=== PATIENT | female | born 1975 | race African-American/Black ===

== ENCOUNTER 2025-01-10 | Inpatient (IN) | payer OTHER, SELFPAY ==
--- OUTSIDE RECORDS SUMMARY | 2025-01-10 00:06 | XMS_ITS | Clinical Summary ---
Author Organization [facility] Address [address] [place] [address] Care Team Providers Care Assistant Pressman Name Role Phone Moises Ramires APRN Primary Care Provider Allergies No known active allergies Medications Medication Sig Dispensed Refills Start Date End Date Status atorvastatin (LIPITOR) tablet 10 mg Take 1 tablet (10 mg total) by mouth daily. 0 04/11/2022 Active glipiZIDE (GLUCOTROL) tablet 10 mg Take 1 tablet (10 mg total) by mouth. 0 Active Insulin Lispro, 1 Unit Dial, (HumaLOG KWIKPEN) 100 UNIT/ML SOPN Inject under the skin. 0 06/05/2021 Active Insulin Lispro-aabc 100 UNIT/ML SOLN Inject as directed. 0 Active mirtazapine (REMERON) 15 MG tablet Take 1 tablet (15 mg total) by mouth. 0 04/18/2022 Active oxyCODONE-acetaminophe n (PERCOCET) 5-325 MG per tablet Every 6-8 Hours as needed for Severe Pain Scale 7-10 0 08/02/2020 Active sulfamethoxazole-trime thoprim (BACTRIM DS) 800-160 MG per tablet Twice A Day 0 05/07/2020 Ac tive Active Problems No known active problems Social History Tobacco Use Types Packs/Day Years Used Date Smoking Tobacco: Former Cigarettes Smokeless Tobacco: Never Tobacco Cessation:Counseling Given: Not Answered Comments:Quit smoking 22 years ago Alcohol Use Standard Drinks/Week Comments Not Currently 0 (1 standard drink = 0.6 oz pur e alcohol) Sex and Gender Information Value Date Recorded Sex Assigned at Not on file Gender Identity Not on file Sexual Orientation Not on file Job Start Date Occupation Industry Not on file Not on file Not on file Last Filed Vital Signs Vital Sign Reading Time Taken Comments Blood Pressure 105/76 07/23/2022 11:40 AM EST Pulse 119 07/23/2022 11:40 AM EST Temperature 37.2 ??C (99 ??F) 07/23/2022 11: 40 AM EST Respiratory Rate - - Oxygen Saturation 100% 07/23/2022 11: 40 AM EST Inhaled Oxygen Concentration - - Weight 43.6 kg (96 lb 3.2 oz) 07/23/2022 11:40 AM EST Height 157.5 cm (5' 2 ) 07/23/2022 11:4 0 AM EST stated- unable to do weight due to weakness Body Mass Index 17.6 07/23/2022 11:40 AM EST Plan of Treatment Health Maintenance Due Date Last Done Comments Hepatitis B Vaccines (1 of 3 - 3-dose series) 1976 Hepatitis C Screening 1976 Depression Screening 1988 Preventative Health Evaluation 1994 Cervical Cancer Screening (Pap Smear) 1997 Colon Cancer Screening (Colonoscopy) 2021 COVID-19 Vaccine ( season) 2024 04/18/2022, 10/15/2021, 03/20/2021, Additional history exists Influenza Vaccine (Season Ended) 2025 06/22/2022 DTap / Tdap / Td (2 - Td or Tdap) 12/13/2030 12/13/2020 Pneumococcal Vaccine Aged Out No long er eligible based on patient's age to complete this topic RSV Ped < 20 months Aged Out No longe r eligible based on patient's age to complete this topic Care Teams Assistant Pressman Relationship Specialty Start Date End Date Moises Ramires APRN [address] [place] [address] PCP - General Family Medicine 07/23/22
[2025-01-10 00:47] VITALS: BMI 19.3
[2025-01-10 01:42] VITALS: BP 99/61; PULSE 84; RESP 18; TEMP 36.9; O2SAT 99
[2025-01-10] MEDS: methADONE HCl 10 MG TABLET 20 MG PO (02:01)
[2025-01-10 02:12] LABS: Glucose, Whole Blood 599 mg/dL (60-115)
[2025-01-10 03:12] LABS: MANUAL DIFF FLAG NO
[2025-01-10 03:14] LABS: Venous Blood Gas Refer to POC result
[2025-01-10 03:16] LABS: VBG Base Excess -1.5 mmol/L; VBG HCO3 23 mmol/L (22-26); VBG pCO2 37 mmHg; VBG pH 7.39 (7.32-7.43); VBG pO2 81 mmHg
[2025-01-10 03:18] LABS: Basophils Percent Auto 0.3 % (0-2); Eosinophils Absolute Auto 0.1 X10*3/uL (0.0-0.4); Eosinophils Percent Auto 1.6 % (0-4); Hematocrit 25.8 % (37.0-47.0); Hemoglobin 8.7 g/dl (12.0-16.0); Imm Gran Abs Auto 0.01 X10*3/uL (0.00-0.03); Imm Gran Pct Auto 0.3 % (0.0-0.4); Lymphocytes Absolute Auto 0.8 X10*3/uL (1.2-4.9); Lymphocytes Percent Auto 22.5 % (20-40); Mean Corpuscular HGB Conc 33.7 g/dl (31.0-35.0); Mean Corpuscular Hemoglobin 29.2 pg (27.0-33.0); Mean Corpuscular Volume 86.6 fL (80.0-98.0); Mean Platelet Volume 10.1 fL (9.4-12.3); Monocytes Absolute Auto 0.1 X10*3/uL (0.1-1.2); Neutrophils Absolute Auto 2.7 x10*3/uL (2.0-8.3); Neutrophils Percent Auto 72.3 % (45-73); Platelet Count 111 X10*3/uL (160-400); Red Blood Count 2.98 X10*6/uL (4.20-5.50); Red Cell Distribution Width 15.2 % (11.0-16.0); White Blood Count 3.7 X10*3/uL (4.8-10.8)
[2025-01-10] MEDS: Insulin Glargine,Hum.rec.anlog 100 UNIT/ML 10 ML VIAL 10 UNIT SUBCUT (03:22)
[2025-01-10 03:32] LABS: Beta-Hydroxybutyrate 0.34 mmol/L (0.02-0.27)
[2025-01-10 03:40] LABS: Anion Gap 13 (12-20); Blood Urea Nitrogen 15 mg/dL (9-16); Calcium 8.4 mg/dL (8.4-10.2); Carbon Dioxide 21 mmol/L (22-29); Chloride 105 mmol/L (96-108); Creatinine Clr Calc Pharmacy 43.7; Estimated Glomerular Filt Rate 48; Glucose Random 676 mg/dL (60-115); Potassium 3.5 mmol/L (3.3-5.1); Sodium 135 mmol/L (135-145)
[2025-01-10] MEDS: Lactated Ringers 1,000 ML 125 ML IVCONT (04:00)
--- NOTE | 2025-01-10 04:08 | PC.ADMIT ---
Patient was an admission from [facility]. arrived at 0010 via ambulance and had to be placed into bed due to generalized weakness. 12B. on arrival patient reported ''they lied to me at [facility], I thought I was being medically admitted'' soon after arrival patient's called and asking why patient had been placed on a behavioral health unit as he had been informed that she was being medically admitted. patient identified grief as she had just lost her brother but denied SI. Skin assessment reveals extensive and deep decubitus ulcer with HX of chronic osteomyelitis. wound with some drainage, foul smelling and reports of pain 10/10. patient with medical HX of generalized anxiety, systemic lupus erythematosus, type B autoimmune insulin resistance, myelofibrosis with associated pancytopenia, diabetic gastroparesis, multilple recurrent C. difficile infections, cachexia and chronic pain syndrome. since arrival focus has been on patient's medical needs about pain management and glucose control. due to physical status patient will be discharged from behavioral health services and will be admitted medically.
--- NOTE | 2025-01-10 04:34 | PC.NURSE ---
POC 599 at 0207. Hospitalist, Dr. Moy notified. Lispro 15 units x1 ordered, along with lantus 10 units. Labs ordered. Pt refused lispro, stating her blood sugar drops to the 30s when she takes insulin during the night, but she accepted the lantus. POC by lab draw 676 at 0308. Lactated Ringers ordered. RN animal cruelty investigation supervisor contacted and came to unit to start IV; 20 g placed in upper left arm. Pt will be moved to med surg due to hyperglycemia and insulin refusal. Kalpana Talamantes NP notified to put in d/c order.
--- NOTE | 2025-01-10 06:10 | PC.NURSE ---
Voicemail left for pt's , Ernesto, notified of transfer to medical floor, rm [id number], per pt's request.
[2025-01-10 08:57] LABS: Glucose, Whole Blood 549 mg/dL (60-115)
== END 2025-01-10 05:56 | disposition short-term general hospital (02) | DRG 880 ==
PROVIDERS: Student in an Organized Health Care Education/Training Program; Admitting Provider Psychiatry & Neurology Psychiatry; PCP Nurse Practitioner; Visit Provider Psychiatry & Neurology Psychiatry
DX: F41.1 Generalized anxiety disorder (principal); M32.9 Systemic lupus erythematosus, unspecified; E11.9 Type 2 diabetes mellitus without complications; Z79.891 Long term (current) use of opiate analgesic; Z79.4 Long term (current) use of insulin; Z79.899 Other long term (current) drug therapy
CPT/HCPCS: 36415; 80048; 82010; 82803; 82947; 85025; J7120

== ENCOUNTER → 2025-01-10 05:36 | Outpatient (BNV) | payer MEDICARE, SELFPAY | PROVIDERS: Admitting Provider Student in an Organized Health Care Education/Training Program; Visit Provider Nurse Practitioner Family | DX: R73.9 Hyperglycemia, unspecified (principal) | CPT/HCPCS: 99223; 99231; 99232; 99499 ==

== ENCOUNTER 2025-01-10 05:45 | Outpatient (BNV) | payer MEDICARE, SELFPAY | END 2025-01-18 18:31 | PROVIDERS: Admitting Provider Student in an Organized Health Care Education/Training Program; PCP Nurse Practitioner Family; Visit Provider Student in an Organized Health Care Education/Training Program | DX: G93.89 Other specified disorders of brain (principal) | CPT/HCPCS: 70450 ==

== ENCOUNTER 2025-01-10 05:45 | Outpatient (BNV) | payer MEDICARE, SELFPAY | END 2025-01-21 13:45 | PROVIDERS: Admitting Provider Student in an Organized Health Care Education/Training Program; PCP Nurse Practitioner Family; Visit Provider Internal Medicine Cardiovascular Disease | DX: R94.31 Abnormal electrocardiogram [ECG] [EKG] (principal); R40.20 Unspecified coma | CPT/HCPCS: 93010 ==

== ENCOUNTER 2025-01-10 05:45 | Outpatient (BNV) | payer MEDICARE, SELFPAY | END 2025-01-10 08:49 | PROVIDERS: Admitting Provider Student in an Organized Health Care Education/Training Program; Visit Provider Internal Medicine Cardiovascular Disease | DX: R94.31 Abnormal electrocardiogram [ECG] [EKG] (principal); Z13.6 Encounter for screening for cardiovascular disorders | CPT/HCPCS: 93010 ==

== ENCOUNTER 2025-01-10 05:45 | Outpatient (BNV) | payer MEDICARE, SELFPAY | END 2025-01-23 10:40 | PROVIDERS: Admitting Provider Student in an Organized Health Care Education/Training Program; PCP Nurse Practitioner Family; Visit Provider Radiology Diagnostic Radiology | DX: D73.89 Other diseases of spleen (principal) | CPT/HCPCS: 74176 ==

== ENCOUNTER 2025-01-10 05:45 | Inpatient (IN) | payer MEDICARE, SELFPAY ==
--- NOTE | 2025-01-10 | ECG_ITS ---
Test Reason : admission Blood Pressure : */* mmHG Vent. Rate : 83 BPM Atrial Rate : 83 BPM P-R Int : 152 ms QRS Dur : 92 ms QT Int : 418 ms P-R-T Axes : 61 41 62 degrees QTcB Int : 491 ms Normal sinus rhythm Prolonged QT Abnormal ECG No previous ECGs available Referred By: Amelia Parker Electronically Signed By: GAYLE GARCIA MD
--- NOTE | ~2025-01-10 | CT_ITS ---
CLINICAL HISTORY: Acute unresponsive episode --- Additional Notes or Special Instructions: Pt refused until she eats lunch - JMR 12:00; Pt still refusing and wants to try after dinner - JMR 16:25 CT head without contrast Comparison: CT/SR - CT HEAD/BRAIN WO IV CON - 01/15/25 14:49 EDT Findings: Redemonstration of central pontine focus of hyperdensity with interval decrease in density. No surrounding vasogenic edema. Small focus of hyperdensity within the left-sided medulla is unchanged. Mild atrophy-like change or white matter disease. The visualized paranasal sinuses and mastoid air cells are normal. The orbits are within normal limits. There is no acute fracture. IMPRESSION: 1. Redemonstration of central pontine focus of hyperdensity with interval decrease in density. No surrounding vasogenic edema. Small focus of hyperdensity within the left-sided medulla is unchanged. Resolving parenchymal hemorrhage can not be excluded. Correlate with older studies is recommended if available, otherwise MRI brain without contrast can be obtained for further evaluation. This document has been electronically signed by: Kurtis Beltre MD on 01/18/2025 20:24:04
--- NOTE | ~2025-01-10 | XR_ITS ---
CLINICAL HISTORY: fall 5 view, pelvis and bilateral hips Comparison: None Findings: No acute fracture or dislocation. No significant arthritic change. The soft tissues are unremarkable. IMPRESSION: No acute findings. This document has been electronically signed by: Jana Chavez MD on 01/15/2025 15:55:01
--- NOTE | ~2025-01-10 | CT_ITS ---
EXAMINATION: CT ABDOMEN PELVIS WITHOUT IV CONTRAST HISTORY: Abdominal pain, n/v COMPARISON: There are no prior studies available for comparison. TECHNIQUE: CT scan of the abdomen and pelvis was performed without contrast using standard departmental protocol. Coronal and sagittal reformatted images were generated and reviewed. Oral contrast material was not administered at the request of the referring physician. This CT exam was performed with one or more of the following dose reduction techniques: automated exposure control, adjustment of the mA and/or kV according to patient size, use of iterative reconstruction technique. DLP: 319 mGy-cm FINDINGS: The examination is severely limited by a paucity of intra-abdominal fat and lack of intravenous and oral contrast material. LOWER CHEST: The visualized lung bases are clear. There is no pleural effusion. CARDIOVASCULATURE: The heart is normal in size. There is no pericardial effusion. LIVER: The liver is normal in size and contour. The liver has an unremarkable unenhanced appearance. GALLBLADDER / BILE DUCTS: The gallbladder is unremarkable. There is no intra or extrahepatic biliary ductal dilatation. SPLEEN: The spleen is normal in size. There is a 3.0 cm hypodense lesion at the upper pole of the spleen which is poorly evaluated on this unenhanced examination. PANCREAS: Evaluation of the pancreas is limited. ADRENAL GLANDS: The adrenals are not well visualized. KIDNEYS/RETROPERITONEUM: There are numerous tiny bilateral renal calculi measuring up to 2-3 mm in size. There is mild prominence of the right renal collecting system. The ureter cannot be followed due to lack of intra-abdominal fat. LYMPH NODES: Evaluation for lymphadenopathy is limited. VASCULATURE: The abdominal aorta is poorly visualized. MESENTERY/PERITONEUM: There is no free intraperitoneal gas. STOMACH: The stomach is distended with fluid. SMALL BOWEL: The small bowel is poorly evaluated due to lack of intravenous and oral contrast and a paucity of abdominal fat. COLON: The colon is also poorly visualized. APPENDIX: The appendix is not seen, however no inflammatory changes are seen adjacent to the cecum. URINARY BLADDER/PELVIC ORGANS: The urinary bladder is collapsed, limiting evaluation. The uterus is not identified. BONES / SOFT TISSUES: The bones are intact. CT/CT abdomen pelvis wo IV con IMPRESSION: 1. Nondiagnostic examination due to a paucity of intra-abdominal fat and lack of intravenous and oral contrast material. If there is clinical concern for pathology in the abdomen and pelvis, a repeat study with intravenous and oral contrast material could be performed. 2. 3.0 cm hypodense lesion in the spleen. 3. Bilateral nephrolithiasis. Mild prominence of the right renal collecting system. Electronically signed by: Marlon Segura MD 01/23/2025 12:24 PM EDT
--- NOTE | ~2025-01-10 | MR_ITS ---
CLINICAL HISTORY: Dizziness,syncope --- Additional Notes or Special Instructions: requested by Chavez MR Angiography head with and without gadolinium Comparison: None provided Findings Widely patent intracranial internal carotid arteries. Vertebrobasilar system intact. Anterior, middle, and posterior cerebral arteries are normal. Visualized cerebellar arteries are patent. IMPRESSION: Normal MRA brain This document has been electronically signed by: Kraig Galvan MD on 01/20/2025 18:59:52
--- NOTE | ~2025-01-10 | CT_ITS ---
CLINICAL HISTORY: fall CT cervical spine without contrast Comparison: None Findings: Normal vertebral body alignment. There are mild degenerative changes. There is no significant central canal narrowing. No acute fractures or dislocations. No acute findings on limited view of the intracranial contents. No cervical fluid collections or masses. Lung apices are clear. IMPRESSION: No acute cervical spine fracture. This document has been electronically signed by: Jana Chavez MD on 01/15/2025 15:55:24
--- NOTE | ~2025-01-10 | MR_ITS ---
CLINICAL HISTORY: dizziness, rule vertibrobasilar MR Angiography neck with and without gadolinium Comparison: None provided Findings: Visualized aortic arch and great vessel takeoffs are normal. Bilateral subclavian, visualized vertebral, and carotid arteries are patent. The right vertebral artery is difficult to fully evaluate given the extent of venous contamination. The visualized segments appear patent. Unremarkable visualized vertebrobasilar arteries. IMPRESSION: Normal MRA neck This document has been electronically signed by: Kraig Galvan MD on 01/20/2025 19:03:00
--- NOTE | ~2025-01-10 | CT_ITS ---
EXAMINATION: CT ABDOMEN PELVIS WITH IV CONTRAST HISTORY: Abdominal pain, N/V, COMPARISON: Comparison is made with the prior unenhanced examination dated 01/23/2025. TECHNIQUE: CT scan of the abdomen and pelvis was performed following administration of 85 mL Omnipaque 350 using standard departmental protocol. Coronal and sagittal reformatted images were generated and reviewed. Oral contrast material was not administered at the request of the referring physician. This CT exam was performed with one or more of the following dose reduction techniques: automated exposure control, adjustment of the mA and/or kV according to patient size, use of iterative reconstruction technique. DLP: 215 mGy-cm FINDINGS: LOWER CHEST: The visualized lung bases are clear. There is no pleural effusion. CARDIOVASCULATURE: The heart is normal in size. There is no pericardial effusion. LIVER: The liver is normal in size and contour. There is a 10 mm hypodensity at the anterior aspect of the dome of the left lobe which could represent a cyst or hemangioma. The hepatic and portal veins are patent. GALLBLADDER / BILE DUCTS: The gallbladder is unremarkable. There is no intra or extrahepatic biliary ductal dilatation. SPLEEN: The spleen is normal in size. There is a lobulated 3.0 cm hypodensity at the upper pole of the spleen. A smaller similar-appearing lesion is also noted at the upper pole. PANCREAS: The pancreas is unremarkable in appearance. ADRENAL GLANDS: Within normal limits. KIDNEYS/RETROPERITONEUM: There are multiple tiny 2-3 mm nonobstructing bilateral renal calculi. There is no hydronephrosis. Tiny subcentimeter hypodensities in the right kidney may represent cysts but are small to accurately characterize. LYMPH NODES: No abdominal or pelvic lymphadenopathy. VASCULATURE: The abdominal aorta is normal in caliber. MESENTERY/PERITONEUM: No free fluid. No masses. There is no free intraperitoneal gas. STOMACH: The stomach is partially collapsed. SMALL BOWEL: The small bowel is normal in caliber. No evidence of bowel obstruction. COLON: There is a moderate amount of stool throughout the colon. APPENDIX: The appendix is not seen. URINARY BLADDER/PELVIC ORGANS: The urinary bladder is unremarkable. The uterus is unremarkable. BONES / SOFT TISSUES: There is a decubitus ulcer overlying the lower sacrum. CT/CT abdomen pelvis w IV con IMPRESSION: 1. Moderate amount of stool throughout the colon. No evidence of bowel obstruction. 2. Decubitus ulcer overlying the sacrum. 3. Bilateral nephrolithiasis as described. No hydronephrosis. 4. Nonspecific hypodensities in the liver and spleen. Electronically signed by: Marlon Segura MD 01/24/2025 10:35 AM EDT
--- NOTE | ~2025-01-10 | CT_ITS ---
CLINICAL HISTORY: fall CT head without contrast Comparison: None Findings: No intra-axial mass, midline shift, hydrocephalus, or acute hemorrhage. Mild peripheral volume loss. No significant white matter disease. There are foci of intraparenchymal calcification within the mikey and medulla. There is no sinus or mastoid fluid. The orbits are within normal limits. There is no acute fracture. IMPRESSION: 1. No acute intracranial findings. This document has been electronically signed by: Jana Chavez MD on 01/15/2025 15:58:42
--- NOTE | 2025-01-10 05:52 | PM.IMHP ---
History of Present Illness Date of Service: 01/10/25 Attending physician on admission: Sanjiv Moy Chief Complaint: Hyperglycemia Patient is a 49-year-old black female with past medical history insulin-dependent diabetes type 2, major depressive disorder, general anxiety disorder, daily marijuana use, currently on methadone for pain control, a current chronic stage 4 sacral wound with history of osteomyelitis, lupus, myelofibrosis with the associated pancytopenia, diabetic gastroparesis, recurrent C diff infections currently asymptomatic, is being seen by the hospitalist for hyperglycemia while an inpatient on M5 for psychiatric care, without evidence of DKA, more likely HHS. Questioning if hyperglcyemia related to chronic sacral wound. Patient is currently on the psychiatric unit after being at [facility] as patient was found unresponsive at home with concerns for DKA. During patient's stay at [facility], patient had been dealing with the passing of her brother most recently and expressed concerns about being able to care for herself due to her level of grief. Emergency psychiatric services were consulted for further evaluation. In addition patient has been noncompliant with her psychiatric medications in the remote past. Upon discharge from [facility], patient was transferred to [facility] Psychiatric unit on a section 12 b for further evaluation. Patient currently denies any suicidal ideation. Patient currently requesting to leave the hospital as soon as possible as her child is graduating from school and she plans to attend her brother's . Nursing notified this customs entry writer that patient is currently on a section 12 b. Noting that patient is being transferred from psychiatric unit to [facility] surgical floor, psychiatry consult will be requested to continue to monitor and follow patient for her current psychiatric needs. Pt will be on a one to one and understands that she cannot leave [facility]. Initially patient refused lispro insulin noting her blood sugar was over 600. Labs were drawn at 03:00 AM and patient noted to have a leukopenia with a evidence of anemia with an H&H of 8.7 and 25.8. Platelets at 111,000 with no evidence of spontaneous bleeding. BMP notes a sodium of 135, potassium 3.5, chloride 105, CO2 21 with an anion gap of 13. Creatinine 1.19 with a creatinine clearance of 43.7 and a GFR of 48. Highest glucose so far 676 mg/dL. Patient does have a chronic sacral wound with previous osteomyelitis. This may be contributing to patient's hyperglycemia. Patient's beta hydroxybutyrate is 0.34. Pt currently in the process of transferring to Medical Surgical floor and will receive Lantus, Lispro as pt is now agreeable. Pt will continue IVF as ordered. Patient expressed concerns regarding hypoglycemia if she receives too much insulin. Plan is to add regular insulin x1 an hour after the lispro. Blood sugar will be checked 1st and if less than 250, nursing instructed to notify hospitalist for further instructions. [facility] does not carry the Humulin R insulin pt uses at home. Pt is not currently on GLP 1 injections. Wound care consultation also being placed for noted chronic, opened sacral wound. Review of Systems Review of Systems: Patient denies any chest pain, shortness of breath at rest or with exertion. Patient denies any headache or visual changes. Patient denies any frequent urination, thirst and reports appetite is healthy. Patient does experience chronic pain related to her sacral decubitus ulcer. Patient has been taking methadone since arrival to [facility] with moderate effect. Yes all other systems are reviewed and are negative [facility] Medical History (Updated 01/10/25 @ 06:02 by LANETTE Johnson) Generalized anxiety disorder Major depressive disorder Sacral decubitus ulcer, stage IV Chronic pain Lupus (systemic lupus erythematosus) Insulin dependent type 2 diabetes mellitus Functional capacity: independent ambulation Patient : No Pertinent family history: Mother age 48 from complications due to diabetes Social History (Updated 01/10/25 @ 06:13 by LANETTE Johnson) Household Members: Spouse Housing: Apartment Do you presently have visiting nurse or other home services: No Patient Tobacco Use Status: Never used Tobacco e-Cigarette/Vaping Use: Never Used Second Hand Smoke Exposure: No Use of substances other than those prescribed or required for medical reasons: Yes Substance Use Type: Marijuana Advance Directives: No Advance Directives Information Provided: No Advance Directives on File: No Patient : No Ebola Risk: Travel/Contact With Anyone From Affected Area/s: No Has Patient Experienced Ebola Symptoms: No Meds Allergies Allergy/AdvReac Type Severity Reaction Status Date / Time acetaminophen Allergy Swelling Verified 01/10/25 00:40 atorvastatin Allergy Unknown Verified 01/10/25 00:40 duloxetine Allergy Unknown Verified 01/10/25 00:40 fish derived [fish] Allergy Swelling Verified 01/10/25 00:40 Active Medications: Current Medications Albuterol/Ipratropium (Albuterol/Iprat 2.5/0.5mg 3 Ml Ampul.Neb) 3 ml INHALE Q4H PRN PRN Reason: Shortness of Breath/Wheezing Calcium Carbonate (Calcium Carbonate 750 Mg Tab.Chew) 750 mg PO Q4H PRN PRN Reason: Heartburn Dextrose (Dextrose 50 % 25 Gm/50 Ml Syringe) 25 gm IVPUSH Q15M PRN; Protocol PRN Reason: per Hypoglycemia Standing Ord. Enoxaparin Sodium (Enoxaparin Sodium 40 Mg/0.4 Ml Syringe) 40 mg SUBCUT Q24H LIU Glucose (Glucose Gel 15 Gm Gel..Gram.) 15 gm PO Q15M PRN; Protocol PRN Reason: per Hypoglycemia Standing Ord. Lactated Ringer's (Lr) 1,000 mls @ 100 mls/hr IVCONT .Q10H [facility] Insulin Glargine (Insulin Glargine,Hum.Rec.Anlog 100 Unit/Ml 10 Ml Vial) 10 unit SUBCUT BEDTIME LIU Insulin Human Lispro (Insulin Lispro 100 Unit/Ml 3 Ml Vial) 0 unit SUBCUT QIDACHS [facility]; Protocol Insulin Human Lispro (Insulin Lispro 100 Unit/Ml 3 Ml Vial) 12 unit SUBCUT ONCE ONE Stop: 01/10/25 05:51 Magnesium Hydroxide (Milk Of Magnesia 30 Ml Oral.Susp) 30 ml PO DAILY PRN PRN Reason: Constipation Melatonin (Melatonin 3 Mg Tablet) 6 mg PO BEDTIME PRN PRN Reason: Insomnia Ondansetron HCl (Ondansetron Hcl 4 Mg/2 Ml Vial) 4 mg IVPUSH Q8H PRN PRN Reason: Nausea and Vomiting Polyethylene Glycol (Polyethylene Glycol 3350 17 Gm Powd.Pack) 17 gm PO DAILY PRN PRN Reason: Constipation Senna (Sennosides 8.6 Mg Tablet) 17.2 mg PO BEDTIME [facility] Sodium Chloride (0.9 % Sodium Chloride Flush 3 Ml Syringe) 3 ml IVFLUSH QSHIFT [facility] Home Medications ?Medication ?Instructions ?Recorded ?Confirmed ?Last Taken ?Type fludrocortisone 0.1 mg tablet 0.1 mg PO DAILY 01/10/25 01/10/25 01/09/25 12:01 History fluoxetine 20 mg capsule 20 mg PO DAILY 01/10/25 01/10/25 01/09/25 12:01 History hydroxychloroquine 200 mg tablet 200 mg PO QAM 01/10/25 01/10/25 01/09/25 12:13 History hydroxyzine pamoate 25 mg capsule 25 mg PO QID PRN anxiety 01/10/25 01/10/25 Unknown History insulin regular hum U-500 conc 500 700 unit subcut TIDAC 01/10/25 01/10/25 01/09/25 14:32 History unit/mL(3 mL) subcut pen (Humulin R U-500 (Conc) Insulin Kwikpen) methadone 10 mg tablet 20 mg PO TID PRN Pain (Scale Score 01/10/25 01/10/25 Unknown History 7-10) midodrine 10 mg tablet 10 mg PO TID 01/10/25 01/10/25 01/09/25 18:52 History mirtazapine 7.5 mg tablet 22.5 mg PO BEDTIME 01/10/25 01/10/25 Unknown History pioglitazone 45 mg tablet 45 mg PO QAM 01/10/25 01/10/25 01/09/25 12:01 History Physical Exam Vital Signs and Narrative: Vital Signs: Alert and orientated X3, able to give good history. Patient cooperative with care Neuro: CN II-X11 intact, no deficits, visual acuity intact EYES: PERRLA, EOM intact, conjunctiva pink, sclera nonicteric ENT: hearing intact, no issues with swallowing, uvula midline, lips moist, nares patent no epistaxis, patient is edentulous Cardiac: S1 S2 RRR, no murmur, no JVD, no edema in Lower ext Pulmonary: lungs clear to ausculation B Abdominal: BS active in all 4 quadrants, no guarding, tenderness, rebounding MSK: strength 5/5 upper and lower extremities : no CVA tenderness no bladder distension Extremities: no edema in lower extremities, PT and DP pulses palpable +2 Psych: mood mildly anxious, judgement and insight fair Skin: Stage IV opened sacral wound Results ECG Prior ECG tracings: not available for review Assessment and Plan (1) Hyperglycemia: Status: Acute Plan Patient is a 49-year-old black female with past medical history insulin-dependent diabetes type 2, major depressive disorder, general anxiety disorder, daily marijuana use, currently on methadone for pain control, a current unstageable sacral wound with history of osteomyelitis, lupus, myelofibrosis with the associated pancytopenia, diabetic gastroparesis, recurrent C diff infections currently asymptomatic is being transferred from the psychiatric unit and admitted to the medical-surgical floor for noted hyperglycemia without evidence of DKA. Patient initially reluctant to start lispro insulin but after review with patient for admission, patient is now agreeable. Hyperglycemia/ HHS with known insulin-dependent diabetes type 2 -Patient currently tolerating IV fluids, continue at current rate -Long-acting insulin ordered, 10 U based on current wt -Sliding scale insulin/ ACHS BG checks also ordered with 1 time dose of Lispro upon transfer -A1c pending, beta hydroxy butyrate in elevated -UA pending -BMP reassuring as CO2 is 21, anion gap is closed. Renal function stable, Stage IV sacral wound with history of osteomyelitis -Wound care consultation ordered -Turn and reposition every 2 hours when awake -ID consultation ordered -Patient does state she has been following with the [facility] in the outpatient setting. Unable to confirm this. -Optimize nutrition, glucerna shakes ordered, nutritional consult ordered Anemia -HGB up to 8.7, was 8.4 at [facility] -Monitor CBC daily Pancytopenia (chronic) -Leukopenia, Thrombocytopenia, and Anemia noted -Levels stable -Monitor CBC daily Chronic pain -Patient currently on methadone for chronic pain management, no history of substance use disorder -Avoid IV narcotics -Unable to provide Tylenol due to adverse effects including swelling Major depressive disorder with general anxiety disorder -Psychiatry consulted -Patient is on a section 12 be and can not leave AMA -One-to-one ordered for constant observation. Patient currently grieving the loss of her brother. -Patient is not currently suicidal or admitting to suicidal ideations DVT prophylaxis: Lovenox PPI prophylaxis: Omeprazole Med rec pending Full Code status Patient currently on a 12 the is unable to leave the hospital AMA. One-to-one constant observation ordered. Quality Stroke Does the patient have a stroke diagnosis?: No Reason for No Anti-thrombotic by Day Two: N/A - Med Ordered VTE Prior VTE?: No VTE Risk Level:: Medical - moderate - high VTE Device Contraindication: N/A - Device Ordered VTE Drug Contraindication: N/A - Med Ordered
[2025-01-10 06:13] VITALS: BMI 19.4
[2025-01-10] MEDS: methADONE HCl 10 MG TABLET 20 MG PO (06:55)
[2025-01-10] MEDS: Insulin Lispro 100 UNIT/ML 3 ML VIAL 12 UNIT SUBCUT (06:56)
[2025-01-10] MEDS: Insulin Regular, Human 100 UNIT/ML 10 ML VIAL 10 UNIT IVPUSH (06:57)
--- NOTE | 2025-01-10 07:17 | HO.SKINPHOTO ---
Location: sacrum Category: pressure Stage: IV Length: Width: Depth: cm Location: Category: Stage: Length: Width: Depth: cm Location: Category: Stage: Length: Width: Depth: cm Location: Category: Stage: Length: Width: Depth: cm Location: Category: Stage: Length: Width: Depth: cm Location: Category: Stage: Length: Width: Depth: cm
[2025-01-10 07:36] LABS: Glucose, Whole Blood 493 mg/dL (60-115)
[2025-01-10 07:55] VITALS: BP 169/94; PULSE 80; RESP 18; TEMP 36.2; O2SAT 98
[2025-01-10] MEDS: Insulin Lispro 100 UNIT/ML 3 ML VIAL SUBCUT ×5 (08:10→17:17)
[2025-01-10 08:32] LABS: Hemoglobin A1c % > 14.0 % (<6.0)
[2025-01-10 08:41] LABS: Creatinine Clr Calc Pharmacy 48.5; Estimated Glomerular Filt Rate 54; Magnesium 1.5 mg/dL (1.6-2.6)
[2025-01-10 08:57] LABS: Free T4 (Free Thyroxine) 1.03 ng/dL (0.71-1.85); Thyroid Stimulating Hormone 0.92 uIU/mL (0.32-4.0)
[2025-01-10 09:25] LABS: Glucose, Whole Blood 507 mg/dL (60-115)
[2025-01-10] MEDS: Insulin Regular, Human 100 UNIT/ML 10 ML VIAL 15 UNIT IVPUSH ×3 (09:45→17:16)
[2025-01-10] MEDS: Magnesium Sulfate/H2O 2 GM/50 ML PIGGYBACK IV (09:45)
[2025-01-10] MEDS: Enoxaparin Sodium 40 MG/0.4 ML SYRINGE SUBCUT (09:46)
[2025-01-10] MEDS: 0.9 % Sodium Chloride Flush 3 ML SYRINGE IVFLUSH ×2 (09:50→17:25)
[2025-01-10 10:41] LABS: Glucose, Whole Blood 487 mg/dL (60-115)
--- NOTE | 2025-01-10 10:50 | MHC.CM.PN ---
Addendum entered by Gisell Morgan RN 01/10/25 15:06: *Correction - patient is admitted observation. SANDERS was delivered. Original Note: IMM delivered. Patient comes to unit from . Lives in a home w/ and adult son/2 dtrs. Ambulates w/ cane & walker, uses w/c in community. assists w/ ADL's PRN. Chronic sacral wound - reports she manages independently. No wound clinic or VNA, does not assist. On methadone for pain - she believes her metal cans supervisor prescribes this. PCP Moises Ramires, STEV[facility] @ [facility] Reports she has an HCP listing her , Ernesto, as HCA. Copy requested. DP: Goal is home w/ new VNA for wound care/diabetic teaching. No preference to agency. Will need CARE team eval when medically cleared to determine if patient should return to [facility]. Denies SI at this time. Family transport. CM will continue to follow.
[2025-01-10] MEDS: Insulin Glargine,Hum.rec.anlog 100 UNIT/ML 10 ML VIAL 10 UNIT SUBCUT (11:19)
[2025-01-10 11:23] VITALS: BP 111/70; PULSE 92; RESP 18; TEMP 36.5; O2SAT 98
[2025-01-10 12:27] LABS: Glucose, Whole Blood 441 mg/dL (60-115)
[2025-01-10 13:13] LABS: Appearance Urine Clear; Color Urine Yellow; Glucose Urine UA >=1000 mg/dL (Negative); Leukocyte Esterase Urine Small (1+) (Negative); Nitrite Urine Positive (Negative); PH 6.5 (5.0-9.0); UMIC TRIGGER UA YES; Urine Blood Trace (Negative); Urine Ketones Negative (Negative); Urine Protein Trace mg/dL (Neg-Trace)
[2025-01-10 13:15] LABS: Bacteria Urine 4+ (None Seen); Hyaline Casts Urine 0-2 /LPF (0-2); Squamous Epithelial Cell Urine 0-2 /HPF (0-2)
[2025-01-10 13:22] VITALS: BMI 19.4
--- NOTE | 2025-01-10 13:25 | MHC.CLN ---
CONSULT PT WITH INCREASED NUTRITION RISK R/T PRESSURE INJURY DIET RX: 2000DM -RECOMMEND 1800DM DIET R/T 14% A1C LEVEL RECOMMEND ADDING ENSURE MAX BID TO PROMOTE WOUND HEALING SUPP TO PROVIDE 300KCALS, 60G PROTEIN MONITOR PO INTAKE AND ENCOURAGE SUPPLEMENT SEE FULL NUTRITION ASSESSMENT
--- NOTE | 2025-01-10 14:09 | HO.WOUND ---
Addendum entered by Lucy Lauren RN 01/12/25 16:21: Wound Consult: Follow up No new topical recommendations needed at this time. Patient was provided education on how to perform self care incase she was not SNF / Rehab eligable and did not get approved for VNA services. She was not agreeable to having her learn how to perform the dressing and wound packing. She was advised and demonstrated on this insurance writer how to perform the washing and dressing change on her self. She reported understanding. She would benefit from VNA services if discharging to home. Coccyx / Sacrum Etiology: ??Stage 4 Pressure Injury Present on Admission Wound Bed: pink and yellow slough Drainage / Odor: no odor noted at this time Edges: ? Improving macerated and unattached undermining noted from 7-3 o'clock 2.5cm Wilma wound: ? Improving Full thickness tissue loss maceration and firm swelling / induration noted - erythema observed and no fluctuance noted Pain: extreme pain reported Goals of Treatment: ? Durafiber packing Attempted to educate patient on impacts of blood glucose control on wound healing - patient verbally reported understanding but reports the fact that her blood glucose levels are in the 300 compared to 500/600 should be an improvement. We discussed how beneficial that is but that her body continues to need her blood sugar to be with in the normal range. She did not seem to understand. Original Note: Wound Consult: Initial 49yr old?female admitted to [facility] on 01/10/25 - See progress notes and H&P for detailed history.? Wound consult placed for Coccyx / Sacral wound.? Patient agreeable to assessment and photo documentation.? Patient reports she has been caring for it herself at home. She reports she used to have VNA services but per her insurance compamy she has run out of those services. She reports she has been covering it at home with a foam dressing. She denies packing in over one week. She reports bowel incontinence at all times. She wears a brief. Of note the perineal and perianal area is noted for thickened tissue with firm swelling vs induration and significant MASD. The induration could be explained by the chronic MASD but provider will assess. Coccyx / Sacrum Etiology: ??Stage 4 Pressure Injury Present on Admission Measurements: see documentation for measurement details Wound Bed: pink and yellow slough Drainage / Odor: sweet malodor noted moderate to large amount - Note patient has high blood glucose which may explain the odor Edges: ? macerated and unattached undermining noted from 7-3 o'clock 2.5cm Wilma wound: ? Full thickness tissue loss maceration and firm swelling / induration noted - erythema observed and no fluctuance noted Pain: extreme pain reported Goals of Treatment: ? Durafiber packing - Durafiber not available at this time - saline wet gauze packing used and may start durafiber tomorrow. Attempted to educate patient on impacts of blood glucose control on wound healing - patient verbally reported understanding but proceeded to drink a snapple - this was not diet we discussed the sugar content at 48gm for one bottle - she refused to not drink the snapple. She reported she would only have one as there were 3 on her bedside table. She was educated that even one was not a good option for her given her recent blood glucose level - she continued to drink the drink. Direct care nurse present at bedside and participated in attempts to educate pt. Recommendations: 1. Turn and Reposition every 2 hours and as needed for patient comfort.? Use pillows or wedges to support off loading positions. 2. Off Load all bony prominences with use of pillows and heel boots if needed.? Apply Preventative foams where needed. ? 3. Monitor for incontinence and moisture control, use barrier creams when needed for prevention and treatment. 4. Provide adequate and supplemental nutrition.? 5. Order low air loss mattress. 6. Maintain blood glucose levels per Providers order. Coccyx / Sacrum - Off Load Pressure with Q2 hr turns and use of pillows Cleanse and irrigate with NS, Pat dry.? Apply barrier(Triad) to periwound, lightly pack with Durafiber AG, be sure to leave a wick to easy removal.? Fill space with dry gauze, cover with ABD pad.? Change Daily while inpt. May change every other day at time of discharge from inpatient services. Recommend follow up out patient Wound Clinic at [address] [place] [phone] and to call for an appointment at time of discharge. [phone].? Re-consult wound care Nurse for wound deterioration or wound changes.
--- NOTE | 2025-01-10 14:59 | PHA.MEDREC ---
Addendum entered by Edwin Wilkinson cruz 01/10/25 15:03: med rec reviewed Original Note: Pharmacy Consult ? Medication Reconciliation Pharmacy has completed the medication reconciliation. Patient was just transferred from Padlt unit to Floor. Utilized discharge records to confirm med list.
[2025-01-10 16:02] VITALS: BP 97/54; PULSE 98; RESP 12; TEMP 37.3; O2SAT 94
--- NOTE | 2025-01-10 16:36 | PM.EVENT ---
Event Note Date of Service: 01/10/25 Event Note: Uncontrolled diabetes mellitus type 2 Blood sugar remaining elevated, last reading 441, beta hydroxybutyrate this morning 0.34, normal blood gas. Give 15 units regular IV insulin now Restart Actos Check beta hydroxybutyrate, BNP and magnesium now Depending on lab results patient may need to be transferred to ICU for insulin drip UTI Start Rocephin Follow up final cultures Time Spent With Patient Time: Total time managing care of this patient today ____ minutes.
[2025-01-10 16:39] LABS: Glucose, Whole Blood 543 mg/dL (60-115)
[2025-01-10 17:03] VITALS: O2SAT 96
--- OUTSIDE RECORDS SUMMARY | 2025-01-10 17:04 | XMS_ITS | Clinical Summary ---
Author Organization [facility] Address [address] [place] [address] Care Team Providers Care Molder Meat Name Role Phone Moises Ramires APRN Primary [...] age to complete this topic Care Teams Molder Meat Relationship Specialty Start Date End Date Moises Ramires APRN [address] [place] [address] PCP - General Family Medicine 07/23/22
[2025-01-10] MEDS: hydrOXYzine HCL 25 MG TABLET PO (17:16)
[2025-01-10] MEDS: cefTRIAXone sodium 1 GM VIAL IVPUSH (17:16)
[2025-01-10] MEDS: Hydroxychloroquine Sulfate 200 MG TABLET PO (17:16)
[2025-01-10] MEDS: FLUoxetine HCl 20 MG CAPSULE PO (17:16)
[2025-01-10] MEDS: Fludrocortisone Acetate 0.1 MG TABLET PO (17:16)
[2025-01-10] MEDS: Midodrine HCl 10 MG TABLET PO (17:16)
[2025-01-10] MEDS: Pioglitazone HCL 45 MG TABLET PO (17:16)
[2025-01-10 17:44] LABS: Beta-Hydroxybutyrate 0.06 mmol/L (0.02-0.27)
[2025-01-10 17:46] LABS: Anion Gap 9 (12-20); Blood Urea Nitrogen 13 mg/dL (9-16); Calcium 8.5 mg/dL (8.4-10.2); Carbon Dioxide 26 mmol/L (22-29); Chloride 100 mmol/L (96-108); Creatinine Clr Calc Pharmacy 46.7; Estimated Glomerular Filt Rate 52; Glucose Random 611 mg/dL (60-115); Magnesium 2.3 mg/dL (1.6-2.6); Potassium 3.4 mmol/L (3.3-5.1); Sodium 132 mmol/L (135-145)
[2025-01-10 18:05] LABS: Glucose, Whole Blood 489 mg/dL (60-115)
--- NOTE | 2025-01-10 18:27 | PM.EVENT ---
Event Note Date of Service: 01/10/25 Event Note: Patient with a history of uncontrolled diabetes mellitus type 2. The patient reported blood sugars are usually in the 400s, she takes high dose concentrated insulin 700 units in the morning, 600 units at lunch and 300 units in the evening. Unfortunately sliding scale, Lantus is not lowering patient's blood sugars as expected. Discussed in depth with pharmacy staff. Plan will be to increase Lantus to b.i.d. 40, mealtime insulin 15 units as well as high dose sliding scale. According to pharmacy staff we are unable to get the same formulation that patient takes at home therefore we will continue to try to keep patient's blood sugars were she normally is around the 400s at home. Beta hydroxybutyrate is within normal limits, normal potassium, no anion gap, normal bicarb. Discussed case with ICU attending, at this time patient will stay in intermediate care. If it appears that patient is headed towards DKA with abnormal labs, may need higher level of care. Time Spent With Patient Time: Total time managing care of this patient today ____ minutes.
[2025-01-10] MEDS: HYDROmorphone HCl 0.5 MG/0.5 ML SYRINGE IVPUSH ×2 (18:40→22:43)
[2025-01-10] MEDS: 0.9 % Sodium Chloride 1,000 ML 100 ML IVCONT (19:11)
[2025-01-10 19:26] LABS: Glucose, Whole Blood 466 mg/dL (60-115)
[2025-01-10] MEDS: Insulin Glargine,Hum.rec.anlog 100 UNIT/ML 10 ML VIAL 40 UNIT SUBCUT (19:27)
[2025-01-10] MEDS: Lactated Ringers 1,000 ML 100 ML IVCONT (19:54)
[2025-01-10 20:00] VITALS: BP 172/100; PULSE 78; RESP 18; TEMP 37.3; O2SAT 99
[2025-01-10 20:51] LABS: Glucose, Whole Blood 468 mg/dL (60-115)
[2025-01-10] MEDS: Mirtazapine 7.5 MG TABLET 22.5 MG PO (21:04)
[2025-01-10] MEDS: Melatonin 3 MG TABLET 6 MG PO (21:10)
[2025-01-10 21:23] LABS: Osmolality, Serum 294 mosm/kg (281-305)
[2025-01-10 21:35] LABS: Anion Gap 12 (12-20); Blood Urea Nitrogen 11 mg/dL (9-16); Calcium 8.4 mg/dL (8.4-10.2); Carbon Dioxide 22 mmol/L (22-29); Chloride 102 mmol/L (96-108); Creatinine Clr Calc Pharmacy 46.3; Estimated Glomerular Filt Rate 51; Glucose Random 530 mg/dL (60-115); Potassium 3.6 mmol/L (3.3-5.1); Sodium 132 mmol/L (135-145)
[2025-01-10 21:38] LABS: Glucose, Whole Blood 474 mg/dL (60-115)
[2025-01-11] VITALS (8 sets, daily range): BP systolic 114–157; BP diastolic 63–87; PULSE 71–93; RESP 16–19; TEMP 37.1–37.7; O2SAT 96–99
[2025-01-11 00:14] LABS: Glucose, Whole Blood 447 mg/dL (60-115)
[2025-01-11 02:15] LABS: Glucose, Whole Blood 402 mg/dL (60-115)
[2025-01-11] MEDS: HYDROmorphone HCl 0.5 MG/0.5 ML SYRINGE IVPUSH (03:05)
[2025-01-11] MEDS: hydrOXYzine HCL 25 MG TABLET PO ×2 (03:05→21:29)
[2025-01-11 04:30] LABS: Glucose, Whole Blood 390 mg/dL (60-115)
--- NOTE | 2025-01-11 05:32 | PM.EVENT ---
Event Note Date of Service: 01/11/25 Event Note: Patient has been refusing sliding scale insulin overnight and her home insulin as she is worried she will drop too low and become hypoglycemic. Time Spent With Patient Time: Total time managing care of this patient today ____ minutes.
[2025-01-11 06:21] LABS: Glucose, Whole Blood 355 mg/dL (60-115)
--- NOTE | 2025-01-11 06:31 | PC.NURSE ---
Please refer to provider notification and critical results documentation: pt. refusing quality assurance monitor-Dr Moy notified. POC's checked initially q1hr after pt. arrived at 1855 01/10/25. Please see labs. POC's in the 400's. All reported to Dr. Moy. Pt.'s family brought in her own insulin last evening. Ordered by Dr. Moy and medication taken by pharmacy for verification. Med pending . At 2200, pt. refusing to take anymore insulin for the night . Pt. stating repeatedly, I know my own body and if I take insulin tonight I could be [address] morning [address] leth[address]ic Dr[address] Moy notified. Pt. again refused when asked at 0200. As of 629 POC is 355.
[2025-01-11] MEDS: Lactated Ringers 1,000 ML 100 ML IVCONT ×2 (06:38→17:46)
[2025-01-11 07:34] LABS: Glucose, Whole Blood 353 mg/dL (60-115)
[2025-01-11 07:58] LABS: Alanine Aminotransferase < 6 U/L (0-31); Albumin Level 3.1 g/dL (3.5-5.0); Alkaline Phosphatase 83 U/L (39-117); Anion Gap 9 (12-20); Aspartate Amino Transferase 16 U/L (5-31); Bilirubin Total 0.2 mg/dL (0.0-1.0); Blood Urea Nitrogen 11 mg/dL (9-16); Calcium 8.6 mg/dL (8.4-10.2); Carbon Dioxide 26 mmol/L (22-29); Chloride 101 mmol/L (96-108); Creatinine Clr Calc Pharmacy 45.9; Estimated Glomerular Filt Rate 51; Glucose Random 360 mg/dL (60-115); Potassium 3.2 mmol/L (3.3-5.1); Sodium 133 mmol/L (135-145); Total Protein 6.2 g/dL (6.5-8.0)
[2025-01-11] MEDS: Enoxaparin Sodium 40 MG/0.4 ML SYRINGE SUBCUT (08:30)
--- NOTE | 2025-01-11 08:30 | PM.CNGS ---
History of Present Illness Consult details Consult date: 01/11/25 <Deanna Torres PA-C - Last Filed: 01/11/25 08:51> Reason for consult: wound care <LINDA Flores Last Filed: 01/11/25 08:51> Narrative: 49-year-old female with PMH of insulin-dependent diabetes type 2, major depressive disorder, general anxiety disorder, stage 4 sacral wound with history of osteomyelitis, lupus, myelofibrosis, initially admitted to for psychiatric care transferred to the hospitalist service for hyperglycemia. POCs have been ranging from mid 300-400s. She has a known sacral decubitus ulcer. She reports it has been present for over a year and developed it during one of her hospitalizations. She has been caring for it herself when she is home and covers it with a foam dressing. She is not followed by any one for wound care. She reports some yellowish drainage on occasion. She reports the area is mildly painful. She denies fevers, chills. <Deanna Torres PA-C - Last Filed: 01/11/25 08:51> Review of Systems Constitutional: Constitutional: Denies chills and Denies fever(s) <LINDA Flores Last Filed: 01/11/25 08:51> Cardiovascular: Cardiovascular: Denies chest pain and Denies dyspnea <LINDA Flores Last Filed: 01/11/25 08:51> Respiratory: Respiratory: Denies dyspnea <LINDA Flores Last Filed: 01/11/25 08:51> Gastrointestinal: Gastrointestinal: Denies nausea and Denies vomiting <LINDA Flores Last Filed: 01/11/25 08:51> Integumentary/Breasts: Skin/Breast: Reports as per HPI <LINDA Flores Last Filed: 01/11/25 08:51> PMFSH Past Medical History Medical History: Medical History (Updated 01/10/25 @ 06:02 by LANETTE Johnson) Generalized anxiety disorder Major depressive disorder Sacral decubitus ulcer, stage IV Chronic pain Lupus (systemic lupus erythematosus) Insulin dependent type 2 diabetes mellitus <LINDA Flores Last Filed: 01/11/25 08:51> Social History Social History: Social History (Updated 01/10/25 @ 06:13 by LANETTE Johnson) Household Members: Spouse Housing: Apartment Do you presently have visiting nurse or other home services: No Comment: 1:1 sitter Patient Tobacco Use Status: Never used Tobacco e-Cigarette/Vaping Use: Never Used Second Hand Smoke Exposure: No Use of substances other than those prescribed or required for medical reasons: Yes Substance Use Type: Marijuana Currently Displaying Signs/Symptoms of Drug Intoxication Withdrawal: No Advance Directives: No Advance Directives Information Provided: No Advance Directives on File: No Patient : No service: No <LINDA Flores Last Filed: 01/11/25 08:51> Travel History Ebola Risk: Travel/Contact With Anyone From Affected Area/s: No <LINDA Flores Last Filed: 01/11/25 08:51> Has Patient Experienced Ebola Symptoms: No <LINDA Flores Last Filed: 01/11/25 08:51> Meds Allergies/Adverse reactions: Allergies Allergy/AdvReac Type Severity Reaction Status Date / Time acetaminophen Allergy Swelling Verified 01/10/25 00:40 atorvastatin Allergy Unknown Verified 01/10/25 00:40 duloxetine Allergy Unknown Verified 01/10/25 00:40 fish derived [fish] Allergy Swelling Verified 01/10/25 00:40 <LINDA Flores Last Filed: 01/11/25 08:51> Active Medications: Current Medications Albuterol/Ipratropium (Albuterol/Iprat 2.5/0.5mg 3 Ml Ampul.Neb) 3 ml INHALE Q4H PRN PRN Reason: Shortness of Breath/Wheezing Calcium Carbonate (Calcium Carbonate 750 Mg Tab.Chew) 750 mg PO Q4H PRN PRN Reason: Heartburn Ceftriaxone Sodium (Ceftriaxone Sodium 1 Gm Vial) 1 gm IVPUSH Q24H [facility] Last Admin: 01/10/25 17:16 Dose: 1 gm Dextrose (Dextrose 50 % 25 Gm/50 Ml Syringe) 25 gm IVPUSH Q15M PRN; Protocol PRN Reason: per Hypoglycemia Standing Ord. Enoxaparin Sodium (Enoxaparin Sodium 40 Mg/0.4 Ml Syringe) 40 mg SUBCUT Q24H [facility] Last Admin: 01/10/25 09:46 Dose: 40 mg Fludrocortisone Acetate (Fludrocortisone Acetate 0.1 Mg Tablet) 0.1 mg PO DAILY [facility] Last Admin: 01/10/25 17:16 Dose: 0.1 mg Fluoxetine HCl (Fluoxetine Hcl 20 Mg Capsule) 20 mg PO DAILY [facility] Last Admin: 01/10/25 17:16 Dose: 20 mg Glucose (Glucose Gel 15 Gm Gel..Gram.) 15 gm PO Q15M PRN; Protocol PRN Reason: per Hypoglycemia Standing Ord. Hydromorphone HCl (Hydromorphone Hcl 0.5 Mg/0.5 Ml Syringe) 0.5 mg IVPUSH Q4H PRN; Protocol PRN Reason: Pain, Severe (Pain Scale 7-10) Last Admin: 01/11/25 03:05 Dose: 0.5 mg Hydroxychloroquine Sulfate (Hydroxychloroquine Sulfate 200 Mg Tablet) 200 mg PO DAILY [facility] Last Admin: 01/10/25 17:16 Dose: 200 mg Hydroxyzine HCl (Hydroxyzine Hcl 25 Mg Tablet) 25 mg PO QID PRN PRN Reason: anxiety Last Admin: 01/11/25 03:05 Dose: 25 mg Lactated Ringer's (Lr) 1,000 mls @ 100 mls/hr IVCONT .Q10H [facility] Last Admin: 01/11/25 06:38 Dose: 100 mls/hr Insulin Glargine (Insulin Glargine,Hum.Rec.Anlog 100 Unit/Ml 10 Ml Vial) 20 unit SUBCUT BID [facility] Insulin Human Lispro (Insulin Lispro 100 Unit/Ml 3 Ml Vial) 0 unit SUBCUT QIDACHS [facility]; Protocol Last Admin: 01/10/25 22:24 Dose: Not Given Insulin Human Lispro (Insulin Lispro 100 Unit/Ml 3 Ml Vial) 5 unit SUBCUT QIDACHS [facility] Last Admin: 01/10/25 22:21 Dose: Not Given Magnesium Hydroxide (Milk Of Magnesia 30 Ml Oral.Susp) 30 ml PO DAILY PRN PRN Reason: Constipation Melatonin (Melatonin 3 Mg Tablet) 6 mg PO BEDTIME PRN PRN Reason: Insomnia Last Admin: 01/10/25 21:10 Dose: 6 mg Methadone HCl (Methadone Hcl 10 Mg Tablet) 20 mg PO TID PRN PRN Reason: Pain (Scale Score 7-10) Midodrine (Midodrine Hcl 10 Mg Tablet) 10 mg PO TID [facility] Last Admin: 01/10/25 21:18 Dose: Not Given Mirtazapine (Mirtazapine 7.5 Mg Tablet) 22.5 mg PO BEDTIME [facility] Last Admin: 01/10/25 21:04 Dose: 22.5 mg Non-Formulary Medication (Insulin Regular Hum U-500 Conc [Humulin R U-500 (Conc) Kwikpen]) [facility] Ondansetron HCl (Ondansetron Hcl 4 Mg/2 Ml Vial) 4 mg IVPUSH Q8H PRN PRN Reason: Nausea and Vomiting Pioglitazone HCl (Pioglitazone Hcl 45 Mg Tablet) 45 mg PO DAILY [facility] Last Admin: 01/10/25 17:16 Dose: 45 mg Polyethylene Glycol (Polyethylene Glycol 3350 17 Gm Powd.Pack) 17 gm PO DAILY PRN PRN Reason: Constipation Senna (Sennosides 8.6 Mg Tablet) 17.2 mg PO BEDTIME [facility] Last Admin: 01/10/25 21:21 Dose: Not Given Sodium Chloride (0.9 % Sodium Chloride Flush 3 Ml Syringe) 3 ml IVFLUSH [facility] Last Admin: 01/11/25 02:56 Dose: Not Given <Deanna Torres PA-C - Last Filed: 01/11/25 08:51> Home medications: Home Medications ?Medication ?Instructions ?Recorded ?Confirmed ?Last Taken ?Type fludrocortisone 0.1 mg tablet 0.1 mg PO DAILY 01/10/25 01/10/25 01/09/25 12:01 History fluoxetine 20 mg capsule 20 mg PO DAILY 01/10/25 01/10/25 01/09/25 12:01 History hydroxychloroquine 200 mg tablet 200 mg PO QAM 01/10/25 01/10/25 01/09/25 12:13 History hydroxyzine pamoate 25 mg capsule 25 mg PO QID PRN anxiety 01/10/25 01/10/25 Unknown History insulin regular hum U-500 conc 500 700 unit subcut TIDAC 01/10/25 01/10/25 01/09/25 14:32 History unit/mL(3 mL) subcut pen (Humulin R U-500 (Conc) Insulin Kwikpen) methadone 10 mg tablet 20 mg PO TID PRN Pain (Scale Score 01/10/25 01/10/25 Unknown History 7-10) midodrine 10 mg tablet 10 mg PO TID 01/10/25 01/10/25 01/09/25 18:52 History mirtazapine 7.5 mg tablet 22.5 mg PO BEDTIME 01/10/25 01/10/25 Unknown History pioglitazone 45 mg tablet 45 mg PO DAILY 01/10/25 01/10/25 01/09/25 12:01 History <LINDA Flores Last Filed: 01/11/25 08:51> Physical Exam Vital Signs: Vital Signs: Last Vital Signs Temp 98.8 F 01/11/25 07:05 Pulse 83 01/11/25 07:05 Resp 18 01/11/25 07:05 BP 118/70 01/11/25 07:05 Pulse Ox 96 01/11/25 07:05 O2 Del Method Room Air 01/11/25 07:05 BMI result Body Mass Index 19.4 <LINDA Flores Last Filed: 01/11/25 08:51> Const: General: comfortable, no acute distress and alert <LINDA Flores Last Filed: 01/11/25 08:51> Nutritional Appearance: thin <LINDA Flores Last Filed: 01/11/25 08:51> Resp: Effort & Inspection: normal respiratory effort <LINDA Flores Last Filed: 01/11/25 08:51> Skin: Other: sacral decubitus ulcer with palpable bone at base; tunneling of superior and lateral aspect on right measuring 3cm; overall clean appearing with granulation tissue, maceration of surrounding skin with very mild induration of skin on right, no necrosis, no purulent drainage <LINDA Flores Last Filed: 01/11/25 08:51> Results Labs Result diagrams: 01/11/25 06:57 <LINDA Flores Last Filed: 01/11/25 08:51> Labs: Abnormal lab results 01/10/25 01/10/25 01/10/25 Range/Units 07:54 09:21 10:37 Sodium (135-145) mmol/L Potassium (3.3-5.1) mmol/L Anion Gap (12-20) POC Glucose 507 H* 487 H* (60-115) mg/dL Random Glucose (60-115) mg/dL Hemoglobin A1c % > 14.0 H (<6.0) % Magnesium 1.5 L (1.6-2.6) mg/dL Total Protein (6.5-8.0) g/dL Albumin (3.5-5.0) g/dL Urine Glucose (UA) (Negative) mg/dL Urine Blood (Negative) Urine Nitrite (Negative) Ur Leukocyte Esterase (Negative) Urine RBC (0-2) /HPF Urine WBC (0-5) /HPF 01/10/25 01/10/25 01/10/25 Range/Units 12:24 16:30 17:07 Sodium 132 L (135-145) mmol/L Potassium (3.3-5.1) mmol/L Anion Gap 9 L (12-20) POC Glucose 441 H* 543 H* (60-115) mg/dL Random Glucose 611 H* (60-115) mg/dL Hemoglobin A1c % (<6.0) % Magnesium (1.6-2.6) mg/dL Total Protein (6.5-8.0) g/dL Albumin (3.5-5.0) g/dL Urine Glucose (UA) (Negative) mg/dL Urine Blood (Negative) Urine Nitrite (Negative) Ur Leukocyte Esterase (Negative) Urine RBC (0-2) /HPF Urine WBC (0-5) /HPF 01/10/25 01/10/25 01/10/25 Range/Units 18:01 19:17 20:26 Sodium (135-145) mmol/L Potassium (3.3-5.1) mmol/L Anion Gap (12-20) POC Glucose 489 H* 466 H* 468 H* (60-115) mg/dL Random Glucose (60-115) mg/dL Hemoglobin A1c % (<6.0) % Magnesium (1.6-2.6) mg/dL Total Protein (6.5-8.0) g/dL Albumin (3.5-5.0) g/dL Urine Glucose (UA) (Negative) mg/dL Urine Blood (Negative) Urine Nitrite (Negative) Ur Leukocyte Esterase (Negative) Urine RBC (0-2) /HPF Urine WBC (0-5) /HPF 01/10/25 01/10/25 01/10/25 Range/Units 20:43 21:29 Unknown Sodium 132 L (135-145) mmol/L Potassium (3.3-5.1) mmol/L Anion Gap (12-20) POC Glucose 474 H* (60-115) mg/dL Random Glucose 530 H* (60-115) mg/dL Hemoglobin A1c % (<6.0) % Magnesium (1.6-2.6) mg/dL Total Protein (6.5-8.0) g/dL Albumin (3.5-5.0) g/dL Urine Glucose (UA) >=1000 H (Negative) mg/dL Urine Blood Trace H (Negative) Urine Nitrite Positive H (Negative) Ur Leukocyte Esterase Small (1+) H (Negative) Urine RBC 6-10 H (0-2) /HPF Urine WBC 11-20 H (0-5) /HPF 01/11/25 01/11/25 01/11/25 Range/Units 00:07 02:11 04:26 Sodium (135-145) mmol/L Potassium (3.3-5.1) mmol/L Anion Gap (12-20) POC Glucose 447 H* 402 H* 390 H* (60-115) mg/dL Random Glucose (60-115) mg/dL Hemoglobin A1c % (<6.0) % Magnesium (1.6-2.6) mg/dL Total Protein (6.5-8.0) g/dL Albumin (3.5-5.0) g/dL Urine Glucose (UA) (Negative) mg/dL Urine Blood (Negative) Urine Nitrite (Negative) Ur Leukocyte Esterase (Negative) Urine RBC (0-2) /HPF Urine WBC (0-5) /HPF 01/11/25 01/11/25 01/11/25 Range/Units 06:13 06:57 07:10 Sodium 133 L (135-145) mmol/L Potassium 3.2 L (3.3-5.1) mmol/L Anion Gap 9 L (12-20) POC Glucose 355 H* 353 H* (60-115) mg/dL Random Glucose 360 H* (60-115) mg/dL Hemoglobin A1c % (<6.0) % Magnesium (1.6-2.6) mg/dL Total Protein 6.2 L (6.5-8.0) g/dL Albumin 3.1 L (3.5-5.0) g/dL Urine Glucose (UA) (Negative) mg/dL Urine Blood (Negative) Urine Nitrite (Negative) Ur Leukocyte Esterase (Negative) Urine RBC (0-2) /HPF Urine WBC (0-5) /HPF BMP 01/10/25 01/10/25 01/10/25 07:54 17:07 20:43 Sodium 132 L 132 L Potassium 3.4 3.6 Chloride 100 102 Carbon Dioxide 26 22 BUN 13 11 Creatinine 1.08 1.12 1.13 Calcium 8.5 8.4 01/11/25 06:57 Sodium 133 L Potassium 3.2 L Chloride 101 Carbon Dioxide 26 BUN 11 Creatinine 1.14 Calcium 8.6 Liver Function 01/11/25 Range/Units 06:57 Total Bilirubin 0.2 (0.0-1.0) mg/dL AST 16 (5-31) U/L ALT < 6 (0-31) U/L Alkaline Phosphatase 83 (39-117) U/L Albumin 3.1 L (3.5-5.0) g/dL Urine 01/10/25 Range/Units Unknown Urine Color Yellow Urine Appearance Clear Urine pH 6.5 (5.0-9.0) Ur Specific [place] 1.020 (1.005-1.025) Urine Protein Trace (Neg-Trace) mg/dL Urine Glucose (UA) >=1000 H (Negative) mg/dL All other labs normal. <Deanna Torres PA-C - Last Filed: 01/11/25 08:51> Assessment and Plan (1) Sacral decubitus ulcer, stage IV: Status: Acute <Deanna Torres PA-C - Last Filed: 01/11/25 08:51> 49 year old female with multiple medical comorbidities initially admitted to for psychiatric care transferred to the hospitalist service for hyperglycemia. She has a chronic stage 4 sacral decubitus ulcer that is clean appearing. Currently no debridement needed. She was seen by wound care who recommended silver alginate packing to the wound base and I agree with that recommendation. Continue offloading and frequent repositioning, nutritional support, daily wound care. Again it was discussed good POC control for wound healing. <Deanna Torres PA-C - Last Filed: 01/11/25 08:51> Procedures Date of Service Date of Service: 01/11/25 <Deanna Torres PA-C - Last Filed: 01/11/25 08:51> 01/11/25 <Heron Sampson MD - Last Filed: 01/11/25 13:22>
[2025-01-11] MEDS: Fludrocortisone Acetate 0.1 MG TABLET PO (08:31)
[2025-01-11] MEDS: methADONE HCl 10 MG TABLET 20 MG PO ×2 (08:31→21:34)
[2025-01-11] MEDS: Hydroxychloroquine Sulfate 200 MG TABLET PO (08:32)
[2025-01-11] MEDS: Midodrine HCl 10 MG TABLET PO (08:32)
[2025-01-11] MEDS: Pioglitazone HCL 45 MG TABLET PO (08:32)
[2025-01-11] MEDS: FLUoxetine HCl 20 MG CAPSULE PO (08:32)
[2025-01-11 09:29] LABS: Glucose, Whole Blood 317 mg/dL (60-115)
[2025-01-11 11:26] LABS: ABG pCO2 47 mmHg (32-45); ABG pH 7.39 (7.35-7.45)
[2025-01-11 11:43] LABS: Glucose, Whole Blood 291 mg/dL (60-115)
[2025-01-11 11:47] LABS: ABG Base Excess 3.1 mmol/L; ABG HCO3 28 mmol/L (22-26)
[2025-01-11] MEDS: Insulin Lispro 100 UNIT/ML 3 ML VIAL SUBCUT ×2 (12:20→17:44)
--- NOTE | 2025-01-11 12:30 | MHC.CLN ---
F/U PO INTAKE 100% X2 MEALS DIET RX: 1800DM -APPROPRIATE RECEIVING ENSURE MAX BID TO PROMOTE WOUND HEALING SUPP PROVIDES 300KCALS, 60G PROTEIN MONITOR PO INTAKE AND ENCOURAGE SUPPLEMENT
[2025-01-11 14:27] LABS: Glucose, Whole Blood 248 mg/dL (60-115)
--- NOTE | 2025-01-11 14:32 | HE.PHANOTE ---
RE: HOME HUMULIN R U-500 Nurse Candice Mon asked patient about storage of the insulin. Per patient, the insulin (6 boxes) was kept in the fridge at home so expiration date is 02/08/25.
[2025-01-11] MEDS: ondansetron HCL 4 MG/2 ML VIAL IVPUSH (14:40)
--- NOTE | 2025-01-11 14:58 | MHC.CM.PN ---
Patient transferred from for elevated BGL. A wound consult and psych eval have been ordered. Patient has been refusing insulin. DP pending Psych consult staff transport.
--- OUTSIDE RECORDS SUMMARY | 2025-01-11 16:18 | XMS_ITS | Clinical Summary ---
Author Organization [facility] Address [address] [place] [address] Care Team Providers Care Demo Specialist Name Role Phone Moises Ramires APRN Primary [...] age to complete this topic Care Teams Demo Specialist Relationship Specialty Start Date End Date Moises Ramires APRN [address] [place] [id number] PCP - General Family Medicine 07/23/22
[2025-01-11 16:27] LABS: Glucose, Whole Blood 218 mg/dL (60-115)
--- NOTE | 2025-01-11 16:51 | P.CNPS_ITS ---
History of Present Illness Date of Service: 01/11/25 Chief Complaint: Pending Reason for Consult: Major depressive dis/interfering with treatments Requesting physician: Chelsie Fung Discussed with referring provider: Yes Sources of Information: patient interviewed, chart reviewed and crisis/core team assessment reviewed HPI Narrative: Patient is a 49-year-old female with history of insulin-dependent diabetes type 2, major depressive disorder, general anxiety disorder, daily marijuana use, currently on methadone for pain control, a current chronic stage 4 sacral wound with history of osteomyelitis, lupus, myelofibrosis with the associated pancytopenia, diabetic gastroparesis, recurrent C diff infections, who was seen by the hospitalist for hyperglycemia while an inpatient on M3 for psychiatric care and transferred to medicine. Psychiatric consult placed for: Major depressive dis/interfering with treatments. During assessment, pt presents alert and oriented x3. calm and cooperative. Patient was able to explain her medical problems and understand proposed treatment. Patient stated, I know that if I refuse treatment for my diabetes or my wound that I could and I don't want to . Patient was able to understand consequences of accepting or refusing proposed treatment options. Patient reports she has been refusing insulin at times due to concerns her blood sugar would decreased significantly. Patient stated, my sugars tend to go super low so at a certain time I refused the insulin. I don't want anything to happen to me. My health comes first . Impression pt has capacity for medical decision making. Patient denies suicidal ideation at this time; patient stated, I told them my brother but, I never said I couldn't take care of myself. I take care of myself to the best of my ability. My family also helps take care me. I never told them anything about being suicidal. I would never leave my kids . Patient denies history of SA/SIB. denies history of inpatient psychiatric hospitalizations and outpatient psychiatric providers. She reports she was started on Fluoxetine from her PCP 2 years ago when she found out about her medical issues . pt stated, the fluoxetine helps me with my mood . Patient reports she would be open to talking to a therapist. denies SI/HI/VH/AH. Patient reports she would like to talk to case management about obtaining a VNA and possibly going to short-term rehab; Dr. Fung notified. Past Psychiatric History: denies hx of psychiatric hospitalizations denies hx of SA/SIB. denies hx of psychiatric providers. Medical Evaluation Reviewed: Yes [facility] Medical History Generalized anxiety disorder Major depressive disorder Sacral decubitus ulcer, stage IV Chronic pain Lupus (systemic lupus erythematosus) Insulin dependent type 2 diabetes mellitus Family History: denies Social History: Lives with and 3 kids (25, 17, 12 y/o). Disability. Highest level of education: high school diploma. Substance History: pt reports smokes marijuana daily. Trauma History: denies Diagnostics Vital Signs (24Hr): Vital Signs - 24 hr 01/10/25 20:00 01/11/25 00:00 01/11/25 04:00 Temperature 99.2 F 99.7 F 98.9 F Pulse Rate 78 79 82 Respiratory Rate 18 18 18 Blood Pressure 172/100 H 151/85 H 131/71 Pulse Oximetry 99 98 97 Oxygen Delivery Method Room Air Room Air Room Air 01/11/25 07:05 01/11/25 12:00 01/11/25 16:00 Temperature 98.8 F 98.9 F 99.2 F Pulse Rate 83 71 93 Respiratory Rate 18 19 19 Blood Pressure 118/70 157/87 H 114/63 Pulse Oximetry 96 98 99 Oxygen Delivery Method Room Air Room Air Room Air BMI result Body Mass Index 19.4 Labs 01/11/25 06:57 Labs: Laboratory Results - last 48 hr 01/10/25 01/10/25 01/10/25 07:32 07:54 09:21 Hold Purple Top O2 Saturation ABG pH at Pt Temp ABG pCO2 at Pt Temp ABG pO2 at Pt Temp ABG HCO3 ABG Base Excess (Actual) Sodium Potassium Chloride Carbon Dioxide Anion Gap BUN Creatinine 1.08 Estim Creat Clear Calc 48.5 Estimated GFR 54 POC Glucose 493 H* 507 H* Random Glucose Estimat Average Glucose TNP Hemoglobin A1c % > 14.0 H Osmolality Calcium Magnesium 1.5 L Total Bilirubin AST ALT Alkaline Phosphatase Total Protein Albumin Beta-Hydroxybutyrate TSH 0.92 Free T4 1.03 Urine Color Urine Appearance Urine pH Ur Specific [place] Urine Protein Urine Glucose (UA) Urine Ketones Urine Blood Urine Nitrite Ur Leukocyte Esterase Urine RBC Urine WBC Ur Squamous Epith Cells Urine Bacteria Hyaline Casts 01/10/25 01/10/25 01/10/25 10:37 12:24 16:30 Hold Purple Top O2 Saturation ABG pH at Pt Temp ABG pCO2 at Pt Temp ABG pO2 at Pt Temp ABG HCO3 ABG Base Excess (Actual) Sodium Potassium Chloride Carbon Dioxide Anion Gap BUN Creatinine Estim Creat Clear Calc Estimated GFR POC Glucose 487 H* 441 H* 543 H* Random Glucose Estimat Average Glucose Hemoglobin A1c % Osmolality Calcium Magnesium Total Bilirubin AST ALT Alkaline Phosphatase Total Protein Albumin Beta-Hydroxybutyrate TSH Free T4 Urine Color Urine Appearance Urine pH Ur Specific [place] Urine Protein Urine Glucose (UA) Urine Ketones Urine Blood Urine Nitrite Ur Leukocyte Esterase Urine RBC Urine WBC Ur Squamous Epith Cells Urine Bacteria Hyaline Casts 01/10/25 01/10/25 01/10/25 17:01 17:07 18:01 Hold Purple Top O2 Saturation TNP ABG pH at Pt Temp 7.39 ABG pCO2 at Pt Temp 47 H ABG pO2 at Pt Temp TNP ABG HCO3 28 H ABG Base Excess (Actual) 3.1 Sodium 132 L Potassium 3.4 Chloride 100 Carbon Dioxide 26 Anion Gap 9 L BUN 13 Creatinine 1.12 Estim Creat Clear Calc 46.7 Estimated GFR 52 POC Glucose 489 H* Random Glucose 611 H* Estimat Average Glucose Hemoglobin A1c % Osmolality Calcium 8.5 Magnesium 2.3 Total Bilirubin AST ALT Alkaline Phosphatase Total Protein Albumin Beta-Hydroxybutyrate 0.06 TSH Free T4 Urine Color Urine Appearance Urine pH Ur Specific [place] Urine Protein Urine Glucose (UA) Urine Ketones Urine Blood Urine Nitrite Ur Leukocyte Esterase Urine RBC Urine WBC Ur Squamous Epith Cells Urine Bacteria Hyaline Casts 01/10/25 01/10/25 01/10/25 19:17 20:26 20:43 Hold Purple Top O2 Saturation ABG pH at Pt Temp ABG pCO2 at Pt Temp ABG pO2 at Pt Temp ABG HCO3 ABG Base Excess (Actual) Sodium 132 L Potassium 3.6 Chloride 102 Carbon Dioxide 22 Anion Gap 12 BUN 11 Creatinine 1.13 Estim Creat Clear Calc 46.3 Estimated GFR 51 POC Glucose 466 H* 468 H* Random Glucose 530 H* Estimat Average Glucose Hemoglobin A1c % Osmolality 294 Calcium 8.4 Magnesium Total Bilirubin AST ALT Alkaline Phosphatase Total Protein Albumin Beta-Hydroxybutyrate TSH Free T4 Urine Color Urine Appearance Urine pH Ur Specific [place] Urine Protein Urine Glucose (UA) Urine Ketones Urine Blood Urine Nitrite Ur Leukocyte Esterase Urine RBC Urine WBC Ur Squamous Epith Cells Urine Bacteria Hyaline Casts 01/10/25 01/10/25 01/11/25 21:29 Unknown 00:07 Hold Purple Top O2 Saturation ABG pH at Pt Temp ABG pCO2 at Pt Temp ABG pO2 at Pt Temp ABG HCO3 ABG Base Excess (Actual) Sodium Potassium Chloride Carbon Dioxide Anion Gap BUN Creatinine Estim Creat Clear Calc Estimated GFR POC Glucose 474 H* 447 H* Random Glucose Estimat Average Glucose Hemoglobin A1c % Osmolality Calcium Magnesium Total Bilirubin AST ALT Alkaline Phosphatase Total Protein Albumin Beta-Hydroxybutyrate TSH Free T4 Urine Color Yellow Urine Appearance Clear Urine pH 6.5 Ur Specific [place] 1.020 Urine Protein Trace Urine Glucose (UA) >=1000 H Urine Ketones Negative Urine Blood Trace H Urine Nitrite Positive H Ur Leukocyte Esterase Small (1+) H Urine RBC 6-10 H Urine WBC 11-20 H Ur Squamous Epith Cells 0-2 Urine Bacteria 4+ Hyaline Casts 0-2 01/11/25 01/11/25 01/11/25 02:11 04:26 06:13 Hold Purple Top O2 Saturation ABG pH at Pt Temp ABG pCO2 at Pt Temp ABG pO2 at Pt Temp ABG HCO3 ABG Base Excess (Actual) Sodium Potassium Chloride Carbon Dioxide Anion Gap BUN Creatinine Estim Creat Clear Calc Estimated GFR POC Glucose 402 H* 390 H* 355 H* Random Glucose Estimat Average Glucose Hemoglobin A1c % Osmolality Calcium Magnesium Total Bilirubin AST ALT Alkaline Phosphatase Total Protein Albumin Beta-Hydroxybutyrate TSH Free T4 Urine Color Urine Appearance Urine pH Ur Specific [place] Urine Protein Urine Glucose (UA) Urine Ketones Urine Blood Urine Nitrite Ur Leukocyte Esterase Urine RBC Urine WBC Ur Squamous Epith Cells Urine Bacteria Hyaline Casts 01/11/25 01/11/25 01/11/25 06:57 07:10 09:25 Hold Purple Top SEE NOTE O2 Saturation ABG pH at Pt Temp ABG pCO2 at Pt Temp ABG pO2 at Pt Temp ABG HCO3 ABG Base Excess (Actual) Sodium 133 L Potassium 3.2 L Chloride 101 Carbon Dioxide 26 Anion Gap 9 L BUN 11 Creatinine 1.14 Estim Creat Clear Calc 45.9 Estimated GFR 51 POC Glucose 353 H* 317 H Random Glucose 360 H* Estimat Average Glucose Hemoglobin A1c % Osmolality Calcium 8.6 Magnesium Total Bilirubin 0.2 AST 16 ALT < 6 Alkaline Phosphatase 83 Total Protein 6.2 L Albumin 3.1 L Beta-Hydroxybutyrate TSH Free T4 Urine Color Urine Appearance Urine pH Ur Specific [place] Urine Protein Urine Glucose (UA) Urine Ketones Urine Blood Urine Nitrite Ur Leukocyte Esterase Urine RBC Urine WBC Ur Squamous Epith Cells Urine Bacteria Hyaline Casts 01/11/25 01/11/25 01/11/25 11:40 14:23 16:23 Hold Purple Top O2 Saturation ABG pH at Pt Temp ABG pCO2 at Pt Temp ABG pO2 at Pt Temp ABG HCO3 ABG Base Excess (Actual) Sodium Potassium Chloride Carbon Dioxide Anion Gap BUN Creatinine Estim Creat Clear Calc Estimated GFR POC Glucose 291 H 248 H 218 H Random Glucose Estimat Average Glucose Hemoglobin A1c % Osmolality Calcium Magnesium Total Bilirubin AST ALT Alkaline Phosphatase Total Protein Albumin Beta-Hydroxybutyrate TSH Free T4 Urine Color Urine Appearance Urine pH Ur Specific [place] Urine Protein Urine Glucose (UA) Urine Ketones Urine Blood Urine Nitrite Ur Leukocyte Esterase Urine RBC Urine WBC Ur Squamous Epith Cells Urine Bacteria Hyaline Casts Mental Status Exam Mental Status Exam Patient Appearance: Appropriate Patient Orientation: Person, Place, Time and Situation Level of Consciousness: Awake and Alert Patient Behavior: Appropriate, Cooperative and Good Eye Contact Mood Description: Calm Affect Description: Calm Ability to Follow Directions: Good Speech Pattern: Clear Memory Description: Intact Hallucinations: None Delusions: Not Present Thought Process: Intact Thought Content: positive for Intact Medications Medications Current Medications Albuterol/Ipratropium (Albuterol/Iprat 2.5/0.5mg 3 Ml Ampul.Neb) 3 ml INHALE Q4H PRN PRN Reason: Shortness of Breath/Wheezing Calcium Carbonate (Calcium Carbonate 750 Mg Tab.Chew) 750 mg PO Q4H PRN PRN Reason: Heartburn Ceftriaxone Sodium (Ceftriaxone Sodium 1 Gm Vial) 1 gm IVPUSH Q24H [facility] Last Admin: 01/10/25 17:16 Dose: 1 gm Dextrose (Dextrose 50 % 25 Gm/50 Ml Syringe) 25 gm IVPUSH Q15M PRN; Protocol PRN Reason: per Hypoglycemia Standing Ord. Enoxaparin Sodium (Enoxaparin Sodium 40 Mg/0.4 Ml Syringe) 40 mg SUBCUT Q24H [facility] Last Admin: 01/11/25 08:30 Dose: 40 mg Fludrocortisone Acetate (Fludrocortisone Acetate 0.1 Mg Tablet) 0.1 mg PO DAILY [facility] Last Admin: 01/11/25 08:31 Dose: 0.1 mg Fluoxetine HCl (Fluoxetine Hcl 20 Mg Capsule) 20 mg PO DAILY [facility] Last Admin: 01/11/25 08:32 Dose: 20 mg Glucose (Glucose Gel 15 Gm Gel..Gram.) 15 gm PO Q15M PRN; Protocol PRN Reason: per Hypoglycemia Standing Ord. Hydromorphone HCl (Hydromorphone Hcl 0.5 Mg/0.5 Ml Syringe) 0.5 mg IVPUSH Q4H PRN; Protocol PRN Reason: Pain, Severe (Pain Scale 7-10) Last Admin: 01/11/25 03:05 Dose: 0.5 mg Hydroxychloroquine Sulfate (Hydroxychloroquine Sulfate 200 Mg Tablet) 200 mg PO DAILY [facility] Last Admin: 01/11/25 08:32 Dose: 200 mg Hydroxyzine HCl (Hydroxyzine Hcl 25 Mg Tablet) 25 mg PO QID PRN PRN Reason: anxiety Last Admin: 01/11/25 03:05 Dose: 25 mg Lactated Ringer's (Lr) 1,000 mls @ 100 mls/hr IVCONT .Q10H [facility] Last Admin: 01/11/25 06:38 Dose: 100 mls/hr Insulin Human Lispro (Insulin Lispro 100 Unit/Ml 3 Ml Vial) 0 unit SUBCUT QIDACHS [facility]; Protocol Last Admin: 01/11/25 12:20 Dose: 10 unit Insulin Human Lispro (Insulin Lispro 100 Unit/Ml 3 Ml Vial) 5 unit SUBCUT QIDACHS [facility] Last Admin: 01/11/25 11:57 Dose: Not Given Magnesium Hydroxide (Milk Of Magnesia 30 Ml Oral.Susp) 30 ml PO DAILY PRN PRN Reason: Constipation Melatonin (Melatonin 3 Mg Tablet) 6 mg PO BEDTIME PRN PRN Reason: Insomnia Last Admin: 01/10/25 21:10 Dose: 6 mg Methadone HCl (Methadone Hcl 10 Mg Tablet) 20 mg PO TID PRN PRN Reason: Pain (Scale Score 7-10) Last Admin: 01/11/25 08:31 Dose: 20 mg Midodrine (Midodrine Hcl 10 Mg Tablet) 10 mg PO TID [facility] Last Admin: 01/11/25 15:13 Dose: Not Given Mirtazapine (Mirtazapine 7.5 Mg Tablet) 22.5 mg PO BEDTIME [facility] Last Admin: 01/10/25 21:04 Dose: 22.5 mg Non-Formulary Medication (Insulin Regular Hum U-500 Conc [Humulin R U-500 (Conc) Kwikpen]) 700 unit SUBCUT TIDAC [facility] Ondansetron HCl (Ondansetron Hcl 4 Mg/2 Ml Vial) 4 mg IVPUSH Q8H PRN PRN Reason: Nausea and Vomiting Last Admin: 01/11/25 14:40 Dose: 4 mg Pioglitazone HCl (Pioglitazone Hcl 45 Mg Tablet) 45 mg PO DAILY [facility] Last Admin: 01/11/25 08:32 Dose: 45 mg Polyethylene Glycol (Polyethylene Glycol 3350 17 Gm Powd.Pack) 17 gm PO DAILY PRN PRN Reason: Constipation Senna (Sennosides 8.6 Mg Tablet) 17.2 mg PO BEDTIME [facility] Last Admin: 01/10/25 21:21 Dose: Not Given Sodium Chloride (0.9 % Sodium Chloride Flush 3 Ml Syringe) 3 ml IVFLUSH QSHIFT [facility] Last Admin: 01/11/25 14:41 Dose: Not Given Allergies Allergies Allergy/AdvReac Type Severity Reaction Status Date / Time acetaminophen Allergy Swelling Verified 01/10/25 00:40 atorvastatin Allergy Unknown Verified 01/10/25 00:40 duloxetine Allergy Unknown Verified 01/10/25 00:40 fish derived [fish] Allergy Swelling Verified 01/10/25 00:40 Assessment & Plan Assessment & Plan (1) Major depressive disorder: Status: Acute Code(s): F32.9 - Major depressive disorder, single episode, unspecified Plan Recommendation: -Pt interested in referral to outpatient therapy. -Continue home psychiatric medications. Pt reports current dosages are beneficial for her mood. -Consult Care team for crisis assessment prior to discharge if concerns regarding safety arise. Total time managing care of this patient today _30___ minutes. Patient educated on: diagnosis and medication risk/benefits
--- NOTE | 2025-01-11 17:16 | HO.PM.IMPN ---
Subjective Subjective Date of Service: 01/12/25 Interval History: dm with hyperglycemia Review of Systems denies new c/o Review of Systems: Yes all other systems are reviewed and are negative Physical Exam Vital Signs: Vital Signs: Last Vital Signs Temp 99.2 F 01/11/25 16:00 Pulse 93 01/11/25 16:00 Resp 19 01/11/25 16:00 BP 114/63 01/11/25 16:00 Pulse Ox 99 01/11/25 16:00 O2 Del Method Room Air 01/11/25 16:00 BMI result Body Mass Index 19.4 Appearance: Alert.? Oriented X3.? cvs: rrr, [id number]. res: clear to auscultation ,no rhonchii or wheezing abd: no rebound or guarding ,nt, bs present. ext pulses present , no cyanosis . neuro:nonfocal. Objective Data Active Medications Albuterol/Ipratropium (Albuterol/Iprat 2.5/0.5mg 3 Ml Ampul.Neb) 3 ml INHALE Q4H PRN PRN Reason: Shortness of Breath/Wheezing Calcium Carbonate (Calcium Carbonate 750 Mg Tab.Chew) 750 mg PO Q4H PRN PRN Reason: Heartburn Ceftriaxone Sodium (Ceftriaxone Sodium 1 Gm Vial) 1 gm IVPUSH Q24H [facility] Last Admin: 01/10/25 17:16 Dose: 1 gm Documented By: JOY Dextrose (Dextrose 50 % 25 Gm/50 Ml Syringe) 25 gm IVPUSH Q15M PRN; Protocol PRN Reason: per Hypoglycemia Standing Ord. Enoxaparin Sodium (Enoxaparin Sodium 40 Mg/0.4 Ml Syringe) 40 mg SUBCUT Q24H [facility] Last Admin: 01/11/25 08:30 Dose: 40 mg Documented By: ADRIÁN Fludrocortisone Acetate (Fludrocortisone Acetate 0.1 Mg Tablet) 0.1 mg PO DAILY [facility] Last Admin: 01/11/25 08:31 Dose: 0.1 mg Documented By: ADRIÁN Fluoxetine HCl (Fluoxetine Hcl 20 Mg Capsule) 20 mg PO DAILY [facility] Last Admin: 01/11/25 08:32 Dose: 20 mg Documented By: ADRIÁN Glucose (Glucose Gel 15 Gm Gel..Gram.) 15 gm PO Q15M PRN; Protocol PRN Reason: per Hypoglycemia Standing Ord. Hydromorphone HCl (Hydromorphone Hcl 0.5 Mg/0.5 Ml Syringe) 0.5 mg IVPUSH Q4H PRN; Protocol PRN Reason: Pain, Severe (Pain Scale 7-10) Last Admin: 01/11/25 03:05 Dose: 0.5 mg Documented By: DALLIN Hydroxychloroquine Sulfate (Hydroxychloroquine Sulfate 200 Mg Tablet) 200 mg PO DAILY [facility] Last Admin: 01/11/25 08:32 Dose: 200 mg Documented By: ADRIÁN Hydroxyzine HCl (Hydroxyzine Hcl 25 Mg Tablet) 25 mg PO QID PRN PRN Reason: anxiety Last Admin: 01/11/25 03:05 Dose: 25 mg Documented By: DALLIN Lactated Ringer's (Lr) 1,000 mls @ 100 mls/hr IVCONT .Q10H [facility] Last Admin: 01/11/25 06:38 Dose: 100 mls/hr Documented By: DALLIN Insulin Human Lispro (Insulin Lispro 100 Unit/Ml 3 Ml Vial) 0 unit SUBCUT QIDAS [facility]; Protocol Last Admin: 01/11/25 12:20 Dose: 10 unit Documented By: ADRIÁN Insulin Human Lispro (Insulin Lispro 100 Unit/Ml 3 Ml Vial) [facility] Last Admin: 01/11/25 11:57 Dose: Not Given Documented By: ADRIÁN Non-Admin Reason: No Insulin Coverage Magnesium Hydroxide (Milk Of Magnesia 30 Ml Oral.Susp) 30 ml PO DAILY PRN PRN Reason: Constipation Melatonin (Melatonin 3 Mg Tablet) 6 mg PO BEDTIME PRN PRN Reason: Insomnia Last Admin: 01/10/25 21:10 Dose: 6 mg Documented By: DALLIN Methadone HCl (Methadone Hcl 10 Mg Tablet) 20 mg PO TID PRN PRN Reason: Pain (Scale Score 7-10) Last Admin: 01/11/25 08:31 Dose: 20 mg Documented By: ADRIÁN Midodrine (Midodrine Hcl 10 Mg Tablet) 10 mg PO TID [facility] Last Admin: 01/11/25 15:13 Dose: Not Given Documented By: ADRIÁN Non-Admin Reason: BP high Mirtazapine (Mirtazapine 7.5 Mg Tablet) 22.5 mg PO BEDTIME [facility] Last Admin: 01/10/25 21:04 Dose: 22.5 mg Documented By: DALLIN Non-Formulary Medication (Insulin Regular Hum U-500 Conc [Humulin R U-500 (Conc) Kwikpen]) 700 unit SUBCUT TIDAC [facility] Ondansetron HCl (Ondansetron Hcl 4 Mg/2 Ml Vial) 4 mg IVPUSH Q8H PRN PRN Reason: Nausea and Vomiting Last Admin: 01/11/25 14:40 Dose: 4 mg Documented By: ADRIÁN Pioglitazone HCl (Pioglitazone Hcl 45 Mg Tablet) 45 mg PO DAILY [facility] Last Admin: 01/11/25 08:32 Dose: 45 mg Documented By: ADRIÁN Polyethylene Glycol (Polyethylene Glycol 3350 17 Gm Powd.Pack) 17 gm PO DAILY PRN PRN Reason: Constipation Senna (Sennosides 8.6 Mg Tablet) 17.2 mg PO BEDTIME [facility] Last Admin: 01/10/25 21:21 Dose: Not Given Documented By: DALLIN Non-Admin Reason: Patient Refused Sodium Chloride (0.9 % Sodium Chloride Flush 3 Ml Syringe) 3 ml IVFLUSH QSHIFT [facility] Last Admin: 01/11/25 14:41 Dose: Not Given Documented By: ADRIÁN Non-Admin Reason: IV Running Labs 01/11/25 06:57 Labs: Laboratory Results - last 24 hr 01/10/25 01/10/25 01/10/25 17:01 17:07 18:01 Hold Purple Top O2 Saturation TNP ABG pH at Pt Temp 7.39 ABG pCO2 at Pt Temp 47 H ABG pO2 at Pt Temp TNP ABG HCO3 28 H ABG Base Excess (Actual) 3.1 Anion Gap 9 L Estim Creat Clear Calc 46.7 Estimated GFR 52 POC Glucose 489 H* Random Glucose 611 H* Osmolality Calcium 8.5 Magnesium 2.3 Total Bilirubin AST ALT Alkaline Phosphatase Total Protein Albumin Beta-Hydroxybutyrate 0.06 01/10/25 01/10/25 01/10/25 19:17 20:26 20:43 Hold Purple Top O2 Saturation ABG pH at Pt Temp ABG pCO2 at Pt Temp ABG pO2 at Pt Temp ABG HCO3 ABG Base Excess (Actual) Anion Gap 12 Estim Creat Clear Calc 46.3 Estimated GFR 51 POC Glucose 466 H* 468 H* Random Glucose 530 H* Osmolality 294 Calcium 8.4 Magnesium Total Bilirubin AST ALT Alkaline Phosphatase Total Protein Albumin Beta-Hydroxybutyrate 01/10/25 01/11/25 01/11/25 21:29 00:07 02:11 Hold Purple Top O2 Saturation ABG pH at Pt Temp ABG pCO2 at Pt Temp ABG pO2 at Pt Temp ABG HCO3 ABG Base Excess (Actual) Anion Gap Estim Creat Clear Calc Estimated GFR POC Glucose 474 H* 447 H* 402 H* Random Glucose Osmolality Calcium Magnesium Total Bilirubin AST ALT Alkaline Phosphatase Total Protein Albumin Beta-Hydroxybutyrate 01/11/25 01/11/25 01/11/25 04:26 06:13 06:57 Hold Purple Top SEE NOTE O2 Saturation ABG pH at Pt Temp ABG pCO2 at Pt Temp ABG pO2 at Pt Temp ABG HCO3 ABG Base Excess (Actual) Anion Gap 9 L Estim Creat Clear Calc 45.9 Estimated GFR 51 POC Glucose 390 H* 355 H* Random Glucose 360 H* Osmolality Calcium 8.6 Magnesium Total Bilirubin 0.2 AST 16 ALT < 6 Alkaline Phosphatase 83 Total Protein 6.2 L Albumin 3.1 L Beta-Hydroxybutyrate 01/11/25 01/11/25 01/11/25 07:10 09:25 11:40 Hold Purple Top O2 Saturation ABG pH at Pt Temp ABG pCO2 at Pt Temp ABG pO2 at Pt Temp ABG HCO3 ABG Base Excess (Actual) Anion Gap Estim Creat Clear Calc Estimated GFR POC Glucose 353 H* 317 H 291 H Random Glucose Osmolality Calcium Magnesium Total Bilirubin AST ALT Alkaline Phosphatase Total Protein Albumin Beta-Hydroxybutyrate 01/11/25 01/11/25 14:23 16:23 Hold Purple Top O2 Saturation ABG pH at Pt Temp ABG pCO2 at Pt Temp ABG pO2 at Pt Temp ABG HCO3 ABG Base Excess (Actual) Anion Gap Estim Creat Clear Calc Estimated GFR POC Glucose 248 H 218 H Random Glucose Osmolality Calcium Magnesium Total Bilirubin AST ALT Alkaline Phosphatase Total Protein Albumin Beta-Hydroxybutyrate Assessment and Plan (1) Hyperglycemia: Status: Acute Assessment and Plan: 49-year-old black female with past medical history insulin-dependent diabetes type 2, major depressive disorder, general anxiety disorder, daily marijuana use, currently on methadone for pain control, a current unstageable sacral wound with history of osteomyelitis, lupus, myelofibrosis with the associated pancytopenia, diabetic gastroparesis, recurrent C diff infections currently asymptomatic is being transferred from the psychiatric unit and admitted to the medical-surgical floor for noted hyperglycemia without evidence of DKA. Patient initially reluctant to start lispro insulin but after review with patient for admission, patient is now agreeable. insulin-dependent diabetes type 2 with hyperglycemia(spoke to patient's endocrinology staff in [facility] : Patient has diabetes b with insulin resistance-on IVIG) Hemoglobin A1c > 14 Patient received Lantus 40 units last night Fingersticks are slowly trending to 200 range now waiting for [facility] endocrinology call back for further management. Currently we will keep patient on Lantus until further plan. Patient is on very high doses of Humulin insulin? Unclear if patient needs to be continued onit/will clarify with patient endocrinology. Stage IV sacral wound with history of osteomyelitis -Wound care consultation ordered -Turn and reposition every 2 hours when awake -ID consultation ordered -Patient does state she has been [facility] setting. Unable to confirm this. -Optimize nutrition, glucerna shakes ordered, nutritional consult ordered Anemia -HGB up to 8.7, was 8.4 at [facility] -Monitor CBC daily Pancytopenia (chronic) -Leukopenia, Thrombocytopenia, and Anemia noted -Levels stable -Monitor CBC daily Chronic pain -Patient currently on methadone for chronic pain management, no history of substance use disorder -Avoid IV narcotics -Unable to provide Tylenol due to adverse effects including swelling Major depressive disorder with general anxiety disorder One-to-one ordered for constant observation. Patient currently grieving the loss of her brother. Patient is not currently suicidal or admitting to suicidal ideations Psych eval added -will need crisis eval before discharge DVT prophylaxis: Lovenox PPI prophylaxis: Omeprazole Full Code status d/w in detail with patient 's ornamental plaster sticker moralez -plan is continue home regimen -start with home humulin dosing 500 units TIDAC,also detailed instruction paper given to staff. Quality Stroke Does the patient have a stroke diagnosis?: No Reason for No Anti-thrombotic by Day Two: N/A - Med Ordered VTE Prior VTE?: No VTE Risk Level:: Medical - moderate - high VTE Device Contraindication: N/A - Device Ordered VTE Drug Contraindication: N/A - Med Ordered
[2025-01-11] MEDS: cefTRIAXone sodium 1 GM VIAL IVPUSH (17:44)
[2025-01-11 17:51] LABS: Glucose, Whole Blood 274 mg/dL (60-115)
[2025-01-11 20:30] LABS: Glucose, Whole Blood 307 mg/dL (60-115)
[2025-01-11] MEDS: Melatonin 3 MG TABLET 6 MG PO (21:28)
[2025-01-11] MEDS: Mirtazapine 7.5 MG TABLET 22.5 MG PO (21:29)
[2025-01-11 21:46] LABS: Glucose, Whole Blood 359 mg/dL (60-115)
[2025-01-12] VITALS (7 sets, daily range): BP systolic 87–142; BP diastolic 56–88; PULSE 76–94; RESP 16–18; TEMP 36.3–37.2; O2SAT 96–99
[2025-01-12 00:20] LABS: Glucose, Whole Blood 353 mg/dL (60-115)
[2025-01-12 02:25] LABS: Glucose, Whole Blood 340 mg/dL (60-115)
[2025-01-12 06:29] LABS: Glucose, Whole Blood 298 mg/dL (60-115)
[2025-01-12 06:29] LABS: Glucose, Whole Blood 297 mg/dL (60-115)
[2025-01-12 08:01] LABS: Glucose, Whole Blood 310 mg/dL (60-115)
[2025-01-12] MEDS: methADONE HCl 10 MG TABLET 20 MG PO ×2 (09:27→21:36)
[2025-01-12] MEDS: Enoxaparin Sodium 40 MG/0.4 ML SYRINGE SUBCUT (09:28)
[2025-01-12] MEDS: Hydroxychloroquine Sulfate 200 MG TABLET PO (09:28)
[2025-01-12] MEDS: FLUoxetine HCl 20 MG CAPSULE PO (09:28)
[2025-01-12] MEDS: Pioglitazone HCL 45 MG TABLET PO (09:28)
[2025-01-12] MEDS: Midodrine HCl 10 MG TABLET PO ×2 (09:28→21:40)
[2025-01-12] MEDS: 0.9 % Sodium Chloride Flush 3 ML SYRINGE IVFLUSH ×3 (09:33→21:40)
[2025-01-12] MEDS: Fludrocortisone Acetate 0.1 MG TABLET PO (09:34)
[2025-01-12 10:03] LABS: Glucose, Whole Blood 342 mg/dL (60-115)
[2025-01-12] MEDS: ondansetron HCL 4 MG/2 ML VIAL IVPUSH ×2 (12:08→21:36)
[2025-01-12 12:19] LABS: Glucose, Whole Blood 343 mg/dL (60-115)
[2025-01-12 15:00] LABS: Glucose, Whole Blood 231 mg/dL (60-115)
[2025-01-12 15:33] LABS: Glucose, Whole Blood 200 mg/dL (60-115)
--- NOTE | 2025-01-12 15:36 | MHC.CARE ---
Patient evaluated by the CARE Team, she does not require an inpatient psychiatric admission at this time, will be referred for outpatient therapy. Provider, Dr. Fung updated.
--- NOTE | 2025-01-12 16:27 | MHC.CM.PN ---
Pt will DC to home with [facility]. They do not have availability to see patient until Thursday. Patient receives Methadone. She states from [facility]. DP home with [facility]. A family member will provide transport at discharge.
[2025-01-12] MEDS: hydrOXYzine HCL 25 MG TABLET PO (17:17)
[2025-01-12] MEDS: Promethazine HCL 25 MG TABLET PO (17:17)
[2025-01-12] MEDS: cefTRIAXone sodium 1 GM VIAL IVPUSH (17:17)
--- NOTE | 2025-01-12 17:19 | HO.PM.IMPN ---
Subjective Subjective Date of Service: 01/12/25 Interval History: dm,uti Review of Systems as above Review of Systems: Yes all other systems are reviewed and are negative Physical Exam Vital Signs: Vital Signs: Last Vital Signs Temp 97.3 F 01/12/25 15:54 Pulse 86 01/12/25 15:54 Resp 18 01/12/25 15:54 BP 142/88 H 01/12/25 15:54 Pulse Ox 99 01/12/25 15:54 O2 Del Method Room Air 01/12/25 15:54 BMI result Body Mass Index 19.4 Appearance: Alert.? Oriented X3.? cvs: [id number], [id number]. res: clear to auscultation ,no rhonchii or wheezing abd: no rebound or guarding ,nt, bs present. ext pulses present , no cyanosis . neuro:nonfocal. Objective Data Active Medications Albuterol/Ipratropium (Albuterol/Iprat 2.5/0.5mg 3 Ml Ampul.Neb) 3 ml INHALE Q4H PRN PRN Reason: Shortness of Breath/Wheezing Calcium Carbonate (Calcium Carbonate 750 Mg Tab.Chew) 750 mg PO Q4H PRN PRN Reason: Heartburn Ceftriaxone Sodium (Ceftriaxone Sodium 1 Gm Vial) 1 gm IVPUSH Q24H [facility] Last Admin: 01/12/25 17:17 Dose: 1 gm Documented By: GARRETT Dextrose (Dextrose 50 % 25 Gm/50 Ml Syringe) 25 gm IVPUSH Q15M PRN; Protocol PRN Reason: per Hypoglycemia Standing Ord. Enoxaparin Sodium (Enoxaparin Sodium 40 Mg/0.4 Ml Syringe) 40 mg SUBCUT Q24H [facility] Last Admin: 01/12/25 09:28 Dose: 40 mg Documented By: ADRIÁN Fludrocortisone Acetate (Fludrocortisone Acetate 0.1 Mg Tablet) 0.1 mg PO DAILY [facility] Last Admin: 01/12/25 09:34 Dose: 0.1 mg Documented By: ADRIÁN Fluoxetine HCl (Fluoxetine Hcl 20 Mg Capsule) 20 mg PO DAILY [facility] Last Admin: 01/12/25 09:28 Dose: 20 mg Documented By: ADRIÁN Glucose (Glucose Gel 15 Gm Gel..Gram.) 15 gm PO Q15M PRN; Protocol PRN Reason: per Hypoglycemia Standing Ord. Hydromorphone HCl (Hydromorphone Hcl 0.5 Mg/0.5 Ml Syringe) 0.5 mg IVPUSH Q4H PRN; Protocol PRN Reason: Pain, Severe (Pain Scale 7-10) Last Admin: 01/11/25 03:05 Dose: 0.5 mg Documented By: DALLIN Hydroxychloroquine Sulfate (Hydroxychloroquine Sulfate 200 Mg Tablet) 200 mg PO DAILY [facility] Last Admin: 01/12/25 09:28 Dose: 200 mg Documented By: ADRIÁN Hydroxyzine HCl (Hydroxyzine Hcl 25 Mg Tablet) 25 mg PO QID PRN PRN Reason: anxiety Last Admin: 01/12/25 17:17 Dose: 25 mg Documented By: GARRETT Lactated Ringer's (Lr) 1,000 mls @ 100 mls/hr IVCONT .Q10H [facility] Last Admin: 01/12/25 13:19 Dose: Not Given Documented By: ADRIÁN Non-Admin Reason: Patient Refused Magnesium Hydroxide (Milk Of Magnesia 30 Ml Oral.Susp) 30 ml PO DAILY PRN PRN Reason: Constipation Melatonin (Melatonin 3 Mg Tablet) 6 mg PO BEDTIME PRN PRN Reason: Insomnia Last Admin: 01/11/25 21:28 Dose: 6 mg Documented By: ADELINA Methadone HCl (Methadone Hcl 10 Mg Tablet) 20 mg PO TID PRN PRN Reason: Pain (Scale Score 7-10) Last Admin: 01/12/25 09:27 Dose: 20 mg Documented By: ADRIÁN Midodrine (Midodrine Hcl 10 Mg Tablet) 10 mg PO TID [facility] Last Admin: 01/12/25 16:06 Dose: Not Given Documented By: GARRETT Non-Admin Reason: Elevated Blood Pressure Mirtazapine (Mirtazapine 7.5 Mg Tablet) 22.5 mg PO BEDTIME [facility] Last Admin: 01/11/25 21:29 Dose: 22.5 mg Documented By: ADELINA Pt Own (Insulin Regular Hum U-500 Conc [Humulin R U- 500 (Conc) Kwikpen] 500 unit SUBCUT TIDAC [facility] Last Admin: 01/12/25 16:20 Dose: Not Given Documented By: GARRETT Non-Admin Reason: Physician Held Med Ondansetron HCl (Ondansetron Hcl 4 Mg/2 Ml Vial) 4 mg IVPUSH Q8H PRN PRN Reason: Nausea and Vomiting Last Admin: 01/12/25 12:08 Dose: 4 mg Documented By: ADRIÁN Pioglitazone HCl (Pioglitazone Hcl 45 Mg Tablet) 45 mg PO DAILY [facility] Last Admin: 01/12/25 09:28 Dose: 45 mg Documented By: ADRIÁN Polyethylene Glycol (Polyethylene Glycol 3350 17 Gm Powd.Pack) 17 gm PO DAILY PRN PRN Reason: Constipation Senna (Sennosides 8.6 Mg Tablet) 17.2 mg PO BEDTIME [facility] Last Admin: 01/11/25 22:42 Dose: Not Given Documented By: ADELINA Non-Admin Reason: Patient Refused Sodium Chloride (0.9 % Sodium Chloride Flush 3 Ml Syringe) 3 ml IVFLUSH QSHIFT [facility] Last Admin: 01/12/25 17:17 Dose: 3 ml Documented By: GARRETT Labs 01/11/25 06:57 Labs: Laboratory Results - last 24 hr 01/11/25 01/11/25 01/11/25 17:47 20:26 21:42 POC Glucose 274 H 307 H 359 H* 01/12/25 01/12/25 01/12/25 00:17 02:21 04:09 POC Glucose 353 H* 340 H 297 H 01/12/25 01/12/25 01/12/25 06:26 07:57 09:59 POC Glucose 298 H 310 H 342 H 01/12/25 01/12/25 01/12/25 12:07 14:55 15:28 POC Glucose 343 H 231 H 200 H Assessment and Plan (1) Hyperglycemia: Status: Acute Assessment and Plan: 49-year-old black female with past medical history insulin-dependent diabetes type 2, major depressive disorder, general anxiety disorder, daily marijuana use, currently on methadone for pain control, a current unstageable sacral wound with history of osteomyelitis, lupus, myelofibrosis with the associated pancytopenia, diabetic gastroparesis, recurrent C diff infections currently asymptomatic is being transferred from the psychiatric unit and admitted to the medical-surgical floor for noted hyperglycemia without evidence of DKA. Patient initially reluctant to start lispro insulin but after review with patient for admission, patient is now agreeable. insulin-dependent diabetes type 2 with hyperglycemia(spoke to patient's endocrinology staff in [facility] : Patient has diabetes b with insulin resistance-on IVIG) Hemoglobin A1c > 14 Patient received Lantus 40 units last night Fingersticks are slowly trending to 200 range now waiting for [facility] endocrinology call back for further management. Currently we will keep patient on Lantus until further plan. d/w patient endocrinology: continue her regimen 500 units tiaac,staff is aware for adjustments Stage IV sacral wound with history of osteomyelitis -Wound care consultation ordered -Turn and reposition every 2 hours when awake -ID consultation ordered -Patient does state she has been following with [facility] in [facility] outpatient setting. Unable to confirm this. -Optimize nutrition, glucerna shakes ordered, nutritional consult ordered uti: as per [facility] records senstive to cefepime Anemia -HGB up to 8.7, was 8.4 at [facility] -Monitor CBC daily Pancytopenia (chronic) -Leukopenia, Thrombocytopenia, and Anemia noted -Levels stable -Monitor CBC daily Chronic pain -Patient currently on methadone for chronic pain management, no history of substance use disorder -Avoid IV narcotics -Unable to provide Tylenol due to adverse effects including swelling Major depressive disorder with general anxiety disorder One-to-one ordered for constant observation. Patient currently grieving the loss of her brother. 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 Quality Stroke Does the patient have a stroke diagnosis?: No Reason for No Anti-thrombotic by Day Two: N/A - Med Ordered VTE Prior VTE?: No VTE Risk Level:: Medical - moderate - high VTE Device Contraindication: N/A - Device Ordered VTE Drug Contraindication: N/A - Med Ordered
[2025-01-12 17:54] LABS: Glucose, Whole Blood 81 mg/dL (60-115)
[2025-01-12] MEDS: cefEPime HCl 1 GM in 0.9 % Sodium Chloride 50 ML IV (18:33)
[2025-01-12 20:37] LABS: Glucose, Whole Blood 132 mg/dL (60-115)
[2025-01-12] MEDS: Melatonin 3 MG TABLET 6 MG PO (21:37)
[2025-01-12] MEDS: Mirtazapine 7.5 MG TABLET 22.5 MG PO (21:39)
[2025-01-12 21:54] LABS: Glucose, Whole Blood 197 mg/dL (60-115)
[2025-01-13] VITALS (8 sets, daily range): BP systolic 101–165; BP diastolic 68–88; PULSE 74–86; RESP 16–20; TEMP 36.6–37.1; O2SAT 95–99
[2025-01-13 00:25] LABS: Glucose, Whole Blood 125 mg/dL (60-115)
[2025-01-13 02:05] LABS: Glucose, Whole Blood 63 mg/dL (60-115)
[2025-01-13] MEDS: Dextrose 50 % 25 GM/50 ML SYRINGE IVPUSH ×3 (02:18→04:24)
[2025-01-13 02:43] LABS: Glucose, Whole Blood 137 mg/dL (60-115)
[2025-01-13 04:22] LABS: Glucose, Whole Blood 46 mg/dL (60-115)
[2025-01-13 04:49] LABS: Glucose, Whole Blood 280 mg/dL (60-115)
[2025-01-13] MEDS: cefEPime HCl 1 GM in 0.9 % Sodium Chloride 50 ML IV ×2 (05:52→18:19)
[2025-01-13 05:59] LABS: Glucose, Whole Blood 176 mg/dL (60-115)
[2025-01-13 07:57] LABS: Glucose, Whole Blood 107 mg/dL (60-115)
[2025-01-13 09:51] LABS: Glucose, Whole Blood 86 mg/dL (60-115)
[2025-01-13] MEDS: 0.9 % Sodium Chloride Flush 3 ML SYRINGE IVFLUSH ×2 (10:20→18:20)
[2025-01-13] MEDS: Enoxaparin Sodium 40 MG/0.4 ML SYRINGE SUBCUT (10:20)
[2025-01-13] MEDS: FLUoxetine HCl 20 MG CAPSULE PO (10:21)
[2025-01-13] MEDS: Hydroxychloroquine Sulfate 200 MG TABLET PO (10:22)
[2025-01-13] MEDS: Midodrine HCl 10 MG TABLET PO ×2 (10:22→14:40)
[2025-01-13] MEDS: Pioglitazone HCL 45 MG TABLET PO (10:22)
[2025-01-13] MEDS: Fludrocortisone Acetate 0.1 MG TABLET PO (10:22)
[2025-01-13 12:03] LABS: Glucose, Whole Blood 166 mg/dL (60-115)
--- NOTE | 2025-01-13 13:32 | P.CNGI_ITS ---
History of Present Illness Data of Consult Service Date: 01/13/25 Requesting physician: Chelsie Fung Primary Care Provider: Moises Ramires NP HPI Reason for consult: Gastroparesis 49 year old AA female with IDDM type 2, major depressive disorder, general anxiety disorder, daily marijuana use, currently on methadone for pain control, a current chronic stage 4 sacral wound with history of osteomyelitis, lupus, myelofibrosis with the associated pancytopenia, diabetic gastroparesis, recurrent C diff infections currently asymptomatic admitted to the Psyche unit for Major depressive disorder with general anxiety disorder and transferred to medicine on 01/10/25 for hyperglycemia without evidence of DKA, more likely HHS. Patient currently grieving the loss of her brother. GI consulted for evaluation for gastroparesis. [facility] Past Medical History Medical History Generalized anxiety disorder Major depressive disorder Sacral decubitus ulcer, stage IV Chronic pain Lupus (systemic lupus erythematosus) Insulin dependent type 2 diabetes mellitus Social History Social History (Updated 01/10/25 @ 06:13 by Amelia Parker [facility]) Household Members: Spouse Housing: Apartment Do you presently have visiting nurse or other home services: No Comment: 1:1 sitter Patient Tobacco Use Status: Never used Tobacco e-Cigarette/Vaping Use: Never Used Second Hand Smoke Exposure: No Use of substances other than those prescribed or required for medical reasons: Yes Substance Use Type: Marijuana Currently Displaying Signs/Symptoms of Drug Intoxication Withdrawal: No Advance Directives: No Advance Directives Information Provided: No Advance Directives on File: No Patient : No service: No Travel History Ebola Risk: Travel/Contact With Anyone From Affected Area/s: No Has Patient Experienced Ebola Symptoms: No Meds Allergies Allergy/AdvReac Type Severity Reaction Status Date / Time acetaminophen Allergy Swelling Verified 01/10/25 00:40 atorvastatin Allergy Unknown Verified 01/10/25 00:40 duloxetine Allergy Unknown Verified 01/10/25 00:40 fish derived [fish] Allergy Swelling Verified 01/10/25 00:40 Active Medications: Current Medications Albuterol/Ipratropium (Albuterol/Iprat 2.5/0.5mg 3 Ml Ampul.Neb) 3 ml INHALE Q4H PRN PRN Reason: Shortness of Breath/Wheezing Calcium Carbonate (Calcium Carbonate 750 Mg Tab.Chew) 750 mg PO Q4H PRN PRN Reason: Heartburn Dextrose (Dextrose 50 % 25 Gm/50 Ml Syringe) 25 gm IVPUSH Q15M PRN; Protocol PRN Reason: per Hypoglycemia Standing Ord. Last Admin: 01/13/25 04:24 Dose: 25 gm Enoxaparin Sodium (Enoxaparin Sodium 40 Mg/0.4 Ml Syringe) 40 mg SUBCUT Q24H [facility] Last Admin: 01/13/25 10:20 Dose: 40 mg Fludrocortisone Acetate (Fludrocortisone Acetate 0.1 Mg Tablet) 0.1 mg PO DAILY [facility] Last Admin: 01/13/25 10:22 Dose: 0.1 mg Fluoxetine HCl (Fluoxetine Hcl 20 Mg Capsule) 20 mg PO DAILY [facility] Last Admin: 01/13/25 10:21 Dose: 20 mg Glucose (Glucose Gel 15 Gm Gel..Gram.) 15 gm PO Q15M PRN; Protocol PRN Reason: per Hypoglycemia Standing Ord. Hydroxychloroquine Sulfate (Hydroxychloroquine Sulfate 200 Mg Tablet) 200 mg PO DAILY [facility] Last Admin: 01/13/25 10:22 Dose: 200 mg Hydroxyzine HCl (Hydroxyzine Hcl 25 Mg Tablet) 25 mg PO QID PRN PRN Reason: anxiety Last Admin: 01/12/25 17:17 Dose: 25 mg Cefepime HCl 1 gm/ Sodium (Chloride) 50 mls @ 100 mls/hr IV Q12H [facility] Last Infusion: 01/13/25 06:33 Dose: Infused Magnesium Hydroxide (Milk Of Magnesia 30 Ml Oral.Susp) 30 ml PO DAILY PRN PRN Reason: Constipation Melatonin (Melatonin 3 Mg Tablet) 6 mg PO BEDTIME PRN PRN Reason: Insomnia Last Admin: 01/12/25 21:37 Dose: 6 mg Methadone HCl (Methadone Hcl 10 Mg Tablet) 20 mg PO TID PRN PRN Reason: Pain (Scale Score 7-10) Last Admin: 01/12/25 21:36 Dose: 20 mg Midodrine (Midodrine Hcl 10 Mg Tablet) 10 mg PO TID [facility] Last Admin: 01/13/25 10:22 Dose: 10 mg Mirtazapine (Mirtazapine 7.5 Mg Tablet) 22.5 mg PO BEDTIME [facility] Last Admin: 01/12/25 21:39 Dose: 22.5 mg Pt Own (Insulin Regular Hum U-500 Conc [Humulin R U- 500 (Conc) Kwikpen] 500 unit SUBCUT TIDAC [facility] Last Admin: 01/13/25 13:14 Dose: Not Given Ondansetron HCl (Ondansetron Hcl 4 Mg/2 Ml Vial) 4 mg IVPUSH Q8H PRN PRN Reason: Nausea and Vomiting Last Admin: 01/12/25 21:36 Dose: 4 mg Pioglitazone HCl (Pioglitazone Hcl 45 Mg Tablet) 45 mg PO DAILY [facility] Last Admin: 01/13/25 10:22 Dose: 45 mg Polyethylene Glycol (Polyethylene Glycol 3350 17 Gm Powd.Pack) 17 gm PO DAILY PRN PRN Reason: Constipation Senna (Sennosides 8.6 Mg Tablet) 17.2 mg PO BEDTIME [facility] Last Admin: 01/12/25 21:40 Dose: Not Given Sodium Chloride (0.9 % Sodium Chloride Flush 3 Ml Syringe) 3 ml IVFLUSH QSHIFT [facility] Last Admin: 01/13/25 10:20 Dose: 3 ml Home Medications ?Medication ?Instructions ?Recorded ?Confirmed ?Last Taken ?Type fludrocortisone 0.1 mg tablet 0.1 mg PO DAILY 01/10/25 01/10/25 01/09/25 12:01 History fluoxetine 20 mg capsule 20 mg PO DAILY 01/10/25 01/10/25 01/09/25 12:01 History hydroxychloroquine 200 mg tablet 200 mg PO QAM 01/10/25 01/10/25 01/09/25 12:13 History hydroxyzine pamoate 25 mg capsule 25 mg PO QID PRN anxiety 01/10/25 01/10/25 Unknown History insulin regular hum U-500 conc 500 700 unit subcut TIDAC 01/10/25 01/10/25 01/09/25 14:32 History unit/mL(3 mL) subcut pen (Humulin R U-500 (Conc) Insulin Kwikpen) methadone 10 mg tablet 20 mg PO TID PRN Pain (Scale Score 01/10/25 01/10/25 Unknown History 7-10) midodrine 10 mg tablet 10 mg PO TID 01/10/25 01/10/25 01/09/25 18:52 History mirtazapine 7.5 mg tablet 22.5 mg PO BEDTIME 01/10/25 01/10/25 Unknown History pioglitazone 45 mg tablet 45 mg PO DAILY 01/10/25 01/10/25 01/09/25 12:01 History Physical Exam 2 Vital Signs: Vital Signs: Last Vital Signs Temp 98.3 F 01/13/25 11:14 Pulse 85 01/13/25 11:14 Resp 20 01/13/25 11:14 BP 133/80 01/13/25 11:14 Pulse Ox 99 01/13/25 11:14 O2 Del Method Room Air 01/13/25 11:14 BMI result Body Mass Index 19.4 Results Labs 01/11/25 06:57 Procedures Date of Service Date of Service: 01/13/25
[2025-01-13 14:09] LABS: Glucose, Whole Blood 388 mg/dL (60-115)
--- NOTE | 2025-01-13 14:19 | MHC.CM.PN ---
EMR reviewed and per MD rounds, pt is not medically cleared for discharge at this time, anticipating pt will be ready for discharge tomorrow 01/14, home with [facility] services.
[2025-01-13] MEDS: hydrOXYzine HCL 25 MG TABLET PO ×2 (14:31→20:39)
[2025-01-13] MEDS: methADONE HCl 10 MG TABLET 20 MG PO ×2 (14:31→21:42)
--- NOTE | 2025-01-13 15:34 | MHC.CLN ---
F/U DIET RX: 1800DM -APPROPRIATE RECEIVING ENSURE MAX BID TO PROMOTE WOUND HEALING SUPP PROVIDES 300KCALS, 60G PROTEIN SKIN WITH STAGE IV PRESSURE INJURY TO SACRUM RECORDED PO DOC SHOWS 100% MONITOR PO INTAKE AND ENCOURAGE SUPPLEMENT
[2025-01-13 15:46] LABS: Glucose, Whole Blood 319 mg/dL (60-115)
--- NOTE | 2025-01-13 15:49 | P.PNIM_ITS ---
Subjective Subjective Date of Service: 01/13/25 Interval History: dm with flactuating fs Review of Systems She complained of some nausea this morning but then it the whole meal. We have talked to her multiple time-did not vomit, no other symptoms. Has chronic back pain-on methadone on and off. Review of Systems: Yes all other systems are reviewed and are negative Physical Exam 2 Vital Signs: Vital Signs: Last Vital Signs Temp 98.3 F 01/13/25 15:48 Pulse 75 01/13/25 15:48 Resp 19 01/13/25 15:48 BP 165/88 H 01/13/25 15:48 Pulse Ox 99 01/13/25 15:48 O2 Del Method Room Air 01/13/25 15:48 BMI result Body Mass Index 19.4 Appearance: Alert.? Oriented X3.? cvs: rrr, [id number]. res: clear to auscultation ,no rhonchii or wheezing abd: no rebound or guarding ,nt, bs present. ext pulses present , no cyanosis . neuro:nonfocal. Objective Data Active Medications Albuterol/Ipratropium (Albuterol/Iprat 2.5/0.5mg 3 Ml Ampul.Neb) 3 ml INHALE Q4H PRN PRN Reason: Shortness of Breath/Wheezing Calcium Carbonate (Calcium Carbonate 750 Mg Tab.Chew) 750 mg PO Q4H PRN PRN Reason: Heartburn Dextrose (Dextrose 50 % 25 Gm/50 Ml Syringe) 25 gm IVPUSH Q15M PRN; Protocol PRN Reason: per Hypoglycemia Standing Ord. Last Admin: 01/13/25 04:24 Dose: 25 gm Documented By: ADELINA Enoxaparin Sodium (Enoxaparin Sodium 40 Mg/0.4 Ml Syringe) 40 mg SUBCUT Q24H [facility] Last Admin: 01/13/25 10:20 Dose: 40 mg Documented By: BRUNA Fludrocortisone Acetate (Fludrocortisone Acetate 0.1 Mg Tablet) 0.1 mg PO DAILY [facility] Last Admin: 01/13/25 10:22 Dose: 0.1 mg Documented By: BRUNA Fluoxetine HCl (Fluoxetine Hcl 20 Mg Capsule) 20 mg PO DAILY [facility] Last Admin: 01/13/25 10:21 Dose: 20 mg Documented By: BRUNA Glucose (Glucose Gel 15 Gm Gel..Gram.) 15 gm PO Q15M PRN; Protocol PRN Reason: per Hypoglycemia Standing Ord. Hydroxychloroquine Sulfate (Hydroxychloroquine Sulfate 200 Mg Tablet) 200 mg PO DAILY [facility] Last Admin: 01/13/25 10:22 Dose: 200 mg Documented By: BRUNA Hydroxyzine HCl (Hydroxyzine Hcl 25 Mg Tablet) 25 mg PO QID PRN PRN Reason: anxiety Last Admin: 01/13/25 14:31 Dose: 25 mg Documented By: BRUNA Cefepime HCl 1 gm/ Sodium (Chloride) 50 mls @ 100 mls/hr IV Q12H [facility] Last Infusion: 01/13/25 06:33 Dose: Infused Documented By: BRUNA Magnesium Hydroxide (Milk Of Magnesia 30 Ml Oral.Susp) 30 ml PO DAILY PRN PRN Reason: Constipation Melatonin (Melatonin 3 Mg Tablet) 6 mg PO BEDTIME PRN PRN Reason: Insomnia Last Admin: 01/12/25 21:37 Dose: 6 mg Documented By: ADELINA Methadone HCl (Methadone Hcl 10 Mg Tablet) 20 mg PO TID PRN PRN Reason: Pain (Scale Score 7-10) Last Admin: 01/13/25 14:31 Dose: 20 mg Documented By: BRUNA Midodrine (Midodrine Hcl 10 Mg Tablet) 10 mg PO TID [facility] Last Admin: 01/13/25 14:40 Dose: 10 mg Documented By: BRUNA Mirtazapine (Mirtazapine 7.5 Mg Tablet) 22.5 mg PO BEDTIME [facility] Last Admin: 01/12/25 21:39 Dose: 22.5 mg Documented By: ADELINA Ondansetron HCl (Ondansetron Hcl 4 Mg/2 Ml Vial) 4 mg IVPUSH Q8H PRN PRN Reason: Nausea and Vomiting Last Admin: 01/12/25 21:36 Dose: 4 mg Documented By: ADELINA Pioglitazone HCl (Pioglitazone Hcl 45 Mg Tablet) 45 mg PO DAILY [facility] Last Admin: 01/13/25 10:22 Dose: 45 mg Documented By: BRUNA Polyethylene Glycol (Polyethylene Glycol 3350 17 Gm Powd.Pack) 17 gm PO DAILY PRN PRN Reason: Constipation Senna (Sennosides 8.6 Mg Tablet) 17.2 mg PO BEDTIME [facility] Last Admin: 01/12/25 21:40 Dose: Not Given Documented By: ADELINA Non-Admin Reason: Patient Refused Sodium Chloride (0.9 % Sodium Chloride Flush 3 Ml Syringe) 3 ml IVFLUSH QSHIFT [facility] Last Admin: 01/13/25 10:20 Dose: 3 ml Documented By: BRUNA Labs 01/11/25 06:57 Labs: Laboratory Results - last 24 hr 01/12/25 01/12/25 01/12/25 17:50 20:34 21:49 POC Glucose 81 132 H 197 H 01/13/25 01/13/25 01/13/25 00:21 02:01 02:39 POC Glucose 125 H 63 137 H 01/13/25 01/13/25 01/13/25 04:13 04:45 05:56 POC Glucose 46 L* 280 H 176 H 01/13/25 01/13/25 01/13/25 07:51 09:46 12:00 POC Glucose 107 86 166 H 01/13/25 01/13/25 14:05 15:39 POC Glucose 388 H* 319 H Assessment and Plan (1) Sacral decubitus ulcer, stage IV: Status: Acute (2) Hyperglycemia: Status: Acute Assessment and Plan: 49-year-old black female with past medical history insulin-dependent diabetes type 2, major depressive disorder, general anxiety disorder, daily marijuana use, currently on methadone for pain control, a current unstageable sacral wound with history of osteomyelitis, lupus, myelofibrosis with the associated pancytopenia, diabetic gastroparesis, recurrent C diff infections currently asymptomatic is being transferred from the psychiatric unit and admitted to the medical-surgical floor for noted hyperglycemia without evidence of DKA. Patient initially reluctant to start lispro insulin but after review with patient for admission, patient is now agreeable. insulin-dependent diabetes type 2 with hyperglycemia(spoke to patient's endocrinology staff in [facility] : Patient has diabetes b with insulin resistance-on IVIG) Hemoglobin A1c > 14 Patient received Lantus 40 units last night Fingersticks fluctuating d/w patient endocrinology: continue her regimen 500 units tiaac,staff is aware for adjustments. Stage IV sacral wound with history of osteomyelitis -Wound care consultation ordered -Turn and reposition every 2 hours when awake -ID consultation ordered -Patient does state she has been [facility] setting. Unable to confirm this. -Optimize nutrition, glucerna shakes ordered, nutritional consult ordered uti: as per [facility] records senstive to cefepime ID evaluation Anemia -HGB up to 8.7, was 8.4 at [facility] -Monitor CBC daily Pancytopenia (chronic) -Leukopenia, Thrombocytopenia, and Anemia noted -Levels stable -Monitor CBC daily Chronic pain -Patient currently on methadone for chronic pain management, no history of substance use disorder -Avoid IV narcotics -Unable to provide Tylenol due to adverse effects including swelling Major depressive disorder with general anxiety disorder One-to-one ordered for constant observation. Patient currently grieving the loss of her brother. Patient is not currently suicidal or admitting to suicidal ideations Psych eval added -will need crisis eval before discharge DVT prophylaxis: Lovenox PPI prophylaxis: Omeprazole Full Code status Ongoing need: Question of UTI, diabetes with fluctuating fingersticks on high doses of insulin, also need ID evaluation as well as family wants VNA in effect. Quality Stroke Does the patient have a stroke diagnosis?: No Reason for No Anti-thrombotic by Day Two: N/A - Med Ordered VTE Prior VTE?: No VTE Risk Level:: Medical - moderate - high VTE Device Contraindication: N/A - Device Ordered VTE Drug Contraindication: N/A - Med Ordered
--- NOTE | 2025-01-13 16:47 | W.PM.IDCN ---
History of Present Illness Data of Consult Service Date: 01/13/25 Requesting physician: Chelsie Fung Primary Care Provider: Moises Ramires NP HPI Reason for consult: OM sacrum chronic,UTI She presents with depression and then was transferred to the medical floor with apparent fatigue and has had urine 6/9 Klebsiella oxytoca. She has chronic stage 4 OM Review of Systems Review of Systems: Yes all other systems are reviewed and are negative PMFSH Past Medical History Medical History Generalized anxiety disorder Major depressive disorder Sacral decubitus ulcer, stage IV Chronic pain Lupus (systemic lupus erythematosus) Insulin dependent type 2 diabetes mellitus Family History Family history: reviewed and not pertinent Social History Social History Household Members: Spouse Housing: Apartment Do you presently have visiting nurse or other home services: No Comment: 1:1 sitter Patient Tobacco Use Status: Never used Tobacco e-Cigarette/Vaping Use: Never Used Second Hand Smoke Exposure: No Use of substances other than those prescribed or required for medical reasons: Yes Substance Use Type: Marijuana Currently Displaying Signs/Symptoms of Drug Intoxication Withdrawal: No Advance Directives: No Advance Directives Information Provided: No Advance Directives on File: No Patient : No service: No Travel History Ebola Risk: Travel/Contact With Anyone From Affected Area/s: No Has Patient Experienced Ebola Symptoms: No Meds Allergies Allergy/AdvReac Type Severity Reaction Status Date / Time acetaminophen Allergy Swelling Verified 01/10/25 00:40 atorvastatin Allergy Unknown Verified 01/10/25 00:40 duloxetine Allergy Unknown Verified 01/10/25 00:40 fish derived [fish] Allergy Swelling Verified 01/10/25 00:40 Active Medications: Current Medications Albuterol/Ipratropium (Albuterol/Iprat 2.5/0.5mg 3 Ml Ampul.Neb) 3 ml INHALE Q4H PRN PRN Reason: Shortness of Breath/Wheezing Calcium Carbonate (Calcium Carbonate 750 Mg Tab.Chew) 750 mg PO Q4H PRN PRN Reason: Heartburn Dextrose (Dextrose 50 % 25 Gm/50 Ml Syringe) 25 gm IVPUSH Q15M PRN; Protocol PRN Reason: per Hypoglycemia Standing Ord. Last Admin: 01/13/25 04:24 Dose: 25 gm Enoxaparin Sodium (Enoxaparin Sodium 40 Mg/0.4 Ml Syringe) 40 mg SUBCUT Q24H [facility] Last Admin: 01/13/25 10:20 Dose: 40 mg Fludrocortisone Acetate (Fludrocortisone Acetate 0.1 Mg Tablet) 0.1 mg PO DAILY [facility] Last Admin: 01/13/25 10:22 Dose: 0.1 mg Fluoxetine HCl (Fluoxetine Hcl 20 Mg Capsule) 20 mg PO DAILY [facility] Last Admin: 01/13/25 10:21 Dose: 20 mg Glucose (Glucose Gel 15 Gm Gel..Gram.) 15 gm PO Q15M PRN; Protocol PRN Reason: per Hypoglycemia Standing Ord. Hydroxychloroquine Sulfate (Hydroxychloroquine Sulfate 200 Mg Tablet) 200 mg PO DAILY [facility] Last Admin: 01/13/25 10:22 Dose: 200 mg Hydroxyzine HCl (Hydroxyzine Hcl 25 Mg Tablet) 25 mg PO QID PRN PRN Reason: anxiety Last Admin: 01/13/25 14:31 Dose: 25 mg Cefepime HCl 1 gm/ Sodium (Chloride) 50 mls @ 100 mls/hr IV Q12H [facility] Last Infusion: 01/13/25 06:33 Dose: Infused Magnesium Hydroxide (Milk Of Magnesia 30 Ml Oral.Susp) 30 ml PO DAILY PRN PRN Reason: Constipation Melatonin (Melatonin 3 Mg Tablet) 6 mg PO BEDTIME PRN PRN Reason: Insomnia Last Admin: 01/12/25 21:37 Dose: 6 mg Methadone HCl (Methadone Hcl 10 Mg Tablet) 20 mg PO TID PRN PRN Reason: Pain (Scale Score 7-10) Last Admin: 01/13/25 14:31 Dose: 20 mg Midodrine (Midodrine Hcl 10 Mg Tablet) 10 mg PO TID [facility] Last Admin: 01/13/25 14:40 Dose: 10 mg Mirtazapine (Mirtazapine 7.5 Mg Tablet) 22.5 mg PO BEDTIME [facility] Last Admin: 01/12/25 21:39 Dose: 22.5 mg Ondansetron HCl (Ondansetron Hcl 4 Mg/2 Ml Vial) 4 mg IVPUSH Q8H PRN PRN Reason: Nausea and Vomiting Last Admin: 01/12/25 21:36 Dose: 4 mg Pioglitazone HCl (Pioglitazone Hcl 45 Mg Tablet) 45 mg PO DAILY [facility] Last Admin: 01/13/25 10:22 Dose: 45 mg Polyethylene Glycol (Polyethylene Glycol 3350 17 Gm Powd.Pack) 17 gm PO DAILY PRN PRN Reason: Constipation Senna (Sennosides 8.6 Mg Tablet) 17.2 mg PO BEDTIME [facility] Last Admin: 01/12/25 21:40 Dose: Not Given Sodium Chloride (0.9 % Sodium Chloride Flush 3 Ml Syringe) 3 ml IVFLUSH QSHIFT [facility] Last Admin: 01/13/25 10:20 Dose: 3 ml Home Medications ?Medication ?Instructions ?Recorded ?Confirmed ?Last Taken ?Type fludrocortisone 0.1 mg tablet 0.1 mg PO DAILY 01/10/25 01/10/25 01/09/25 12:01 History fluoxetine 20 mg capsule 20 mg PO DAILY 01/10/25 01/10/25 01/09/25 12:01 History hydroxychloroquine 200 mg tablet 200 mg PO QAM 01/10/25 01/10/25 01/09/25 12:13 History hydroxyzine pamoate 25 mg capsule 25 mg PO QID PRN anxiety 01/10/25 01/10/25 Unknown History insulin regular hum U-500 conc 500 700 unit subcut TIDAC 01/10/25 01/10/25 01/09/25 14:32 History unit/mL(3 mL) subcut pen (Humulin R U-500 (Conc) Insulin Kwikpen) methadone 10 mg tablet 20 mg PO TID PRN Pain (Scale Score 01/10/25 01/10/25 Unknown History 7-10) midodrine 10 mg tablet 10 mg PO TID 01/10/25 01/10/25 01/09/25 18:52 History mirtazapine 7.5 mg tablet 22.5 mg PO BEDTIME 01/10/25 01/10/25 Unknown History pioglitazone 45 mg tablet 45 mg PO DAILY 01/10/25 01/10/25 01/09/25 12:01 History Physical Exam Vital Signs: Vital Signs: Last Vital Signs Temp 98.3 F 01/13/25 15:48 Pulse 75 01/13/25 15:48 Resp 19 01/13/25 15:48 BP 165/88 H 01/13/25 15:48 Pulse Ox 99 01/13/25 15:48 O2 Del Method Room Air 01/13/25 15:48 BMI result Body Mass Index 19.4 Const: General: cooperative HEENT: Head: Yes normal to inspection Face and sinus: Yes normal facial exam Mouth: Normal oral and palatal mucosa present Teeth and gingiva: dentition normal Eyes: General: appearance normal, both eyes and all related structures Pupils: Equal, round and reactive pupils present Resp: Effort & Inspection: normal respiratory effort Cardio: Rate: regular rate Rhythm: regular rhythm GI: Palpation (GI): Soft to palpation and nontender : General: Yes no CVA tenderness Back/Spine/Pelvis: Back: no CVA tenderness Skin: General skin exam: no rashes or lesions noted Neuro: General: moves all extremities Cranial nerves: Yes Equal, round and reactive pupils present Extrem: General: Yes normal to inspection Psych: Appearance: grossly normal Results Labs 01/11/25 06:57 Assessment and Plan (1) Major depressive disorder: Status: Acute (2) Sacral decubitus ulcer, stage IV: Status: Acute (3) Lupus (systemic lupus erythematosus): Status: Acute Plan Change to Ceftriaxone Can switch to po Ceftin 14 d total. Decubiti chronic,no treatment.
[2025-01-13 17:47] LABS: Glucose, Whole Blood 238 mg/dL (60-115)
--- NOTE | 2025-01-13 17:48 | PC.NURSE ---
POC now is 238 and no insulin is to be given at this time per attending
[2025-01-13 20:22] LABS: Glucose, Whole Blood 271 mg/dL (60-115)
[2025-01-13] MEDS: Mirtazapine 7.5 MG TABLET 22.5 MG PO (20:39)
[2025-01-13] MEDS: Melatonin 3 MG TABLET 6 MG PO (20:39)
[2025-01-13 22:09] LABS: Glucose, Whole Blood 275 mg/dL (60-115)
[2025-01-14] VITALS (8 sets, daily range): BP systolic 96–159; BP diastolic 55–92; PULSE 73–94; RESP 16–18; TEMP 36.2–37.3; O2SAT 95–99
[2025-01-14] MEDS: 0.9 % Sodium Chloride Flush 3 ML SYRINGE IVFLUSH ×4 (00:30→20:08)
[2025-01-14 02:25] LABS: Glucose, Whole Blood 242 mg/dL (60-115)
[2025-01-14] MEDS: cefEPime HCl 1 GM in 0.9 % Sodium Chloride 50 ML IV (06:14)
[2025-01-14 06:54] LABS: Glucose, Whole Blood 124 mg/dL (60-115)
--- NOTE | 2025-01-14 07:00 | PC.NURSE ---
refuses bed alarm
[2025-01-14] MEDS: cefTRIAXone sodium 1 GM VIAL IVPUSH (09:02)
[2025-01-14] MEDS: Fludrocortisone Acetate 0.1 MG TABLET PO (09:03)
[2025-01-14] MEDS: FLUoxetine HCl 20 MG CAPSULE PO (09:03)
[2025-01-14] MEDS: Enoxaparin Sodium 40 MG/0.4 ML SYRINGE SUBCUT (09:03)
[2025-01-14] MEDS: Hydroxychloroquine Sulfate 200 MG TABLET PO (09:03)
[2025-01-14] MEDS: Midodrine HCl 10 MG TABLET PO ×2 (09:04→20:08)
[2025-01-14 10:18] LABS: Anion Gap 11 (12-20); Blood Urea Nitrogen 12 mg/dL (9-16); Calcium 8.5 mg/dL (8.4-10.2); Carbon Dioxide 25 mmol/L (22-29); Chloride 109 mmol/L (96-108); Creatinine Clr Calc Pharmacy 45.9; Estimated Glomerular Filt Rate 51; Glucose Random 94 mg/dL (60-115); Potassium 2.9 mmol/L (3.3-5.1); Sodium 142 mmol/L (135-145)
[2025-01-14 10:51] LABS: Glucose, Whole Blood 159 mg/dL (60-115)
[2025-01-14 10:57] LABS: Magnesium 1.5 mg/dL (1.6-2.6)
[2025-01-14] MEDS: Potassium Chloride ER 20 MEQ TAB.ER.PRT 40 MEQ PO (11:04)
[2025-01-14] MEDS: Magnesium Sulfate/H2O 2 GM/50 ML PIGGYBACK IV (12:50)
[2025-01-14] MEDS: methADONE HCl 10 MG TABLET 20 MG PO (15:19)
[2025-01-14 15:42] LABS: Glucose, Whole Blood 413 mg/dL (60-115)
--- NOTE | 2025-01-14 16:48 | HO.PM.IMPN ---
Subjective Subjective Date of Service: 01/14/25 Interval History: dm with hyperglycemia ? empty bottle of methadone found in bed(says old , was empty)-currently asymptomatic Review of Systems Patient seems alert oriented Does not endorse any symptoms Review of Systems: Yes all other systems are reviewed and are negative Physical Exam Vital Signs: Vital Signs: Last Vital Signs Temp 99.1 F 01/14/25 15:17 Pulse 82 01/14/25 15:17 Resp 18 01/14/25 15:17 BP 134/72 01/14/25 15:17 Pulse Ox 98 01/14/25 15:17 O2 Del Method Room Air 01/14/25 15:17 BMI result Body Mass Index 19.4 Appearance: Alert.? Oriented X3.? eye: pupil equal and reactive. cvs: [id number], [id number]. res: clear to auscultation ,no rhonchii or wheezing abd: no rebound or guarding ,nt, bs present. ext pulses present , no cyanosis . neuro:nonfocal. Objective Data Active Medications Albuterol/Ipratropium (Albuterol/Iprat 2.5/0.5mg 3 Ml Ampul.Neb) 3 ml INHALE Q4H PRN PRN Reason: Shortness of Breath/Wheezing Calcium Carbonate (Calcium Carbonate 750 Mg Tab.Chew) 750 mg PO Q4H PRN PRN Reason: Heartburn Ceftriaxone Sodium (Ceftriaxone Sodium 1 Gm Vial) 1 gm IVPUSH Q24H [facility] Last Admin: 01/14/25 09:02 Dose: 1 gm Documented By: CHELE Dextrose (Dextrose 50 % 25 Gm/50 Ml Syringe) 25 gm IVPUSH Q15M PRN; Protocol PRN Reason: per Hypoglycemia Standing Ord. Last Admin: 01/13/25 04:24 Dose: 25 gm Documented By: ADELINA Enoxaparin Sodium (Enoxaparin Sodium 40 Mg/0.4 Ml Syringe) 40 mg SUBCUT Q24H [facility] Last Admin: 01/14/25 09:03 Dose: 40 mg Documented By: CHELE Fludrocortisone Acetate (Fludrocortisone Acetate 0.1 Mg Tablet) 0.1 mg PO DAILY [facility] Last Admin: 01/14/25 09:03 Dose: 0.1 mg Documented By: CHELE Fluoxetine HCl (Fluoxetine Hcl 20 Mg Capsule) 20 mg PO DAILY [facility] Last Admin: 01/14/25 09:03 Dose: 20 mg Documented By: CHELE Glucose (Glucose Gel 15 Gm Gel..Gram.) 15 gm PO Q15M PRN; Protocol PRN Reason: per Hypoglycemia Standing Ord. Hydroxychloroquine Sulfate (Hydroxychloroquine Sulfate 200 Mg Tablet) 200 mg PO DAILY [facility] Last Admin: 01/14/25 09:03 Dose: 200 mg Documented By: CHELE Hydroxyzine HCl (Hydroxyzine Hcl 25 Mg Tablet) 25 mg PO QID PRN PRN Reason: anxiety Last Admin: 01/13/25 20:39 Dose: 25 mg Documented By: HENOK Magnesium Hydroxide (Milk Of Magnesia 30 Ml Oral.Susp) 30 ml PO DAILY PRN PRN Reason: Constipation Melatonin (Melatonin 3 Mg Tablet) 6 mg PO BEDTIME PRN PRN Reason: Insomnia Last Admin: 01/13/25 20:39 Dose: 6 mg Documented By: HENOK Methadone HCl (Methadone Hcl 10 Mg Tablet) 20 mg PO TID PRN PRN Reason: Pain (Scale Score 7-10) Last Admin: 01/14/25 15:19 Dose: 20 mg Documented By: CHELE Midodrine (Midodrine Hcl 10 Mg Tablet) 10 mg PO TID [facility] Last Admin: 01/14/25 15:18 Dose: Not Given Documented By: CHELE Non-Admin Reason: Physician Held Med Mirtazapine (Mirtazapine 7.5 Mg Tablet) 22.5 mg PO BEDTIME [facility] Last Admin: 01/13/25 20:39 Dose: 22.5 mg Documented By: HENOK Pt Own (Insulin Regular Hum U-500 Conc [Humulin R U- 500 (Conc) Kwikpen] 250 unit SUBCUT TIDAC [facility] Ondansetron HCl (Ondansetron Hcl 4 Mg/2 Ml Vial) 4 mg IVPUSH Q8H PRN PRN Reason: Nausea and Vomiting Last Admin: 01/12/25 21:36 Dose: 4 mg Documented By: ADELINA Pioglitazone HCl (Pioglitazone Hcl 45 Mg Tablet) 45 mg PO DAILY [facility] Last Admin: 01/13/25 10:22 Dose: 45 mg Documented By: BRUNA Polyethylene Glycol (Polyethylene Glycol 3350 17 Gm Powd.Pack) 17 gm PO DAILY PRN PRN Reason: Constipation Senna (Sennosides 8.6 Mg Tablet) 17.2 mg PO BEDTIME [facility] Last Admin: 01/13/25 20:46 Dose: Not Given Documented By: HENOK Non-Admin Reason: pt refuse Sodium Chloride (0.9 % Sodium Chloride Flush 3 Ml Syringe) 3 ml IVFLUSH QSHIFT [facility] Last Admin: 01/14/25 09:02 Dose: 3 ml Documented By: CHELE Labs 01/14/25 09:19 Labs: Laboratory Results - last 24 hr 01/13/25 01/13/25 01/13/25 17:44 20:17 22:04 Anion Gap Estim Creat Clear Calc Estimated GFR POC Glucose 238 H 271 H 275 H Random Glucose Calcium Magnesium 01/14/25 01/14/25 01/14/25 02:19 06:51 09:19 Anion Gap 11 L Estim Creat Clear Calc 45.9 Estimated GFR 51 POC Glucose 242 H 124 H Random Glucose 94 Calcium 8.5 Magnesium 1.5 L 01/14/25 01/14/25 10:44 15:15 Anion Gap Estim Creat Clear Calc Estimated GFR POC Glucose 159 H 413 H* Random Glucose Calcium Magnesium Assessment and Plan (1) Sacral decubitus ulcer, stage IV: Status: Acute (2) Hyperglycemia: Status: Acute Assessment and Plan: 49-year-old black female with past medical history insulin-dependent diabetes type 2, major depressive disorder, general anxiety disorder, daily marijuana use, currently on methadone for pain control, a current unstageable sacral wound with history of osteomyelitis, lupus, myelofibrosis with the associated pancytopenia, diabetic gastroparesis, recurrent C diff infections currently asymptomatic is being transferred from the psychiatric unit and admitted to the medical-surgical floor for noted hyperglycemia without evidence of DKA. Patient initially reluctant to start lispro insulin but after review with patient for admission, patient is now agreeable. insulin-dependent diabetes type 2 with hyperglycemia(spoke to patient's endocrinology staff in [facility] : Patient has diabetes b with insulin resistance-on IVIG) Hemoglobin A1c > 14 Patient received Lantus 40 units last night Fingersticks fluctuating d/w patient endocrinology: continue her regimen 250 units tiaac,staff is aware for adjustments. Refuses insulin intermittently also. Spoke to her chef concierge-currently recommended to adjust insulin as above. Stage IV sacral wound with history of osteomyelitis -Wound care consultation ordered -Turn and reposition every 2 hours when awake -ID consultation ordered -Patient does state she has been following with the [facility] in the outpatient setting. Unable to confirm this. -Optimize nutrition, glucerna shakes ordered, nutritional consult ordered uti: as [facility] senstive to cefepime ID evaluation Anemia -HGB up to 8.7, was 8.4 at [facility] -Monitor CBC daily Pancytopenia (chronic) -Leukopenia, Thrombocytopenia, and Anemia noted -Levels stable -Monitor CBC daily Chronic pain-Patient currently on methadone for chronic pain management, no history of substance use disorder As per the staff empty methadone bottle found bed area says (it was empty before and was old bottle which was filled earlier): Currently patient is alert oriented, non symptomatic, we will place bedside Narcan. Will monitor at least few hours before deciding starting methadone, patient is also refused tele pack. Major depressive disorder with general anxiety disorder One-to-one ordered for constant observation. Patient currently grieving the loss of her brother. Patient is not currently suicidal or admitting to suicidal ideations Psych eval added -will need crisis eval before discharge DVT prophylaxis: Lovenox PPI prophylaxis: Omeprazole Full Code status Ongoing need: Question of UTI, diabetes with fluctuating fingersticks on high doses of insulin, also need ID evaluation as well as family wants VNA in effect. Above was discussed with the patient and her family member in detail at the bedside, staff was present at bedside. Quality Stroke Does the patient have a stroke diagnosis?: No Reason for No Anti-thrombotic by Day Two: N/A - Med Ordered VTE Prior VTE?: No VTE Risk Level:: Medical - moderate - high VTE Device Contraindication: N/A - Device Ordered VTE Drug Contraindication: N/A - Med Ordered
[2025-01-14 18:07] LABS: Glucose, Whole Blood 464 mg/dL (60-115)
[2025-01-14] MEDS: hydrOXYzine HCL 25 MG TABLET PO (20:08)
[2025-01-14] MEDS: Mirtazapine 7.5 MG TABLET 22.5 MG PO (20:08)
[2025-01-14] MEDS: Melatonin 3 MG TABLET 6 MG PO (20:08)
[2025-01-14 23:15] LABS: Glucose, Whole Blood 403 mg/dL (60-115)
[2025-01-15 03:10] VITALS: BP 146/89; PULSE 87; RESP 18; TEMP 37; O2SAT 99
[2025-01-15 03:12] LABS: Glucose, Whole Blood 299 mg/dL (60-115)
[2025-01-15 06:49] LABS: Glucose, Whole Blood 268 mg/dL (60-115)
[2025-01-15 08:00] VITALS: BP 123/79; PULSE 86; RESP 16; TEMP 37.1; O2SAT 98
[2025-01-15 08:22] LABS: Glucose, Whole Blood 233 mg/dL (60-115)
[2025-01-15] MEDS: cefTRIAXone sodium 1 GM VIAL IVPUSH (08:54)
[2025-01-15] MEDS: Hydroxychloroquine Sulfate 200 MG TABLET PO (08:54)
[2025-01-15] MEDS: Fludrocortisone Acetate 0.1 MG TABLET PO (08:54)
[2025-01-15] MEDS: Enoxaparin Sodium 40 MG/0.4 ML SYRINGE SUBCUT (08:54)
[2025-01-15] MEDS: FLUoxetine HCl 20 MG CAPSULE PO (08:54)
[2025-01-15] MEDS: 0.9 % Sodium Chloride Flush 3 ML SYRINGE IVFLUSH (08:55)
[2025-01-15] MEDS: methADONE HCl 10 MG TABLET 20 MG PO ×2 (09:35→21:27)
[2025-01-15 10:52] LABS: Glucose, Whole Blood 372 mg/dL (60-115)
[2025-01-15] MEDS: Potassium Chloride ER 20 MEQ TAB.ER.PRT 40 MEQ PO (10:55)
[2025-01-15 10:57] LABS: Anion Gap 12 (12-20); Blood Urea Nitrogen 16 mg/dL (9-16); Calcium 8.4 mg/dL (8.4-10.2); Carbon Dioxide 26 mmol/L (22-29); Chloride 104 mmol/L (96-108); Creatinine Clr Calc Pharmacy 50.7; Estimated Glomerular Filt Rate 57; Glucose Random 306 mg/dL (60-115); Potassium 3.4 mmol/L (3.3-5.1); Sodium 139 mmol/L (135-145)
[2025-01-15 12:00] VITALS: BP 118/71; PULSE 99; RESP 18; TEMP 36.8; O2SAT 99
--- NOTE | 2025-01-15 13:49 | MHC.CM.PN ---
Addendum entered by Shae Valdivia RN 01/15/25 14:39: DC CANCELLED Original Note: IMM 01/15/25, PT MEDICALLY CLEARED FOR DC HOME W/[facility] FOR SN AND FAMILY SUPPORT, PT'S FOR TRANSPORT
[2025-01-15 14:13] LABS: Glucose, Whole Blood 370 mg/dL (60-115)
--- NOTE | 2025-01-15 14:15 | PM.DS ---
DS: Providers Provider Date of Service: 01/15/25 Date of admission: 01/10/25 05:45 Date of discharge: 01/15/25 Primary care physician: Moises Ramires NP Consults: 01/10/25 05:42 Consult to Wound Care Routine Reason for consultation: sacral decubitus wound stage 4 hx of OM 01/10/25 19:42 Consult to General Surgery Routine Consulting Provider: [facility] Reason for consultation: ?sacral wound debridement 01/11/25 08:55 Consult to Psychiatry Routine Consulting Provider: [facility] Psych Covering Reason for consultation: major depressive dis /interfering with treatments Has provider been notified: No 01/12/25 10:37 Inpt CARE Team Crisis Consult Stat Comment: Reason for consultation: Medically clear 01/12/25 17:25 Consult to Infectious Diseases Routine Consulting Provider: [facility] Reason for consultation: uti Has provider been notified: No Attending physician on discharge: Chelsie Fung Discharging clinician: Chelsie Fung DS: Diagnosis Discharge Diagnosis (1) Sacral decubitus ulcer, stage IV: Status: Acute (2) Hyperglycemia: Status: Acute DS: Summary Time Attestation Total time managing care of this patient today: 40 mintues. Discharge Coordination Time (in mins): 40 min Quality: Safe Use of Opioids Does Pt have an Active Cancer Diagnosis on the Problem List?: No Physical Exam Vital Signs: Vital Signs: Last Vital Signs Temp 98.2 F 01/15/25 12:00 Pulse 99 01/15/25 12:00 Resp 18 01/15/25 12:00 BP 118/71 01/15/25 12:00 Pulse Ox 99 01/15/25 12:00 O2 Del Method Room Air 01/15/25 12:00 BMI result Body Mass Index 19.4 Appearance: Alert.? Oriented X3.? cvs: rrr, [id number]. res: clear to auscultation ,no rhonchii or wheezing abd: no rebound or guarding ,nt, bs present. ext pulses present , no cyanosis . neuro:nonfocal. DS: Data Data Completed and Pending Labs on day of discharge: Laboratory Results - last 24 hr 01/14/25 01/14/25 01/14/25 15:15 18:02 23:11 Hold Purple Top Sodium Potassium Chloride Carbon Dioxide Anion Gap BUN Creatinine Estim Creat Clear Calc Estimated GFR POC Glucose 413 H* 464 H* 403 H* Random Glucose Calcium 01/15/25 01/15/25 01/15/25 03:07 06:44 08:15 Hold Purple Top Sodium Potassium Chloride Carbon Dioxide Anion Gap BUN Creatinine Estim Creat Clear Calc Estimated GFR POC Glucose 299 H 268 H 233 H Random Glucose Calcium 01/15/25 01/15/25 01/15/25 10:11 10:45 14:08 Hold Purple Top SEE NOTE Sodium 139 Potassium 3.4 Chloride 104 Carbon Dioxide 26 Anion Gap 12 BUN 16 Creatinine 1.03 Estim Creat Clear Calc 50.7 Estimated GFR 57 POC Glucose 372 H* 370 H* Random Glucose 306 H Calcium 8.4 Discharge Plan Discharge Anticipated Discharge Date/Time: 01/15/25 13:55 Patient Disposition: Home Health Service Discharge Diagnosis: dm , sacral ulcer ,uti Referrals: [facility] [Outside] - 1 Day (A nurse will see you Tuesday 01/16.) Physician,Unknown J [Physician] - 1 Week Discharge Medications: Continued mirtazapine 7.5 mg tablet 22.5 mg PO BEDTIME pioglitazone 45 mg tablet 45 mg PO DAILY hydroxychloroquine 200 mg tablet 200 mg PO QAM fluoxetine 20 mg capsule 20 mg PO DAILY fludrocortisone 0.1 mg tablet 0.1 mg PO DAILY hydroxyzine pamoate 25 mg capsule 25 mg PO QID PRN (Reason: anxiety) midodrine 10 mg tablet 10 mg PO TID Changed Humulin R U-500 (Conc) Kwikpen 500 unit/mL (3 mL) insulin pen 250 unit SUBCUT TIDAC Qty: 1 0RF methadone 10 mg tablet 20 mg PO BID PRN (Reason: Pain (Scale Score 7-10)) Qty: 6 0RF Diet: Advance to usual diet Activity on Discharge: As tolerated Stand Alone Forms: Patient Portal Discharge page Print Language: Samoan Activity Restrictions/Additional Instructions: Topical Wound Care Recommendations: Coccyx / Sacrum - Off Load Pressure with Q2 hr turns and use of pillows Cleanse and irrigate with NS, Pat dry.? Apply barrier(Triad) to periwound, lightly pack with Durafiber AG, be sure to leave a wick to easy removal.? Fill space with dry gauze, cover with ABD pad.? Change every other day at time of discharge from inpatient services. Recommend follow up out patient Wound Clinic at [address] [place] [id number] and to call for an appointment at time of discharge. [phone].? Care Plan Goals: as below. Health Concerns: ceftin 250 mg po bid x10 more days. methadone 20 mg po bid prn. home insulin regimen adjusted 250 unit tid. Plan of Treatment: as above. Assessment: as above.
--- NOTE | 2025-01-15 14:23 | ECG_ITS ---
Test Reason : CP Blood Pressure : */* mmHG Vent. Rate : 90 BPM Atrial Rate : 90 BPM P-R Int : 140 ms QRS Dur : 76 ms QT Int : 418 ms P-R-T Axes : 70 46 55 degrees QTcB Int : 511 ms Normal sinus rhythm Possible Left atrial enlargement Prolonged QT Abnormal ECG When compared with ECG of 10-Jan-2025 08:49, No significant change was found Referred By: Chelsie Fung Electronically Signed By: Larry Gama
[2025-01-15 14:25] LABS: Glucose, Whole Blood 384 mg/dL (60-115)
[2025-01-15 15:09] VITALS: BP 152/74; PULSE 97; RESP 18; TEMP 36.2; O2SAT 98
--- NOTE | 2025-01-15 15:38 | PC.NURSE ---
Patient was pending discharge and informed it would be today by Dr Fung with Shae Valdivia present along with me. Patient voiced she thought she was leaving tomorrow and did not want to discharge today, concerned about VNA services and her not being available to pick her up until after 7PM. Shae confirmed VNA services would start tomorrow and she could arrange transportation to help get Shu home. She stated she does not have a neri and refused arranged transportation. It was agreed she would discharge after 7 when her could come in. She later told me she had called the VNA service and they were not coming until Thursday and was not comfortable discharging today. Shae returned to tell her she had confirmed services were starting on Thursday. While she has been under my care and deemed a high fall risk, she has been continually refusing the bed alarm, chair alarm, call aguilar protocol and telemetry despite education regarding safety protocols and the potential for dysrhythmias due to medications she is prescribed. At 1415, patient was noted to be on the floor by her room doorway. BIOINFORMATICS ANALYST was called. Vitals were 147/90m HR 80s, Sats 97. Neuros intact. Hunter Starr and Damaris were in attendence. Nurse oil well services field supervisor Lauren also present. She was placed on a flat board and transferred to [facility]. CT head and neck ordered. She refused stating she did not hit my head . She eventually agreed to the imaging. Also imaging of her pelvis ordered. After her fall, when I went to alarm the bed, she told me not do it and she knows her rights . Dr. Fung and RN oil well services field supervisor, Lauren notified. Currently with a 1:1 sitter.
[2025-01-15 15:44] LABS: Hematocrit 23.1 % (37.0-47.0); Hemoglobin 7.8 g/dl (12.0-16.0)
[2025-01-15 15:49] LABS: Glucose, Whole Blood 393 mg/dL (60-115)
[2025-01-15 16:02] LABS: Anion Gap 13 (12-20); Blood Urea Nitrogen 14 mg/dL (9-16); Calcium 8.4 mg/dL (8.4-10.2); Carbon Dioxide 25 mmol/L (22-29); Chloride 103 mmol/L (96-108); Creatinine Clr Calc Pharmacy 44.3; Estimated Glomerular Filt Rate 49; Glucose Random 405 mg/dL (60-115); Potassium 4.1 mmol/L (3.3-5.1); Sodium 137 mmol/L (135-145)
[2025-01-15] MEDS: Lactated Ringers 1,000 ML 100 ML IVCONT (16:07)
--- NOTE | 2025-01-15 17:25 | P.PNIM_ITS ---
Subjective Subjective Date of Service: 01/15/25 Interval History: fall dm /hyperglycemia Review of Systems rapid response called due to fall patient seems respond quickly-she felt liheadness and brief syncope episode minutes or so and responded -she has had she has autonomic dysfunction/orthostasis on midodrine and that is why she invariably feels somewhat lightheaded and had episode like this in past too. no bruises ,said she did not hit her head ,fall unwitnessed. Review of Systems: Yes all other systems are reviewed and are negative Physical Exam 2 Vital Signs: Vital Signs: Last Vital Signs Temp 97.2 F 01/15/25 15:09 Pulse 97 01/15/25 15:09 Resp 18 01/15/25 15:09 BP 152/74 H 01/15/25 15:09 Pulse Ox 98 01/15/25 15:09 O2 Del Method Room Air 01/15/25 15:09 BMI result Body Mass Index 19.4 Appearance: Alert.? Oriented X3.? eye: pupil equal and reactive. cvs: rrr, [id number]. res: clear to auscultation ,no rhonchii or wheezing abd: no rebound or guarding ,nt, bs present. ext pulses present , no cyanosis . neuro:nonfocal. Objective Data Active Medications Albuterol/Ipratropium (Albuterol/Iprat 2.5/0.5mg 3 Ml Ampul.Neb) 3 ml INHALE Q4H PRN PRN Reason: Shortness of Breath/Wheezing Calcium Carbonate (Calcium Carbonate 750 Mg Tab.Chew) 750 mg PO Q4H PRN PRN Reason: Heartburn Ceftriaxone Sodium (Ceftriaxone Sodium 1 Gm Vial) 1 gm IVPUSH Q24H [facility] Last Admin: 01/15/25 08:54 Dose: 1 gm Documented By: CHELE Dextrose (Dextrose 50 % 25 Gm/50 Ml Syringe) 25 gm IVPUSH Q15M PRN; Protocol PRN Reason: per Hypoglycemia Standing Ord. Last Admin: 01/13/25 04:24 Dose: 25 gm Documented By: ADELINA Enoxaparin Sodium (Enoxaparin Sodium 40 Mg/0.4 Ml Syringe) 40 mg SUBCUT Q24H [facility] Last Admin: 01/15/25 08:54 Dose: 40 mg Documented By: CHELE Fludrocortisone Acetate (Fludrocortisone Acetate 0.1 Mg Tablet) 0.1 mg PO DAILY [facility] Last Admin: 01/15/25 08:54 Dose: 0.1 mg Documented By: CHELE Fluoxetine HCl (Fluoxetine Hcl 20 Mg Capsule) 20 mg PO DAILY [facility] Last Admin: 01/15/25 08:54 Dose: 20 mg Documented By: CHELE Glucose (Glucose Gel 15 Gm Gel..Gram.) 15 gm PO Q15M PRN; Protocol PRN Reason: per Hypoglycemia Standing Ord. Hydroxychloroquine Sulfate (Hydroxychloroquine Sulfate 200 Mg Tablet) 200 mg PO DAILY [facility] Last Admin: 01/15/25 08:54 Dose: 200 mg Documented By: CHELE Hydroxyzine HCl (Hydroxyzine Hcl 25 Mg Tablet) 25 mg PO QID PRN PRN Reason: anxiety Last Admin: 01/14/25 20:08 Dose: 25 mg Documented By: KARL Lactated Ringer's (Lr) 1,000 mls @ 100 mls/hr IVCONT .Q10H [facility] Last Admin: 01/15/25 16:07 Dose: 100 mls/hr Documented By: CHELE Magnesium Hydroxide (Milk Of Magnesia 30 Ml Oral.Susp) 30 ml PO DAILY PRN PRN Reason: Constipation Magnesium Oxide (Magnesium Oxide 400 Mg Tablet) 400 mg PO BIDPC [facility] Melatonin (Melatonin 3 Mg Tablet) 6 mg PO BEDTIME PRN PRN Reason: Insomnia Last Admin: 01/14/25 20:08 Dose: 6 mg Documented By: KARL Methadone HCl (Methadone Hcl 10 Mg Tablet) 20 mg PO TID PRN PRN Reason: Pain (Scale Score 7-10) Last Admin: 01/15/25 09:35 Dose: 20 mg Documented By: CHELE Midodrine (Midodrine Hcl 10 Mg Tablet) 10 mg PO TID [facility] Last Admin: 01/15/25 16:17 Dose: Not Given Documented By: CHELE Non-Admin Reason: Physician Held Med Mirtazapine (Mirtazapine 7.5 Mg Tablet) 22.5 mg PO BEDTIME [facility] Last Admin: 01/14/25 20:08 Dose: 22.5 mg Documented By: KARL Naloxone HCl (Naloxone Hcl 0.4 Mg/Ml Vial) 0.4 mg IVPUSH Q5M PRN PRN Reason: Opiate Reversal Pt Own (Insulin Regular Hum U-500 Conc [Humulin R U- 500 (Conc) Kwikpen] 250 unit SUBCUT TIDAC [facility] Last Admin: 01/15/25 16:14 Dose: 250 unit Documented By: CHELE Ondansetron HCl (Ondansetron Hcl 4 Mg/2 Ml Vial) 4 mg IVPUSH Q8H PRN PRN Reason: Nausea and Vomiting Last Admin: 01/12/25 21:36 Dose: 4 mg Documented By: ADELINA Pioglitazone HCl (Pioglitazone Hcl 45 Mg Tablet) 45 mg PO DAILY [facility] Last Admin: 01/13/25 10:22 Dose: 45 mg Documented By: BRUNA Polyethylene Glycol (Polyethylene Glycol 3350 17 Gm Powd.Pack) 17 gm PO DAILY PRN PRN Reason: Constipation Senna (Sennosides 8.6 Mg Tablet) 17.2 mg PO BEDTIME [facility] Last Admin: 01/14/25 20:09 Dose: Not Given Documented By: KARL Non-Admin Reason: Patient Refused Sodium Chloride (0.9 % Sodium Chloride Flush 3 Ml Syringe) 3 ml IVFLUSH QSHIFT [facility] Last Admin: 01/15/25 16:18 Dose: Not Given Documented By: CHELE Non-Admin Reason: IV Running Labs 01/15/25 15:37 01/15/25 15:37 Labs: Laboratory Results - last 24 hr 01/14/25 01/14/25 01/15/25 18:02 23:11 03:07 Hold Purple Top Anion Gap Estim Creat Clear Calc Estimated GFR POC Glucose 464 H* 403 H* 299 H Random Glucose Calcium 01/15/25 01/15/25 01/15/25 06:44 08:15 10:11 Hold Purple Top SEE NOTE Anion Gap 12 Estim Creat Clear Calc 50.7 Estimated GFR 57 POC Glucose 268 H 233 H Random Glucose 306 H Calcium 8.4 01/15/25 01/15/25 01/15/25 10:45 14:08 14:21 Hold Purple Top Anion Gap Estim Creat Clear Calc Estimated GFR POC Glucose 372 H* 370 H* 384 H* Random Glucose Calcium 01/15/25 01/15/25 15:11 15:37 Hold Purple Top Anion Gap 13 Estim Creat Clear Calc 44.3 Estimated GFR 49 POC Glucose 393 H* Random Glucose 405 H* Calcium 8.4 Assessment and Plan (1) Sacral decubitus ulcer, stage IV: Status: Acute (2) Fall: Status: Acute (3) Hyperglycemia: Status: Acute Assessment and Plan: 49-year-old black female with past medical history insulin-dependent diabetes type 2, major depressive disorder, general anxiety disorder, daily marijuana use, currently on methadone for pain control, a current unstageable sacral wound with history of osteomyelitis, lupus, myelofibrosis with the associated pancytopenia, diabetic gastroparesis, recurrent C diff infections currently asymptomatic is being transferred from the psychiatric unit and admitted to the medical-surgical floor for noted hyperglycemia without evidence of DKA. Patient initially reluctant to start lispro insulin but after review with patient for admission, patient is now agreeable. orthostasis/hx of autonomic dysfunction: Added IV fluid, midodrine insulin-dependent diabetes type 2 with hyperglycemia(spoke to patient's endocrinology staff in [facility] : Patient has diabetes b with insulin resistance-on IVIG) Hemoglobin A1c > 14 Patient received Lantus 40 units last night Fingersticks fluctuating d/w patient endocrinology: continue her regimen 250 units tiaac,staff is aware for adjustments. Refuses insulin intermittently also. Spoke to her clinical support tech-currently recommended to adjust insulin as above. Stage IV sacral wound with history of osteomyelitis -Wound care consultation ordered -Turn and reposition every 2 hours when awake -ID consultation ordered -Patient does state she has been following with the [facility] in the outpatient setting. Unable to confirm this. -Optimize nutrition, glucerna shakes ordered, nutritional consult ordered uti: as per [facility] records senstive to cefepime ID evaluation Anemia -HGB up to 7.8 ( [facility] h/h flactuate from 7.7 to 9) -Monitor CBC daily Pancytopenia (chronic) -Leukopenia, Thrombocytopenia, and Anemia noted -Levels stable Chronic pain-Patient currently on methadone for chronic pain management, no history of substance use disorder As per the staff empty methadone bottle found bed area says (it was empty before and was old bottle which was filled earlier): Currently patient is alert oriented, non symptomatic, we will place bedside Narcan. Will monitor at least few hours before deciding starting methadone, patient is also refused tele pack. Major depressive disorder with general anxiety disorder One-to-one ordered for constant observation. Patient currently grieving the loss of her brother. Patient is not currently suicidal or admitting to suicidal ideations Psych eval added -will need crisis eval before discharge DVT prophylaxis: Lovenox PPI prophylaxis: Omeprazole Full Code status Ongoing need: orthostasis : ivf and moniter tele and orthosatsis. Quality Stroke Does the patient have a stroke diagnosis?: No Reason for No Anti-thrombotic by Day Two: N/A - Med Ordered VTE Prior VTE?: No VTE Risk Level:: Medical - moderate - high VTE Device Contraindication: N/A - Device Ordered VTE Drug Contraindication: N/A - Med Ordered
[2025-01-15] MEDS: Magnesium Oxide 400 MG TABLET PO (17:48)
[2025-01-15 17:53] LABS: Magnesium 1.7 mg/dL (1.6-2.6)
[2025-01-15 19:32] LABS: Glucose, Whole Blood 441 mg/dL (60-115)
[2025-01-15 20:00] VITALS: BP 141/78; BP 152/87; BP 172/92; PULSE 85; PULSE 94; RESP 18; TEMP 36.4; O2SAT 98
[2025-01-15] MEDS: hydrOXYzine HCL 25 MG TABLET PO (21:28)
[2025-01-15] MEDS: Mirtazapine 7.5 MG TABLET 22.5 MG PO (21:28)
[2025-01-15] MEDS: Melatonin 3 MG TABLET 6 MG PO (21:28)
[2025-01-15 21:52] LABS: Glucose, Whole Blood 420 mg/dL (60-115)
[2025-01-16] VITALS (9 sets, daily range): BP systolic 107–168; BP diastolic 66–95; PULSE 65–96; RESP 16–18; TEMP 36.4–36.8; O2SAT 96–100
[2025-01-16 02:14] LABS: Glucose, Whole Blood 312 mg/dL (60-115)
[2025-01-16 06:09] LABS: Glucose, Whole Blood 181 mg/dL (60-115)
[2025-01-16 07:12] LABS: Glucose, Whole Blood 153 mg/dL (60-115)
[2025-01-16] MEDS: ondansetron HCL 4 MG/2 ML VIAL IVPUSH ×2 (08:04→13:26)
[2025-01-16] MEDS: Magnesium Oxide 400 MG TABLET 800 MG PO ×2 (08:50→18:17)
[2025-01-16] MEDS: cefTRIAXone sodium 1 GM VIAL IVPUSH (08:50)
[2025-01-16] MEDS: Hydroxychloroquine Sulfate 200 MG TABLET PO (08:50)
[2025-01-16] MEDS: Midodrine HCl 10 MG TABLET PO ×2 (08:50→15:45)
[2025-01-16] MEDS: FLUoxetine HCl 20 MG CAPSULE PO (08:50)
[2025-01-16] MEDS: Fludrocortisone Acetate 0.1 MG TABLET PO (08:50)
[2025-01-16] MEDS: Enoxaparin Sodium 40 MG/0.4 ML SYRINGE SUBCUT (08:50)
[2025-01-16] MEDS: methADONE HCl 10 MG TABLET 20 MG PO ×2 (08:54→20:01)
[2025-01-16 10:14] LABS: Glucose, Whole Blood 333 mg/dL (60-115)
--- NOTE | 2025-01-16 13:44 | MHC.CLN ---
F/U PO INTAKE 100% X3 MEALS DIET RX: 1800DM -APPROPRIATE RECEIVING ENSURE MAX BID TO PROMOTE WOUND HEALING SUPP PROVIDES 300KCALS, 60G PROTEIN MONITOR PO INTAKE AND ENCOURAGE SUPPLEMENT
--- NOTE | 2025-01-16 13:49 | MHC.CM.PN ---
Second IMM delivered today in anticipation of pt. DC tomorrow. DCP is home with VNA from [facility]. CM to follow for DC needs.
[2025-01-16 14:09] LABS: Glucose, Whole Blood 464 mg/dL (60-115)
--- NOTE | 2025-01-16 14:46 | P.CONCA_ITS ---
History of Present Illness History of Present Illness Date of Service: 01/16/25 Requesting physician: Chelsie Fung Chief complaint: Orthostasis Narrative: [age] year female with SLE, insulin-dependent diabetes, sacral decubitus ulcer, major depression, generalized anxiety disorder and background of dizziness/orthostasis for which she has been on combination of midodrine and fludrocortisone. She said she was walking yesterday when she turned and became dizzy and then passed out for approximately 1 minute. This has happened to her before where she feels dizzy/lightheaded when she is walking. She is also complaining of vertigo like feeling while laying in bed currently. She is saying this feeling is different than what she felt yesterday. She had orthostatics checked which were abnormal. She is on midodrine 10 mg 3 times a day and fludrocortisone. She has chronic anemia. She also has significantly uncontrolled diabetes and her hemoglobin A1c is more than 14. PMF Past Medical History Medical History Generalized anxiety disorder Major depressive disorder Sacral decubitus ulcer, stage IV Chronic pain Lupus (systemic lupus erythematosus) Insulin dependent type 2 diabetes mellitus Family History Family history: reviewed and not pertinent Social History Social History Household Members: Spouse Housing: Apartment Do you presently have visiting nurse or other home services: No Comment: 1:1 sitter Patient Tobacco Use Status: Never used Tobacco e-Cigarette/Vaping Use: Never Used Second Hand Smoke Exposure: No Use of substances other than those prescribed or required for medical reasons: Yes Substance Use Type: Marijuana Currently Displaying Signs/Symptoms of Drug Intoxication Withdrawal: No Advance Directives: No Advance Directives Information Provided: No Advance Directives on File: No Patient : No service: No Travel History Ebola Risk: Travel/Contact With Anyone From Affected Area/s: No Has Patient Experienced Ebola Symptoms: No Meds Allergies Allergy/AdvReac Type Severity Reaction Status Date / Time acetaminophen Allergy Swelling Verified 01/10/25 00:40 atorvastatin Allergy Unknown Verified 01/10/25 00:40 duloxetine Allergy Unknown Verified 01/10/25 00:40 fish derived [fish] Allergy Swelling Verified 01/10/25 00:40 Active Medications: Current Medications Albuterol/Ipratropium (Albuterol/Iprat 2.5/0.5mg 3 Ml Ampul.Neb) 3 ml INHALE Q4H PRN PRN Reason: Shortness of Breath/Wheezing Calcium Carbonate (Calcium Carbonate 750 Mg Tab.Chew) 750 mg PO Q4H PRN PRN Reason: Heartburn Ceftriaxone Sodium (Ceftriaxone Sodium 1 Gm Vial) 1 gm IVPUSH Q24H [facility] Last Admin: 01/16/25 08:50 Dose: 1 gm Dextrose (Dextrose 50 % 25 Gm/50 Ml Syringe) 25 gm IVPUSH Q15M PRN; Protocol PRN Reason: per Hypoglycemia Standing Ord. Last Admin: 01/13/25 04:24 Dose: 25 gm Enoxaparin Sodium (Enoxaparin Sodium 40 Mg/0.4 Ml Syringe) 40 mg SUBCUT Q24H [facility] Last Admin: 01/16/25 08:50 Dose: 40 mg Fludrocortisone Acetate (Fludrocortisone Acetate 0.1 Mg Tablet) 0.1 mg PO DAILY [facility] Last Admin: 01/16/25 08:50 Dose: 0.1 mg Fluoxetine HCl (Fluoxetine Hcl 20 Mg Capsule) 20 mg PO DAILY [facility] Last Admin: 01/16/25 08:50 Dose: 20 mg Glucose (Glucose Gel 15 Gm Gel..Gram.) 15 gm PO Q15M PRN; Protocol PRN Reason: per Hypoglycemia Standing Ord. Hydroxychloroquine Sulfate (Hydroxychloroquine Sulfate 200 Mg Tablet) 200 mg PO DAILY [facility] Last Admin: 01/16/25 08:50 Dose: 200 mg Hydroxyzine HCl (Hydroxyzine Hcl 25 Mg Tablet) 25 mg PO QID PRN PRN Reason: anxiety Last Admin: 01/15/25 21:28 Dose: 25 mg Magnesium Hydroxide (Milk Of Magnesia 30 Ml Oral.Susp) 30 ml PO DAILY PRN PRN Reason: Constipation Magnesium Oxide (Magnesium Oxide 400 Mg Tablet) 800 mg PO BIDPC [facility] Last Admin: 01/16/25 08:50 Dose: 800 mg Melatonin (Melatonin 3 Mg Tablet) 6 mg PO BEDTIME PRN PRN Reason: Insomnia Last Admin: 01/15/25 21:28 Dose: 6 mg Methadone HCl (Methadone Hcl 10 Mg Tablet) 20 mg PO BID PRN PRN Reason: Pain (Scale Score 7-10) Last Admin: 01/16/25 08:54 Dose: 20 mg Midodrine (Midodrine Hcl 10 Mg Tablet) 10 mg PO TID [facility] Last Admin: 01/16/25 08:50 Dose: 10 mg Mirtazapine (Mirtazapine 7.5 Mg Tablet) 22.5 mg PO BEDTIME [facility] Last Admin: 01/15/25 21:28 Dose: 22.5 mg Naloxone HCl (Naloxone Hcl 0.4 Mg/Ml Vial) 0.4 mg IVPUSH Q5M PRN PRN Reason: Opiate Reversal Pt Own (Insulin Regular Hum U-500 Conc [Humulin R U- 500 (Conc) Kwikpen] 250 unit SUBCUT TIDAC [facility] Last Admin: 01/16/25 12:37 Dose: Not Given Ondansetron HCl (Ondansetron Hcl 4 Mg/2 Ml Vial) 4 mg IVPUSH Q8H PRN PRN Reason: Nausea and Vomiting Last Admin: 01/16/25 08:04 Dose: 4 mg Pioglitazone HCl (Pioglitazone Hcl 45 Mg Tablet) 45 mg PO DAILY [facility] Last Admin: 01/13/25 10:22 Dose: 45 mg Polyethylene Glycol (Polyethylene Glycol 3350 17 Gm Powd.Pack) 17 gm PO DAILY PRN PRN Reason: Constipation Senna (Sennosides 8.6 Mg Tablet) 17.2 mg PO BEDTIME [facility] Last Admin: 01/15/25 22:27 Dose: Not Given Sodium Chloride (0.9 % Sodium Chloride Flush 3 Ml Syringe) 3 ml IVFLUSH QSHIFT [facility] Last Admin: 01/16/25 08:17 Dose: Not Given Home Medications ?Medication ?Instructions ?Recorded ?Confirmed ?Last Taken ?Type fludrocortisone 0.1 mg tablet 0.1 mg PO DAILY 01/10/25 01/10/25 01/09/25 12:01 History fluoxetine 20 mg capsule 20 mg PO DAILY 01/10/25 01/10/25 01/09/25 12:01 History hydroxychloroquine 200 mg tablet 200 mg PO QAM 01/10/25 01/10/25 01/09/25 12:13 History hydroxyzine pamoate 25 mg capsule 25 mg PO QID PRN anxiety 01/10/25 01/10/25 Unknown History insulin regular hum U-500 conc 500 700 unit subcut TIDAC 01/10/25 01/10/25 01/09/25 14:32 History unit/mL(3 mL) subcut pen (Humulin R U-500 (Conc) Insulin Kwikpen) methadone 10 mg tablet 20 mg PO TID PRN Pain (Scale Score 01/10/25 01/10/25 Unknown History 7-10) midodrine 10 mg tablet 10 mg PO TID 01/10/25 01/10/25 01/09/25 18:52 History mirtazapine 7.5 mg tablet 22.5 mg PO BEDTIME 01/10/25 01/10/25 Unknown History pioglitazone 45 mg tablet 45 mg PO DAILY 01/10/25 01/10/25 01/09/25 12:01 History Physical Exam 2 Vital Signs: Vital Signs: Last Vital Signs Temp 98.3 F 01/16/25 11:22 Pulse 81 01/16/25 11:22 Resp 18 01/16/25 11:22 BP 165/77 H 01/16/25 11:22 Pulse Ox 98 01/16/25 11:22 O2 Del Method Room Air 01/16/25 11:22 BMI result Body Mass Index 19.4 GENERAL APPEARANCE: in no acute distress. NECK: Mild JVD. SKIN: no suspicious lesions, warm and dry. HEART: no murmurs, regular rate and rhythm. LUNGS: clear to auscultation bilaterally. ABDOMEN: soft, nontender. EXTREMITIES: no edema. PERIPHERAL PULSES: equal. NEUROLOGIC: No gross deficits, AAO X 3 Objective Labs and Meds 01/15/25 15:37 01/15/25 15:37 Lab results: Laboratory Results - last 24 hr 01/15/25 01/15/25 01/15/25 15:11 15:37 19:22 Hgb 7.8 L Hct 23.1 L Sodium 137 Potassium 4.1 D Chloride 103 Carbon Dioxide 25 Anion Gap 13 BUN 14 Creatinine 1.18 Estim Creat Clear Calc 44.3 Estimated GFR 49 POC Glucose 393 H* 441 H* Random Glucose 405 H* Calcium 8.4 Magnesium 1.7 01/15/25 01/16/25 01/16/25 21:46 02:07 06:05 Hgb Hct Sodium Potassium Chloride Carbon Dioxide Anion Gap BUN Creatinine Estim Creat Clear Calc Estimated GFR POC Glucose 420 H* 312 H 181 H Random Glucose Calcium Magnesium 01/16/25 01/16/25 01/16/25 07:07 10:09 13:59 Hgb Hct Sodium Potassium Chloride Carbon Dioxide Anion Gap BUN Creatinine Estim Creat Clear Calc Estimated GFR POC Glucose 153 H 333 H 464 H* Random Glucose Calcium Magnesium Assessment and Plan (1) Fall: Status: Acute (2) Orthostasis: Status: Acute Plan [age] year female with multiple medical issues including uncontrolled diabetes with hemoglobin A1c more than 14, systemic lupus erythematosus, sacral decubitus ulcer, generalize anxiety disorder and major depressive disorder. We have been asked to see her for episode of fall yesterday. This happened while she was walking and turned and then fell she is on a blackout and then fell to the ground. She has had similar issues before. She also has vertigo like feeling while laying in bed. She is already on midodrine 10 mg 3 times a day and fludrocortisone. Symptoms can be related to autonomic dysfunction given uncontrolled diabetes with hemoglobin A1c more than 14. She is already on midodrine and fludrocortisone. Compression stockings can be tried. Encouraged her to take oral fluids. Examining her she has mild JVD and and I do not recommend giving her any intravenous fluids. Care we will be supportive. I have discussed this with the patient. Thank you for allowing me to participate in the care of your patient. Please feel free to contact me if you have any questions. Procedures Date of Service Date of Service: 01/16/25
[2025-01-16] MEDS: 0.9 % Sodium Chloride Flush 3 ML SYRINGE IVFLUSH ×2 (15:46→20:04)
--- NOTE | 2025-01-16 15:50 | PC.NURSE ---
An insulin pen (Humulin U 500) was discard per pt request as it only has 30 units left in the pen and pt does not want to receive her insulin dose in 2 shots. 2nd RN was at bedside with sitter.
--- NOTE | 2025-01-16 17:37 | HO.PM.IMPN ---
Subjective Subjective Date of Service: 01/16/25 Interval History: dizziness ,? orthostasis Review of Systems Patient is still feels dizzy with ambulation Denies any chest pain or shortness of breath or palpitations Review of Systems: Yes all other systems are reviewed and are negative Physical Exam Vital Signs: Vital Signs: Last Vital Signs Temp 98.3 F 01/16/25 16:00 Pulse 78 01/16/25 16:00 Resp 16 01/16/25 16:00 BP 168/95 H 01/16/25 16:00 Pulse Ox 99 01/16/25 16:00 O2 Del Method Room Air 01/16/25 16:00 BMI result Body Mass Index 19.4 Appearance: Alert.? Oriented X3.? eye: pupil equal and reactive. cvs: rrr, [id number]. res: clear to auscultation ,no rhonchii or wheezing abd: no rebound or guarding ,nt, bs present. ext pulses present , no cyanosis . neuro:nonfocal. Objective Data Active Medications Albuterol/Ipratropium (Albuterol/Iprat 2.5/0.5mg 3 Ml Ampul.Neb) 3 ml INHALE Q4H PRN PRN Reason: Shortness of Breath/Wheezing Calcium Carbonate (Calcium Carbonate 750 Mg Tab.Chew) 750 mg PO Q4H PRN PRN Reason: Heartburn Ceftriaxone Sodium (Ceftriaxone Sodium 1 Gm Vial) 1 gm IVPUSH Q24H [facility] Last Admin: 01/16/25 08:50 Dose: 1 gm Documented By: TORIBIO Dextrose (Dextrose 50 % 25 Gm/50 Ml Syringe) 25 gm IVPUSH Q15M PRN; Protocol PRN Reason: per Hypoglycemia Standing Ord. Last Admin: 01/13/25 04:24 Dose: 25 gm Documented By: ADELINA Enoxaparin Sodium (Enoxaparin Sodium 40 Mg/0.4 Ml Syringe) 40 mg SUBCUT Q24H [facility] Last Admin: 01/16/25 08:50 Dose: 40 mg Documented By: TORIBIO Fludrocortisone Acetate (Fludrocortisone Acetate 0.1 Mg Tablet) 0.1 mg PO DAILY [facility] Last Admin: 01/16/25 08:50 Dose: 0.1 mg Documented By: TORIBIO Fluoxetine HCl (Fluoxetine Hcl 20 Mg Capsule) 20 mg PO DAILY [facility] Last Admin: 01/16/25 08:50 Dose: 20 mg Documented By: TORIBIO Glucose (Glucose Gel 15 Gm Gel..Gram.) 15 gm PO Q15M PRN; Protocol PRN Reason: per Hypoglycemia Standing Ord. Hydroxychloroquine Sulfate (Hydroxychloroquine Sulfate 200 Mg Tablet) 200 mg PO DAILY [facility] Last Admin: 01/16/25 08:50 Dose: 200 mg Documented By: TORIBIO Hydroxyzine HCl (Hydroxyzine Hcl 25 Mg Tablet) 25 mg PO QID PRN PRN Reason: anxiety Last Admin: 01/15/25 21:28 Dose: 25 mg Documented By: MINNA Magnesium Hydroxide (Milk Of Magnesia 30 Ml Oral.Susp) 30 ml PO DAILY PRN PRN Reason: Constipation Magnesium Oxide (Magnesium Oxide 400 Mg Tablet) 800 mg PO BIDPC [facility] Last Admin: 01/16/25 08:50 Dose: 800 mg Documented By: TORIBIO Melatonin (Melatonin 3 Mg Tablet) 6 mg PO BEDTIME PRN PRN Reason: Insomnia Last Admin: 01/15/25 21:28 Dose: 6 mg Documented By: MINNA Methadone HCl (Methadone Hcl 10 Mg Tablet) 20 mg PO BID PRN PRN Reason: Pain (Scale Score 7-10) Last Admin: 01/16/25 08:54 Dose: 20 mg Documented By: TORIBIO Midodrine (Midodrine Hcl 10 Mg Tablet) 10 mg PO TID [facility] Last Admin: 01/16/25 15:45 Dose: 10 mg Documented By: TORIBIO Mirtazapine (Mirtazapine 7.5 Mg Tablet) 22.5 mg PO BEDTIME [facility] Last Admin: 01/15/25 21:28 Dose: 22.5 mg Documented By: MINNA Naloxone HCl (Naloxone Hcl 0.4 Mg/Ml Vial) 0.4 mg IVPUSH Q5M PRN PRN Reason: Opiate Reversal Pt Own (Insulin Regular Hum U-500 Conc [Humulin R U- 500 (Conc) Kwikpen] 250 unit SUBCUT TIDAC [facility] Last Admin: 01/16/25 15:43 Dose: 250 unit Documented By: TORIBIO Ondansetron HCl (Ondansetron Hcl 4 Mg/2 Ml Vial) 4 mg IVPUSH Q8H PRN PRN Reason: Nausea and Vomiting Last Admin: 01/16/25 08:04 Dose: 4 mg Documented By: TORIBIO Pioglitazone HCl (Pioglitazone Hcl 45 Mg Tablet) 45 mg PO DAILY [facility] Last Admin: 01/13/25 10:22 Dose: 45 mg Documented By: BRUNA Polyethylene Glycol (Polyethylene Glycol 3350 17 Gm Powd.Pack) 17 gm PO DAILY PRN PRN Reason: Constipation Senna (Sennosides 8.6 Mg Tablet) 17.2 mg PO BEDTIME [facility] Last Admin: 01/15/25 22:27 Dose: Not Given Documented By: MINNA Non-Admin Reason: Patient Refused Sodium Chloride (0.9 % Sodium Chloride Flush 3 Ml Syringe) 3 ml IVFLUSH QSHIFT [facility] Last Admin: 01/16/25 15:46 Dose: 3 ml Documented By: TORIBIO Labs 01/15/25 15:37 01/15/25 15:37 Labs: Laboratory Results - last 24 hr 01/15/25 01/15/25 01/15/25 15:37 19:22 21:46 POC Glucose 441 H* 420 H* Magnesium 1.7 01/16/25 01/16/25 01/16/25 02:07 06:05 07:07 POC Glucose 312 H 181 H 153 H Magnesium 01/16/25 01/16/25 10:09 13:59 POC Glucose 333 H 464 H* Magnesium Assessment and Plan (1) Sacral decubitus ulcer, stage IV: Status: Acute (2) Fall: Status: Acute (3) Hyperglycemia: Status: Acute Assessment and Plan: 49-year-old black female with past medical history insulin-dependent diabetes type 2, major depressive disorder, general anxiety disorder, daily marijuana use, currently on methadone for pain control, a current unstageable sacral wound with history of osteomyelitis, lupus, myelofibrosis with the associated pancytopenia, diabetic gastroparesis, recurrent C diff infections currently asymptomatic is being transferred from the psychiatric unit and admitted to the medical-surgical floor for noted hyperglycemia without evidence of DKA. Patient initially reluctant to start lispro insulin but after review with patient for admission, patient is now agreeable. syncope episode yesterday:?orthostasis/hx of autonomic dysfunction: Added IV fluid, midodrine,karla stocking ,florinef tele minitering-so far fine cardiology eval. mild qtc prolonged : electrolytes seems fine telemetry fine cardiology eval pending insulin-dependent diabetes type 2 with hyperglycemia(spoke to patient's endocrinology staff in [facility] : Patient has diabetes b with insulin resistance-on IVIG) Hemoglobin A1c > 14 Patient received Lantus 40 units last night Fingersticks fluctuating d/w patient endocrinology: continue her regimen 250 units tiaac,staff is aware for adjustments. Refuses insulin intermittently also. Spoke to her signal repairer-currently recommended to adjust insulin as above. Stage IV sacral wound with history of osteomyelitis -Wound care consultation ordered -Turn and reposition every 2 hours when awake -ID consultation ordered -Patient does state she has been [facility] setting. Unable to confirm this. -Optimize nutrition, glucerna shakes ordered, nutritional consult ordered uti: as per [facility] records senstive to cefepime ID evaluation Anemia -HGB up to 7.8 ( [facility] h/h flactuate from 7.7 to 9) -Monitor CBC daily Pancytopenia (chronic) -Leukopenia, Thrombocytopenia, and Anemia noted -Levels stable Chronic pain-Patient currently on methadone for chronic pain management, no history of substance use disorder on methadone. Major depressive disorder with general anxiety disorder One-to-one ordered for constant observation. Patient currently grieving the loss of her brother. Patient is not currently suicidal or admitting to suicidal ideations Psych eval added -will need crisis eval before discharge DVT prophylaxis: Lovenox PPI prophylaxis: Omeprazole Full Code status Ongoing need: orthostasis : ivf and moniter tele and orthosatsis,syncope Quality Stroke Does the patient have a stroke diagnosis?: No Reason for No Anti-thrombotic by Day Two: N/A - Med Ordered VTE Prior VTE?: No VTE Risk Level:: Medical - moderate - high VTE Device Contraindication: N/A - Device Ordered VTE Drug Contraindication: N/A - Med Ordered
[2025-01-16 18:05] LABS: Glucose, Whole Blood 392 mg/dL (60-115)
[2025-01-16] MEDS: Lactated Ringers 1,000 ML 100 ML IVCONT (18:47)
[2025-01-16 19:55] LABS: Glucose, Whole Blood 427 mg/dL (60-115)
[2025-01-16] MEDS: Mirtazapine 7.5 MG TABLET 22.5 MG PO (20:00)
[2025-01-16] MEDS: hydrOXYzine HCL 25 MG TABLET PO (20:01)
[2025-01-16] MEDS: Melatonin 3 MG TABLET 6 MG PO (20:01)
[2025-01-16 23:41] LABS: Glucose, Whole Blood 365 mg/dL (60-115)
[2025-01-17] VITALS (13 sets, daily range): BP systolic 80–180; BP diastolic 52–103; PULSE 79–107; RESP 16–18; TEMP 36.6–37.7; O2SAT 96–100
[2025-01-17 03:22] LABS: Glucose, Whole Blood 259 mg/dL (60-115)
[2025-01-17 05:48] LABS: Glucose, Whole Blood 210 mg/dL (60-115)
[2025-01-17 07:27] LABS: Glucose, Whole Blood 201 mg/dL (60-115)
[2025-01-17 07:35] LABS: Hematocrit 22.6 % (37.0-47.0); Hemoglobin 7.5 g/dl (12.0-16.0); Mean Corpuscular HGB Conc 33.2 g/dl (31.0-35.0); Mean Corpuscular Hemoglobin 29.3 pg (27.0-33.0); Mean Corpuscular Volume 88.3 fL (80.0-98.0); Mean Platelet Volume 9.1 fL (9.4-12.3); Platelet Count 153 X10*3/uL (160-400); Red Blood Count 2.56 X10*6/uL (4.20-5.50); White Blood Count 2.3 X10*3/uL (4.8-10.8)
[2025-01-17 07:47] LABS: Anion Gap 9 (12-20); Blood Urea Nitrogen 14 mg/dL (9-16); Calcium 8.5 mg/dL (8.4-10.2); Carbon Dioxide 28 mmol/L (22-29); Chloride 108 mmol/L (96-108); Creatinine Clr Calc Pharmacy 60.9; Estimated Glomerular Filt Rate > 60; Glucose Random 203 mg/dL (60-115); Sodium 141 mmol/L (135-145)
[2025-01-17] MEDS: Fludrocortisone Acetate 0.1 MG TABLET PO (08:16)
[2025-01-17] MEDS: methADONE HCl 10 MG TABLET 20 MG PO (08:16)
[2025-01-17] MEDS: 0.9 % Sodium Chloride Flush 3 ML SYRINGE IVFLUSH ×3 (08:17→21:03)
[2025-01-17] MEDS: Enoxaparin Sodium 40 MG/0.4 ML SYRINGE SUBCUT (08:17)
[2025-01-17] MEDS: Hydroxychloroquine Sulfate 200 MG TABLET PO (08:17)
[2025-01-17] MEDS: FLUoxetine HCl 20 MG CAPSULE PO (08:17)
[2025-01-17] MEDS: Midodrine HCl 10 MG TABLET PO (08:17)
[2025-01-17] MEDS: Magnesium Oxide 400 MG TABLET 800 MG PO ×2 (08:17→17:17)
[2025-01-17] MEDS: cefTRIAXone sodium 1 GM VIAL IVPUSH (08:17)
[2025-01-17] MEDS: Lactated Ringers 1,000 ML 100 ML IVCONT ×2 (10:01→15:02)
[2025-01-17 10:04] LABS: Glucose, Whole Blood 254 mg/dL (60-115)
--- NOTE | 2025-01-17 13:25 | HO.PM.IMPN ---
Subjective Subjective Date of Service: 01/18/25 Interval History: Still c/o dizziness, and positive orthostatic Review of Systems Patient is still feels dizzy with ambulation Denies any chest pain or shortness of breath or palpitations Physical Exam Vital Signs: Vital Signs: Last Vital Signs Temp 99.4 F 01/17/25 11:11 Pulse 80 01/17/25 11:11 Resp 18 01/17/25 11:11 BP 180/98 H 01/17/25 11:11 Pulse Ox 97 01/17/25 11:11 O2 Del Method Room Air 01/17/25 11:11 BMI result Body Mass Index 19.4 Objective Data Active Medications Calcium Carbonate (Calcium Carbonate 750 Mg Tab.Chew) 750 mg PO Q4H PRN PRN Reason: Heartburn Ceftriaxone Sodium (Ceftriaxone Sodium 1 Gm Vial) 1 gm IVPUSH Q24H [facility] Last Admin: 01/17/25 08:17 Dose: 1 gm Documented By: JULIANNA Dextrose (Dextrose 50 % 25 Gm/50 Ml Syringe) 25 gm IVPUSH Q15M PRN; Protocol PRN Reason: per Hypoglycemia Standing Ord. Last Admin: 01/13/25 04:24 Dose: 25 gm Documented By: ADELINA Enoxaparin Sodium (Enoxaparin Sodium 40 Mg/0.4 Ml Syringe) 40 mg SUBCUT Q24H [facility] Last Admin: 01/17/25 08:17 Dose: 40 mg Documented By: JULIANNA Fludrocortisone Acetate (Fludrocortisone Acetate 0.1 Mg Tablet) 0.1 mg PO DAILY [facility] Last Admin: 01/17/25 08:16 Dose: 0.1 mg Documented By: JULIANNA Fluoxetine HCl (Fluoxetine Hcl 20 Mg Capsule) 20 mg PO DAILY [facility] Last Admin: 01/17/25 08:17 Dose: 20 mg Documented By: JULIANNA Glucose (Glucose Gel 15 Gm Gel..Gram.) 15 gm PO Q15M PRN; Protocol PRN Reason: per Hypoglycemia Standing Ord. Hydroxychloroquine Sulfate (Hydroxychloroquine Sulfate 200 Mg Tablet) 200 mg PO DAILY [facility] Last Admin: 01/17/25 08:17 Dose: 200 mg Documented By: JULIANNA Hydroxyzine HCl (Hydroxyzine Hcl 25 Mg Tablet) 25 mg PO QID PRN PRN Reason: anxiety Last Admin: 01/16/25 20:01 Dose: 25 mg Documented By: HENOK Lactated Ringer's (Lr) 1,000 mls @ 100 mls/hr IVCONT .Q10H [facility] Last Admin: 01/17/25 10:01 Dose: 100 mls/hr Documented By: JULIANNA Magnesium Hydroxide (Milk Of Magnesia 30 Ml Oral.Susp) 30 ml PO DAILY PRN PRN Reason: Constipation Magnesium Oxide (Magnesium Oxide 400 Mg Tablet) 800 mg PO BIDPC [facility] Last Admin: 01/17/25 08:17 Dose: 800 mg Documented By: JULIANNA Melatonin (Melatonin 3 Mg Tablet) 6 mg PO BEDTIME PRN PRN Reason: Insomnia Last Admin: 01/16/25 20:01 Dose: 6 mg Documented By: HENOK Methadone HCl (Methadone Hcl 10 Mg Tablet) 20 mg PO BID PRN PRN Reason: Pain (Scale Score 7-10) Last Admin: 01/17/25 08:16 Dose: 20 mg Documented By: JULIANNA Midodrine (Midodrine Hcl 10 Mg Tablet) 10 mg PO TID [facility] Last Admin: 01/17/25 08:17 Dose: 10 mg Documented By: JULIANNA Mirtazapine (Mirtazapine 7.5 Mg Tablet) 22.5 mg PO BEDTIME [facility] Last Admin: 01/16/25 20:00 Dose: 22.5 mg Documented By: HENOK Naloxone HCl (Naloxone Hcl 0.4 Mg/Ml Vial) 0.4 mg IVPUSH Q5M PRN PRN Reason: Opiate Reversal Pt Own (Insulin Regular Hum U-500 Conc [Humulin R U- 500 (Conc) Kwikpen] 250 unit SUBCUT TIDAC [facility] Last Admin: 01/17/25 07:30 Dose: Not Given Documented By: JULIANNA Non-Admin Reason: No Insulin Coverage Ondansetron HCl (Ondansetron Hcl 4 Mg/2 Ml Vial) 4 mg IVPUSH Q8H PRN PRN Reason: Nausea and Vomiting Last Admin: 01/16/25 08:04 Dose: 4 mg Documented By: TORIBIO Pioglitazone HCl (Pioglitazone Hcl 45 Mg Tablet) 45 mg PO DAILY [facility] Last Admin: 01/13/25 10:22 Dose: 45 mg Documented By: BRUNA Polyethylene Glycol (Polyethylene Glycol 3350 17 Gm Powd.Pack) 17 gm PO DAILY PRN PRN Reason: Constipation Senna (Sennosides 8.6 Mg Tablet) 17.2 mg PO BEDTIME [facility] Last Admin: 01/16/25 20:04 Dose: Not Given Documented By: HENOK Non-Admin Reason: Patient Refused Sodium Chloride (0.9 % Sodium Chloride Flush 3 Ml Syringe) 3 ml IVFLUSH QSHIFT [facility] Last Admin: 01/17/25 08:17 Dose: 3 ml Documented By: JULIANNA Labs 01/17/25 07:07 01/18/25 06:39 Labs: Laboratory Results - last 24 hr 01/16/25 01/16/25 01/16/25 13:59 18:01 19:51 MCV MCH MCHC RDW Plt Count MPV Absolute Nucleated RBC Nucleated RBC % (auto) Smear Path Review Anion Gap Estim Creat Clear Calc Estimated GFR POC Glucose 464 H* 392 H* 427 H* Random Glucose Calcium 01/16/25 01/17/25 01/17/25 23:35 03:15 05:45 MCV MCH MCHC RDW Plt Count MPV Absolute Nucleated RBC Nucleated RBC % (auto) Smear Path Review Anion Gap Estim Creat Clear Calc Estimated GFR POC Glucose 365 H* 259 H 210 H Random Glucose Calcium 01/17/25 01/17/25 01/17/25 07:07 07:20 09:58 MCV 88.3 MCH 29.3 MCHC 33.2 RDW 15.0 Plt Count 153 L D MPV 9.1 L Absolute Nucleated RBC 0.000 Nucleated RBC % (auto) 0.0 Smear Path Review SEE NOTE Anion Gap 9 L Estim Creat Clear Calc 60.9 Estimated GFR > 60 POC Glucose 201 H 254 H Random Glucose 203 H Calcium 8.5 Assessment and Plan (1) Sacral decubitus ulcer, stage IV: Status: Acute (2) Fall: Status: Acute (3) Hyperglycemia: Status: Acute Assessment and Plan: 49-year-old black female with past medical history insulin-dependent diabetes type 2, major depressive disorder, general anxiety disorder, daily marijuana use, currently on methadone for pain control, a current unstageable sacral wound with history of osteomyelitis, lupus, myelofibrosis with the associated pancytopenia, diabetic gastroparesis, recurrent C diff infections currently asymptomatic is being transferred from the psychiatric unit and admitted to the medical-surgical floor for noted hyperglycemia without evidence of DKA. Patient initially reluctant to start lispro insulin but after review with patient for admission, patient is now agreeable. Syncope d/t orthostatic hypotension, likely from autonomic insuficiency, still positive. continue IVF continue midodrine and florinef seen cardiology no other recommendation at this time insulin-dependent diabetes type 2 with hyperglycemia(spoke to patient's endocrinology staff in [facility] : Patient has diabetes b with insulin resistance-on IVIG) Hemoglobin A1c > 14 continue current insulin regimen and adjust as needed, she has been acquiring outside food including sugarly drinks (Tanya) from [employer] she's non-compliant with insulin and refusing at times Stage IV sacral wound with history of osteomyelitis -Wound care consultation ordered -Turn and reposition every 2 hours when awake -ID consultation ordered -Patient does state she has been [facility] setting. Unable to confirm this. -Optimize nutrition, glucerna shakes ordered, nutritional consult ordered uti: as per [facility] records senstive to cefepime ID evaluation Anemia -HGB up to 7.8 ( [facility] h/h flactuate from 7.7 to 9) -Monitor CBC daily Pancytopenia (chronic) -Leukopenia, Thrombocytopenia, and Anemia noted -Levels stable Chronic pain-Patient currently on methadone for chronic pain management, no history of substance use disorder on methadone. Major depressive disorder with general anxiety disorder One-to-one ordered for constant observation. Patient currently grieving the loss of her brother. Patient is not currently suicidal or admitting to suicidal ideations Psych eval added -will need crisis eval before discharge DVT prophylaxis: Lovenox PPI prophylaxis: Omeprazole Full Code status Ongoing need: orthostasis : ivf and moniter tele and orthosatsis,syncope Quality Stroke Does the patient have a stroke diagnosis?: No Reason for No Anti-thrombotic by Day Two: N/A - Med Ordered VTE Prior VTE?: No VTE Risk Level:: Medical - moderate - high VTE Device Contraindication: N/A - Device Ordered VTE Drug Contraindication: N/A - Med Ordered
[2025-01-17 14:30] LABS: Glucose, Whole Blood 429 mg/dL (60-115)
[2025-01-17 18:06] LABS: Glucose, Whole Blood 476 mg/dL (60-115)
[2025-01-17 20:02] LABS: Glucose, Whole Blood 483 mg/dL (60-115)
[2025-01-17] MEDS: hydrOXYzine HCL 25 MG TABLET PO (20:53)
[2025-01-17] MEDS: Melatonin 3 MG TABLET 6 MG PO (20:53)
[2025-01-17] MEDS: Mirtazapine 7.5 MG TABLET 22.5 MG PO (20:53)
[2025-01-17] MEDS: HYDROmorphone HCl 0.5 MG/0.5 ML SYRINGE IVPUSH (21:02)
[2025-01-17 22:08] LABS: Glucose, Whole Blood 477 mg/dL (60-115)
[2025-01-18] VITALS (9 sets, daily range): BP systolic 107–197; BP diastolic 66–107; PULSE 78–102; RESP 16–20; TEMP 36.6–37.2; O2SAT 97–99
--- NOTE | 2025-01-18 | EEG_ITS ---
FINDINGS: The waking background activity consists of a well-defined, low-voltage 9 Hz posterior alpha frequency intermixed with low voltage, fast frequencies anteriorly. Drowsiness is characterized by diffuse theta slowing. Photic stimulation is without activation. Hyperventilation was omitted. No focal, lateralizing, or paroxysmal discharges are seen. IMPRESSION: This awake and briefly drowsy EEG is within normal limits. MD JOEY Varela/PRESLEY / [id number]
[2025-01-18 02:01] LABS: Glucose, Whole Blood 343 mg/dL (60-115)
[2025-01-18 06:06] LABS: Glucose, Whole Blood 217 mg/dL (60-115)
[2025-01-18 07:00] LABS: Anion Gap 5 (12-20); Blood Urea Nitrogen 14 mg/dL (9-16); Calcium 8.5 mg/dL (8.4-10.2); Carbon Dioxide 29 mmol/L (22-29); Chloride 95 mmol/L (96-108); Creatinine Clr Calc Pharmacy 67.9; Estimated Glomerular Filt Rate > 60; Glucose Random 235 mg/dL (60-115); Potassium 3.3 mmol/L (3.3-5.1); Sodium 126 mmol/L (135-145)
--- NOTE | 2025-01-18 07:32 | PC.NURSE ---
Please refer to provider notification for details of overnight events. Pt. POC critical >400,, and pt. refusing any insulin overnight, Dr. Whaley notified. Pt. refusing LR IVF all shift. Pt. educated. This AM pt. c/o dizziness when she awakened. Pt. agreeable to IVF restarted at 0710. Oncoming RN notified.
[2025-01-18] MEDS: Magnesium Oxide 400 MG TABLET 800 MG PO ×2 (08:48→18:01)
[2025-01-18] MEDS: Fludrocortisone Acetate 0.1 MG TABLET PO (08:48)
[2025-01-18] MEDS: Midodrine HCl 10 MG TABLET PO (08:48)
[2025-01-18] MEDS: FLUoxetine HCl 20 MG CAPSULE PO (08:48)
[2025-01-18] MEDS: Hydroxychloroquine Sulfate 200 MG TABLET PO (08:48)
[2025-01-18] MEDS: 0.9 % Sodium Chloride Flush 3 ML SYRINGE IVFLUSH ×2 (08:50→23:06)
[2025-01-18] MEDS: cefTRIAXone sodium 1 GM VIAL IVPUSH (08:51)
[2025-01-18] MEDS: Enoxaparin Sodium 40 MG/0.4 ML SYRINGE SUBCUT (08:51)
[2025-01-18 09:41] LABS: Glucose, Whole Blood 277 mg/dL (60-115)
[2025-01-18] MEDS: methADONE HCl 10 MG TABLET 20 MG PO (10:22)
[2025-01-18 11:02] LABS: Glucose, Whole Blood 336 mg/dL (60-115)
--- NOTE | 2025-01-18 11:54 | P.PNIM_ITS ---
Subjective Subjective Date of Service: 01/18/25 Interval History: Intermittently still c/o dizziness. MEDICAL RESEARCH ASSISTANT called for an episode unresponsivness, sitter states that she was the phone the suddenly dropped the phone and felt into bed, was unresponsive with normal respiration, good O2 sat, no repsonse to sternal rub and gradually woke but seemsed confused, there was no urinary or stool incontinence Physical Exam 2 Vital Signs: Vital Signs: Last Vital Signs Temp 97.9 F 01/18/25 11:09 Pulse 83 01/18/25 11:09 Resp 18 01/18/25 11:09 BP 195/105 H 01/18/25 11:16 Pulse Ox 99 01/18/25 07:01 O2 Del Method Room Air 01/18/25 07:01 BMI result Body Mass Index 19.4 Objective Data Active Medications Calcium Carbonate (Calcium Carbonate 750 Mg Tab.Chew) 750 mg PO Q4H PRN PRN Reason: Heartburn Ceftriaxone Sodium (Ceftriaxone Sodium 1 Gm Vial) 1 gm IVPUSH Q24H [facility] Last Admin: 01/18/25 08:51 Dose: 1 gm Documented By: DAI Dextrose (Dextrose 50 % 25 Gm/50 Ml Syringe) 25 gm IVPUSH Q15M PRN; Protocol PRN Reason: per Hypoglycemia Standing Ord. Last Admin: 01/13/25 04:24 Dose: 25 gm Documented By: ADELINA Enoxaparin Sodium (Enoxaparin Sodium 40 Mg/0.4 Ml Syringe) 40 mg SUBCUT Q24H [facility] Last Admin: 01/18/25 08:51 Dose: 40 mg Documented By: DAI Fludrocortisone Acetate (Fludrocortisone Acetate 0.1 Mg Tablet) 0.1 mg PO DAILY [facility] Last Admin: 01/18/25 08:48 Dose: 0.1 mg Documented By: DAI Fluoxetine HCl (Fluoxetine Hcl 20 Mg Capsule) 20 mg PO DAILY [facility] Last Admin: 01/18/25 08:48 Dose: 20 mg Documented By: DAI Glucose (Glucose Gel 15 Gm Gel..Gram.) 15 gm PO Q15M PRN; Protocol PRN Reason: per Hypoglycemia Standing Ord. Hydroxychloroquine Sulfate (Hydroxychloroquine Sulfate 200 Mg Tablet) 200 mg PO DAILY [facility] Last Admin: 01/18/25 08:48 Dose: 200 mg Documented By: DAI Hydroxyzine HCl (Hydroxyzine Hcl 25 Mg Tablet) 25 mg PO QID PRN PRN Reason: anxiety Last Admin: 01/17/25 20:53 Dose: 25 mg Documented By: DALLIN Lactated Ringer's (Lr) 1,000 mls @ 100 mls/hr IVCONT .Q10H [facility] Last Infusion: 01/18/25 07:10 Dose: 100 mls/hr Documented By: DALLIN Magnesium Hydroxide (Milk Of Magnesia 30 Ml Oral.Susp) 30 ml PO DAILY PRN PRN Reason: Constipation Magnesium Oxide (Magnesium Oxide 400 Mg Tablet) 800 mg PO BIDPC [facility] Last Admin: 01/18/25 08:48 Dose: 800 mg Documented By: DAI Melatonin (Melatonin 3 Mg Tablet) 6 mg PO BEDTIME PRN PRN Reason: Insomnia Last Admin: 01/17/25 20:53 Dose: 6 mg Documented By: DALLIN Methadone HCl (Methadone Hcl 10 Mg Tablet) 20 mg PO BID PRN PRN Reason: Pain (Scale Score 7-10) Last Admin: 01/18/25 10:22 Dose: 20 mg Documented By: DAI Midodrine (Midodrine Hcl 10 Mg Tablet) 10 mg PO TID [facility] Last Admin: 01/18/25 08:48 Dose: 10 mg Documented By: DAI Mirtazapine (Mirtazapine 7.5 Mg Tablet) 22.5 mg PO BEDTIME [facility] Last Admin: 01/17/25 20:53 Dose: 22.5 mg Documented By: DALLIN Naloxone HCl (Naloxone Hcl 0.4 Mg/Ml Vial) 0.4 mg IVPUSH Q5M PRN PRN Reason: Opiate Reversal Pt Own (Insulin Regular Hum U-500 Conc [Humulin R U- 500 (Conc) Kwikpen] 250 unit SUBCUT TIDAC [facility] Last Admin: 01/18/25 08:51 Dose: Not Given Documented By: DAI Non-Admin Reason: Patient Refused Ondansetron HCl (Ondansetron Hcl 4 Mg/2 Ml Vial) 4 mg IVPUSH Q8H PRN PRN Reason: Nausea and Vomiting Last Admin: 01/16/25 08:04 Dose: 4 mg Documented By: TORIBIO Pioglitazone HCl (Pioglitazone Hcl 45 Mg Tablet) 45 mg PO DAILY [facility] On Hold: 01/13/25 14:24 Last Admin: 01/13/25 10:22 Dose: 45 mg Documented By: BRUNA Polyethylene Glycol (Polyethylene Glycol 3350 17 Gm Powd.Pack) 17 gm PO DAILY PRN PRN Reason: Constipation Senna (Sennosides 8.6 Mg Tablet) 17.2 mg PO BEDTIME [facility] Last Admin: 01/17/25 21:05 Dose: Not Given Documented By: DALLIN Non-Admin Reason: Patient Refused Sodium Chloride (0.9 % Sodium Chloride Flush 3 Ml Syringe) 3 ml IVFLUSH QSHIFT [facility] Last Admin: 01/18/25 08:50 Dose: 3 ml Documented By: DAI Labs 01/17/25 07:07 01/18/25 06:39 Labs: Laboratory Results - last 24 hr 01/17/25 01/17/25 01/17/25 14:21 18:01 19:58 Hold Purple Top Anion Gap Estim Creat Clear Calc Estimated GFR POC Glucose 429 H* 476 H* 483 H* Random Glucose Calcium 01/17/25 01/18/25 01/18/25 22:03 01:58 06:02 Hold Purple Top Anion Gap Estim Creat Clear Calc Estimated GFR POC Glucose 477 H* 343 H 217 H Random Glucose Calcium 01/18/25 01/18/25 01/18/25 06:39 09:37 10:58 Hold Purple Top SEE NOTE Anion Gap 5 L Estim Creat Clear Calc 67.9 Estimated GFR > 60 POC Glucose 277 H 336 H Random Glucose 235 H Calcium 8.5 Assessment and Plan (1) Sacral decubitus ulcer, stage IV: Status: Acute (2) Fall: Status: Acute (3) Hyperglycemia: Status: Acute Assessment and Plan: 49-year-old black female with past medical history insulin-dependent diabetes type 2, major depressive disorder, general anxiety disorder, daily marijuana use, currently on methadone for pain control, a current unstageable sacral wound with history of osteomyelitis, lupus, myelofibrosis with the associated pancytopenia, diabetic gastroparesis, recurrent C diff infections currently asymptomatic is being transferred from the psychiatric unit and admitted to the medical-surgical floor for noted hyperglycemia without evidence of DKA. Patient initially reluctant to start lispro insulin but after review with patient for admission, patient is now agreeable. Syncope d/t orthostatic hypotension, likely from autonomic insuficiency, still positive. continue IVF continue midodrine and florinef seen cardiology no other recommendation at this time Episode of unresponsivness, description sounds like seizure CT head, EEG, load with cande, neuro consult insulin-dependent diabetes type 2 with hyperglycemia(spoke to patient's endocrinology staff in [facility] : Patient has diabetes b with insulin resistance-on IVIG) Hemoglobin A1c > 14 continue current insulin regimen and adjust as needed, she has been acquiring outside food including sugarly drinks (Tanya) from [employer] she's non-compliant with insulin and refusing at times Stage IV sacral wound with history of osteomyelitis -Wound care consultation ordered -Turn and reposition every 2 hours when awake -ID consultation ordered -Patient does state she has been following with [facility] in the outpatient setting. Unable to confirm this. -Optimize nutrition, glucerna shakes ordered, nutritional consult ordered uti: as per [facility] records senstive to cefepime ID evaluation Anemia -HGB up to 7.8 ( [facility] h/h flactuate from 7.7 to 9) -Monitor CBC daily Pancytopenia (chronic) -Leukopenia, Thrombocytopenia, and Anemia noted -Levels stable Chronic pain-Patient currently on methadone for chronic pain management, no history of substance use disorder on methadone. Major depressive disorder with general anxiety disorder One-to-one ordered for constant observation. Patient currently grieving the loss of her brother. Patient is not currently suicidal or admitting to suicidal ideations Psych eval added -will need crisis eval before discharge DVT prophylaxis: Lovenox PPI prophylaxis: Omeprazole Full Code status Ongoing need: orthostasis : ivf and moniter tele and orthosatsis,syncope Quality Stroke Does the patient have a stroke diagnosis?: No Reason for No Anti-thrombotic by Day Two: N/A - Med Ordered VTE Prior VTE?: No VTE Risk Level:: Medical - moderate - high VTE Device Contraindication: N/A - Device Ordered VTE Drug Contraindication: N/A - Med Ordered
[2025-01-18 12:02] LABS: Lactic Acid 0.8 mmol/L (0.5-2.0)
[2025-01-18 12:04] LABS: Blood Urea Nitrogen 14 mg/dL (9-16); Creatinine Clr Calc Pharmacy 67.9; Estimated Glomerular Filt Rate > 60
[2025-01-18 12:12] LABS: Troponin-I High Sensitivity < 2.7 ng/L (<3.5-17.0)
[2025-01-18 12:17] LABS: Anion Gap 11 (12-20); Calcium 8.8 mg/dL (8.4-10.2); Carbon Dioxide 28 mmol/L (22-29); Chloride 101 mmol/L (96-108); Glucose Random 376 mg/dL (60-115); Potassium 4.1 mmol/L (3.3-5.1); Sodium 136 mmol/L (135-145)
--- NOTE | 2025-01-18 12:31 | MHC.CLN ---
F/U PO INTAKE 75-100% DIET RX: 1800DM -APPROPRIATE RECEIVING ENSURE MAX BID TO PROMOTE WOUND HEALING SUPP PROVIDES 300KCALS, 60G PROTEIN MONITOR PO INTAKE AND ENCOURAGE SUPPLEMENT
--- NOTE | 2025-01-18 12:38 | P.CNNE_ITS ---
History of Present Illness Data of Consult Service Date: 01/18/25 Primary Care Provider: Moises Ramires NP HPI Reason for consult: Period of unresponsiveness This is a 49-year-old black female with h/o insulin-dependent diabetes type 2, major depressive disorder, general anxiety disorder, daily marijuana use, currently on methadone for pain control, a chronic stage 4 sacral wound with history of osteomyelitis, lupus, myelofibrosis with the associated pancytopenia, diabetic gastroparesis, recurrent C diff infections currently asymptomatic, is being seen by the hospitalist for hyperglycemia while an inpatient on M5 for psychiatric care, without evidence of DKA, more likely HHS. Patient was found unresponsive at home with concerns for DKA. During patient's stay at [facility], patient had been dealing with the passing of her brother most recently and expressed concerns about being able to care for herself due to her level of grief. Emergency psychiatric services were consulted for further evaluation. In addition patient has been noncompliant with her psychiatric medications in the remote past. Upon discharge from [facility], patient was transferred to [facility] Psychiatric unit on a section 12 b for further evaluation. Currently denies any suicidal ideation. Patient currently requesting to leave the hospital as soon as possible as her child is graduating from school and she plans to attend her brother's . She was transferred to medical floor . This morning she had an episode unresponsivness. Her sitter states that she was the phone in bed on her side, then suddenly dropped the phone and fell into the bed, was unresponsive with normal respiration, good O2 sat, no response to sternal rub and gradually woke but seemed confused. Her eyes were down and to one side. BP was 200 systolic and HR 84.There was no urinary or stool incontinence or tongue bite. No tonic / clonic activity or color change . She tells me that she passes out 3-4x / month for the last 2 years. She also has orthostatic hypotension, but sh ewasin bed already when this happened. She says she is very dizzy most days. [facility] Past Medical History Medical History Generalized anxiety disorder Major depressive disorder Sacral decubitus ulcer, stage IV Chronic pain Lupus (systemic lupus erythematosus) Insulin dependent type 2 diabetes mellitus Family History Family history: reviewed and not pertinent Social History Social History Household Members: Spouse Housing: Apartment Do you presently have visiting nurse or other home services: No Comment: pt refusing alarms Patient Tobacco Use Status: Never used Tobacco e-Cigarette/Vaping Use: Never Used Second Hand Smoke Exposure: No Use of substances other than those prescribed or required for medical reasons: Yes Substance Use Type: Marijuana Currently Displaying Signs/Symptoms of Drug Intoxication Withdrawal: No Advance Directives: No Advance Directives Information Provided: No Advance Directives on File: No Patient : No service: No Travel History Ebola Risk: Travel/Contact With Anyone From Affected Area/s: No Has Patient Experienced Ebola Symptoms: No Meds Allergies Allergy/AdvReac Type Severity Reaction Status Date / Time acetaminophen Allergy Swelling Verified 01/10/25 00:40 atorvastatin Allergy Unknown Verified 01/10/25 00:40 duloxetine Allergy Unknown Verified 01/10/25 00:40 fish derived (fish) Allergy Swelling Verified 01/10/25 00:40 Active Medications: Current Medications Calcium Carbonate (Calcium Carbonate 750 Mg Tab.Chew) 750 mg PO Q4H PRN PRN Reason: Heartburn Ceftriaxone Sodium (Ceftriaxone Sodium 1 Gm Vial) 1 gm IVPUSH Q24H [facility] Last Admin: 01/18/25 08:51 Dose: 1 gm Dextrose (Dextrose 50 % 25 Gm/50 Ml Syringe) 25 gm IVPUSH Q15M PRN; Protocol PRN Reason: per Hypoglycemia Standing Ord. Last Admin: 01/13/25 04:24 Dose: 25 gm Enoxaparin Sodium (Enoxaparin Sodium 40 Mg/0.4 Ml Syringe) 40 mg SUBCUT Q24H [facility] Last Admin: 01/18/25 08:51 Dose: 40 mg Fludrocortisone Acetate (Fludrocortisone Acetate 0.1 Mg Tablet) 0.1 mg PO DAILY [facility] Last Admin: 01/18/25 08:48 Dose: 0.1 mg Fluoxetine HCl (Fluoxetine Hcl 20 Mg Capsule) 20 mg PO DAILY [facility] Last Admin: 01/18/25 08:48 Dose: 20 mg Glucose (Glucose Gel 15 Gm Gel..Gram.) 15 gm PO Q15M PRN; Protocol PRN Reason: per Hypoglycemia Standing Ord. Hydroxychloroquine Sulfate (Hydroxychloroquine Sulfate 200 Mg Tablet) 200 mg PO DAILY [facility] Last Admin: 01/18/25 08:48 Dose: 200 mg Hydroxyzine HCl (Hydroxyzine Hcl 25 Mg Tablet) 25 mg PO QID PRN PRN Reason: anxiety Last Admin: 01/17/25 20:53 Dose: 25 mg Lactated Ringer's (Lr) 1,000 mls @ 100 mls/hr IVCONT .Q10H [facility] Last Infusion: 01/18/25 07:10 Dose: 100 mls/hr Magnesium Hydroxide (Milk Of Magnesia 30 Ml Oral.Susp) 30 ml PO DAILY PRN PRN Reason: Constipation Magnesium Oxide (Magnesium Oxide 400 Mg Tablet) 800 mg PO BIDPC [facility] Last Admin: 01/18/25 08:48 Dose: 800 mg Melatonin (Melatonin 3 Mg Tablet) 6 mg PO BEDTIME PRN PRN Reason: Insomnia Last Admin: 01/17/25 20:53 Dose: 6 mg Methadone HCl (Methadone Hcl 10 Mg Tablet) 20 mg PO BID PRN PRN Reason: Pain (Scale Score 7-10) Last Admin: 01/18/25 10:22 Dose: 20 mg Midodrine (Midodrine Hcl 10 Mg Tablet) 10 mg PO TID [facility] Last Admin: 01/18/25 08:48 Dose: 10 mg Mirtazapine (Mirtazapine 7.5 Mg Tablet) 22.5 mg PO BEDTIME [facility] Last Admin: 01/17/25 20:53 Dose: 22.5 mg Naloxone HCl (Naloxone Hcl 0.4 Mg/Ml Vial) 0.4 mg IVPUSH Q5M PRN PRN Reason: Opiate Reversal Pt Own (Insulin Regular Hum U-500 Conc [Humulin R U- 500 (Conc) Kwikpen] 250 unit SUBCUT TIDAC [facility] Last Admin: 01/18/25 11:58 Dose: Not Given Ondansetron HCl (Ondansetron Hcl 4 Mg/2 Ml Vial) 4 mg IVPUSH Q8H PRN PRN Reason: Nausea and Vomiting Last Admin: 01/16/25 08:04 Dose: 4 mg Pioglitazone HCl (Pioglitazone Hcl 45 Mg Tablet) 45 mg PO DAILY [facility] On Hold: 01/13/25 14:24 Last Admin: 01/13/25 10:22 Dose: 45 mg Polyethylene Glycol (Polyethylene Glycol 3350 17 Gm Powd.Pack) 17 gm PO DAILY PRN PRN Reason: Constipation Senna (Sennosides 8.6 Mg Tablet) 17.2 mg PO BEDTIME [facility] Last Admin: 01/17/25 21:05 Dose: Not Given Sodium Chloride (0.9 % Sodium Chloride Flush 3 Ml Syringe) 3 ml IVFLUSH QSHIFT [facility] Last Admin: 01/18/25 08:50 Dose: 3 ml Home Medications ?Medication ?Instructions ?Recorded ?Confirmed ?Last Taken ?Type fludrocortisone 0.1 mg tablet 0.1 mg PO DAILY 01/10/25 01/10/25 01/09/25 12:01 History fluoxetine 20 mg capsule 20 mg PO DAILY 01/10/2501/0101/09/25 12:01 History hydroxychloroquine 200 mg tablet 200 mg PO QAM 5 01/10/25 01/09/25 12:13 History hydroxyzine pamoate 25 mg capsule 25 mg PO QID PRN anx iety 01/10/25 01/10/25 Unknown History insulin regular hum U-500 conc 500 700 unit subcut TID AC 01/10/25 01/10/25 01/09/25 14:32 History unit/mL(3 mL) subcut pen (Humulin R U-500 (Conc) Insulin Kwikpen) methadone 10 mg tablet 20 mg PO TID PRN Pain (Scale Score 01/10/25 01/10/25 Unknown History 7-10) midodrine 10 mg tablet 10 mg PO TID 01/10/2501/09/25 18:52 History mirtazapine 7.5 mg tablet 22.5 mg PO BEDTIME 01/10/25 01/10/25 Unknown History pioglitazone 45 mg tablet 45 mg PO DAILY 01/10/2501/0101/09/25 12:01 History Physical Exam 2 Vital Signs: Vital Signs: Last Vital Signs Temp 97.9 F 01/18/25 11:09 Pulse 83 01/18/25 11:09 Resp 18 01/18/25 11:09 BP 195/105 H 01/18/25 11:16 Pulse Ox 97 01/18/25 10:45 O2 Del Method Room Air 01/18/25 10:45 BMI result Body Mass Index 19.4 Neuro: Other: Alert oriented x3 . Non focal exam Results Labs 01/17/25 07:07 01/18/25 11:36 Labs: BMP 01/18/25 01/18/25 06:39 11:36 Sodium 126 L 136 Potassium 3.3 4.1 D Chloride 95 L 101 Carbon Dioxide 29 28 BUN 14 14 Creatinine 0.77 0.77 Calcium 8.5 8.8 Assessment and Plan (1) Recurrent syncope: Status: Acute Recom. Cardiac event monitor for 30 days. Echocardiogram. EEG. If normal then out patient 48 hr ambulatory EEG. [place] orthostatics twice a day. MRA of head and neck for vertebrobasilar disease. Would hold off Keppra for now (2) Orthostasis: Status: Acute Procedures Date of Service Date of Service: 01/18/25
[2025-01-18 13:40] LABS: Glucose, Whole Blood 440 mg/dL (60-115)
--- NOTE | 2025-01-18 14:05 | MHC.CM.PN ---
Per EMR review, pt. is not ready to DC, she requires monitoring for orhostatis and syncope. CM to follow for DC needs.
[2025-01-18 17:59] LABS: Glucose, Whole Blood 447 mg/dL (60-115)
--- NOTE | 2025-01-18 18:35 | PC.NURSE ---
1045 pt became unresponsive after talking on phone slumped over in bed per 1:1 sitter, no response to sternal rub. At time not on tele sats on room air 98%, BP eleveated into 200's systolic placed on tele NSR 80-90's. Unable to assess pupils eyes fixed with downward gaze slightly to right no blink to threat. GRAVEL HAULER called. Pt slow to return to responsiveness although 5 minutes after start of GRAVEL HAULER attempting to open eyes and blink to threat at this time responsive. BP slowly improved. Neuro consult placed per MD no need for kekarl. EEG completed this afternoon. CT head pending patient refused early in shift and after EEG Dr Cancino aware. Will reattempt later in shift.
[2025-01-18] MEDS: Melatonin 3 MG TABLET 6 MG PO (20:03)
[2025-01-18] MEDS: hydrOXYzine HCL 25 MG TABLET PO (20:03)
[2025-01-18] MEDS: Mirtazapine 7.5 MG TABLET 22.5 MG PO (20:03)
--- NOTE | 2025-01-18 21:24 | PC.NURSE ---
Radiology notified this RN of findings of head CT. Dr. Sterling updated of these findings.
[2025-01-18 22:19] LABS: Glucose, Whole Blood 425 mg/dL (60-115)
--- NOTE | 2025-01-18 22:42 | PC.NURSE ---
Addendum entered by Silvia Todd RN 01/18/25 23:40: POC 425, patient on q4h poc checks, patient on own insulin three times a day (kwikpen) Dr. Sterling notified of elevated poc. Order for IV fluids, patient refused persistently, Dr. Sterling made aware. Patient also refused to changed dressing to coccyx/sacrum Original Note: 1999 vitals; bp elevated 182/90, hr 89. Dr. Sterling notified, no new orders at this time.
[2025-01-19] VITALS (9 sets, daily range): BP systolic 96–151; BP diastolic 60–73; PULSE 84–107; RESP 18; TEMP 36.4–37.2; O2SAT 97–99
[2025-01-19 02:10] LABS: Glucose, Whole Blood 336 mg/dL (60-115)
[2025-01-19 07:50] LABS: Glucose, Whole Blood 253 mg/dL (60-115)
[2025-01-19 07:54] LABS: Anion Gap 8 (12-20); Blood Urea Nitrogen 18 mg/dL (9-16); Calcium 8.4 mg/dL (8.4-10.2); Carbon Dioxide 30 mmol/L (22-29); Chloride 105 mmol/L (96-108); Creatinine Clr Calc Pharmacy 56.9; Estimated Glomerular Filt Rate > 60; Glucose Random 310 mg/dL (60-115); Sodium 139 mmol/L (135-145)
[2025-01-19] MEDS: cefTRIAXone sodium 1 GM VIAL IVPUSH (08:21)
[2025-01-19] MEDS: Magnesium Oxide 400 MG TABLET 800 MG PO ×2 (08:22→16:40)
[2025-01-19] MEDS: Midodrine HCl 10 MG TABLET PO ×3 (08:22→20:12)
[2025-01-19] MEDS: Fludrocortisone Acetate 0.1 MG TABLET PO (08:22)
[2025-01-19] MEDS: Hydroxychloroquine Sulfate 200 MG TABLET PO (08:22)
[2025-01-19] MEDS: 0.9 % Sodium Chloride Flush 3 ML SYRINGE IVFLUSH ×2 (08:22→16:41)
[2025-01-19] MEDS: FLUoxetine HCl 20 MG CAPSULE PO (08:22)
[2025-01-19] MEDS: Enoxaparin Sodium 40 MG/0.4 ML SYRINGE SUBCUT (08:22)
--- NOTE | 2025-01-19 09:32 | P.PNIM_ITS ---
Subjective Subjective Date of Service: 01/19/25 Interval History: Patient had another episode of unresponsiveness early this morning, no arrythmia noted on monitor and there was no hypoglycemia, this morning, complaining of dizziness/nausea while lying in bed, she tells me that she had these episodes frequently at home. She's also been having diarrhea this morning Physical Exam 2 Vital Signs: Vital Signs: Last Vital Signs Temp 98.1 F 01/19/25 07:12 Pulse 84 01/19/25 07:12 Resp 18 01/19/25 07:12 BP 151/73 H 01/19/25 08:22 Pulse Ox 99 01/19/25 07:12 O2 Del Method Room Air 01/19/25 07:12 BMI result Body Mass Index 19.4 Const: Other: General: AO X 3, no acute distress Resp: CTA bilateral CVS: S1,S2,RRR GI: +BS, NT, no distention Skin: decub ulcers, see pic from wound care notes Neuro: motor grossly intact Psych: appropriate affect Objective Data Active Medications Calcium Carbonate (Calcium Carbonate 750 Mg Tab.Chew) 750 mg PO Q4H PRN PRN Reason: Heartburn Ceftriaxone Sodium (Ceftriaxone Sodium 1 Gm Vial) 1 gm IVPUSH Q24H [facility] Last Admin: 01/19/25 08:21 Dose: 1 gm Documented By: OSCAR Dextrose (Dextrose 50 % 25 Gm/50 Ml Syringe) 25 gm IVPUSH Q15M PRN; Protocol PRN Reason: per Hypoglycemia Standing Ord. Last Admin: 01/13/25 04:24 Dose: 25 gm Documented By: ADELINA Enoxaparin Sodium (Enoxaparin Sodium 40 Mg/0.4 Ml Syringe) 40 mg SUBCUT Q24H [facility] Last Admin: 01/19/25 08:22 Dose: 40 mg Documented By: OSCAR Fludrocortisone Acetate (Fludrocortisone Acetate 0.1 Mg Tablet) 0.1 mg PO DAILY [facility] Last Admin: 01/19/25 08:22 Dose: 0.1 mg Documented By: OSCAR Fluoxetine HCl (Fluoxetine Hcl 20 Mg Capsule) 20 mg PO DAILY [facility] Last Admin: 01/19/25 08:22 Dose: 20 mg Documented By: OSCAR Glucose (Glucose Gel 15 Gm Gel..Gram.) 15 gm PO Q15M PRN; Protocol PRN Reason: per Hypoglycemia Standing Ord. Hydroxychloroquine Sulfate (Hydroxychloroquine Sulfate 200 Mg Tablet) 200 mg PO DAILY [facility] Last Admin: 01/19/25 08:22 Dose: 200 mg Documented By: OSCAR Hydroxyzine HCl (Hydroxyzine Hcl 25 Mg Tablet) 25 mg PO QID PRN PRN Reason: anxiety Last Admin: 01/18/25 20:03 Dose: 25 mg Documented By: GUY Magnesium Hydroxide (Milk Of Magnesia 30 Ml Oral.Susp) 30 ml PO DAILY PRN PRN Reason: Constipation Magnesium Oxide (Magnesium Oxide 400 Mg Tablet) 800 mg PO BIDPC [facility] Last Admin: 01/19/25 08:22 Dose: 800 mg Documented By: OSCAR Melatonin (Melatonin 3 Mg Tablet) 6 mg PO BEDTIME PRN PRN Reason: Insomnia Last Admin: 01/18/25 20:03 Dose: 6 mg Documented By: GUY Methadone HCl (Methadone Hcl 10 Mg Tablet) 20 mg PO BID PRN PRN Reason: Pain (Scale Score 7-10) Last Admin: 01/18/25 10:22 Dose: 20 mg Documented By: DAI Midodrine (Midodrine Hcl 10 Mg Tablet) 10 mg PO TID [facility] Last Admin: 01/19/25 08:22 Dose: 10 mg Documented By: OSCAR Mirtazapine (Mirtazapine 7.5 Mg Tablet) 22.5 mg PO BEDTIME [facility] Last Admin: 01/18/25 20:03 Dose: 22.5 mg Documented By: GUY Naloxone HCl (Naloxone Hcl 0.4 Mg/Ml Vial) 0.4 mg IVPUSH Q5M PRN PRN Reason: Opiate Reversal Pt Own (Insulin Regular Hum U-500 Conc [Humulin R U- 500 (Conc) Kwikpen] 250 unit SUBCUT TIDAC [facility] Last Admin: 01/19/25 08:26 Dose: 250 unit Documented By: OSCAR Ondansetron HCl (Ondansetron Hcl 4 Mg/2 Ml Vial) 4 mg IVPUSH Q8H PRN PRN Reason: Nausea and Vomiting Last Admin: 01/16/25 08:04 Dose: 4 mg Documented By: TORIBIO Pioglitazone HCl (Pioglitazone Hcl 45 Mg Tablet) 45 mg PO DAILY [facility] On Hold: 01/13/25 14:24 Last Admin: 01/13/25 10:22 Dose: 45 mg Documented By: BRUNA Polyethylene Glycol (Polyethylene Glycol 3350 17 Gm Powd.Pack) 17 gm PO DAILY PRN PRN Reason: Constipation Senna (Sennosides 8.6 Mg Tablet) 17.2 mg PO BEDTIME [facility] Last Admin: 01/18/25 20:06 Dose: Not Given Documented By: GUY Non-Admin Reason: pt refused; reports 2 bms today Sodium Chloride (0.9 % Sodium Chloride Flush 3 Ml Syringe) 3 ml IVFLUSH QSHIFT [facility] Last Admin: 01/19/25 08:22 Dose: 3 ml Documented By: OSCAR Labs 01/17/25 07:07 01/19/25 06:44 Labs: Laboratory Results - last 24 hr 01/18/25 01/18/25 01/18/25 09:37 10:58 11:36 Hold Purple Top Anion Gap 11 L Estim Creat Clear Calc 67.9 Estimated GFR > 60 POC Glucose 277 H 336 H Random Glucose 376 H* Lactic Acid 0.8 Calcium 8.8 Troponin I High Sens < 2.7 01/18/25 01/18/25 01/18/25 13:36 17:55 22:15 Hold Purple Top Anion Gap Estim Creat Clear Calc Estimated GFR POC Glucose 440 H* 447 H* 425 H* Random Glucose Lactic Acid Calcium Troponin I High Sens 01/19/25 01/19/25 01/19/25 02:03 06:44 07:47 Hold Purple Top SEE NOTE Anion Gap 8 L Estim Creat Clear Calc 56.9 Estimated GFR > 60 POC Glucose 336 H 253 H Random Glucose 310 H Lactic Acid Calcium 8.4 Troponin I High Sens Assessment and Plan (1) Sacral decubitus ulcer, stage IV: Status: Acute (2) Fall: Status: Acute (3) Hyperglycemia: Status: Acute Assessment and Plan: 49-year-old black female with past medical history insulin-dependent diabetes type 2 with high insulin resistant, major depressive disorder, general anxiety disorder, daily marijuana use, currently on methadone for pain control, a current unstageable sacral wound with history of osteomyelitis, lupus, myelofibrosis with the associated pancytopenia, diabetic gastroparesis, recurrent C diff infections currently asymptomatic admitted from [facility] shortly after admission to the unit, she was having hyperglycemia Unrepsive Syncope episodes, likely d/t component of orthostatic hypotension, autonomic dysfunction, flucturating glucose, and concern for seizure continue IVF continue midodrine and florinef seen cardiology no other recommendation at this time Seen by Neuro 01/18:Recom: Cardiac event monitor for 30 days. Echocardiogram. EEG. If normal then out patient 48 hr ambulatory EEG. [place] orthostatics twice a day. MRA of head and neck for vertebrobasilar disease. Would hold off Keppra for now insulin-dependent diabetes type 2 with hyperglycemia and insulin resistance (Per endocrinology staff at [facility] : Patient has diabetes with insulin resistance-on IVIG) Hemoglobin A1c > 14, normally on insulin up to 750 unit tid Presently on 250 tid, sugar 250 to 300, incrase insulin to 300 tid and continue to closely monitor She is a mamagement challenge d/t tendency to refuse care/insulin and cquiring sugarly products from outside the hospital Stage IV sacral wound with history of osteomyelitis--seen by wound care. See picture and asssement in wound care note recommendation: Recommendations: 1. Turn and Reposition every 2 hours and as needed for patient comfort.? Use pillows or wedges to support off loading positions. 2. Off Load all bony prominences with use of pillows and heel boots if needed.? Apply Preventative foams where needed. ? 3. Monitor for incontinence and moisture control, use barrier creams when needed for prevention and treatment. 4. Provide adequate and supplemental nutrition.? 5. Order low air loss mattress. 6. Maintain blood glucose levels per Providers order. Coccyx / Sacrum - Off Load Pressure with Q2 hr turns and use of pillows Cleanse and irrigate with NS, Pat dry.? Apply barrier(Triad) to periwound, lightly pack with Durafiber AG, be sure to leave a wick to easy removal.? Fill space with dry gauze, cover with ABD pad.? Change Daily while inpt. May change every other day at time of discharge from inpatient services. Recommend follow up out patient Wound Clinic at [address] [place] [id number] and to call for an appointment at time of discharge. [phone].? UTI--treated with Ceftriaxone Diarrhea--check cdif and gi panel, has history of recurrent UTIs Anemia of chronic disease, H/H on low side but stable. Monitor Pancytopenia (chronic) -Leukopenia, Thrombocytopenia, and Anemia noted -Levels stable Chronic pain-Patient currently on methadone for chronic pain management, no history of substance use disorder on methadone. Major depressive disorder with general anxiety disorder One-to-one ordered for constant observation. Patient currently grieving the loss of her brother. Patient is not currently suicidal or admitting to suicidal ideations Psych eval added -will need crisis eval before discharge DVT prophylaxis: Lovenox PPI prophylaxis: Omeprazole Full Code status Ongoing need: orthostasis : ivf and moniter tele and orthosatsis,syncope Quality Stroke Does the patient have a stroke diagnosis?: No Reason for No Anti-thrombotic by Day Two: N/A - Med Ordered VTE Prior VTE?: No VTE Risk Level:: Medical - moderate - high VTE Device Contraindication: N/A - Device Ordered VTE Drug Contraindication: N/A - Med Ordered
[2025-01-19 09:59] LABS: C Reactive Protein 0.73 mg/dL (< or = 0.50); MANUAL DIFF FLAG NO
[2025-01-19 10:03] LABS: Basophils Percent Auto 0.3 % (0-2); Eosinophils Absolute Auto 0.1 X10*3/uL (0.0-0.4); Eosinophils Percent Auto 2.8 % (0-4); Hematocrit 23.2 % (37.0-47.0); Hemoglobin 7.4 g/dl (12.0-16.0); Imm Gran Abs Auto 0.01 X10*3/uL (0.00-0.03); Imm Gran Pct Auto 0.3 % (0.0-0.4); Lymphocytes Absolute Auto 0.9 X10*3/uL (1.2-4.9); Lymphocytes Percent Auto 31.6 % (20-40); Mean Corpuscular HGB Conc 31.9 g/dl (31.0-35.0); Mean Corpuscular Hemoglobin 28.9 pg (27.0-33.0); Mean Corpuscular Volume 90.6 fL (80.0-98.0); Mean Platelet Volume 9.6 fL (9.4-12.3); Monocytes Absolute Auto 0.2 X10*3/uL (0.1-1.2); Monocytes Percent Auto 6.3 % (2-11); Neutrophils Absolute Auto 1.7 x10*3/uL (2.0-8.3); Neutrophils Percent Auto 58.7 % (45-73); Platelet Count 178 X10*3/uL (160-400); Red Blood Count 2.56 X10*6/uL (4.20-5.50); Red Cell Distribution Width 14.9 % (11.0-16.0); White Blood Count 2.9 X10*3/uL (4.8-10.8)
[2025-01-19 10:20] LABS: Hematocrit 23.2 % (37.0-47.0); Hemoglobin 7.6 g/dl (12.0-16.0); Mean Corpuscular HGB Conc 32.8 g/dl (31.0-35.0); Mean Corpuscular Volume 88.5 fL (80.0-98.0); Mean Platelet Volume 8.7 fL (9.4-12.3); Platelet Count 161 X10*3/uL (160-400); Red Blood Count 2.62 X10*6/uL (4.20-5.50); Red Cell Distribution Width 14.9 % (11.0-16.0); White Blood Count 3.9 X10*3/uL (4.8-10.8)
[2025-01-19 10:47] LABS: Erythrocyte Sedimentation Rate 69 MM/HR (0-20)
[2025-01-19 11:21] LABS: Glucose, Whole Blood 437 mg/dL (60-115)
[2025-01-19] MEDS: methADONE HCl 10 MG TABLET 20 MG PO (11:44)
[2025-01-19] MEDS: hydrOXYzine HCL 25 MG TABLET PO ×2 (11:45→20:13)
[2025-01-19 13:15] LABS: CDiff Gene PCR NEGATIVE (Negative)
[2025-01-19 14:27] LABS: Adenovirus F 40/41 Not Detected (Not Detect.); Astrovirus Not Detected (Not Detect.); Campylobacter Not Detected (Not Detect.); Cryptosporidium Not Detected (Not Detect.); Cyclospora cayetanensis Not Detected (Not Detect.); E. coli EAEC Not Detected (Not Detect.); E. coli EPEC Not Detected (Not Detect.); E. coli ETEC Not Detected (Not Detect.); E. coli STEC Not Detected (Not Detect.); Entamoeba histolytica Not Detected (Not Detect.); Giardia lamblia Not Detected (Not Detect.); Norovirus GI/GII Not Detected (Not Detect.); Plesiomonas shigelloides Not Detected (Not Detect.); Rotavirus A Not Detected (Not Detect.); Salmonella Not Detected (Not Detect.); Sapovirus Not Detected (Not Detect.); Shigella sp./EIEC Not Detected (Not Detect.); Vibrio Not Detected (Not Detect.); Vibrio Cholerae Not Detected (Not Detect.); Yersinia enterocolitica Not Detected (Not Detect.)
[2025-01-19 16:10] LABS: Glucose, Whole Blood 345 mg/dL (60-115)
[2025-01-19 17:59] LABS: Glucose, Whole Blood 378 mg/dL (60-115)
[2025-01-19] MEDS: Mirtazapine 7.5 MG TABLET 22.5 MG PO (20:13)
[2025-01-19] MEDS: Melatonin 3 MG TABLET 6 MG PO (20:13)
[2025-01-19] MEDS: HYDROmorphone HCl 0.5 MG/0.5 ML SYRINGE IVPUSH (20:25)
[2025-01-19 21:41] LABS: Glucose, Whole Blood 377 mg/dL (60-115)
[2025-01-20] VITALS (12 sets, daily range): BP systolic 92–210; BP diastolic 54–110; PULSE 79–119; RESP 14–18; TEMP 36.3–36.9; O2SAT 97–100
--- NOTE | 2025-01-20 | ECG_ITS ---
Test Reason : tachycardia Blood Pressure : */* mmHG Vent. Rate : 101 BPM Atrial Rate : 101 BPM P-R Int : 132 ms QRS Dur : 72 ms QT Int : 406 ms P-R-T Axes : 49 48 55 degrees QTcB Int : 526 ms Sinus tachycardia Minimal voltage criteria for LVH, may be normal variant ( Sokolow-Villasenor ) Prolonged QT Abnormal ECG When compared with ECG of 15-Jan-2025 14:23, No significant change was found Referred By: Jones Cancino Electronically Signed By: Larry Gama
[2025-01-20 01:29] LABS: Glucose, Whole Blood 309 mg/dL (60-115)
--- NOTE | 2025-01-20 02:07 | PC.NURSE ---
Pts POC 377. MD notified. PAtient refusing any interventions for POC. Patient q4hr POC.
[2025-01-20 05:48] LABS: Glucose, Whole Blood 288 mg/dL (60-115)
[2025-01-20 07:29] LABS: Anion Gap 10 (12-20); Blood Urea Nitrogen 22 mg/dL (9-16); Calcium 8.5 mg/dL (8.4-10.2); Carbon Dioxide 30 mmol/L (22-29); Chloride 101 mmol/L (96-108); Creatinine Clr Calc Pharmacy 54.5; Estimated Glomerular Filt Rate > 60; Glucose Random 293 mg/dL (60-115); Potassium 4.2 mmol/L (3.3-5.1); Sodium 137 mmol/L (135-145)
[2025-01-20] MEDS: FLUoxetine HCl 20 MG CAPSULE PO (08:35)
[2025-01-20] MEDS: 0.9 % Sodium Chloride Flush 3 ML SYRINGE IVFLUSH ×3 (08:35→19:59)
[2025-01-20] MEDS: Fludrocortisone Acetate 0.1 MG TABLET PO (08:35)
[2025-01-20] MEDS: Magnesium Oxide 400 MG TABLET 800 MG PO ×2 (08:35→16:42)
[2025-01-20] MEDS: Hydroxychloroquine Sulfate 200 MG TABLET PO (08:35)
[2025-01-20] MEDS: cefTRIAXone sodium 1 GM VIAL IVPUSH (08:35)
[2025-01-20] MEDS: hydrOXYzine HCL 25 MG TABLET PO ×2 (08:35→16:42)
[2025-01-20] MEDS: Enoxaparin Sodium 40 MG/0.4 ML SYRINGE SUBCUT (08:36)
[2025-01-20] MEDS: methADONE HCl 10 MG TABLET 20 MG PO ×2 (08:37→19:49)
[2025-01-20] MEDS: Midodrine HCl 10 MG TABLET PO ×2 (08:48→19:48)
[2025-01-20] MEDS: Meclizine HCl 12.5 MG TABLET PO (09:28)
[2025-01-20 09:38] LABS: Glucose, Whole Blood 377 mg/dL (60-115)
--- NOTE | 2025-01-20 10:45 | HO.PM.IMPN ---
Subjective Subjective Date of Service: 01/20/25 Interval History: This morning reporting a constellation of problem: dizzy, pain behind eyes, double vision and flucturating BPs, Blood sugars remain high, insulin increased yesterday, she continues to order food from outside Physical Exam Vital Signs: Vital Signs: Last Vital Signs Temp 97.8 F 01/20/25 07:06 Pulse 89 01/20/25 07:06 Resp 14 01/20/25 07:06 BP 210/110 H 01/20/25 09:34 Pulse Ox 97 01/20/25 07:06 O2 Del Method Room Air 01/20/25 07:06 BMI result Body Mass Index 19.4 Const: Other: General: AO X 3, no acute distress Resp: CTA bilateral CVS: S1,S2,RRR GI: +BS, NT, no distention Skin: decub ulcers, see pic from wound care notes Neuro: motor grossly intact Psych: appropriate affect Objective Data Active Medications Calcium Carbonate (Calcium Carbonate 750 Mg Tab.Chew) 750 mg PO Q4H PRN PRN Reason: Heartburn Ceftriaxone Sodium (Ceftriaxone Sodium 1 Gm Vial) 1 gm IVPUSH Q24H [facility] Last Admin: 01/20/25 08:35 Dose: 1 gm Documented By: KARMEN Dextrose (Dextrose 50 % 25 Gm/50 Ml Syringe) 25 gm IVPUSH Q15M PRN; Protocol PRN Reason: per Hypoglycemia Standing Ord. Last Admin: 01/13/25 04:24 Dose: 25 gm Documented By: ADELINA Enoxaparin Sodium (Enoxaparin Sodium 40 Mg/0.4 Ml Syringe) 40 mg SUBCUT Q24H [facility] Last Admin: 01/20/25 08:36 Dose: 40 mg Documented By: KARMEN Fludrocortisone Acetate (Fludrocortisone Acetate 0.1 Mg Tablet) 0.1 mg PO DAILY [facility] Last Admin: 01/20/25 08:35 Dose: 0.1 mg Documented By: KARMEN Fluoxetine HCl (Fluoxetine Hcl 20 Mg Capsule) 20 mg PO DAILY [facility] Last Admin: 01/20/25 08:35 Dose: 20 mg Documented By: KARMEN Glucose (Glucose Gel 15 Gm Gel..Gram.) 15 gm PO Q15M PRN; Protocol PRN Reason: per Hypoglycemia Standing Ord. Hydroxychloroquine Sulfate (Hydroxychloroquine Sulfate 200 Mg Tablet) 200 mg PO DAILY [facility] Last Admin: 01/20/25 08:35 Dose: 200 mg Documented By: KARMEN Hydroxyzine HCl (Hydroxyzine Hcl 25 Mg Tablet) 25 mg PO QID PRN PRN Reason: anxiety Last Admin: 01/20/25 08:35 Dose: 25 mg Documented By: KARMEN Magnesium Hydroxide (Milk Of Magnesia 30 Ml Oral.Susp) 30 ml PO DAILY PRN PRN Reason: Constipation Magnesium Oxide (Magnesium Oxide 400 Mg Tablet) 800 mg PO BIDPC [facility] Last Admin: 01/20/25 08:35 Dose: 800 mg Documented By: KARMEN Meclizine HCl (Meclizine Hcl 12.5 Mg Tablet) 12.5 mg PO Q6H PRN PRN Reason: dizziness Last Admin: 01/20/25 09:28 Dose: 12.5 mg Documented By: KARMEN Melatonin (Melatonin 3 Mg Tablet) 6 mg PO BEDTIME PRN PRN Reason: Insomnia Last Admin: 01/19/25 20:13 Dose: 6 mg Documented By: DOLORES Methadone HCl (Methadone Hcl 10 Mg Tablet) 20 mg PO BID PRN PRN Reason: Pain (Scale Score 7-10) Last Admin: 01/20/25 08:37 Dose: 20 mg Documented By: KARMEN Midodrine (Midodrine Hcl 10 Mg Tablet) 10 mg PO TID [facility]; Protocol Last Admin: 01/20/25 08:48 Dose: 10 mg Documented By: KARMEN Mirtazapine (Mirtazapine 7.5 Mg Tablet) 22.5 mg PO BEDTIME [facility] Last Admin: 01/19/25 20:13 Dose: 22.5 mg Documented By: DOLORES Naloxone HCl (Naloxone Hcl 0.4 Mg/Ml Vial) 0.4 mg IVPUSH Q5M PRN PRN Reason: Opiate Reversal Non-Formulary Medication (Insulin Regular Hum U-500 Conc [Humulin R U-500 (Conc) Kwikpen]) 300 unit SUBCUT TIDAC [facility] Last Admin: 01/20/25 09:27 Dose: 300 unit Documented By: KARMEN Ondansetron HCl (Ondansetron Hcl 4 Mg/2 Ml Vial) 4 mg IVPUSH Q8H PRN PRN Reason: Nausea and Vomiting Last Admin: 01/16/25 08:04 Dose: 4 mg Documented By: TORIBIO Pioglitazone HCl (Pioglitazone Hcl 45 Mg Tablet) 45 mg PO DAILY [facility] On Hold: 01/13/25 14:24 Last Admin: 01/13/25 10:22 Dose: 45 mg Documented By: BRUNA Polyethylene Glycol (Polyethylene Glycol 3350 17 Gm Powd.Pack) 17 gm PO DAILY PRN PRN Reason: Constipation Senna (Sennosides 8.6 Mg Tablet) 17.2 mg PO BEDTIME [facility] Last Admin: 01/19/25 20:24 Dose: Not Given Documented By: DOLORES Non-Admin Reason: Patient Refused Sodium Chloride (0.9 % Sodium Chloride Flush 3 Ml Syringe) 3 ml IVFLUSH QSHIFT [facility] Last Admin: 01/20/25 08:35 Dose: 3 ml Documented By: RICCIAV Labs 01/19/25 10:10 01/20/25 06:39 Labs: Laboratory Results - last 24 hr 01/19/25 01/19/25 01/19/25 06:44 11:17 11:54 ESR 69 H Anion Gap Estim Creat Clear Calc Estimated GFR POC Glucose 437 H* Random Glucose Calcium Stl C. cayetanensis PCR Not Detected Stool Rotavirus A PCR Not Detected Stl Adenov F 40/41 PCR Not Detected Stool Astrovirus (PCR) Not Detected Stool Campylobacter PCR Not Detected Stool Cryptosporidium PCR Not Detected Stl Sh Tox Pr E STEC PCR Not Detected Stool E coli O157 PCR Not applicable Stl Enterotoxigenic E PCR Not Detected Stool EPEC (PCR) Not Detected Stool EAEC (PCR) Not Detected Stl E. histolytica PCR Not Detected Stool Giardia Lamblia PCR Not Detected Stl P. shigelloides PCR Not Detected Stool Salmonella PCR Not Detected Stool Sapovirus (PCR) Not Detected Stl Shigella/EIEC PCR Not Detected St Y.enterocolitica PCR Not Detected Stool Vibrio (PCR) Not Detected Stl Vibrio cholerae PCR Not Detected Stl Norovirus GI/GII PCR Not Detected C. difficile Tox B Gene NEGATIVE 01/19/25 01/19/25 01/19/25 16:07 17:56 21:37 ESR Anion Gap Estim Creat Clear Calc Estimated GFR POC Glucose 345 H 378 H* 377 H* Random Glucose Calcium Stl C. cayetanensis PCR Stool Rotavirus A PCR Stl Adenov F PCR Stool Astrovirus (PCR) Stool Campylobacter PCR Stool Cryptosporidium PCR Stl Sh Tox Pr E STEC PCR Stool E coli O157 PCR Stl Enterotoxigenic E PCR Stool EPEC (PCR) Stool EAEC (PCR) Stl E. histolytica PCR Stool Giardia Lamblia PCR Stl P. shigelloides PCR Stool Salmonella PCR Stool Sapovirus (PCR) Stl Shigella/EIEC PCR St Y.enterocolitica PCR Stool Vibrio (PCR) Stl Vibrio cholerae PCR Stl Norovirus GI/GII PCR C. difficile Tox B Gene 01/20/25 01/20/25 01/20/25 01:23 05:43 06:39 ESR Anion Gap 10 L Estim Creat Clear Calc 54.5 Estimated GFR > 60 POC Glucose 309 H 288 H Random Glucose 293 H Calcium 8.5 Stl C. cayetanensis PCR Stool Rotavirus A PCR Stl Adenov F PCR Stool Astrovirus (PCR) Stool Campylobacter PCR Stool Cryptosporidium PCR Stl Sh Tox Pr E STEC PCR Stool E coli O157 PCR Stl Enterotoxigenic E PCR Stool EPEC (PCR) Stool EAEC (PCR) Stl E. histolytica PCR Stool Giardia Lamblia PCR Stl P. shigelloides PCR Stool Salmonella PCR Stool Sapovirus (PCR) Stl Shigella/EIEC PCR St Y.enterocolitica PCR Stool Vibrio (PCR) Stl Vibrio cholerae PCR Stl Norovirus GI/GII PCR C. difficile Tox B Gene 01/20/25 09:34 ESR Anion Gap Estim Creat Clear Calc Estimated GFR POC Glucose 377 H* Random Glucose Calcium Stl C. cayetanensis PCR Stool Rotavirus A PCR Stl Adenov F PCR Stool Astrovirus (PCR) Stool Campylobacter PCR Stool Cryptosporidium PCR Stl Sh Tox Pr E STEC PCR Stool E coli O157 PCR Stl Enterotoxigenic E PCR Stool EPEC (PCR) Stool EAEC (PCR) Stl E. histolytica PCR Stool Giardia Lamblia PCR Stl P. shigelloides PCR Stool Salmonella PCR Stool Sapovirus (PCR) Stl Shigella/EIEC PCR St Y.enterocolitica PCR Stool Vibrio (PCR) Stl Vibrio cholerae PCR Stl Norovirus GI/GII PCR C. difficile Tox B Gene Assessment and Plan (1) Sacral decubitus ulcer, stage IV: Status: Acute (2) Fall: Status: Acute (3) Hyperglycemia: Status: Acute Assessment and Plan: 49-year-old black female with past medical history insulin-dependent diabetes type 2 with high insulin resistant, major depressive disorder, general anxiety disorder, daily marijuana use, currently on methadone for pain control, a current unstageable sacral wound with history of osteomyelitis, lupus, myelofibrosis with the associated pancytopenia, diabetic gastroparesis, recurrent C diff infections currently asymptomatic admitted from [facility] shortly after admission to the unit, she was having hyperglycemia Unrepsive Syncope episodes, likely d/t component of orthostatic hypotension, autonomic dysfunction, flucturating glucose, and concern for seizure continue IVF continue midodrine and florinef seen cardiology no other recommendation at this time Seen by Neuro 01/18:Recom: Cardiac event monitor for 30 days. Echocardiogram. EEG. If normal then out patient 48 hr ambulatory EEG. [place] orthostatics twice a day. MRA of head and neck for vertebrobasilar disease. Would hold off Keppra for now.. She could not tolerate MRI, will get another CT of head insulin-dependent diabetes type 2 with hyperglycemia and insulin resistance (Per endocrinology staff at [facility] : Patient has diabetes with insulin resistance-on IVIG) Hemoglobin A1c > 14, normally on insulin up to 750 unit tid Presently on 250 tid, sugars 250 to 300, incrased insulin to 300 tid and continue to closely monitor She is a mamagement challenge d/t tendency to refuse care/insulin and cquiring sugarly products from outside the hospital Stage IV sacral wound with history of osteomyelitis--seen by wound care. See picture and asssement in wound care note recommendation: Recommendations: 1. Turn and Reposition every 2 hours and as needed for patient comfort.? Use pillows or wedges to support off loading positions. 2. Off Load all bony prominences with use of pillows and heel boots if needed.? Apply Preventative foams where needed. ? 3. Monitor for incontinence and moisture control, use barrier creams when needed for prevention and treatment. 4. Provide adequate and supplemental nutrition.? 5. Order low air loss mattress. 6. Maintain blood glucose levels per Providers order. Coccyx / Sacrum - Off Load Pressure with Q2 hr turns and use of pillows Cleanse and irrigate with NS, Pat dry.? Apply barrier(Triad) to periwound, lightly pack with Durafiber AG, be sure to leave a wick to easy removal.? Fill space with dry gauze, cover with ABD pad.? Change Daily while inpt. May change every other day at time of discharge from inpatient services. Recommend follow up out patient Wound Clinic at [address] [place] [id number] and to call for an appointment at time of discharge. [phone].? UTI--treated with Ceftriaxone Diarrhea--negative cdif and gi panel Anemia of chronic disease, H/H on low side but stable. Monitor Pancytopenia (chronic) -Leukopenia, Thrombocytopenia, and Anemia noted -Levels stable Chronic pain-Patient currently on methadone for chronic pain management, no history of substance use disorder on methadone. Major depressive disorder with general anxiety disorder One-to-one ordered for constant observation. Patient currently grieving the loss of her brother. Patient is not currently suicidal or admitting to suicidal ideations Psych eval added -will need crisis eval before discharge DVT prophylaxis: Lovenox PPI prophylaxis: Omeprazole Full Code status Ongoing need: orthostasis : ivf and moniter tele and orthosatsis,syncope Quality Stroke Does the patient have a stroke diagnosis?: No Reason for No Anti-thrombotic by Day Two: N/A - Med Ordered VTE Prior VTE?: No VTE Risk Level:: Medical - moderate - high VTE Device Contraindication: N/A - Device Ordered VTE Drug Contraindication: N/A - Med Ordered
--- NOTE | 2025-01-20 10:52 | MHC.CM.PN ---
EMR REVIEWED, PT INITIALLY W/HYPERGLYCEMIA, PT HAD BEEN REFUSING DC, PT NOW NOT MEDICALLY CLEARED D/T LABILE BP, ?MRI TO BE REORDERED. OF NOTE PT HAS BEEN ORDERING TAKEOUT/DOORDASH AND NOT COMPLIANT W/DIABETIC DIET, ANTIC PT APPEAL DC ONCE MEDICALLY CLEARED. CM WILL CONT TO FOLLOW DC NEEDS. OVERLOOK VNA FOLLOWING
--- NOTE | 2025-01-20 13:19 | MHC.CLN ---
F/U PO INTAKE 75-100% IN ADDITION, PT ORDERS FOOD FROM OUTSIDE FACILITY PT NOT INTERESTED IN DIET EDUCATION NONCOMPLIANT WITH DM DIET DIET RX: 1800DM -APPROPRIATE RECEIVING ENSURE MAX BID TO PROMOTE WOUND HEALING SUPP PROVIDES 300KCALS, 60G PROTEIN MONITOR PO INTAKE AND ENCOURAGE SUPPLEMENT
--- NOTE | 2025-01-20 13:26 | HO.WOUND ---
Wound Consult: Follow up No new topical recommendations needed at this time. Patient was provided education on how to perform self care incase she was not SNF / Rehab eligible and did not get approved for VNA services. She was advised and demonstrated on this advertising copy writer how to perform the washing and dressing change on her self. She reported understanding. She would benefit from VNA services if discharging to home. Of note the patient foam dressing was removed and there was no packing observed. She reported sometime it falls out when she uses the bathroom. She was educated on the importance of packing to allow for wound healing. Chart review reveals there are times patient has refused topical care. Over all the wound bed appears smaller however the periwound continues with significant maceration worsened since last assessment. This is likely due to no packing in place and dressing trapping moisture against skin. 01/20/25 01/12/25 Coccyx / Sacrum Etiology: ??Stage 4 Pressure Injury Present on Admission Measurements: 4cm x 2cm x 2cm Wound Bed: pink and yellow slough Drainage / Odor: odor noted at this time Edges: ?macerated and unattached undermining noted from 7-12 o'clock 2cm Wilma wound: ?maceration and skin irregularities in texture noted - erythema observed and no fluctuance noted Pain: pain reported Goals of Treatment: ? Durafiber packing Details from prior assessment: Attempted to educate patient on impacts of blood glucose control on wound healing - patient verbally reported understanding but reports the fact that her blood glucose levels are in the 300 compared to 500/600 should be an improvement. We discussed how beneficial that is but that her body continues to need her blood sugar to be with in the normal range. She did not seem to understand. Original Note: Wound Consult: Initial 49yr old?female admitted to [facility] on 01/10/25 - See progress notes and H&P for detailed history.? Wound consult placed for Coccyx / Sacral wound.? Patient agreeable to assessment and photo documentation.? Patient reports she has been caring for it herself at home. She reports she used to have VNA services but per her insurance compamy she has run out of those services. She reports she has been covering it at home with a foam dressing. She denies packing in over one week. She reports bowel incontinence at all times. She wears a brief. Of note the perineal and perianal area is noted for thickened tissue with firm swelling vs induration and significant MASD. The induration could be explained by the chronic MASD but provider will assess. Coccyx / Sacrum Etiology: ??Stage 4 Pressure Injury Present on Admission Measurements: see documentation for measurement details Wound Bed: pink and yellow slough Drainage / Odor: sweet malodor noted moderate to large amount - Note patient has high blood glucose which may explain the odor Edges: ? macerated and unattached undermining noted from 7-3 o'clock 2.5cm Wilma wound: ? Full thickness tissue loss maceration and firm swelling / induration noted - erythema observed and no fluctuance noted Pain: extreme pain reported Goals of Treatment: ? Durafiber packing - Durafiber not available at this time - saline wet gauze packing used and may start durafiber tomorrow. Attempted to educate patient on impacts of blood glucose control on wound healing - patient verbally reported understanding but proceeded to drink a snapple - this was not diet we discussed the sugar content at 48gm for one bottle - she refused to not drink the snapple. She reported she would only have one as there were 3 on her bedside table. She was educated that even one was not a good option for her given her recent blood glucose level - she continued to drink the drink. Direct care nurse present at bedside and participated in attempts to educate pt. Recommendations: 1. Turn and Reposition every 2 hours and as needed for patient comfort.? Use pillows or wedges to support off loading positions. 2. Off Load all bony prominences with use of pillows and heel boots if needed.? Apply Preventative foams where needed. ? 3. Monitor for incontinence and moisture control, use barrier creams when needed for prevention and treatment. 4. Provide adequate and supplemental nutrition.? 5. Order low air loss mattress. 6. Maintain blood glucose levels per Providers order. Coccyx / Sacrum - Off Load Pressure with Q2 hr turns and use of pillows Cleanse and irrigate with NS, Pat dry.? Apply barrier(Triad) to periwound, lightly pack with Durafiber AG, be sure to leave a wick to easy removal.? Fill space with dry gauze, cover with ABD pad.? Change Daily while inpt. May change every other day at time of discharge from inpatient services. Recommend follow up out patient Wound Clinic at [address] [place] [id number] and to call for an appointment at time of discharge. [phone].? Re-consult wound care Nurse for wound deterioration or wound changes.
[2025-01-20 14:21] LABS: Glucose, Whole Blood 475 mg/dL (60-115)
[2025-01-20] MEDS: gadobutroL 10 ML VIAL IVPUSH (18:02)
[2025-01-20 18:41] LABS: Glucose, Whole Blood 266 mg/dL (60-115)
--- NOTE | 2025-01-20 19:36 | PC.NURSE ---
Addendum entered by Meron Buitrago RN 01/20/25 19:39: per dr oliver hold midodine for today Original Note: 0930 pt reporting double vision, pain behind eyes. BP laying 210/110 manual. less than 30 min prior BP 108/79 and midodrine was given per OCT. Dr oliver notified and came to bedside. manual BP while sitting 138/96. see new orders. 1700 pt taken to MRI, medicated for anxiety per OCT. tolerated procedure well 1830 pts HR sustaining 120s-130s. pt reporting increased anxiety and palpations. Dr. oliver notified and at bedside. EKG and VS obtained, POC 266. currently HR 90s- low 100s. report given to oncoming RN.
[2025-01-20] MEDS: Melatonin 3 MG TABLET 6 MG PO (19:48)
[2025-01-20] MEDS: Mirtazapine 7.5 MG TABLET 22.5 MG PO (19:48)
[2025-01-20 22:04] LABS: Glucose, Whole Blood 375 mg/dL (60-115)
[2025-01-21] VITALS (8 sets, daily range): BP systolic 98–190; BP diastolic 55–101; PULSE 86–109; RESP 16–18; TEMP 36.2–37.7; O2SAT 92–99
--- NOTE | 2025-01-21 | ECG_ITS ---
Test Reason : unresponsive Blood Pressure : */* mmHG Vent. Rate : 91 BPM Atrial Rate : 91 BPM P-R Int : 142 ms QRS Dur : 76 ms QT Int : 394 ms P-R-T Axes : 64 45 60 degrees QTcB Int : 484 ms Normal sinus rhythm Prolonged QT Abnormal ECG When compared with ECG of 20-Jan-2025 18:34, No significant change was found Referred By: Rainer Sterling Electronically Signed By: Larry Gama
[2025-01-21] MEDS: HYDROmorphone HCl 1 MG/ML SYRINGE 0.6 MG IVPUSH (01:41)
[2025-01-21 03:07] LABS: Glucose, Whole Blood 307 mg/dL (60-115)
[2025-01-21] MEDS: 0.9 % Sodium Chloride Flush 3 ML SYRINGE IVFLUSH ×3 (08:48→19:45)
[2025-01-21] MEDS: cefTRIAXone sodium 1 GM VIAL IVPUSH (08:49)
[2025-01-21] MEDS: Hydroxychloroquine Sulfate 200 MG TABLET PO (08:49)
[2025-01-21] MEDS: Magnesium Oxide 400 MG TABLET 800 MG PO ×2 (08:49→16:40)
[2025-01-21] MEDS: Meclizine HCl 12.5 MG TABLET PO (08:49)
[2025-01-21] MEDS: hydrOXYzine HCL 25 MG TABLET PO ×3 (08:49→19:44)
[2025-01-21] MEDS: Fludrocortisone Acetate 0.1 MG TABLET PO (08:50)
[2025-01-21] MEDS: Enoxaparin Sodium 40 MG/0.4 ML SYRINGE SUBCUT (08:50)
[2025-01-21] MEDS: FLUoxetine HCl 20 MG CAPSULE PO (08:50)
[2025-01-21 10:19] LABS: Glucose, Whole Blood 328 mg/dL (60-115)
--- NOTE | 2025-01-21 12:07 | HO.PM.IMPN ---
Subjective Subjective Date of Service: 01/21/25 Interval History: No new event overnight, MRA of neck and brain normal Blood sugars remain fairly high and I am adjusting insulin No more report of dizziness Physical Exam Vital Signs: Vital Signs: Last Vital Signs Temp 98.9 F 01/21/25 10:58 Pulse 92 01/21/25 10:58 Resp 17 01/21/25 10:58 BP 113/71 01/21/25 10:58 Pulse Ox 98 01/21/25 10:58 O2 Del Method Room Air 01/21/25 10:58 BMI result Body Mass Index 19.4 Const: Other: General: AO X 3, no acute distress Resp: CTA bilateral CVS: S1,S2,RRR GI: +BS, NT, no distention Skin: decub ulcers, see pic from wound care notes Neuro: motor grossly intact Psych: appropriate affect Objective Data Active Medications Calcium Carbonate (Calcium Carbonate 750 Mg Tab.Chew) 750 mg PO Q4H PRN PRN Reason: Heartburn Ceftriaxone Sodium (Ceftriaxone Sodium 1 Gm Vial) 1 gm IVPUSH Q24H [facility] Last Admin: 01/21/25 08:49 Dose: 1 gm Documented By: KARMEN Dextrose (Dextrose 50 % 25 Gm/50 Ml Syringe) 25 gm IVPUSH Q15M PRN; Protocol PRN Reason: per Hypoglycemia Standing Ord. Last Admin: 01/13/25 04:24 Dose: 25 gm Documented By: ADELINA Enoxaparin Sodium (Enoxaparin Sodium 40 Mg/0.4 Ml Syringe) 40 mg SUBCUT Q24H [facility] Last Admin: 01/21/25 08:50 Dose: 40 mg Documented By: KARMEN Fludrocortisone Acetate (Fludrocortisone Acetate 0.1 Mg Tablet) 0.1 mg PO DAILY [facility] Last Admin: 01/21/25 08:50 Dose: 0.1 mg Documented By: KARMEN Fluoxetine HCl (Fluoxetine Hcl 20 Mg Capsule) 20 mg PO DAILY [facility] Last Admin: 01/21/25 08:50 Dose: 20 mg Documented By: KARMEN Glucose (Glucose Gel 15 Gm Gel..Gram.) 15 gm PO Q15M PRN; Protocol PRN Reason: per Hypoglycemia Standing Ord. Hydroxychloroquine Sulfate (Hydroxychloroquine Sulfate 200 Mg Tablet) 200 mg PO DAILY [facility] Last Admin: 01/21/25 08:49 Dose: 200 mg Documented By: KARMEN Hydroxyzine HCl (Hydroxyzine Hcl 25 Mg Tablet) 25 mg PO QID PRN PRN Reason: anxiety Last Admin: 01/21/25 08:49 Dose: 25 mg Documented By: KARMEN Magnesium Hydroxide (Milk Of Magnesia 30 Ml Oral.Susp) 30 ml PO DAILY PRN PRN Reason: Constipation Magnesium Oxide (Magnesium Oxide 400 Mg Tablet) 800 mg PO BIDPC [facility] Last Admin: 01/21/25 08:49 Dose: 800 mg Documented By: KARMEN Meclizine HCl (Meclizine Hcl 12.5 Mg Tablet) 12.5 mg PO Q6H PRN PRN Reason: dizziness Last Admin: 01/21/25 08:49 Dose: 12.5 mg Documented By: KARMEN Melatonin (Melatonin 3 Mg Tablet) 6 mg PO BEDTIME PRN PRN Reason: Insomnia Last Admin: 01/20/25 19:48 Dose: 6 mg Documented By: ADELINA Midodrine (Midodrine Hcl 10 Mg Tablet) 10 mg PO TID [facility]; Protocol Last Admin: 01/21/25 08:41 Dose: Not Given Documented By: KARMEN Non-Admin Reason: hold per Dr oliver Mirtazapine (Mirtazapine 7.5 Mg Tablet) 22.5 mg PO BEDTIME [facility] Last Admin: 01/20/25 19:48 Dose: 22.5 mg Documented By: AEDLINA Naloxone HCl (Naloxone Hcl 0.4 Mg/Ml Vial) 0.4 mg IVPUSH Q5M PRN PRN Reason: Opiate Reversal Non-Formulary Medication (Insulin Regular Hum U-500 Conc [Humulin R U-500 (Conc) Kwikpen]) 350 unit SUBCUT TIDAC [facility] Last Admin: 01/21/25 08:48 Dose: 350 unit Documented By: KARMEN Ondansetron HCl (Ondansetron Hcl 4 Mg/2 Ml Vial) 4 mg IVPUSH Q8H PRN PRN Reason: Nausea and Vomiting Last Admin: 01/16/25 08:04 Dose: 4 mg Documented By: TORIBIO Pioglitazone HCl (Pioglitazone Hcl 45 Mg Tablet) 45 mg PO DAILY [facility] On Hold: 01/13/25 14:24 Last Admin: 01/13/25 10:22 Dose: 45 mg Documented By: BRUNA Polyethylene Glycol (Polyethylene Glycol 3350 17 Gm Powd.Pack) 17 gm PO DAILY PRN PRN Reason: Constipation Senna (Sennosides 8.6 Mg Tablet) 17.2 mg PO BEDTIME [facility] Last Admin: 01/21/25 00:52 Dose: Not Given Documented By: ADELINA Non-Admin Reason: Patient Refused Sodium Chloride (0.9 % Sodium Chloride Flush 3 Ml Syringe) 3 ml IVFLUSH QSHIFT [facility] Last Admin: 01/21/25 08:48 Dose: 3 ml Documented By: TANYACIAV Labs 01/19/25 10:10 01/20/25 06:39 Labs: Laboratory Results - last 24 hr 01/20/25 01/20/25 01/20/25 14:16 18:37 21:57 POC Glucose 475 H* 266 H 375 H* 01/21/25 01/21/25 03:01 10:16 POC Glucose 307 H 328 H Assessment and Plan (1) Sacral decubitus ulcer, stage IV: Status: Acute (2) Fall: Status: Acute (3) Hyperglycemia: Status: Acute Plan 49-year-old black female with past medical history insulin-dependent diabetes type 2 with high insulin resistant, major depressive disorder, general anxiety disorder, daily marijuana use, currently on methadone for pain control, a current unstageable sacral wound with history of osteomyelitis, lupus, myelofibrosis with the associated pancytopenia, diabetic gastroparesis, recurrent C diff infections currently asymptomatic admitted from [facility] shortly after admission to the unit, she was having hyperglycemia Unrepsive Syncope episodes, likely d/t component of orthostatic hypotension, autonomic dysfunction, flucturating glucose, and concern for seizure continue IVF continue midodrine and florinef but hold if BP too high seen cardiology no other recommendation at this time Seen by Neuro 01/18:Recom: Cardiac event monitor for 30 days. Echocardiogram. EEG. If normal then out patient 48 hr ambulatory EEG. [place] orthostatics twice a day. MRA of head and neck for vertebrobasilar disease. Would hold off Keppra for now.. MRA of head and neck normal insulin-dependent diabetes type 2 with hyperglycemia and insulin resistance (Per endocrinology staff at [facility] : Patient has diabetes with insulin resistance-on IVIG) Hemoglobin A1c > 14, normally on insulin up to 750 unit tid Presently on 250 tid, sugars 250 to 350, incrased insulin to 300 tid and continue to closely monitor She is a management challenge d/t tendency to refuse care/insulin and ordering non diabetic food and drink from outside the hospital Stage IV sacral wound with history of osteomyelitis--seen by wound care. See picture and asssement in wound care note recommendation: Recommendations: see picture in wound care 1. Turn and Reposition every 2 hours and as needed for patient comfort.? Use pillows or wedges to support off loading positions. 2. Off Load all bony prominences with use of pillows and heel boots if needed.? Apply Preventative foams where needed. ? 3. Monitor for incontinence and moisture control, use barrier creams when needed for prevention and treatment. 4. Provide adequate and supplemental nutrition.? 5. Order low air loss mattress. 6. Maintain blood glucose levels per Providers order. Coccyx / Sacrum - Off Load Pressure with Q2 hr turns and use of pillows Cleanse and irrigate with NS, Pat dry.? Apply barrier(Triad) to periwound, lightly pack with Durafiber AG, be sure to leave a wick to easy removal.? Fill space with dry gauze, cover with ABD pad.? Change Daily while inpt. May change every other day at time of discharge from inpatient services. Recommend follow up out patient Wound Clinic at [address] [place] [id number] and to call for an appointment at time of discharge. [phone].? UTI--treated with Ceftriaxone Diarrhea--negative cdif and gi panel Anemia of chronic disease, H/H on low side but stable. Monitor Pancytopenia (chronic) -Leukopenia, Thrombocytopenia, and Anemia noted -Levels stable Chronic pain-Patient currently on methadone for chronic pain management, no history of substance use disorder on methadone. Major depressive disorder with general anxiety disorder One-to-one ordered for constant observation. Patient currently grieving the loss of her brother. Patient is not currently suicidal or admitting to suicidal ideations Psych eval added -will need crisis eval before discharge DVT prophylaxis: Lovenox PPI prophylaxis: Omeprazole Full Code status Ongoing need: orthostasis : ivf and moniter tele and orthosatsis,syncope Dispo: Likely STR Quality Stroke Does the patient have a stroke diagnosis?: No Reason for No Anti-thrombotic by Day Two: N/A - Med Ordered VTE Prior VTE?: No VTE Risk Level:: Medical - moderate - high VTE Device Contraindication: N/A - Device Ordered VTE Drug Contraindication: N/A - Med Ordered
[2025-01-21] MEDS: Lactated Ringers 500 ML 250 ML IV (13:23)
[2025-01-21 13:30] LABS: Glucose, Whole Blood 288 mg/dL (60-115)
--- NOTE | 2025-01-21 13:38 | PM.EVENT ---
Event Note Date of Service: 01/21/25 Event Note: Rapid response was activated as the pt was found unresponsive again. VS are stable. Glucose stat is 288. Patient has had an extensive neurological workup including head CT scans x2 head and neck MRI; and EEG that have been unremarkable except for redemonstration of central pontine focus of hyperdensity with interval decrease in density without surrounding vasogenic edema, small focus of hyperdensity within the left side and medullary, unchanged and resolving parenchymal hemorrhage can not be excluded. Will obtain CBC, CMP and ECG stat. Time Spent With Patient Time: Total time managing care of this patient today ____ minutes.
[2025-01-21 13:47] LABS: MANUAL DIFF FLAG NO
[2025-01-21 13:48] LABS: Basophils Percent Auto 0.3 % (0-2); Eosinophils Absolute Auto 0.1 X10*3/uL (0.0-0.4); Eosinophils Percent Auto 2.1 % (0-4); Hemoglobin 7.8 g/dl (12.0-16.0); Imm Gran Abs Auto 0.01 X10*3/uL (0.00-0.03); Imm Gran Pct Auto 0.3 % (0.0-0.4); Lymphocytes Absolute Auto 1.3 X10*3/uL (1.2-4.9); Lymphocytes Percent Auto 44.7 % (20-40); Mean Corpuscular HGB Conc 32.5 g/dl (31.0-35.0); Mean Corpuscular Hemoglobin 29.1 pg (27.0-33.0); Mean Corpuscular Volume 89.6 fL (80.0-98.0); Mean Platelet Volume 9.4 fL (9.4-12.3); Monocytes Absolute Auto 0.2 X10*3/uL (0.1-1.2); Monocytes Percent Auto 5.5 % (2-11); Neutrophils Absolute Auto 1.4 x10*3/uL (2.0-8.3); Neutrophils Percent Auto 47.1 % (45-73); Platelet Count 199 X10*3/uL (160-400); Red Blood Count 2.68 X10*6/uL (4.20-5.50); Red Cell Distribution Width 15.4 % (11.0-16.0); White Blood Count 2.9 X10*3/uL (4.8-10.8)
[2025-01-21 13:50] LABS: Venous Blood Gas Refer to POC result
[2025-01-21 13:51] LABS: VBG Base Excess 9.9 mmol/L; VBG HCO3 34 mmol/L (22-26); VBG pCO2 45 mmHg; VBG pH 7.48 (7.32-7.43); VBG pO2 53 mmHg
[2025-01-21 14:04] LABS: Alanine Aminotransferase 35 U/L (0-31); Albumin Level 3.2 g/dL (3.5-5.0); Alkaline Phosphatase 73 U/L (39-117); Aspartate Amino Transferase 57 U/L (5-31); Bilirubin Total 0.2 mg/dL (0.0-1.0); Blood Urea Nitrogen 22 mg/dL (9-16); Calcium 8.7 mg/dL (8.4-10.2); Creatinine Clr Calc Pharmacy 56.3; Estimated Glomerular Filt Rate > 60; Glucose Random 307 mg/dL (60-115); Total Protein 6.8 g/dL (6.5-8.0)
[2025-01-21 14:14] LABS: Anion Gap 12 (12-20); Carbon Dioxide 27 mmol/L (22-29); Chloride 101 mmol/L (96-108); Potassium 5.1 mmol/L (3.3-5.1); Sodium 135 mmol/L (135-145)
[2025-01-21 14:23] LABS: Glucose, Whole Blood 300 mg/dL (60-115)
[2025-01-21] MEDS: Midodrine HCl 10 MG TABLET PO (14:23)
--- NOTE | 2025-01-21 15:36 | PC.NURSE ---
1:1 sitter calling out into to hallway stating pt is unresponsive. This RN at bedside, pt unresponsive to sternal rub and deep pain. pupils non reactive. INSTRUMENT MAN called at 1323. see new orders. pt began to wake around 1335. stating she wanted to ho home and see her brother. 1430 pt stating she is starving and would like another lunch. per kitchen staff pt only allowed a chicken salad sandwich d/t diet restrictions. pt became agitated and stating she was ordering door dash because the food tastes disgusting . Dr. Cancino notified, stated to contact nursing ranch hand supervisor to inform pt she is not allowed to have outpatient food d/t interfering with care. 1500 set up and charger, nursing ranch hand supervisor, and this RN at bedside attempted to educate pt on diet and MD orders. pt stating i am hungry dont you understand? at [facility] they gave me double portions and snacks then cover me with more insulin. im used to my sugars being high i feel fine. I asked for another pork chop and 2 pieces of bread and i would be fine and wouldnt have to order out. Diabetics are hungry dont you understand . [employer]atore [employer] employee came to the unit with pts food. This RN attempting to take food from [facility], salvatore rubi would not give RN food without confirmation code. pt saw interaction in the door way and stated i know you arent intervening with my food. i payed $22 for that food. you better give me my money if you take my food. . at this time pt got up from bed and walked to doorway with unsteady gait demanding we hand her her food. attempted to redirect pt back to bed with no success. pt grabbed food from set up and charger hand and walked back to room and began eating food. Dr. Cancino came to bedside and spoke with pt. stated that ordering outside meals is against medical advice and interfering with care. pt stated the same as above.
[2025-01-21 18:13] LABS: Glucose, Whole Blood 439 mg/dL (60-115)
[2025-01-21] MEDS: Melatonin 3 MG TABLET 6 MG PO (19:44)
[2025-01-21] MEDS: Mirtazapine 7.5 MG TABLET 22.5 MG PO (19:44)
[2025-01-21 22:36] LABS: Glucose, Whole Blood 275 mg/dL (60-115)
[2025-01-21] MEDS: HYDROmorphone HCl 0.5 MG/0.5 ML SYRINGE IVPUSH (23:35)
[2025-01-22] VITALS (8 sets, daily range): BP systolic 94–185; BP diastolic 54–100; PULSE 85–100; RESP 16–18; TEMP 36.4–37.5; O2SAT 96–99
[2025-01-22 02:04] LABS: Glucose, Whole Blood 139 mg/dL (60-115)
[2025-01-22 06:03] LABS: Glucose, Whole Blood 110 mg/dL (60-115)
[2025-01-22] MEDS: Midodrine HCl 10 MG TABLET PO ×2 (09:23→15:29)
[2025-01-22] MEDS: hydrOXYzine HCL 25 MG TABLET PO ×2 (09:23→19:38)
[2025-01-22] MEDS: Hydroxychloroquine Sulfate 200 MG TABLET PO (09:23)
[2025-01-22] MEDS: FLUoxetine HCl 20 MG CAPSULE PO (09:23)
[2025-01-22] MEDS: Magnesium Oxide 400 MG TABLET 800 MG PO ×2 (09:23→17:36)
[2025-01-22] MEDS: Fludrocortisone Acetate 0.1 MG TABLET PO (09:23)
[2025-01-22] MEDS: oxyCODONE HCl Immed Release 5 MG TABLET PO (09:23)
[2025-01-22] MEDS: Enoxaparin Sodium 40 MG/0.4 ML SYRINGE SUBCUT (09:24)
[2025-01-22] MEDS: cefTRIAXone sodium 1 GM VIAL IVPUSH (09:24)
[2025-01-22] MEDS: 0.9 % Sodium Chloride Flush 3 ML SYRINGE IVFLUSH ×3 (09:25→19:38)
[2025-01-22 10:07] LABS: Glucose, Whole Blood 317 mg/dL (60-115)
--- NOTE | 2025-01-22 12:15 | HO.PM.IMPN ---
Subjective Subjective Date of Service: 01/22/25 Interval History: No event overnight, but had another episode of unresponsiveness with rapid called yesterday. This morning, she's reporting feeling much better and think she can go home in 1 to 2 days blood pressures are fluctuating very widely Physical Exam Vital Signs: Vital Signs: Last Vital Signs Temp 98.5 F 01/22/25 11:32 Pulse 96 01/22/25 11:32 Resp 18 01/22/25 11:32 BP 180/100 H 01/22/25 11:32 Pulse Ox 99 01/22/25 11:32 O2 Del Method Room Air 01/22/25 11:32 BMI result Body Mass Index 19.4 Objective Data Active Medications Calcium Carbonate (Calcium Carbonate 750 Mg Tab.Chew) 750 mg PO Q4H PRN PRN Reason: Heartburn Ceftriaxone Sodium (Ceftriaxone Sodium 1 Gm Vial) 1 gm IVPUSH Q24H [facility] Last Admin: 01/22/25 09:24 Dose: 1 gm Documented By: SAHIL Dextrose (Dextrose 50 % 25 Gm/50 Ml Syringe) 25 gm IVPUSH Q15M PRN; Protocol PRN Reason: per Hypoglycemia Standing Ord. Last Admin: 01/13/25 04:24 Dose: 25 gm Documented By: ADELINA Enoxaparin Sodium (Enoxaparin Sodium 40 Mg/0.4 Ml Syringe) 40 mg SUBCUT Q24H [facility] Last Admin: 01/22/25 09:24 Dose: 40 mg Documented By: SAHIL Fludrocortisone Acetate (Fludrocortisone Acetate 0.1 Mg Tablet) 0.1 mg PO DAILY [facility] Last Admin: 01/22/25 09:23 Dose: 0.1 mg Documented By: SAHIL Fluoxetine HCl (Fluoxetine Hcl 20 Mg Capsule) 20 mg PO DAILY [facility] Last Admin: 01/22/25 09:23 Dose: 20 mg Documented By: SAHIL Glucose (Glucose Gel 15 Gm Gel..Gram.) 15 gm PO Q15M PRN; Protocol PRN Reason: per Hypoglycemia Standing Ord. Hydroxychloroquine Sulfate (Hydroxychloroquine Sulfate 200 Mg Tablet) 200 mg PO DAILY [facility] Last Admin: 01/22/25 09:23 Dose: 200 mg Documented By: SAHIL Hydroxyzine HCl (Hydroxyzine Hcl 25 Mg Tablet) 25 mg PO QID PRN PRN Reason: anxiety Last Admin: 01/22/25 09:23 Dose: 25 mg Documented By: SAHIL Magnesium Hydroxide (Milk Of Magnesia 30 Ml Oral.Susp) 30 ml PO DAILY PRN PRN Reason: Constipation Magnesium Oxide (Magnesium Oxide 400 Mg Tablet) 800 mg PO BIDPC [facility] Last Admin: 01/22/25 09:23 Dose: 800 mg Documented By: SAHIL Meclizine HCl (Meclizine Hcl 12.5 Mg Tablet) 12.5 mg PO Q6H PRN PRN Reason: dizziness Last Admin: 01/21/25 08:49 Dose: 12.5 mg Documented By: KARMEN Melatonin (Melatonin 3 Mg Tablet) 6 mg PO BEDTIME PRN PRN Reason: Insomnia Last Admin: 01/21/25 19:44 Dose: 6 mg Documented By: ADELINA Midodrine (Midodrine Hcl 10 Mg Tablet) 10 mg PO TID [facility]; Protocol Last Admin: 01/22/25 09:23 Dose: 10 mg Documented By: SAHIL Mirtazapine (Mirtazapine 7.5 Mg Tablet) 22.5 mg PO BEDTIME [facility] Last Admin: 01/21/25 19:44 Dose: 22.5 mg Documented By: ADELINA Naloxone HCl (Naloxone Hcl 0.4 Mg/Ml Vial) 0.4 mg IVPUSH Q5M PRN PRN Reason: Opiate Reversal Non-Formulary Medication (Insulin Regular Hum U-500 Conc [Humulin R U-500 (Conc) Kwikpen]) 350 unit SUBCUT TIDAC [facility] Last Admin: 01/22/25 09:24 Dose: 350 unit Documented By: SAHIL Ondansetron HCl (Ondansetron Hcl 4 Mg/2 Ml Vial) 4 mg IVPUSH Q8H PRN PRN Reason: Nausea and Vomiting Last Admin: 01/16/25 08:04 Dose: 4 mg Documented By: TORIBIO Oxycodone HCl (Oxycodone Hcl Immed Release 5 Mg Tablet) 5 mg PO Q6H PRN PRN Reason: Pain, Severe (Pain Scale 7-10) Last Admin: 01/22/25 09:23 Dose: 5 mg Documented By: SAHIL Pioglitazone HCl (Pioglitazone Hcl 45 Mg Tablet) 45 mg PO DAILY [facility] On Hold: 01/13/25 14:24 Last Admin: 01/13/25 10:22 Dose: 45 mg Documented By: BRUNA Polyethylene Glycol (Polyethylene Glycol 3350 17 Gm Powd.Pack) 17 gm PO DAILY PRN PRN Reason: Constipation Senna (Sennosides 8.6 Mg Tablet) 17.2 mg PO BEDTIME [facility] Last Admin: 01/21/25 19:45 Dose: Not Given Documented By: ADELINA Non-Admin Reason: Patient Refused Sodium Chloride (0.9 % Sodium Chloride Flush 3 Ml Syringe) 3 ml IVFLUSH QSHIFT [facility] Last Admin: 01/22/25 09:25 Dose: 3 ml Documented By: SAHIL Labs 01/21/25 13:42 01/21/25 13:42 Labs: Laboratory Results - last 24 hr 01/21/25 01/21/25 01/21/25 13:25 13:42 13:46 MCV 89.6 MCH 29.1 MCHC 32.5 RDW 15.4 Plt Count 199 MPV 9.4 Immature Gran % (Auto) 0.3 Neut % (Auto) 47.1 Lymph % (Auto) 44.7 H [place] % (Auto) 5.5 Eos % (Auto) 2.1 Baso % (Auto) 0.3 Lymph # (Auto) 1.3 [place] # (Auto) 0.2 Eos # (Auto) 0.1 Baso # (Auto) 0.0 Abs Immat Gran (auto) 0.01 Absolute Neuts (auto) 1.4 L Absolute Nucleated RBC 0.000 Nucleated RBC % (auto) 0.0 VBG pH 7.48 H VBG pCO2 45 VBG pO2 53 VBG HCO3 34 H VBG O2 Saturation 80.0 VBG Base Excess 9.9 Anion Gap 12 Estim Creat Clear Calc 56.3 Estimated GFR > 60 POC Glucose 288 H Random Glucose 307 H Calcium 8.7 Total Bilirubin 0.2 AST 57 H ALT 35 H Alkaline Phosphatase 73 Total Protein 6.8 Albumin 3.2 L 01/21/25 01/21/25 01/21/25 14:17 18:09 22:26 MCV MCH MCHC RDW Plt Count MPV Immature Gran % (Auto) Neut % (Auto) Lymph % (Auto) [place] % (Auto) Eos % (Auto) Baso % (Auto) Lymph # (Auto) [place] # (Auto) Eos # (Auto) Baso # (Auto) Abs Immat Gran (auto) Absolute Neuts (auto) Absolute Nucleated RBC Nucleated RBC % (auto) VBG pH VBG pCO2 VBG pO2 VBG HCO3 VBG O2 Saturation VBG Base Excess Anion Gap Estim Creat Clear Calc Estimated GFR POC Glucose 300 H 439 H* 275 H Random Glucose Calcium Total Bilirubin AST ALT Alkaline Phosphatase Total Protein Albumin 01/22/25 01/22/25 01/22/25 01:57 05:57 10:04 MCV MCH MCHC RDW Plt Count MPV Immature Gran % (Auto) Neut % (Auto) Lymph % (Auto) [place] % (Auto) Eos % (Auto) Baso % (Auto) Lymph # (Auto) [place] # (Auto) Eos # (Auto) Baso # (Auto) Abs Immat Gran (auto) Absolute Neuts (auto) Absolute Nucleated RBC Nucleated RBC % (auto) VBG pH VBG pCO2 VBG pO2 VBG HCO3 VBG O2 Saturation VBG Base Excess Anion Gap Estim Creat Clear Calc Estimated GFR POC Glucose 139 H 110 317 H Random Glucose Calcium Total Bilirubin AST ALT Alkaline Phosphatase Total Protein Albumin Assessment and Plan (1) Sacral decubitus ulcer, stage IV: Status: Acute (2) Fall: Status: Acute (3) Hyperglycemia: Status: Acute Plan 49-year-old black female with past medical history insulin-dependent diabetes type 2 with high insulin resistant, major depressive disorder, general anxiety disorder, daily marijuana use, currently on methadone for pain control, a current unstageable sacral wound with history of osteomyelitis, lupus, myelofibrosis with the associated pancytopenia, diabetic gastroparesis, recurrent C diff infections currently asymptomatic [facility], she was having hyperglycemia Unrepsive episodes Syncope episodes, likely d/t component of orthostatic hypotension, autonomic dysfunction, flucturating glucose, and seizure ruled out, last episode yesteerday, no arrytnmia continue midodrine and florinef but hold if BP too high seen cardiology no other recommendation at this time Seen by Neuro 01/18:Recom: Cardiac event monitor for 30 days. Echocardiogram. EEG is negative, 48 hr ambulatory EEG. [place] orthostatics twice a day. MRA of head and neck unremarkable. insulin-dependent diabetes type 2 with hyperglycemia and insulin resistance (Per endocrinology staff at [facility] : Patient has diabetes with insulin resistance and has hoa on IVIG Hemoglobin A1c > 14, normally on insulin up to 750 units tid Presently on 350 with sugars still 300s She is a management challenge d/t tendency to refuse care/insulin and ordering non diabetic food and drink from outside the hospital in additional to her hospial meals Stage IV sacral wound with history of osteomyelitis--seen by wound care. See picture and asssement in wound care note recommendation: Recommendations: see picture in wound care 1. Turn and Reposition every 2 hours and as needed for patient comfort.? Use pillows or wedges to support off loading positions. 2. Off Load all bony prominences with use of pillows and heel boots if needed.? Apply Preventative foams where needed. ? 3. Monitor for incontinence and moisture control, use barrier creams when needed for prevention and treatment. 4. Provide adequate and supplemental nutrition.? 5. Order low air loss mattress. 6. Maintain blood glucose levels per Providers order. Coccyx / Sacrum - Off Load Pressure with Q2 hr turns and use of pillows Cleanse and irrigate with NS, Pat dry.? Apply barrier(Triad) to periwound, lightly pack with Durafiber AG, be sure to leave a wick to easy removal.? Fill space with dry gauze, cover with ABD pad.? Change Daily while inpt. May change every other day at time of discharge from inpatient services. Recommend follow up out patient Wound Clinic at [address] [place] [phone] and to call for an appointment at time of discharge. [phone].? UTI--treated with Ceftriaxone Diarrhea--negative cdif and gi panel, diarrhea resolved Anemia of chronic disease, H/H on low side but stable. Monitor Pancytopenia (chronic) -Leukopenia, Thrombocytopenia, and Anemia noted -Levels stable Chronic pain-Patient currently on methadone for chronic pain management, no history of substance use disorder on methadone. Major depressive disorder with general anxiety disorder One-to-one ordered for constant observation. Patient currently grieving the loss of her brother. Patient is not currently suicidal or admitting to suicidal ideations Psych eval added -will need crisis eval before discharge DVT prophylaxis: Lovenox PPI prophylaxis: Omeprazole Full Code status Ongoing need: orthostasis : ivf and moniter tele and orthosatsis,syncope Dispo: Likely STR Quality Stroke Does the patient have a stroke diagnosis?: No Reason for No Anti-thrombotic by Day Two: N/A - Med Ordered VTE Prior VTE?: No VTE Risk Level:: Medical - moderate - high VTE Device Contraindication: N/A - Device Ordered VTE Drug Contraindication: N/A - Med Ordered
[2025-01-22 14:11] LABS: Glucose, Whole Blood 422 mg/dL (60-115)
[2025-01-22 18:13] LABS: Glucose, Whole Blood 412 mg/dL (60-115)
[2025-01-22] MEDS: Melatonin 3 MG TABLET 6 MG PO (19:38)
[2025-01-22] MEDS: HYDROmorphone HCl 0.5 MG/0.5 ML SYRINGE IVPUSH (19:46)
[2025-01-22] MEDS: Mirtazapine 7.5 MG TABLET 22.5 MG PO (19:51)
[2025-01-22 22:12] LABS: Glucose, Whole Blood 245 mg/dL (60-115)
[2025-01-23 02:37] LABS: Glucose, Whole Blood 114 mg/dL (60-115)
[2025-01-23 04:00] VITALS: BP 108/65; PULSE 88; RESP 18; TEMP 36.4; O2SAT 98
[2025-01-23] MEDS: HYDROmorphone HCl 0.5 MG/0.5 ML SYRINGE IVPUSH (04:08)
[2025-01-23 06:10] LABS: Glucose, Whole Blood 236 mg/dL (60-115)
[2025-01-23 07:09] VITALS: BP 139/82; PULSE 88; RESP 18; TEMP 36.9; O2SAT 98
[2025-01-23] MEDS: Hydroxychloroquine Sulfate 200 MG TABLET PO (08:04)
[2025-01-23] MEDS: Enoxaparin Sodium 40 MG/0.4 ML SYRINGE SUBCUT (08:04)
[2025-01-23] MEDS: Magnesium Oxide 400 MG TABLET 800 MG PO (08:04)
[2025-01-23] MEDS: FLUoxetine HCl 20 MG CAPSULE PO (08:04)
[2025-01-23] MEDS: cefTRIAXone sodium 1 GM VIAL IVPUSH (08:04)
[2025-01-23] MEDS: Meclizine HCl 12.5 MG TABLET PO (08:04)
[2025-01-23] MEDS: Fludrocortisone Acetate 0.1 MG TABLET PO (08:04)
[2025-01-23] MEDS: 0.9 % Sodium Chloride Flush 3 ML SYRINGE IVFLUSH ×2 (08:05→19:42)
[2025-01-23] MEDS: oxyCODONE HCl Immed Release 5 MG TABLET PO (08:07)
[2025-01-23 09:38] LABS: Glucose, Whole Blood 416 mg/dL (60-115)
[2025-01-23 10:56] VITALS: BP 151/103; PULSE 103; RESP 18; TEMP 37.4; O2SAT 99
[2025-01-23 12:12] LABS: Glucose, Whole Blood 218 mg/dL (60-115)
[2025-01-23 12:44] LABS: Hematocrit 26.1 % (37.0-47.0); Hemoglobin 8.7 g/dl (12.0-16.0); Mean Corpuscular HGB Conc 33.3 g/dl (31.0-35.0); Mean Platelet Volume 9.4 fL (9.4-12.3); Platelet Count 195 X10*3/uL (160-400); Red Cell Distribution Width 15.6 % (11.0-16.0); White Blood Count 2.8 X10*3/uL (4.8-10.8)
[2025-01-23] MEDS: Lactated Ringers 1,000 ML 150 ML IVCONT ×2 (12:50→19:23)
[2025-01-23] MEDS: Morphine Sulfate 2 MG/ML CARTRIDGE IVPUSH (12:51)
--- NOTE | 2025-01-23 13:03 | P.PNIM_ITS ---
Subjective Subjective Date of Service: 01/24/25 Interval History: No events overnight, however has been having nausea and vomitting and c/o abdominal pain, a CT of abdomen and pelvis Physical Exam 2 Vital Signs: Vital Signs: Last Vital Signs Temp 99.3 F 01/23/25 10:56 Pulse 103 H 01/23/25 10:56 Resp 18 01/23/25 10:56 BP 151/103 H 01/23/25 10:56 Pulse Ox 99 01/23/25 10:56 O2 Del Method Room Air 01/23/25 10:56 BMI result Body Mass Index 19.4 Objective Data Active Medications Calcium Carbonate (Calcium Carbonate 750 Mg Tab.Chew) 750 mg PO Q4H PRN PRN Reason: Heartburn Ceftriaxone Sodium (Ceftriaxone Sodium 1 Gm Vial) 1 gm IVPUSH Q24H [facility] Last Admin: 01/23/25 08:04 Dose: 1 gm Documented By: ESTUARDO Dextrose (Dextrose 50 % 25 Gm/50 Ml Syringe) 25 gm IVPUSH Q15M PRN; Protocol PRN Reason: per Hypoglycemia Standing Ord. Last Admin: 01/13/25 04:24 Dose: 25 gm Documented By: ADELINA Enoxaparin Sodium (Enoxaparin Sodium 40 Mg/0.4 Ml Syringe) 40 mg SUBCUT Q24H [facility] Last Admin: 01/23/25 08:04 Dose: 40 mg Documented By: ESTUARDO Fludrocortisone Acetate (Fludrocortisone Acetate 0.1 Mg Tablet) 0.1 mg PO DAILY [facility] Last Admin: 01/23/25 08:04 Dose: 0.1 mg Documented By: ESTUARDO Fluoxetine HCl (Fluoxetine Hcl 20 Mg Capsule) 20 mg PO DAILY [facility] Last Admin: 01/23/25 08:04 Dose: 20 mg Documented By: ESTUARDO Glucose (Glucose Gel 15 Gm Gel..Gram.) 15 gm PO Q15M PRN; Protocol PRN Reason: per Hypoglycemia Standing Ord. Hydroxychloroquine Sulfate (Hydroxychloroquine Sulfate 200 Mg Tablet) 200 mg PO DAILY [facility] Last Admin: 01/23/25 08:04 Dose: 200 mg Documented By: ESTUARDO Hydroxyzine HCl (Hydroxyzine Hcl 25 Mg Tablet) 25 mg PO QID PRN PRN Reason: anxiety Last Admin: 01/22/25 19:38 Dose: 25 mg Documented By: ADELINA Lactated Ringer's (Lr) 1,000 mls @ 150 mls/hr IVCONT .Q6H40M [facility] Last Admin: 01/23/25 12:50 Dose: 150 mls/hr Documented By: JANEL Magnesium Hydroxide (Milk Of Magnesia 30 Ml Oral.Susp) 30 ml PO DAILY PRN PRN Reason: Constipation Magnesium Oxide (Magnesium Oxide 400 Mg Tablet) 800 mg PO BIDPC [facility] Last Admin: 01/23/25 08:04 Dose: 800 mg Documented By: ESTUARDO Meclizine HCl (Meclizine Hcl 12.5 Mg Tablet) 12.5 mg PO Q6H PRN PRN Reason: dizziness Last Admin: 01/23/25 08:04 Dose: 12.5 mg Documented By: ESTUARDO Melatonin (Melatonin 3 Mg Tablet) 6 mg PO BEDTIME PRN PRN Reason: Insomnia Last Admin: 01/22/25 19:38 Dose: 6 mg Documented By: ADELINA Midodrine (Midodrine Hcl 10 Mg Tablet) 10 mg PO TID [facility]; Protocol Last Admin: 01/23/25 08:05 Dose: Not Given Documented By: ESTUARDO Non-Admin Reason: Elevated Blood Pressure Mirtazapine (Mirtazapine 7.5 Mg Tablet) 22.5 mg PO BEDTIME [facility] Last Admin: 01/22/25 19:51 Dose: 22.5 mg Documented By: ADELINA Morphine Sulfate (Morphine Sulfate 2 Mg/Ml Cartridge) 2 mg IVPUSH Q4H PRN; Protocol PRN Reason: Pain, Severe (Pain Scale 7-10) Last Admin: 01/23/25 12:51 Dose: 2 mg Documented By: JANEL Naloxone HCl (Naloxone Hcl 0.4 Mg/Ml Vial) 0.4 mg IVPUSH Q5M PRN PRN Reason: Opiate Reversal Non-Formulary Medication (Insulin Regular Hum U-500 Conc [Humulin R U-500 (Conc) Kwikpen]) 350 unit SUBCUT TIDAC [facility] Last Admin: 01/23/25 11:26 Dose: 350 unit Documented By: JANEL Ondansetron HCl (Ondansetron Hcl 4 Mg/2 Ml Vial) 4 mg IVPUSH Q8H PRN PRN Reason: Nausea and Vomiting Last Admin: 01/16/25 08:04 Dose: 4 mg Documented By: TORIBIO Oxycodone HCl (Oxycodone Hcl Immed Release 5 Mg Tablet) 5 mg PO Q6H PRN PRN Reason: Pain, Severe (Pain Scale 7-10) Last Admin: 01/23/25 08:07 Dose: 5 mg Documented By: ESTUARDO Pioglitazone HCl (Pioglitazone Hcl 45 Mg Tablet) 45 mg PO DAILY [facility] On Hold: 01/13/25 14:24 Last Admin: 01/13/25 10:22 Dose: 45 mg Documented By: BRUNA Polyethylene Glycol (Polyethylene Glycol 3350 17 Gm Powd.Pack) 17 gm PO DAILY PRN PRN Reason: Constipation Senna (Sennosides 8.6 Mg Tablet) 17.2 mg PO BEDTIME [facility] Last Admin: 01/22/25 19:38 Dose: Not Given Documented By: ADELINA Non-Admin Reason: Patient Refused Sodium Chloride (0.9 % Sodium Chloride Flush 3 Ml Syringe) 3 ml IVFLUSH QSHIFT [facility] Last Admin: 01/23/25 08:05 Dose: 3 ml Documented By: ESTUARDO Labs 01/23/25 12:14 01/23/25 12:14 Labs: Laboratory Results - last 24 hr 01/21/25 01/22/25 01/22/25 06:08 14:07 18:09 MCV MCH MCHC RDW Plt Count MPV Absolute Nucleated RBC Nucleated RBC % (auto) POC Glucose 218 H 422 H* 412 H* 01/22/25 01/23/25 01/23/25 22:07 02:26 06:07 MCV MCH MCHC RDW Plt Count MPV Absolute Nucleated RBC Nucleated RBC % (auto) POC Glucose 245 H 114 236 H 01/23/25 01/23/25 09:33 12:14 MCV 90.0 MCH 30.0 MCHC 33.3 RDW 15.6 Plt Count 195 MPV 9.4 Absolute Nucleated RBC 0.000 Nucleated RBC % (auto) 0.0 POC Glucose 416 H* Assessment and Plan (1) Sacral decubitus ulcer, stage IV: Status: Acute (2) Fall: Status: Acute (3) Hyperglycemia: Status: Acute Plan 49-year-old black female with past medical history insulin-dependent diabetes type 2 with high insulin resistant, major depressive disorder, general anxiety disorder, daily marijuana use, currently on methadone for pain control, a current unstageable sacral wound with history of osteomyelitis, lupus, myelofibrosis with the associated pancytopenia, diabetic gastroparesis, recurrent C diff infections currently asymptomatic admitted from [facility] shortly after admission to the unit, she was having hyperglycemia Abdominal pain, nausea, BMP, CBC ok, ? gastrparesis, treated with pain meds, antiemtics, CT without contrast not good study, repeat with IV contrast, abdominal exam is bening Unrepsive episodes Syncope episodes, likely d/t component of orthostatic hypotension, autonomic dysfunction, flucturating glucose, and seizure ruled out, last episode yesteerday, no arrytnmia continue midodrine and florinef but hold if BP too high seen cardiology no other recommendation at this time Seen by Neuro 01/18:Recom: Cardiac event monitor for 30 days. Echocardiogram. EEG is negative, 48 hr ambulatory EEG. [place] orthostatics twice a day. MRA of head and neck unremarkable. insulin-dependent diabetes type 2 with hyperglycemia and insulin resistance (Per endocrinology staff at [facility] : Patient has diabetes with insulin resistance and has hoa on IVIG Hemoglobin A1c > 14, normally on insulin up to 750 units tid Presently on 350 with sugars still 300s She is a management challenge d/t tendency to refuse care/insulin and ordering non diabetic food and drink from outside the hospital in additional to her hospial meals Stage IV sacral wound with history of osteomyelitis--seen by wound care. See picture and asssement in wound care note recommendation: Recommendations: see picture in wound care 1. Turn and Reposition every 2 hours and as needed for patient comfort.? Use pillows or wedges to support off loading positions. 2. Off Load all bony prominences with use of pillows and heel boots if needed.? Apply Preventative foams where needed. ? 3. Monitor for incontinence and moisture control, use barrier creams when needed for prevention and treatment. 4. Provide adequate and supplemental nutrition.? 5. Order low air loss mattress. 6. Maintain blood glucose levels per Providers order. Coccyx / Sacrum - Off Load Pressure with Q2 hr turns and use of pillows Cleanse and irrigate with NS, Pat dry.? Apply barrier(Triad) to periwound, lightly pack with Durafiber AG, be sure to leave a wick to easy removal.? Fill space with dry gauze, cover with ABD pad.? Change Daily while inpt. May change every other day at time of discharge from inpatient services. Recommend follow up out patient Wound Clinic at [address] [place] [id number] and to call for an appointment at time of discharge. [phone].? UTI--treated with Ceftriaxone Diarrhea--negative cdif and gi panel, diarrhea resolved Anemia of chronic disease, H/H on low side but stable. Monitor Pancytopenia (chronic) -Leukopenia, Thrombocytopenia, and Anemia noted -Levels stable Chronic pain-Patient currently on methadone for chronic pain management, no history of substance use disorder on methadone. Major depressive disorder with general anxiety disorder One-to-one ordered for constant observation. Patient currently grieving the loss of her brother. Patient is not currently suicidal or admitting to suicidal ideations Psych eval added -will need crisis eval before discharge DVT prophylaxis: Lovenox PPI prophylaxis: Omeprazole Full Code status Ongoing need: orthostasis : ivf and moniter tele and orthosatsis,syncope Dispo: Likely STR Quality Stroke Does the patient have a stroke diagnosis?: No Reason for No Anti-thrombotic by Day Two: N/A - Med Ordered VTE Prior VTE?: No VTE Risk Level:: Medical - moderate - high VTE Device Contraindication: N/A - Device Ordered VTE Drug Contraindication: N/A - Med Ordered
[2025-01-23 13:08] LABS: Blood Urea Nitrogen 22 mg/dL (9-16); Calcium 9.3 mg/dL (8.4-10.2); Creatinine Clr Calc Pharmacy 51.3; Estimated Glomerular Filt Rate 58; Glucose Random 413 mg/dL (60-115)
[2025-01-23 13:17] LABS: Anion Gap 15 (12-20); Carbon Dioxide 25 mmol/L (22-29); Chloride 102 mmol/L (96-108); Sodium 138 mmol/L (135-145)
--- NOTE | 2025-01-23 13:26 | MHC.CLN ---
F/U PO INTAKE 75-100% IN ADDITION, PT ORDERS FOOD FROM OUTSIDE FACILITY PT NOT INTERESTED IN DIET EDUCATION NONCOMPLIANT WITH DM DIET DIET RX: 1800DM -APPROPRIATE RECEIVING ENSURE MAX BID TO PROMOTE WOUND HEALING SUPP PROVIDES 300KCALS, 60G PROTEIN CONTINUE TO MONITOR PO INTAKE AND ENCOURAGE SUPPLEMENT
[2025-01-23 14:12] LABS: Glucose, Whole Blood 336 mg/dL (60-115)
--- NOTE | 2025-01-23 15:05 | MHC.CM.PN ---
EMR reviewed and per MD rounds, pt is not medically cleared for discharge due to management of orthostasis.
[2025-01-23] MEDS: ondansetron HCL 4 MG/2 ML VIAL IVPUSH (15:17)
[2025-01-23 15:53] VITALS: BP 174/95; PULSE 100; RESP 20; TEMP 37.5; O2SAT 98
[2025-01-23] MEDS: HYDROmorphone HCl 1 MG/ML SYRINGE IVPUSH ×2 (16:24→20:27)
[2025-01-23 17:25] LABS: Glucose, Whole Blood 214 mg/dL (60-115)
[2025-01-23 19:17] LABS: Alanine Aminotransferase 56 U/L (0-31); Albumin Level 3.9 g/dL (3.5-5.0); Alkaline Phosphatase 85 U/L (39-117); Aspartate Amino Transferase 57 U/L (5-31); Bilirubin Direct 0.2 mg/dL (0.0-0.5); Bilirubin Total 0.3 mg/dL (0.0-1.0); Lipase 65 U/L (8-78); Total Protein 7.7 g/dL (6.5-8.0)
[2025-01-23] MEDS: diphenhydrAMINE HCL 50 MG/ML VIAL IVPUSH (19:42)
[2025-01-23] MEDS: Metoclopramide HCl 10 MG/2 ML VIAL 5 MG IVPUSH (19:42)
[2025-01-23 19:48] VITALS: BP 179/98; PULSE 104; RESP 20; TEMP 37.2; O2SAT 98
[2025-01-23 22:03] LABS: Glucose, Whole Blood 119 mg/dL (60-115)
[2025-01-23 23:37] LABS: Glucose, Whole Blood 102 mg/dL (60-115)
[2025-01-23 23:59] VITALS: BP 195/99; PULSE 105; RESP 20; TEMP 36.4; O2SAT 98
[2025-01-24] MEDS: HYDROmorphone HCl 1 MG/ML SYRINGE IVPUSH ×7 (00:27→22:38)
[2025-01-24] MEDS: ondansetron HCL 4 MG/2 ML VIAL IVPUSH ×3 (00:30→18:45)
--- NOTE | 2025-01-24 00:39 | PC.NURSE ---
Pt's BP is 195/99, Dr. Moy aware. Also, CAT scan is ready for her to come down for CT of abdomen/pelvis with contrast and pt is refusing to go, Dr. Moy is aware.
[2025-01-24] MEDS: Lactated Ringers 1,000 ML 150 ML IVCONT ×3 (01:45→18:45)
[2025-01-24 02:15] LABS: Glucose, Whole Blood 91 mg/dL (60-115)
[2025-01-24 03:51] VITALS: BP 190/93; PULSE 96; RESP 20; TEMP 36.8; O2SAT 98
--- NOTE | 2025-01-24 04:07 | PC.NURSE ---
Pt's BP is 190/93, Dr. Moy aware.
[2025-01-24 06:06] LABS: Glucose, Whole Blood 164 mg/dL (60-115)
[2025-01-24 07:00] VITALS: BP 181/100; PULSE 92; RESP 18; TEMP 37.2; O2SAT 98
--- NOTE | 2025-01-24 08:24 | PC.NURSE ---
patient refusing any po morning medications
[2025-01-24] MEDS: Enoxaparin Sodium 40 MG/0.4 ML SYRINGE SUBCUT (08:37)
[2025-01-24] MEDS: 0.9 % Sodium Chloride Flush 3 ML SYRINGE IVFLUSH ×2 (08:37→16:38)
[2025-01-24 09:39] LABS: Glucose, Whole Blood 164 mg/dL (60-115)
[2025-01-24] MEDS: iohexoL 350 MG/ML 100 ML INFUS..BTL IV (10:16)
[2025-01-24 11:15] VITALS: BP 185/103; PULSE 96; RESP 18; TEMP 37.7; O2SAT 97
[2025-01-24] MEDS: Nystatin Powder 15 GM BOTTLE 1 APPL TOPICAL ×2 (11:28→16:35)
--- NOTE | 2025-01-24 13:37 | PM.GICN ---
History of Present Illness Data of Consult Service Date: 01/24/25 Requesting physician: Jones Bernstein Primary Care Provider: Moises Ramires NP HPI Reason for consult: Abd pain, N/V 49-year-old black female with past medical history insulin-dependent diabetes type 2, major depressive disorder, general anxiety disorder, daily marijuana use, currently on methadone for pain control, a current unstageable sacral wound with history of osteomyelitis, lupus, myelofibrosis with the associated pancytopenia, diabetic gastroparesis, recurrent C diff infections who was transferred [facility] 01/10 for severe hyperglycemia BG 600s with course complicated by a fall. Gastroenterology has been consulted for persistent abd pain, N,V despite BG < 180. Pt seen at bedside in the presence of a sitter. Reports diffuse abd pain with nausea. Has not been able to tolerate any solids x 2 days. No change in bowel habits reported. No prior hx of PUD. Does note a hx of EGD almost 20 years ago but is not sure why it was done. CT abd/pel reviewed no GOO or SBO noted. Does have significant fecal loading. Review of Systems Review of Systems: Yes all other systems are reviewed and are negative PMFSH Past Medical History Medical History Generalized anxiety disorder Major depressive disorder Sacral decubitus ulcer, stage IV Chronic pain Lupus (systemic lupus erythematosus) Insulin dependent type 2 diabetes mellitus Family History Family history: reviewed and not pertinent Social History Social History Household Members: Spouse Housing: Apartment Do you presently have visiting nurse or other home services: No Comment: 1-1 sitter Patient Tobacco Use Status: Never used Tobacco e-Cigarette/Vaping Use: Never Used Second Hand Smoke Exposure: No Use of substances other than those prescribed or required for medical reasons: Yes Substance Use Type: Marijuana Currently Displaying Signs/Symptoms of Drug Intoxication Withdrawal: No Advance Directives: No Advance Directives Information Provided: No Advance Directives on File: No Patient : No service: No Travel History Ebola Risk: Travel/Contact With Anyone From Affected Area/s: No Has Patient Experienced Ebola Symptoms: No Meds Allergies Allergy/AdvReac Type Severity Reaction Status Date / Time acetaminophen Allergy Swelling Verified 01/10/25 00:40 atorvastatin Allergy Unknown Verified 01/10/25 00:40 duloxetine Allergy Unknown Verified 01/10/25 00:40 fish derived (fish) Allergy Swelling Verified 01/10/25 00:40 Active Medications: Current Medications Calcium Carbonate (Calcium Carbonate 750 Mg Tab.Chew) 750 mg PO Q4H PRN PRN Reason: Heartburn Dextrose (Dextrose 50 % 25 Gm/50 Ml Syringe) 25 gm IVPUSH Q15M PRN; Protocol PRN Reason: per Hypoglycemia Standing Ord. Last Admin: 01/13/25 04:24 Dose: 25 gm Enoxaparin Sodium (Enoxaparin Sodium 40 Mg/0.4 Ml Syringe) 40 mg SUBCUT Q24H [facility] Last Admin: 01/24/25 08:37 Dose: 40 mg Fludrocortisone Acetate (Fludrocortisone Acetate 0.1 Mg Tablet) 0.1 mg PO DAILY [facility] Last Admin: 01/24/25 10:15 Dose: Not Given Fluoxetine HCl (Fluoxetine Hcl 20 Mg Capsule) 20 mg PO DAILY [facility] Last Admin: 01/24/25 10:15 Dose: Not Given Glucose (Glucose Gel 15 Gm Gel..Gram.) 15 gm PO Q15M PRN; Protocol PRN Reason: per Hypoglycemia Standing Ord. Hydromorphone HCl (Hydromorphone Hcl 1 Mg/Ml Syringe) 1 mg IVPUSH Q4H PRN; Protocol PRN Reason: Pain, Severe (Pain Scale 7-10) Last Admin: 01/24/25 12:34 Dose: 1 mg Hydroxychloroquine Sulfate (Hydroxychloroquine Sulfate 200 Mg Tablet) 200 mg PO DAILY [facility] Last Admin: 01/24/25 10:16 Dose: Not Given Hydroxyzine HCl (Hydroxyzine Hcl 25 Mg Tablet) 25 mg PO QID PRN PRN Reason: anxiety Last Admin: 01/22/25 19:38 Dose: 25 mg Lactated Ringer's (Lr) 1,000 mls @ 150 mls/hr IVCONT .Q6H40M [facility] Last Admin: 01/24/25 11:26 Dose: 150 mls/hr Magnesium Hydroxide (Milk Of Magnesia 30 Ml Oral.Susp) 30 ml PO DAILY PRN PRN Reason: Constipation Magnesium Oxide (Magnesium Oxide 400 Mg Tablet) 800 mg PO BIDPC [facility] Last Admin: 01/24/25 08:42 Dose: Not Given Meclizine HCl (Meclizine Hcl 12.5 Mg Tablet) 12.5 mg PO Q6H PRN PRN Reason: dizziness Last Admin: 01/23/25 08:04 Dose: 12.5 mg Melatonin (Melatonin 3 Mg Tablet) 6 mg PO BEDTIME PRN PRN Reason: Insomnia Last Admin: 01/22/25 19:38 Dose: 6 mg Midodrine (Midodrine Hcl 10 Mg Tablet) 10 mg PO TID [facility]; Protocol Last Admin: 01/24/25 10:16 Dose: Not Given Mirtazapine (Mirtazapine 7.5 Mg Tablet) 22.5 mg PO BEDTIME [facility] Last Admin: 01/23/25 20:29 Dose: Not Given Naloxone HCl (Naloxone Hcl 0.4 Mg/Ml Vial) 0.4 mg IVPUSH Q5M PRN PRN Reason: Opiate Reversal Non-Formulary Medication (Insulin Regular Hum U-500 Conc [Humulin R U-500 (Conc) Kwikpen]) 350 unit SUBCUT TIDAC [facility] Last Admin: 01/24/25 08:42 Dose: Not Given Nystatin (Nystatin Powder 15 Gm Bottle) 1 appl TOPICAL TID [facility]; Protocol Last Admin: 01/24/25 11:28 Dose: 1 appl Ondansetron HCl (Ondansetron Hcl 4 Mg/2 Ml Vial) 4 mg IVPUSH Q8H PRN PRN Reason: Nausea and Vomiting Last Admin: 01/24/25 08:38 Dose: 4 mg Oxycodone HCl (Oxycodone Hcl Immed Release 5 Mg Tablet) 5 mg PO Q6H PRN PRN Reason: Pain, Severe (Pain Scale 7-10) Last Admin: 01/23/25 08:07 Dose: 5 mg Pioglitazone HCl (Pioglitazone Hcl 45 Mg Tablet) 45 mg PO DAILY [facility] On Hold: 01/13/25 14:24 Last Admin: 01/13/25 10:22 Dose: 45 mg Polyethylene Glycol (Polyethylene Glycol 3350 17 Gm Powd.Pack) 17 gm PO DAILY PRN PRN Reason: Constipation Senna (Sennosides 8.6 Mg Tablet) 17.2 mg PO BEDTIME [facility] Last Admin: 01/23/25 20:29 Dose: Not Given Sodium Chloride (0.9 % Sodium Chloride Flush 3 Ml Syringe) 3 ml IVFLUSH QSHIFT [facility] Last Admin: 01/24/25 08:37 Dose: 3 ml Home Medications ?Medication ?Instructions ?Recorded ?Confirmed ?Last Taken ?Type fludrocortisone 0.1 mg tablet 0.1 mg PO DAILY 01/10/25 01/10/25 01/09/25 12:01 History fluoxetine 20 mg capsule 20 mg PO DAILY 01/10/25 01/10/25 01/09/25 12:01 History hydroxychloroquine 200 mg tablet 200 mg PO QAM 01/10/25 01/10/25 01/09/25 12:13 History hydroxyzine pamoate 25 mg capsule 25 mg PO QID PRN anxiety 01/10/25 01/10/25 Unknown History insulin regular hum U-500 conc 500 700 unit subcut TIDAC 01/10/25 01/10/25 01/09/25 14:32 History unit/mL(3 mL) subcut pen (Humulin R U-500 (Conc) Insulin Kwikpen) methadone 10 mg tablet 20 mg PO TID PRN Pain (Scale Score 01/10/25 01/10/25 Unknown History 7-10) midodrine 10 mg tablet 10 mg PO TID 01/10/25 01/10/25 01/09/25 18:52 History mirtazapine 7.5 mg tablet 22.5 mg PO BEDTIME 01/10/25 01/10/25 Unknown History pioglitazone 45 mg tablet 45 mg PO DAILY 01/10/25 01/10/25 01/09/25 12:01 History Physical Exam Vital Signs: Vital Signs: Last Vital Signs Temp 99.8 F 01/24/25 11:15 Pulse 96 01/24/25 11:15 Resp 18 01/24/25 11:15 BP 185/103 H 01/24/25 11:15 Pulse Ox 97 01/24/25 11:15 O2 Del Method Room Air 01/24/25 11:15 BMI result Body Mass Index 19.4 Frail, appears older than stated age Nonicteric NAD Abd soft, tenderness out of proportion to exam, nondistended No resp distress A/Ox3, able to answer most questions appropriately Results Labs 01/23/25 12:14 01/23/25 12:14 Labs: Liver Function 01/23/25 Range/Units 12:14 Total Bilirubin 0.3 (0.0-1.0) mg/dL Direct Bilirubin 0.2 (0.0-0.5) mg/dL AST 57 H (5-31) U/L ALT 56 H (0-31) U/L Alkaline Phosphatase 85 (39-117) U/L Albumin 3.9 (3.5-5.0) g/dL Assessment and Plan (1) Diffuse abdominal pain: Status: Acute (2) Nausea and vomiting: Status: Acute (3) Gastroparesis: Status: Acute Plan Pt with known gastroparesis now with persistent abd pain, N,V despite normalization of blood sugars. DDx includes gastroparesis flare vs gastritis vs PUD. Central cause of N/V also considered sarah as pt also c/o dizziness but recent head imaging reassuring. Plan: - Check QTc and if normal start erythromycin 250 TID for possible GP flare - Small particle diet - Empiric PPI for possible PUD and gastroparesis also predisposes to increased reflux due to impaired gastric emptying - Bowel regimen to tx constipation - NPO after MN for EGD tmrw for luminal evaluation. Pt able to demonstrate understanding of the procedure on my assessment. Thank you for allowing me to participate in her care. Please do not hesitate to reach out for any questions or concerns. Procedures Date of Service Date of Service: 01/24/25
--- NOTE | 2025-01-24 14:04 | P.PNIM_ITS ---
Subjective Subjective Date of Service: 01/24/25 Interval History: Patient with persistent nausea and vomitting, CT without contrast yesterday was non-diagnostic and she declined CT with contast overnight, prefering to do it in the morning Physical Exam 2 Vital Signs: Vital Signs: Last Vital Signs Temp 99.8 F 01/24/25 11:15 Pulse 96 01/24/25 11:15 Resp 18 01/24/25 11:15 BP 185/103 H 01/24/25 11:15 Pulse Ox 97 01/24/25 11:15 O2 Del Method Room Air 01/24/25 11:15 BMI result Body Mass Index 19.4 Frail, appears older than stated age Nonicteric NAD Abd soft, tenderness out of proportion to exam, nondistended No resp distress A/Ox3, able to answer most questions appropriately Objective Data Active Medications Calcium Carbonate (Calcium Carbonate 750 Mg Tab.Chew) 750 mg PO Q4H PRN PRN Reason: Heartburn Dextrose (Dextrose 50 % 25 Gm/50 Ml Syringe) 25 gm IVPUSH Q15M PRN; Protocol PRN Reason: per Hypoglycemia Standing Ord. Last Admin: 01/13/25 04:24 Dose: 25 gm Documented By: ADELINA Enoxaparin Sodium (Enoxaparin Sodium 40 Mg/0.4 Ml Syringe) 40 mg SUBCUT Q24H [facility] Last Admin: 01/24/25 08:37 Dose: 40 mg Documented By: SAHIL Fludrocortisone Acetate (Fludrocortisone Acetate 0.1 Mg Tablet) 0.1 mg PO DAILY [facility] Last Admin: 01/24/25 10:15 Dose: Not Given Documented By: SAHIL Non-Admin Reason: Patient Refused Fluoxetine HCl (Fluoxetine Hcl 20 Mg Capsule) 20 mg PO DAILY [facility] Last Admin: 01/24/25 10:15 Dose: Not Given Documented By: SAHIL Non-Admin Reason: Patient Refused Glucose (Glucose Gel 15 Gm Gel..Gram.) 15 gm PO Q15M PRN; Protocol PRN Reason: per Hypoglycemia Standing Ord. Hydromorphone HCl (Hydromorphone Hcl 1 Mg/Ml Syringe) 1 mg IVPUSH Q4H PRN; Protocol PRN Reason: Pain, Severe (Pain Scale 7-10) Last Admin: 01/24/25 12:34 Dose: 1 mg Documented By: SAHIL Hydroxychloroquine Sulfate (Hydroxychloroquine Sulfate 200 Mg Tablet) 200 mg PO DAILY [facility] Last Admin: 01/24/25 10:16 Dose: Not Given Documented By: SAHIL Non-Admin Reason: Patient Refused Hydroxyzine HCl (Hydroxyzine Hcl 25 Mg Tablet) 25 mg PO QID PRN PRN Reason: anxiety Last Admin: 01/22/25 19:38 Dose: 25 mg Documented By: ADELINA Lactated Ringer's (Lr) 1,000 mls @ 150 mls/hr IVCONT .Q6H40M [facility] Last Admin: 01/24/25 11:26 Dose: 150 mls/hr Documented By: SAHIL Magnesium Hydroxide (Milk Of Magnesia 30 Ml Oral.Susp) 30 ml PO DAILY PRN PRN Reason: Constipation Magnesium Oxide (Magnesium Oxide 400 Mg Tablet) 800 mg PO BIDPC [facility] Last Admin: 01/24/25 08:42 Dose: Not Given Documented By: SAHIL Non-Admin Reason: Patient Refused Meclizine HCl (Meclizine Hcl 12.5 Mg Tablet) 12.5 mg PO Q6H PRN PRN Reason: dizziness Last Admin: 01/23/25 08:04 Dose: 12.5 mg Documented By: ESTUARDO Melatonin (Melatonin 3 Mg Tablet) 6 mg PO BEDTIME PRN PRN Reason: Insomnia Last Admin: 01/22/25 19:38 Dose: 6 mg Documented By: ADELINA Midodrine (Midodrine Hcl 10 Mg Tablet) 10 mg PO TID [facility]; Protocol Last Admin: 01/24/25 10:16 Dose: Not Given Documented By: SAHIL Non-Admin Reason: Patient Refused Mirtazapine (Mirtazapine 7.5 Mg Tablet) 22.5 mg PO BEDTIME [facility] Last Admin: 01/23/25 20:29 Dose: Not Given Documented By: YAIR Non-Admin Reason: Patient Refused Naloxone HCl (Naloxone Hcl 0.4 Mg/Ml Vial) 0.4 mg IVPUSH Q5M PRN PRN Reason: Opiate Reversal Non-Formulary Medication (Insulin Regular Hum U-500 Conc [Humulin R U-500 (Conc) Kwikpen]) 350 unit SUBCUT TIDAC [facility] Last Admin: 01/24/25 08:42 Dose: Not Given Documented By: SAHIL Non-Admin Reason: Patient Refused Nystatin (Nystatin Powder 15 Gm Bottle) 1 appl TOPICAL TID [facility]; Protocol Last Admin: 01/24/25 11:28 Dose: 1 appl Documented By: SAHIL Ondansetron HCl (Ondansetron Hcl 4 Mg/2 Ml Vial) 4 mg IVPUSH Q8H PRN PRN Reason: Nausea and Vomiting Last Admin: 01/24/25 08:38 Dose: 4 mg Documented By: SAHIL Oxycodone HCl (Oxycodone Hcl Immed Release 5 Mg Tablet) 5 mg PO Q6H PRN PRN Reason: Pain, Severe (Pain Scale 7-10) Last Admin: 01/23/25 08:07 Dose: 5 mg Documented By: ESTUARDO Pioglitazone HCl (Pioglitazone Hcl 45 Mg Tablet) 45 mg PO DAILY [facility] On Hold: 01/13/25 14:24 Last Admin: 01/13/25 10:22 Dose: 45 mg Documented By: BRUNA Polyethylene Glycol (Polyethylene Glycol 3350 17 Gm Powd.Pack) 17 gm PO DAILY PRN PRN Reason: Constipation Senna (Sennosides 8.6 Mg Tablet) 17.2 mg PO BEDTIME [facility] Last Admin: 01/23/25 20:29 Dose: Not Given Documented By: YAIR Non-Admin Reason: Patient Refused Sodium Chloride (0.9 % Sodium Chloride Flush 3 Ml Syringe) 3 ml IVFLUSH QSHIFT [facility] Last Admin: 01/24/25 08:37 Dose: 3 ml Documented By: SAHIL Labs 01/23/25 12:14 01/23/25 12:14 Labs: Laboratory Results - last 24 hr 01/23/25 01/23/25 01/23/25 12:14 14:08 17:20 POC Glucose 336 H 214 H Total Bilirubin 0.3 Direct Bilirubin 0.2 AST 57 H ALT 56 H Alkaline Phosphatase 85 Total Protein 7.7 Albumin 3.9 Lipase 65 01/23/25 01/23/25 01/24/25 21:59 23:30 02:08 POC Glucose 119 H 102 91 Total Bilirubin Direct Bilirubin AST ALT Alkaline Phosphatase Total Protein Albumin Lipase 01/24/25 01/24/25 06:02 09:31 POC Glucose 164 H 164 H Total Bilirubin Direct Bilirubin AST ALT Alkaline Phosphatase Total Protein Albumin Lipase Assessment and Plan (1) Sacral decubitus ulcer, stage IV: Status: Acute (2) Fall: Status: Acute (3) Hyperglycemia: Status: Acute Plan 49-year-old black female with past medical history insulin-dependent diabetes type 2 with high insulin resistant, major depressive disorder, general anxiety disorder, daily marijuana use, currently on methadone for pain control, a current unstageable sacral wound with history of osteomyelitis, lupus, myelofibrosis with the associated pancytopenia, diabetic gastroparesis, recurrent C diff infections currently asymptomatic admitted from [facility] shortly after admission to the unit, she was having hyperglycemia Abdominal pain, nausea, BMP, CBC ok, ? gastrparesis, treated with pain meds, antiemtics, CT without contrast not good study, repeat with IV contrast show constipation but no acute finding, symptoms likely due to gastroparesis, continue symtoms treatment with pain meds and antiemetics. For EGD tomorrow per GI Unrepsive episodes Syncope episodes, likely d/t component of orthostatic hypotension, autonomic dysfunction, flucturating glucose, and seizure ruled out, last episode yesteerday, no arrytnmia--no episode in more than 48 hrs continue midodrine and florinef but hold if BP too high seen cardiology no other recommendation at this time Seen by Neuro 01/18:Recom: Cardiac event monitor for 30 days. Echocardiogram. EEG is negative, 48 hr ambulatory EEG. [place] orthostatics twice a day. MRA of head and neck unremarkable. insulin-dependent diabetes type 2 with hyperglycemia and insulin resistance (Per endocrinology staff at [facility] : Patient has diabetes with insulin resistance and has hoa on IVIG Hemoglobin A1c > 14, normally on insulin up to 750 units tid Presently on 350 with sugars still 300s She is a management challenge d/t tendency to refuse care/insulin and ordering non diabetic food and drink from outside the hospital in additional to her hospial meals Stage IV sacral wound with history of osteomyelitis--seen by wound care. See picture and asssement in wound care note recommendation: Recommendations: see picture in wound care 1. Turn and Reposition every 2 hours and as needed for patient comfort.? Use pillows or wedges to support off loading positions. 2. Off Load all bony prominences with use of pillows and heel boots if needed.? Apply Preventative foams where needed. ? 3. Monitor for incontinence and moisture control, use barrier creams when needed for prevention and treatment. 4. Provide adequate and supplemental nutrition.? 5. Order low air loss mattress. 6. Maintain blood glucose levels per Providers order. Coccyx / Sacrum - Off Load Pressure with Q2 hr turns and use of pillows Cleanse and irrigate with NS, Pat dry.? Apply barrier(Triad) to periwound, lightly pack with Durafiber AG, be sure to leave a wick to easy removal.? Fill space with dry gauze, cover with ABD pad.? Change Daily while inpt. May change every other day at time of discharge from inpatient services. Recommend follow up out patient Wound Clinic at [address] [place] [phone] and to call for an appointment at time of discharge. [phone].? UTI--treated with Ceftriaxone Diarrhea--negative cdif and gi panel, diarrhea resolved Anemia of chronic disease, H/H on low side but stable. Monitor Pancytopenia (chronic) -Leukopenia, Thrombocytopenia, and Anemia noted -Levels stable Chronic pain-Patient currently on methadone for chronic pain management, no history of substance use disorder on methadone. Major depressive disorder with general anxiety disorder One-to-one ordered for constant observation. Patient currently grieving the loss of her brother. Patient is not currently suicidal or admitting to suicidal ideations Psych eval added -will need crisis eval before discharge DVT prophylaxis: Lovenox PPI prophylaxis: Omeprazole Full Code status Ongoing need: orthostasis : ivf and moniter tele and orthosatsis,syncope Dispo: Likely STR Quality Stroke Does the patient have a stroke diagnosis?: No Reason for No Anti-thrombotic by Day Two: N/A - Med Ordered VTE Prior VTE?: No VTE Risk Level:: Medical - moderate - high VTE Device Contraindication: N/A - Device Ordered VTE Drug Contraindication: N/A - Med Ordered
[2025-01-24 14:31] LABS: Glucose, Whole Blood 173 mg/dL (60-115)
[2025-01-24 15:25] VITALS: BP 188/98; PULSE 97; RESP 18; TEMP 37.4; O2SAT 99
[2025-01-24 17:41] LABS: Glucose, Whole Blood 153 mg/dL (60-115)
[2025-01-24 19:10] VITALS: BP 176/106; PULSE 97; RESP 16; TEMP 36.8; O2SAT 99
[2025-01-24 22:13] LABS: Glucose, Whole Blood 181 mg/dL (60-115)
[2025-01-24 23:22] VITALS: BP 160/92; PULSE 93; RESP 16; TEMP 36.9; O2SAT 97
[2025-01-25] VITALS (10 sets, daily range): BP systolic 94–211; BP diastolic 59–119; PULSE 79–109; RESP 14–18; TEMP 36.3–36.7; O2SAT 98–100
[2025-01-25] MEDS: Lactated Ringers 1,000 ML 150 ML IVCONT ×2 (01:03→07:44)
[2025-01-25] MEDS: HYDROmorphone HCl 1 MG/ML SYRINGE IVPUSH ×8 (01:40→22:50)
[2025-01-25 02:14] LABS: Glucose, Whole Blood 190 mg/dL (60-115)
[2025-01-25] MEDS: ondansetron HCL 4 MG/2 ML VIAL IVPUSH ×2 (04:02→19:58)
[2025-01-25 05:37] LABS: Glucose, Whole Blood 194 mg/dL (60-115)
[2025-01-25 07:36] LABS: Glucose, Whole Blood 171 mg/dL (60-115)
[2025-01-25] MEDS: 0.9 % Sodium Chloride Flush 3 ML SYRINGE IVFLUSH ×2 (07:44→16:45)
[2025-01-25] MEDS: Nystatin Powder 15 GM BOTTLE 1 APPL TOPICAL (07:47)
--- NOTE | 2025-01-25 09:19 | P.PNIM_ITS ---
Subjective Subjective Date of Service: 01/25/25 Interval History: Patient is still complaining of nausea and vomitting, and abdominal pain, there has not being no further episode of passing out Physical Exam 2 Vital Signs: Vital Signs: Last Vital Signs Temp 97.6 F 01/25/25 08:00 Pulse 109 H 01/25/25 08:00 Resp 18 01/25/25 08:00 BP 171/94 H 01/25/25 08:00 Pulse Ox 100 01/25/25 08:00 O2 Del Method Room Air 01/25/25 08:00 BMI result Body Mass Index 19.4 Const: Other: General: AO X 3, no acute distress Resp: CTA bilateral CVS: S1,S2,RRR GI: no specific finding, no distention, Skin: No rash Neuro: motor grossly intact Psych: appropriate affect Objective Data Active Medications Calcium Carbonate (Calcium Carbonate 750 Mg Tab.Chew) 750 mg PO Q4H PRN PRN Reason: Heartburn Dextrose (Dextrose 50 % 25 Gm/50 Ml Syringe) 25 gm IVPUSH Q15M PRN; Protocol PRN Reason: per Hypoglycemia Standing Ord. Last Admin: 01/13/25 04:24 Dose: 25 gm Documented By: ADELINA Enoxaparin Sodium (Enoxaparin Sodium 40 Mg/0.4 Ml Syringe) 40 mg SUBCUT Q24H [facility] Last Admin: 01/25/25 09:02 Dose: Not Given Documented By: CHELE Non-Admin Reason: Patient Refused Fludrocortisone Acetate (Fludrocortisone Acetate 0.1 Mg Tablet) 0.1 mg PO DAILY [facility] Last Admin: 01/25/25 09:03 Dose: Not Given Documented By: CHELE Non-Admin Reason: Patient Refused Fluoxetine HCl (Fluoxetine Hcl 20 Mg Capsule) 20 mg PO DAILY [facility] Last Admin: 01/25/25 09:03 Dose: Not Given Documented By: CHELE Non-Admin Reason: Patient Refused Glucose (Glucose Gel 15 Gm Gel..Gram.) 15 gm PO Q15M PRN; Protocol PRN Reason: per Hypoglycemia Standing Ord. Hydromorphone HCl (Hydromorphone Hcl 1 Mg/Ml Syringe) 1 mg IVPUSH Q3H PRN; Protocol PRN Reason: Pain, Severe (Pain Scale 7-10) Last Admin: 01/25/25 07:41 Dose: 1 mg Documented By: CHELE Hydroxychloroquine Sulfate (Hydroxychloroquine Sulfate 200 Mg Tablet) 200 mg PO DAILY [facility] Last Admin: 01/25/25 09:03 Dose: Not Given Documented By: CHELE Non-Admin Reason: Patient Refused Hydroxyzine HCl (Hydroxyzine Hcl 25 Mg Tablet) 25 mg PO QID PRN PRN Reason: anxiety Last Admin: 01/22/25 19:38 Dose: 25 mg Documented By: ADELINA Lactated Ringer's (Lr) 1,000 mls @ 150 mls/hr IVCONT .Q6H40M [facility] Last Admin: 01/25/25 07:44 Dose: 150 mls/hr Documented By: CHELE Magnesium Hydroxide (Milk Of Magnesia 30 Ml Oral.Susp) 30 ml PO DAILY PRN PRN Reason: Constipation Magnesium Oxide (Magnesium Oxide 400 Mg Tablet) 800 mg PO BIDPC [facility] Last Admin: 01/25/25 07:47 Dose: Not Given Documented By: CHLEE Non-Admin Reason: Patient Refused Meclizine HCl (Meclizine Hcl 12.5 Mg Tablet) 12.5 mg PO Q6H PRN PRN Reason: dizziness Last Admin: 01/23/25 08:04 Dose: 12.5 mg Documented By: ESTUARDO Melatonin (Melatonin 3 Mg Tablet) 6 mg PO BEDTIME PRN PRN Reason: Insomnia Last Admin: 01/22/25 19:38 Dose: 6 mg Documented By: ADELINA Midodrine (Midodrine Hcl 10 Mg Tablet) 10 mg PO TID [facility]; Protocol Last Admin: 01/25/25 09:03 Dose: Not Given Documented By: CHELE Non-Admin Reason: Patient Refused Comments: patient refused. SBP 170s. Mirtazapine (Mirtazapine 7.5 Mg Tablet) 22.5 mg PO BEDTIME [facility] Last Admin: 01/24/25 21:41 Dose: Not Given Documented By: DALLIN Non-Admin Reason: pt. refused/nauseated Naloxone HCl (Naloxone Hcl 0.4 Mg/Ml Vial) 0.4 mg IVPUSH Q5M PRN PRN Reason: Opiate Reversal Non-Formulary Medication (Insulin Regular Hum U-500 Conc [Humulin R U-500 (Conc) Kwikpen]) 350 unit SUBCUT TIDAC [facility] Last Admin: 01/25/25 07:34 Dose: Not Given Documented By: CHELE Non-Admin Reason: NPO for procedure. Nystatin (Nystatin Powder 15 Gm Bottle) 1 appl TOPICAL TID [facility]; Protocol Last Admin: 01/25/25 07:47 Dose: 1 appl Documented By: CHELE Ondansetron HCl (Ondansetron Hcl 4 Mg/2 Ml Vial) 4 mg IVPUSH Q8H PRN PRN Reason: Nausea and Vomiting Last Admin: 01/25/25 04:02 Dose: 4 mg Documented By: DALLIN Oxycodone HCl (Oxycodone Hcl Immed Release 5 Mg Tablet) 5 mg PO Q6H PRN PRN Reason: Pain, Severe (Pain Scale 7-10) Last Admin: 01/23/25 08:07 Dose: 5 mg Documented By: ESTUARDO Pioglitazone HCl (Pioglitazone Hcl 45 Mg Tablet) 45 mg PO DAILY [facility] On Hold: 01/13/25 14:24 Last Admin: 01/13/25 10:22 Dose: 45 mg Documented By: BRUNA Polyethylene Glycol (Polyethylene Glycol 3350 17 Gm Powd.Pack) 17 gm PO DAILY PRN PRN Reason: Constipation Senna (Sennosides 8.6 Mg Tablet) 17.2 mg PO BEDTIME [facility] Last Admin: 01/24/25 21:41 Dose: Not Given Documented By: DALLIN Non-Admin Reason: Patient Refused Sodium Chloride (0.9 % Sodium Chloride Flush 3 Ml Syringe) 3 ml IVFLUSH QSHIFT [facility] Last Admin: 01/25/25 07:44 Dose: 3 ml Documented By: CHELE Labs 01/25/25 09:53 01/25/25 09:53 Labs: Laboratory Results - last 24 hr 01/24/25 01/24/25 01/24/25 09:31 14:27 17:35 POC Glucose 164 H 173 H 153 H 01/24/25 01/25/25 01/25/25 22:09 02:09 05:34 POC Glucose 181 H 190 H 194 H 01/25/25 07:25 POC Glucose 171 H Assessment and Plan (1) Sacral decubitus ulcer, stage IV: Status: Acute (2) Fall: Status: Acute (3) Hyperglycemia: Status: Acute Plan 49-year-old black female with past medical history insulin-dependent diabetes type 2 with high insulin resistant, major depressive disorder, general anxiety disorder, daily marijuana use, currently on methadone for pain control, a current unstageable sacral wound with history of osteomyelitis, lupus, myelofibrosis with the associated pancytopenia, diabetic gastroparesis, recurrent C diff infections currently asymptomatic admitted from [facility] shortly after admission to the unit, she was having hyperglycemia Abdominal pain, nausea, BMP, CBC ok, ? gastrparesis, treated with pain meds, antiemtics, CT without contrast not good study, repeat with IV contrast show constipation but no acute finding, symptoms likely due to gastroparesis, continue symtoms treatment with pain meds and antiemetics. For EGD today: GD Impressions:? * Normal esophagus * Gastritis (biopsy) * Normal duodenum (biopsy)?? Recommendations:?? * No obvious PUD or GOO noted. Likely has some component of delayed gastric emptying. * Follow biopsy results. Our office will call or send a letter with results within 7-10 days. * Consider famotidine to omeprazole 20 once daily * Avoid NSAIDs. * Erythromycin 250 mg TID x 3 days if QTc permissible no Erythro as Qtc is high Unrepsive episodes Syncope episodes, likely d/t component of orthostatic hypotension, autonomic dysfunction, flucturating glucose, and seizure ruled out, NO episode in 3 days continue midodrine and florinef but hold if BP too high seen cardiology no other recommendation at this time Seen by Neuro 01/18:Recom: Cardiac event monitor for 30 days. Echocardiogram. EEG is negative, 48 hr ambulatory EEG. [place] orthostatics twice a day. MRA of head and neck unremarkable. Insulin-dependent diabetes type 2 with hyperglycemia and insulin resistance (Per endocrinology staff at [facility] : Patient has diabetes with insulin resistance and has hoa on IVIG Hemoglobin A1c > 14, normally on insulin up to 750 units tid. Hold Actos if not eating Presently on 350 units tid, blood glucose on low side as she has not been eating as much due to nausea and vomitting likely due to gastroparesisis She is a management challenge d/t tendency to refuse care/insulin and ordering non diabetic food and drink from outside the hospital in additional to her hospial meals Stage IV sacral wound with history of osteomyelitis--seen by wound care. See picture and asssement in wound care note recommendation: Recommendations: see picture in wound care 1. Turn and Reposition every 2 hours and as needed for patient comfort.? Use pillows or wedges to support off loading positions. 2. Off Load all bony prominences with use of pillows and heel boots if needed.? Apply Preventative foams where needed. ? 3. Monitor for incontinence and moisture control, use barrier creams when needed for prevention and treatment. 4. Provide adequate and supplemental nutrition.? 5. Order low air loss mattress. 6. Maintain blood glucose levels per Providers order. Coccyx / Sacrum - Off Load Pressure with Q2 hr turns and use of pillows Cleanse and irrigate with NS, Pat dry.? Apply barrier(Triad) to periwound, lightly pack with Durafiber AG, be sure to leave a wick to easy removal.? Fill space with dry gauze, cover with ABD pad.? Change Daily while inpt. May change every other day at time of discharge from inpatient services. Recommend follow up out patient Wound Clinic at [address] [place] [phone] and to call for an appointment at time of discharge. [phone].? UTI--has completed course of Ceftriaxone Diarrhea--negative cdif and gi panel, diarrhea resolved Anemia of chronic disease, H/H on low side but stable. Monitor Pancytopenia (chronic) -Leukopenia, Thrombocytopenia, and Anemia noted -Levels stable Chronic pain-Patient currently on methadone for chronic pain management, no history of substance use disorder on methadone. Major depressive disorder with general anxiety disorder One-to-one ordered for constant observation. Patient currently grieving the loss of her brother. Patient is not currently suicidal or admitting to suicidal ideations Psych eval added -will need crisis eval before discharge DVT prophylaxis: Lovenox PPI prophylaxis: Omeprazole Full Code status Ongoing need: orthostasis : ivf and moniter tele and orthosatsis,syncope Dispo: Likely STR Quality Stroke Does the patient have a stroke diagnosis?: No Reason for No Anti-thrombotic by Day Two: N/A - Med Ordered VTE Prior VTE?: No VTE Risk Level:: Medical - moderate - high VTE Device Contraindication: N/A - Device Ordered VTE Drug Contraindication: N/A - Med Ordered
[2025-01-25 10:01] LABS: Hemoglobin 8.2 g/dl (12.0-16.0); Mean Corpuscular HGB Conc 32.8 g/dl (31.0-35.0); Mean Corpuscular Hemoglobin 29.5 pg (27.0-33.0); Mean Corpuscular Volume 89.9 fL (80.0-98.0); Platelet Count 156 X10*3/uL (160-400); Red Blood Count 2.78 X10*6/uL (4.20-5.50); Red Cell Distribution Width 15.3 % (11.0-16.0); White Blood Count 3.1 X10*3/uL (4.8-10.8)
[2025-01-25 10:01] LABS: Glucose, Whole Blood 200 mg/dL (60-115)
[2025-01-25 10:14] LABS: Anion Gap 16 (12-20); Blood Urea Nitrogen 10 mg/dL (9-16); Calcium 8.9 mg/dL (8.4-10.2); Carbon Dioxide 22 mmol/L (22-29); Chloride 102 mmol/L (96-108); Creatinine Clr Calc Pharmacy 68.9; Estimated Glomerular Filt Rate > 60; Glucose Random 216 mg/dL (60-115); Potassium 3.7 mmol/L (3.3-5.1); Sodium 136 mmol/L (135-145)
[2025-01-25] MEDS: Famotidine/PF 20 MG/2 ML VIAL IVPUSH ×2 (10:46→22:41)
--- NOTE | 2025-01-25 11:32 | MHC.CLN ---
F/U PO INTAKE 75-100% IN ADDITION, PT CONTINUES TO ORDER FOOD FROM OUTSIDE FACILITY DESPITE EDUCATION FROM NURSING AND MD PT NOT INTERESTED IN DIET EDUCATION; NONCOMPLIANT WITH DM DIET DIET RX: 1800DM -APPROPRIATE RECEIVING ENSURE MAX BID TO PROMOTE WOUND HEALING SUPP PROVIDES 300KCALS, 60G PROTEIN CONTINUE TO MONITOR PO INTAKE AND ENCOURAGE SUPPLEMENT
[2025-01-25 12:49] LABS: HCG Quantitative < 2 mIU/mL
--- NOTE | 2025-01-25 13:24 | MHC.CM.PN ---
Per rounds, pt. not ready to DC, she is scheduled for endoscopy today.
--- NOTE | 2025-01-25 14:02 | HO.ANESPROP2 ---
HPI - Anesthesia Eval Consult details Narrative: for EGD. PMFSH Active Problems Active Problems: All Active Problems Gastroparesis (Acute) Nausea and vomiting (Acute) Diffuse abdominal pain (Acute) Recurrent syncope (Acute) Orthostasis (Acute) Fall (Acute) Generalized anxiety disorder (Acute) Major depressive disorder (Acute) Sacral decubitus ulcer, stage IV (Acute) Chronic pain (Acute) Lupus (systemic lupus erythematosus) (Acute) Insulin dependent type 2 diabetes mellitus (Acute) Hyperglycemia (Acute) Past Medical History Medical History Generalized anxiety disorder Major depressive disorder Sacral decubitus ulcer, stage IV Chronic pain Lupus (systemic lupus erythematosus) Insulin dependent type 2 diabetes mellitus Functional capacity: independent ambulation Family History Family history of problems with anesthesia: No Surgical History History of Problems with Anesthesia: No Social History Social History Household Members: Spouse Housing: Apartment Are you a primary home care consultant to a significant other at home: No Do you presently have visiting nurse or other home services: No Comment: 1:1sitter Patient Tobacco Use Status: Former Tobacco user e-Cigarette/Vaping Use: Never Used Second Hand Smoke Exposure: No Use of substances other than those prescribed or required for medical reasons: Yes Substance Use Type: Marijuana Currently Displaying Signs/Symptoms of Drug Intoxication Withdrawal: No Have you been hit, kicked, punched, or otherwise hurt by someone within the past year? If so, by whom?: No Are you DNR?: No Advance Directives: No Advance Directives Information Provided: No Advance Directives on File: No Patient : No Poor oral hygiene: Yes service: No Meds Allergies Allergy/AdvReac Type Severity Reaction Status Date / Time acetaminophen Allergy Swelling Verified 01/25/25 13:38 atorvastatin Allergy Unknown Verified 01/25/25 13:38 duloxetine Allergy Unknown Verified 01/25/25 13:38 fish derived (fish) Allergy Swelling Verified 01/25/25 13:38 Active Medications: Current Medications Calcium Carbonate (Calcium Carbonate 750 Mg Tab.Chew) 750 mg PO Q4H PRN PRN Reason: Heartburn Dextrose (Dextrose 50 % 25 Gm/50 Ml Syringe) 25 gm IVPUSH Q15M PRN; Protocol PRN Reason: per Hypoglycemia Standing Ord. Last Admin: 06/13/25 04:24 Dose: 25 gm Enoxaparin Sodium (Enoxaparin Sodium 40 Mg/0.4 Ml Syringe) 40 mg SUBCUT Q24H [facility] Last Admin: 01/25/25 09:02 Dose: Not Given Famotidine (Famotidine/Pf 20 Mg/2 Ml Vial) 20 mg IVPUSH BID [facility] Last Admin: 01/25/25 10:46 Dose: 20 mg Fludrocortisone Acetate (Fludrocortisone Acetate 0.1 Mg Tablet) 0.1 mg PO DAILY [facility] Last Admin: 01/25/25 09:03 Dose: Not Given Fluoxetine HCl (Fluoxetine Hcl 20 Mg Capsule) 20 mg PO DAILY [facility] Last Admin: 01/25/25 09:03 Dose: Not Given Glucose (Glucose Gel 15 Gm Gel..Gram.) 15 gm PO Q15M PRN; Protocol PRN Reason: per Hypoglycemia Standing Ord. Hydromorphone HCl (Hydromorphone Hcl 1 Mg/Ml Syringe) 1 mg IVPUSH Q3H PRN; Protocol PRN Reason: Pain, Severe (Pain Scale 7-10) Last Admin: 01/25/25 10:46 Dose: 1 mg Hydroxychloroquine Sulfate (Hydroxychloroquine Sulfate 200 Mg Tablet) 200 mg PO DAILY [facility] Last Admin: 01/25/25 09:03 Dose: Not Given Hydroxyzine HCl (Hydroxyzine Hcl 25 Mg Tablet) 25 mg PO QID PRN PRN Reason: anxiety Last Admin: 01/22/25 19:38 Dose: 25 mg Magnesium Hydroxide (Milk Of Magnesia 30 Ml Oral.Susp) 30 ml PO DAILY PRN PRN Reason: Constipation Magnesium Oxide (Magnesium Oxide 400 Mg Tablet) 800 mg PO BIDPC [facility] Last Admin: 01/25/25 07:47 Dose: Not Given Meclizine HCl (Meclizine Hcl 12.5 Mg Tablet) 12.5 mg PO Q6H PRN PRN Reason: dizziness Last Admin: 01/23/25 08:04 Dose: 12.5 mg Melatonin (Melatonin 3 Mg Tablet) 6 mg PO BEDTIME PRN PRN Reason: Insomnia Last Admin: 01/22/25 19:38 Dose: 6 mg Midodrine (Midodrine Hcl 10 Mg Tablet) 10 mg PO TID [facility]; Protocol Last Admin: 01/25/25 09:03 Dose: Not Given Mirtazapine (Mirtazapine 7.5 Mg Tablet) 22.5 mg PO BEDTIME [facility] Last Admin: 01/24/25 21:41 Dose: Not Given Naloxone HCl (Naloxone Hcl 0.4 Mg/Ml Vial) 0.4 mg IVPUSH Q5M PRN PRN Reason: Opiate Reversal Naloxone HCl (Naloxone Hcl 0.4 Mg/Ml Vial) 0.04 mg IVPUSH Q5M PRN PRN Reason: Excessive sedation or RR < 8 Non-Formulary Medication (Insulin Regular Hum U-500 Conc [Humulin R U-500 (Conc) Kwikpen]) 350 unit SUBCUT TIDAC [facility] Last Admin: 01/25/25 12:03 Dose: Not Given Nystatin (Nystatin Powder 15 Gm Bottle) 1 appl TOPICAL TID [facility]; Protocol Last Admin: 01/25/25 07:47 Dose: 1 appl Ondansetron HCl (Ondansetron Hcl 4 Mg/2 Ml Vial) 4 mg IVPUSH Q8H PRN PRN Reason: Nausea and Vomiting Last Admin: 01/25/25 04:02 Dose: 4 mg Oxycodone HCl (Oxycodone Hcl Immed Release 5 Mg Tablet) 5 mg PO Q6H PRN PRN Reason: Pain, Severe (Pain Scale 7-10) Last Admin: 01/23/25 08:07 Dose: 5 mg Pioglitazone HCl (Pioglitazone Hcl 45 Mg Tablet) 45 mg PO DAILY [facility] On Hold: 01/13/25 14:24 Last Admin: 01/13/25 10:22 Dose: 45 mg Polyethylene Glycol (Polyethylene Glycol 3350 17 Gm Powd.Pack) 17 gm PO DAILY PRN PRN Reason: Constipation Senna (Sennosides 8.6 Mg Tablet) 17.2 mg PO BEDTIME [facility] Last Admin: 01/24/25 21:41 Dose: Not Given Sodium Chloride (0.9 % Sodium Chloride Flush 3 Ml Syringe) 3 ml IVFLUSH QSHIFT [facility] Last Admin: 01/25/25 07:44 Dose: 3 ml Home Medications ?Medication ?Instructions ?Recorded ?Confirmed ?Last Taken ?Type fludrocortisone 0.1 mg tablet 0.1 mg PO DAILY 01/10/25 01/10/25 01/09/25 12:01 History fluoxetine 20 mg capsule 20 mg PO DAILY 01/10/25 01/10/2501/09/25 12:01 History hydroxychloroquine 200 mg tablet 200 mg PO QAM 01/10/25 01/10/25 01/09/25 12:13 History hydroxyzine pamoate 25 mg capsule 25 mg PO QID PRN anxiety 01/10/25 01/10/25 Unknown History insulin regular hum U-500 conc 500 700 unit subcut TIDAC 01/10/25 01/10/25 01/09/25 14:32 History unit/mL(3 mL) subcut pen (Humulin R U-500 (Conc) Insulin Kwikpen) methadone 10 mg tablet 20 mg PO TID PRN Pain (Scale Score 01/10/25 01/10/25 Unknown History 7-10) midodrine 10 mg tablet 10 mg PO TID 01/10/25 01/10/25 01/09/25 18:52 History mirtazapine 7.5 mg tablet 22.5 mg PO BEDTIME 01/10/25 01/10/25 Unknown History pioglitazone 45 mg tablet 45 mg PO DAILY 01/10/25 01/10/25 01/09/25 12:01 History Exam Height,Weight and Vital Signs: Height 5 ft 2 in Weight 48.2 kg Last Vital Signs Temp 98.1 F 01/25/25 13:43 Pulse 101 H 01/25/25 13:43 Resp 16 01/25/25 13:43 BP 190/112 H 01/25/25 13:43 Pulse Ox 98 01/25/25 13:43 O2 Del Method Room Air 01/25/25 13:43 Pertinent Lab Results Pertinent Lab Results: Laboratory Tests 01/10/25 01/10/25 01/10/25 07:32 07:54 09:21 WBC RBC Hgb Hct MCV MCH MCHC RDW Plt Count MPV Immature Gran % (Auto) Neut % (Auto) Lymph % (Auto) [place] % (Auto) Eos % (Auto) Baso % (Auto) Lymph # (Auto) [place] # (Auto) Eos # (Auto) Baso # (Auto) Abs Immat Gran (auto) Absolute Neuts (auto) Absolute Nucleated RBC Nucleated RBC % (auto) Smear Path Review ESR Hold Purple Top O2 Saturation ABG pH at Pt Temp ABG pCO2 at Pt Temp ABG pO2 at Pt Temp ABG HCO3 ABG Base Excess (Actual) VBG pH VBG pCO2 VBG pO2 VBG HCO3 VBG O2 Saturation VBG Base Excess Sodium Potassium Chloride Carbon Dioxide Anion Gap BUN Creatinine 1.08 Estim Creat Clear Calc 48.5 Estimated GFR 54 POC Glucose 493 H* 507 H* Random Glucose Estimat Average Glucose TNP Hemoglobin A1c % > 14.0 H Osmolality Lactic Acid Calcium Magnesium 1.5 L Total Bilirubin Direct Bilirubin AST ALT Alkaline Phosphatase Troponin I High Sens C-Reactive Protein Total Protein Albumin Lipase Beta-Hydroxybutyrate TSH 0.92 Free T4 1.03 Beta HCG, Quant Urine Color Urine Appearance Urine pH Ur Specific [place] Urine Protein Urine Glucose (UA) Urine Ketones Urine Blood Urine Nitrite Ur Leukocyte Esterase Urine RBC Urine WBC Ur Squamous Epith Cells Urine Bacteria Hyaline Casts Stl C. cayetanensis PCR Stool Rotavirus A PCR Stl Adenov F 40 PCR Stool Astrovirus (PCR) Stool Campylobacter PCR Stool Cryptosporidium PCR Stl Sh Tox Pr E STEC PCR Stool E coli O157 PCR Stl Enterotoxigenic E PCR Stool EPEC (PCR) Stool EAEC (PCR) Stl E. histolytica PCR Stool Giardia Lamblia PCR Stl P. shigelloides PCR Stool Salmonella PCR Stool Sapovirus (PCR) Stl Shigella/EIEC PCR St Y.enterocolitica PCR Stool Vibrio (PCR) Stl Vibrio cholerae PCR Stl Norovirus GI/GII PCR C. difficile Tox B Gene 01/10/25 01/10/25 01/10/25 10:37 12:24 16:30 WBC RBC Hgb Hct MCV MCH MCHC RDW Plt Count MPV Immature Gran % (Auto) Neut % (Auto) Lymph % (Auto) [place] % (Auto) Eos % (Auto) Baso % (Auto) Lymph # (Auto) [place] # (Auto) Eos # (Auto) Baso # (Auto) Abs Immat Gran (auto) Absolute Neuts (auto) Absolute Nucleated RBC Nucleated RBC % (auto) Smear Path Review ESR Hold Purple Top O2 Saturation ABG pH at Pt Temp ABG pCO2 at Pt Temp ABG pO2 at Pt Temp ABG HCO3 ABG Base Excess (Actual) VBG pH VBG pCO2 VBG pO2 VBG HCO3 VBG O2 Saturation VBG Base Excess Sodium Potassium Chloride Carbon Dioxide Anion Gap BUN Creatinine Estim Creat Clear Calc Estimated GFR POC Glucose 487 H* 441 H* 543 H* Random Glucose Estimat Average Glucose Hemoglobin A1c % Osmolality Lactic Acid Calcium Magnesium Total Bilirubin Direct Bilirubin AST ALT Alkaline Phosphatase Troponin I High Sens C-Reactive Protein Total Protein Albumin Lipase Beta-Hydroxybutyrate TSH Free T4 Beta HCG, Quant Urine Color Urine Appearance Urine pH Ur Specific [place] Urine Protein Urine Glucose (UA) Urine Ketones Urine Blood Urine Nitrite Ur Leukocyte Esterase Urine RBC Urine WBC Ur Squamous Epith Cells Urine Bacteria Hyaline Casts Stl C. cayetanensis PCR Stool Rotavirus A PCR Stl Adenov F 40/ PCR Stool Astrovirus (PCR) Stool Campylobacter PCR Stool Cryptosporidium PCR Stl Sh Tox Pr E STEC PCR Stool E coli O157 PCR Stl Enterotoxigenic E PCR Stool EPEC (PCR) Stool EAEC (PCR) Stl E. histolytica PCR Stool Giardia Lamblia PCR Stl P. shigelloides PCR Stool Salmonella PCR Stool Sapovirus (PCR) Stl Shigella/EIEC PCR St Y.enterocolitica PCR Stool Vibrio (PCR) Stl Vibrio cholerae PCR Stl Norovirus GI/GII PCR C. difficile Tox B Gene 01/10/25 01/10/25 01/10/25 17:01 17:07 18:01 WBC RBC Hgb Hct MCV MCH MCHC RDW Plt Count MPV Immature Gran % (Auto) Neut % (Auto) Lymph % (Auto) [place] % (Auto) Eos % (Auto) Baso % (Auto) Lymph # (Auto) [place] # (Auto) Eos # (Auto) Baso # (Auto) Abs Immat Gran (auto) Absolute Neuts (auto) Absolute Nucleated RBC Nucleated RBC % (auto) Smear Path Review ESR Hold Purple Top O2 Saturation TNP ABG pH at Pt Temp 7.39 ABG pCO2 at Pt Temp 47 H ABG pO2 at Pt Temp TNP ABG HCO3 28 H ABG Base Excess (Actual) 3.1 VBG pH VBG pCO2 VBG pO2 VBG HCO3 VBG O2 Saturation VBG Base Excess Sodium 132 L Potassium 3.4 Chloride 100 Carbon Dioxide 26 Anion Gap 9 L BUN 13 Creatinine 1.12 Estim Creat Clear Calc 46.7 Estimated GFR 52 POC Glucose 489 H* Random Glucose 611 H* Estimat Average Glucose Hemoglobin A1c % Osmolality Lactic Acid Calcium 8.5 Magnesium 2.3 Total Bilirubin Direct Bilirubin AST ALT Alkaline Phosphatase Troponin I High Sens C-Reactive Protein Total Protein Albumin Lipase Beta-Hydroxybutyrate 0.06 TSH Free T4 Beta HCG, Quant Urine Color Urine Appearance Urine pH Ur Specific [place] Urine Protein Urine Glucose (UA) Urine Ketones Urine Blood Urine Nitrite Ur Leukocyte Esterase Urine RBC Urine WBC Ur Squamous Epith Cells Urine Bacteria Hyaline Casts Stl C. cayetanensis PCR Stool Rotavirus A PCR Stl Adenov F PCR Stool Astrovirus (PCR) Stool Campylobacter PCR Stool Cryptosporidium PCR Stl Sh Tox Pr E STEC PCR Stool E coli O157 PCR Stl Enterotoxigenic E PCR Stool EPEC (PCR) Stool EAEC (PCR) Stl E. histolytica PCR Stool Giardia Lamblia PCR Stl P. shigelloides PCR Stool Salmonella PCR Stool Sapovirus (PCR) Stl Shigella/EIEC PCR St Y.enterocolitica PCR Stool Vibrio (PCR) Stl Vibrio cholerae PCR Stl Norovirus GI/GII PCR C. difficile Tox B Gene 01/10/25 01/10/25 01/10/25 19:17 20:26 20:43 WBC RBC Hgb Hct MCV MCH MCHC RDW Plt Count MPV Immature Gran % (Auto) Neut % (Auto) Lymph % (Auto) [place] % (Auto) Eos % (Auto) Baso % (Auto) Lymph # (Auto) [place] # (Auto) Eos # (Auto) Baso # (Auto) Abs Immat Gran (auto) Absolute Neuts (auto) Absolute Nucleated RBC Nucleated RBC % (auto) Smear Path Review ESR Hold Purple Top O2 Saturation ABG pH at Pt Temp ABG pCO2 at Pt Temp ABG pO2 at Pt Temp ABG HCO3 ABG Base Excess (Actual) VBG pH VBG pCO2 VBG pO2 VBG HCO3 VBG O2 Saturation VBG Base Excess Sodium 132 L Potassium 3.6 Chloride 102 Carbon Dioxide 22 Anion Gap 12 BUN 11 Creatinine 1.13 Estim Creat Clear Calc 46.3 Estimated GFR 51 POC Glucose 466 H* 468 H* Random Glucose 530 H* Estimat Average Glucose Hemoglobin A1c % Osmolality 294 Lactic Acid Calcium 8.4 Magnesium Total Bilirubin Direct Bilirubin AST ALT Alkaline Phosphatase Troponin I High Sens C-Reactive Protein Total Protein Albumin Lipase Beta-Hydroxybutyrate TSH Free T4 Beta HCG, Quant Urine Color Urine Appearance Urine pH Ur Specific [place] Urine Protein Urine Glucose (UA) Urine Ketones Urine Blood Urine Nitrite Ur Leukocyte Esterase Urine RBC Urine WBC Ur Squamous Epith Cells Urine Bacteria Hyaline Casts Stl C. cayetanensis PCR Stool Rotavirus A PCR Stl Adenov F PCR Stool Astrovirus (PCR) Stool Campylobacter PCR Stool Cryptosporidium PCR Stl Sh Tox Pr E STEC PCR Stool E coli O157 PCR Stl Enterotoxigenic E PCR Stool EPEC (PCR) Stool EAEC (PCR) Stl E. histolytica PCR Stool Giardia Lamblia PCR Stl P. shigelloides PCR Stool Salmonella PCR Stool Sapovirus (PCR) Stl Shigella/EIEC PCR St Y.enterocolitica PCR Stool Vibrio (PCR) Stl Vibrio cholerae PCR Stl Norovirus GI/GII PCR C. difficile Tox B Gene 01/10/25 01/10/25 01/11/25 21:29 Unknown 00:07 WBC RBC Hgb Hct MCV MCH MCHC RDW Plt Count MPV Immature Gran % (Auto) Neut % (Auto) Lymph % (Auto) [place] % (Auto) Eos % (Auto) Baso % (Auto) Lymph # (Auto) [place] # (Auto) Eos # (Auto) Baso # (Auto) Abs Immat Gran (auto) Absolute Neuts (auto) Absolute Nucleated RBC Nucleated RBC % (auto) Smear Path Review ESR Hold Purple Top O2 Saturation ABG pH at Pt Temp ABG pCO2 at Pt Temp ABG pO2 at Pt Temp ABG HCO3 ABG Base Excess (Actual) VBG pH VBG pCO2 VBG pO2 VBG HCO3 VBG O2 Saturation VBG Base Excess Sodium Potassium Chloride Carbon Dioxide Anion Gap BUN Creatinine Estim Creat Clear Calc Estimated GFR POC Glucose 474 H* 447 H* Random Glucose Estimat Average Glucose Hemoglobin A1c % Osmolality Lactic Acid Calcium Magnesium Total Bilirubin Direct Bilirubin AST ALT Alkaline Phosphatase Troponin I High Sens C-Reactive Protein Total Protein Albumin Lipase Beta-Hydroxybutyrate TSH Free T4 Beta HCG, Quant Urine Color Yellow Urine Appearance Clear Urine pH 6.5 Ur Specific [place] 1.020 Urine Protein Trace Urine Glucose (UA) >=1000 H Urine Ketones Negative Urine Blood Trace H Urine Nitrite Positive H Ur Leukocyte Esterase Small (1+) H Urine RBC 6-10 H Urine WBC 11-20 H Ur Squamous Epith Cells 0-2 Urine Bacteria 4+ Hyaline Casts 0-2 Stl C. cayetanensis PCR Stool Rotavirus A PCR Stl Adenov F PCR Stool Astrovirus (PCR) Stool Campylobacter PCR Stool Cryptosporidium PCR Stl Sh Tox Pr E STEC PCR Stool E coli O157 PCR Stl Enterotoxigenic E PCR Stool EPEC (PCR) Stool EAEC (PCR) Stl E. histolytica PCR Stool Giardia Lamblia PCR Stl P. shigelloides PCR Stool Salmonella PCR Stool Sapovirus (PCR) Stl Shigella/EIEC PCR St Y.enterocolitica PCR Stool Vibrio (PCR) Stl Vibrio cholerae PCR Stl Norovirus GI/GII PCR C. difficile Tox B Gene 01/11/25 01/11/25 01/11/25 02:11 04:26 06:13 WBC RBC Hgb Hct MCV MCH MCHC RDW Plt Count MPV Immature Gran % (Auto) Neut % (Auto) Lymph % (Auto) [place] % (Auto) Eos % (Auto) Baso % (Auto) Lymph # (Auto) [place] # (Auto) Eos # (Auto) Baso # (Auto) Abs Immat Gran (auto) Absolute Neuts (auto) Absolute Nucleated RBC Nucleated RBC % (auto) Smear Path Review ESR Hold Purple Top O2 Saturation ABG pH at Pt Temp ABG pCO2 at Pt Temp ABG pO2 at Pt Temp ABG HCO3 ABG Base Excess (Actual) VBG pH VBG pCO2 VBG pO2 VBG HCO3 VBG O2 Saturation VBG Base Excess Sodium Potassium Chloride Carbon Dioxide Anion Gap BUN Creatinine Estim Creat Clear Calc Estimated GFR POC Glucose 402 H* 390 H* 355 H* Random Glucose Estimat Average Glucose Hemoglobin A1c % Osmolality Lactic Acid Calcium Magnesium Total Bilirubin Direct Bilirubin AST ALT Alkaline Phosphatase Troponin I High Sens C-Reactive Protein Total Protein Albumin Lipase Beta-Hydroxybutyrate TSH Free T4 Beta HCG, Quant Urine Color Urine Appearance Urine pH Ur Specific [place] Urine Protein Urine Glucose (UA) Urine Ketones Urine Blood Urine Nitrite Ur Leukocyte Esterase Urine RBC Urine WBC Ur Squamous Epith Cells Urine Bacteria Hyaline Casts Stl C. cayetanensis PCR Stool Rotavirus A PCR Stl Adenov F 40/ PCR Stool Astrovirus (PCR) Stool Campylobacter PCR Stool Cryptosporidium PCR Stl Sh Tox Pr E STEC PCR Stool E coli O157 PCR Stl Enterotoxigenic E PCR Stool EPEC (PCR) Stool EAEC (PCR) Stl E. histolytica PCR Stool Giardia Lamblia PCR Stl P. shigelloides PCR Stool Salmonella PCR Stool Sapovirus (PCR) Stl Shigella/EIEC PCR St Y.enterocolitica PCR Stool Vibrio (PCR) Stl Vibrio cholerae PCR Stl Norovirus GI/GII PCR C. difficile Tox B Gene 01/11/25 01/11/25 01/11/25 06:57 07:10 09:25 WBC RBC Hgb Hct MCV MCH MCHC RDW Plt Count MPV Immature Gran % (Auto) Neut % (Auto) Lymph % (Auto) [place] % (Auto) Eos % (Auto) Baso % (Auto) Lymph # (Auto) [place] # (Auto) Eos # (Auto) Baso # (Auto) Abs Immat Gran (auto) Absolute Neuts (auto) Absolute Nucleated RBC Nucleated RBC % (auto) Smear Path Review ESR Hold Purple Top SEE NOTE O2 Saturation ABG pH at Pt Temp ABG pCO2 at Pt Temp ABG pO2 at Pt Temp ABG HCO3 ABG Base Excess (Actual) VBG pH VBG pCO2 VBG pO2 VBG HCO3 VBG O2 Saturation VBG Base Excess Sodium 133 L Potassium 3.2 L Chloride 101 Carbon Dioxide 26 Anion Gap 9 L BUN 11 Creatinine 1.14 Estim Creat Clear Calc 45.9 Estimated GFR 51 POC Glucose 353 H* 317 H Random Glucose 360 H* Estimat Average Glucose Hemoglobin A1c % Osmolality Lactic Acid Calcium 8.6 Magnesium Total Bilirubin 0.2 Direct Bilirubin AST 16 ALT < 6 Alkaline Phosphatase 83 Troponin I High Sens C-Reactive Protein Total Protein 6.2 L Albumin 3.1 L Lipase Beta-Hydroxybutyrate TSH Free T4 Beta HCG, Quant Urine Color Urine Appearance Urine pH Ur Specific [place] Urine Protein Urine Glucose (UA) Urine Ketones Urine Blood Urine Nitrite Ur Leukocyte Esterase Urine RBC Urine WBC Ur Squamous Epith Cells Urine Bacteria Hyaline Casts Stl C. cayetanensis PCR Stool Rotavirus A PCR Stl Adenov F 40/41 PCR Stool Astrovirus (PCR) Stool Campylobacter PCR Stool Cryptosporidium PCR Stl Sh Tox Pr E STEC PCR Stool E coli O157 PCR Stl Enterotoxigenic E PCR Stool EPEC (PCR) Stool EAEC (PCR) Stl E. histolytica PCR Stool Giardia Lamblia PCR Stl P. shigelloides PCR Stool Salmonella PCR Stool Sapovirus (PCR) Stl Shigella/EIEC PCR St Y.enterocolitica PCR Stool Vibrio (PCR) Stl Vibrio cholerae PCR Stl Norovirus GI/GII PCR C. difficile Tox B Gene 01/11/25 01/11/25 01/11/25 11:40 14:23 16:23 WBC RBC Hgb Hct MCV MCH MCHC RDW Plt Count MPV Immature Gran % (Auto) Neut % (Auto) Lymph % (Auto) [place] % (Auto) Eos % (Auto) Baso % (Auto) Lymph # (Auto) [place] # (Auto) Eos # (Auto) Baso # (Auto) Abs Immat Gran (auto) Absolute Neuts (auto) Absolute Nucleated RBC Nucleated RBC % (auto) Smear Path Review ESR Hold Purple Top O2 Saturation ABG pH at Pt Temp ABG pCO2 at Pt Temp ABG pO2 at Pt Temp ABG HCO3 ABG Base Excess (Actual) VBG pH VBG pCO2 VBG pO2 VBG HCO3 VBG O2 Saturation VBG Base Excess Sodium Potassium Chloride Carbon Dioxide Anion Gap BUN Creatinine Estim Creat Clear Calc Estimated GFR POC Glucose 291 H 248 H 218 H Random Glucose Estimat Average Glucose Hemoglobin A1c % Osmolality Lactic Acid Calcium Magnesium Total Bilirubin Direct Bilirubin AST ALT Alkaline Phosphatase Troponin I High Sens C-Reactive Protein Total Protein Albumin Lipase Beta-Hydroxybutyrate TSH Free T4 Beta HCG, Quant Urine Color Urine Appearance Urine pH Ur Specific [place] Urine Protein Urine Glucose (UA) Urine Ketones Urine Blood Urine Nitrite Ur Leukocyte Esterase Urine RBC Urine WBC Ur Squamous Epith Cells Urine Bacteria Hyaline Casts Stl C. cayetanensis PCR Stool Rotavirus A PCR Stl Adenov F 40/41 PCR Stool Astrovirus (PCR) Stool Campylobacter PCR Stool Cryptosporidium PCR Stl Sh Tox Pr E STEC PCR Stool E coli O157 PCR Stl Enterotoxigenic E PCR Stool EPEC (PCR) Stool EAEC (PCR) Stl E. histolytica PCR Stool Giardia Lamblia PCR Stl P. shigelloides PCR Stool Salmonella PCR Stool Sapovirus (PCR) Stl Shigella/EIEC PCR St Y.enterocolitica PCR Stool Vibrio (PCR) Stl Vibrio cholerae PCR Stl Norovirus GI/GII PCR C. difficile Tox B Gene 01/11/25 01/11/25 01/11/25 17:47 20:26 21:42 WBC RBC Hgb Hct MCV MCH MCHC RDW Plt Count MPV Immature Gran % (Auto) Neut % (Auto) Lymph % (Auto) [place] % (Auto) Eos % (Auto) Baso % (Auto) Lymph # (Auto) [place] # (Auto) Eos # (Auto) Baso # (Auto) Abs Immat Gran (auto) Absolute Neuts (auto) Absolute Nucleated RBC Nucleated RBC % (auto) Smear Path Review ESR Hold Purple Top O2 Saturation ABG pH at Pt Temp ABG pCO2 at Pt Temp ABG pO2 at Pt Temp ABG HCO3 ABG Base Excess (Actual) VBG pH VBG pCO2 VBG pO2 VBG HCO3 VBG O2 Saturation VBG Base Excess Sodium Potassium Chloride Carbon Dioxide Anion Gap BUN Creatinine Estim Creat Clear Calc Estimated GFR POC Glucose 274 H 307 H 359 H* Random Glucose Estimat Average Glucose Hemoglobin A1c % Osmolality Lactic Acid Calcium Magnesium Total Bilirubin Direct Bilirubin AST ALT Alkaline Phosphatase Troponin I High Sens C-Reactive Protein Total Protein Albumin Lipase Beta-Hydroxybutyrate TSH Free T4 Beta HCG, Quant Urine Color Urine Appearance Urine pH Ur Specific [place] Urine Protein Urine Glucose (UA) Urine Ketones Urine Blood Urine Nitrite Ur Leukocyte Esterase Urine RBC Urine WBC Ur Squamous Epith Cells Urine Bacteria Hyaline Casts Stl C. cayetanensis PCR Stool Rotavirus A PCR Stl Adenov F 40/41 PCR Stool Astrovirus (PCR) Stool Campylobacter PCR Stool Cryptosporidium PCR Stl Sh Tox Pr E STEC PCR Stool E coli O157 PCR Stl Enterotoxigenic E PCR Stool EPEC (PCR) Stool EAEC (PCR) Stl E. histolytica PCR Stool Giardia Lamblia PCR Stl P. shigelloides PCR Stool Salmonella PCR Stool Sapovirus (PCR) Stl Shigella/EIEC PCR St Y.enterocolitica PCR Stool Vibrio (PCR) Stl Vibrio cholerae PCR Stl Norovirus GI/GII PCR C. difficile Tox B Gene 01/12/25 01/12/25 01/12/25 00:17 02:21 04:09 WBC RBC Hgb Hct MCV MCH MCHC RDW Plt Count MPV Immature Gran % (Auto) Neut % (Auto) Lymph % (Auto) [place] % (Auto) Eos % (Auto) Baso % (Auto) Lymph # (Auto) [place] # (Auto) Eos # (Auto) Baso # (Auto) Abs Immat Gran (auto) Absolute Neuts (auto) Absolute Nucleated RBC Nucleated RBC % (auto) Smear Path Review ESR Hold Purple Top O2 Saturation ABG pH at Pt Temp ABG pCO2 at Pt Temp ABG pO2 at Pt Temp ABG HCO3 ABG Base Excess (Actual) VBG pH VBG pCO2 VBG pO2 VBG HCO3 VBG O2 Saturation VBG Base Excess Sodium Potassium Chloride Carbon Dioxide Anion Gap BUN Creatinine Estim Creat Clear Calc Estimated GFR POC Glucose 353 H* 340 H 297 H Random Glucose Estimat Average Glucose Hemoglobin A1c % Osmolality Lactic Acid Calcium Magnesium Total Bilirubin Direct Bilirubin AST ALT Alkaline Phosphatase Troponin I High Sens C-Reactive Protein Total Protein Albumin Lipase Beta-Hydroxybutyrate TSH Free T4 Beta HCG, Quant Urine Color Urine Appearance Urine pH Ur Specific [place] Urine Protein Urine Glucose (UA) Urine Ketones Urine Blood Urine Nitrite Ur Leukocyte Esterase Urine RBC Urine WBC Ur Squamous Epith Cells Urine Bacteria Hyaline Casts Stl C. cayetanensis PCR Stool Rotavirus A PCR Stl Adenov F 40/41 PCR Stool Astrovirus (PCR) Stool Campylobacter PCR Stool Cryptosporidium PCR Stl Sh Tox Pr E STEC PCR Stool E coli O157 PCR Stl Enterotoxigenic E PCR Stool EPEC (PCR) Stool EAEC (PCR) Stl E. histolytica PCR Stool Giardia Lamblia PCR Stl P. shigelloides PCR Stool Salmonella PCR Stool Sapovirus (PCR) Stl Shigella/EIEC PCR St Y.enterocolitica PCR Stool Vibrio (PCR) Stl Vibrio cholerae PCR Stl Norovirus GI/GII PCR C. difficile Tox B Gene 01/12/25 01/12/25 01/12/25 06:26 07:57 09:59 WBC RBC Hgb Hct MCV MCH MCHC RDW Plt Count MPV Immature Gran % (Auto) Neut % (Auto) Lymph % (Auto) [place] % (Auto) Eos % (Auto) Baso % (Auto) Lymph # (Auto) [place] # (Auto) Eos # (Auto) Baso # (Auto) Abs Immat Gran (auto) Absolute Neuts (auto) Absolute Nucleated RBC Nucleated RBC % (auto) Smear Path Review ESR Hold Purple Top O2 Saturation ABG pH at Pt Temp ABG pCO2 at Pt Temp ABG pO2 at Pt Temp ABG HCO3 ABG Base Excess (Actual) VBG pH VBG pCO2 VBG pO2 VBG HCO3 VBG O2 Saturation VBG Base Excess Sodium Potassium Chloride Carbon Dioxide Anion Gap BUN Creatinine Estim Creat Clear Calc Estimated GFR POC Glucose 298 H 310 H 342 H Random Glucose Estimat Average Glucose Hemoglobin A1c % Osmolality Lactic Acid Calcium Magnesium Total Bilirubin Direct Bilirubin AST ALT Alkaline Phosphatase Troponin I High Sens C-Reactive Protein Total Protein Albumin Lipase Beta-Hydroxybutyrate TSH Free T4 Beta HCG, Quant Urine Color Urine Appearance Urine pH Ur Specific [place] Urine Protein Urine Glucose (UA) Urine Ketones Urine Blood Urine Nitrite Ur Leukocyte Esterase Urine RBC Urine WBC Ur Squamous Epith Cells Urine Bacteria Hyaline Casts Stl C. cayetanensis PCR Stool Rotavirus A PCR Stl Adenov F PCR Stool Astrovirus (PCR) Stool Campylobacter PCR Stool Cryptosporidium PCR Stl Sh Tox Pr E STEC PCR Stool E coli O157 PCR Stl Enterotoxigenic E PCR Stool EPEC (PCR) Stool EAEC (PCR) Stl E. histolytica PCR Stool Giardia Lamblia PCR Stl P. shigelloides PCR Stool Salmonella PCR Stool Sapovirus (PCR) Stl Shigella/EIEC PCR St Y.enterocolitica PCR Stool Vibrio (PCR) Stl Vibrio cholerae PCR Stl Norovirus GI/GII PCR C. difficile Tox B Gene 01/12/25 01/12/25 01/12/25 12:07 14:55 15:28 WBC RBC Hgb Hct MCV MCH MCHC RDW Plt Count MPV Immature Gran % (Auto) Neut % (Auto) Lymph % (Auto) [place] % (Auto) Eos % (Auto) Baso % (Auto) Lymph # (Auto) [place] # (Auto) Eos # (Auto) Baso # (Auto) Abs Immat Gran (auto) Absolute Neuts (auto) Absolute Nucleated RBC Nucleated RBC % (auto) Smear Path Review ESR Hold Purple Top O2 Saturation ABG pH at Pt Temp ABG pCO2 at Pt Temp ABG pO2 at Pt Temp ABG HCO3 ABG Base Excess (Actual) VBG pH VBG pCO2 VBG pO2 VBG HCO3 VBG O2 Saturation VBG Base Excess Sodium Potassium Chloride Carbon Dioxide Anion Gap BUN Creatinine Estim Creat Clear Calc Estimated GFR POC Glucose 343 H 231 H 200 H Random Glucose Estimat Average Glucose Hemoglobin A1c % Osmolality Lactic Acid Calcium Magnesium Total Bilirubin Direct Bilirubin AST ALT Alkaline Phosphatase Troponin I High Sens C-Reactive Protein Total Protein Albumin Lipase Beta-Hydroxybutyrate TSH Free T4 Beta HCG, Quant Urine Color Urine Appearance Urine pH Ur Specific [place] Urine Protein Urine Glucose (UA) Urine Ketones Urine Blood Urine Nitrite Ur Leukocyte Esterase Urine RBC Urine WBC Ur Squamous Epith Cells Urine Bacteria Hyaline Casts Stl C. cayetanensis PCR Stool Rotavirus A PCR Stl Adenov F PCR Stool Astrovirus (PCR) Stool Campylobacter PCR Stool Cryptosporidium PCR Stl Sh Tox Pr E STEC PCR Stool E coli O157 PCR Stl Enterotoxigenic E PCR Stool EPEC (PCR) Stool EAEC (PCR) Stl E. histolytica PCR Stool Giardia Lamblia PCR Stl P. shigelloides PCR Stool Salmonella PCR Stool Sapovirus (PCR) Stl Shigella/EIEC PCR St Y.enterocolitica PCR Stool Vibrio (PCR) Stl Vibrio cholerae PCR Stl Norovirus GI/GII PCR C. difficile Tox B Gene 01/12/25 01/12/25 01/12/25 17:50 20:34 21:49 WBC RBC Hgb Hct MCV MCH MCHC RDW Plt Count MPV Immature Gran % (Auto) Neut % (Auto) Lymph % (Auto) [place] % (Auto) Eos % (Auto) Baso % (Auto) Lymph # (Auto) [place] # (Auto) Eos # (Auto) Baso # (Auto) Abs Immat Gran (auto) Absolute Neuts (auto) Absolute Nucleated RBC Nucleated RBC % (auto) Smear Path Review ESR Hold Purple Top O2 Saturation ABG pH at Pt Temp ABG pCO2 at Pt Temp ABG pO2 at Pt Temp ABG HCO3 ABG Base Excess (Actual) VBG pH VBG pCO2 VBG pO2 VBG HCO3 VBG O2 Saturation VBG Base Excess Sodium Potassium Chloride Carbon Dioxide Anion Gap BUN Creatinine Estim Creat Clear Calc Estimated GFR POC Glucose 81 132 H 197 H Random Glucose Estimat Average Glucose Hemoglobin A1c % Osmolality Lactic Acid Calcium Magnesium Total Bilirubin Direct Bilirubin AST ALT Alkaline Phosphatase Troponin I High Sens C-Reactive Protein Total Protein Albumin Lipase Beta-Hydroxybutyrate TSH Free T4 Beta HCG, Quant Urine Color Urine Appearance Urine pH Ur Specific [place] Urine Protein Urine Glucose (UA) Urine Ketones Urine Blood Urine Nitrite Ur Leukocyte Esterase Urine RBC Urine WBC Ur Squamous Epith Cells Urine Bacteria Hyaline Casts Stl C. cayetanensis PCR Stool Rotavirus A PCR Stl Adenov F 40/41 PCR Stool Astrovirus (PCR) Stool Campylobacter PCR Stool Cryptosporidium PCR Stl Sh Tox Pr E STEC PCR Stool E coli O157 PCR Stl Enterotoxigenic E PCR Stool EPEC (PCR) Stool EAEC (PCR) Stl E. histolytica PCR Stool Giardia Lamblia PCR Stl P. shigelloides PCR Stool Salmonella PCR Stool Sapovirus (PCR) Stl Shigella/EIEC PCR St Y.enterocolitica PCR Stool Vibrio (PCR) Stl Vibrio cholerae PCR Stl Norovirus GI/GII PCR C. difficile Tox B Gene 01/13/25 01/13/25 01/13/25 00:21 02:01 02:39 WBC RBC Hgb Hct MCV MCH MCHC RDW Plt Count MPV Immature Gran % (Auto) Neut % (Auto) Lymph % (Auto) [place] % (Auto) Eos % (Auto) Baso % (Auto) Lymph # (Auto) [place] # (Auto) Eos # (Auto) Baso # (Auto) Abs Immat Gran (auto) Absolute Neuts (auto) Absolute Nucleated RBC Nucleated RBC % (auto) Smear Path Review ESR Hold Purple Top O2 Saturation ABG pH at Pt Temp ABG pCO2 at Pt Temp ABG pO2 at Pt Temp ABG HCO3 ABG Base Excess (Actual) VBG pH VBG pCO2 VBG pO2 VBG HCO3 VBG O2 Saturation VBG Base Excess Sodium Potassium Chloride Carbon Dioxide Anion Gap BUN Creatinine Estim Creat Clear Calc Estimated GFR POC Glucose 125 H 63 137 H Random Glucose Estimat Average Glucose Hemoglobin A1c % Osmolality Lactic Acid Calcium Magnesium Total Bilirubin Direct Bilirubin AST ALT Alkaline Phosphatase Troponin I High Sens C-Reactive Protein Total Protein Albumin Lipase Beta-Hydroxybutyrate TSH Free T4 Beta HCG, Quant Urine Color Urine Appearance Urine pH Ur Specific [place] Urine Protein Urine Glucose (UA) Urine Ketones Urine Blood Urine Nitrite Ur Leukocyte Esterase Urine RBC Urine WBC Ur Squamous Epith Cells Urine Bacteria Hyaline Casts Stl C. cayetanensis PCR Stool Rotavirus A PCR Stl Adenov F 40/41 PCR Stool Astrovirus (PCR) Stool Campylobacter PCR Stool Cryptosporidium PCR Stl Sh Tox Pr E STEC PCR Stool E coli O157 PCR Stl Enterotoxigenic E PCR Stool EPEC (PCR) Stool EAEC (PCR) Stl E. histolytica PCR Stool Giardia Lamblia PCR Stl P. shigelloides PCR Stool Salmonella PCR Stool Sapovirus (PCR) Stl Shigella/EIEC PCR St Y.enterocolitica PCR Stool Vibrio (PCR) Stl Vibrio cholerae PCR Stl Norovirus GI/GII PCR C. difficile Tox B Gene 01/13/25 01/13/25 01/13/25 04:13 04:45 05:56 WBC RBC Hgb Hct MCV MCH MCHC RDW Plt Count MPV Immature Gran % (Auto) Neut % (Auto) Lymph % (Auto) [place] % (Auto) Eos % (Auto) Baso % (Auto) Lymph # (Auto) [place] # (Auto) Eos # (Auto) Baso # (Auto) Abs Immat Gran (auto) Absolute Neuts (auto) Absolute Nucleated RBC Nucleated RBC % (auto) Smear Path Review ESR Hold Purple Top O2 Saturation ABG pH at Pt Temp ABG pCO2 at Pt Temp ABG pO2 at Pt Temp ABG HCO3 ABG Base Excess (Actual) VBG pH VBG pCO2 VBG pO2 VBG HCO3 VBG O2 Saturation VBG Base Excess Sodium Potassium Chloride Carbon Dioxide Anion Gap BUN Creatinine Estim Creat Clear Calc Estimated GFR POC Glucose 46 L* 280 H 176 H Random Glucose Estimat Average Glucose Hemoglobin A1c % Osmolality Lactic Acid Calcium Magnesium Total Bilirubin Direct Bilirubin AST ALT Alkaline Phosphatase Troponin I High Sens C-Reactive Protein Total Protein Albumin Lipase Beta-Hydroxybutyrate TSH Free T4 Beta HCG, Quant Urine Color Urine Appearance Urine pH Ur Specific [place] Urine Protein Urine Glucose (UA) Urine Ketones Urine Blood Urine Nitrite Ur Leukocyte Esterase Urine RBC Urine WBC Ur Squamous Epith Cells Urine Bacteria Hyaline Casts Stl C. cayetanensis PCR Stool Rotavirus A PCR Stl Adenov F 40/41 PCR Stool Astrovirus (PCR) Stool Campylobacter PCR Stool Cryptosporidium PCR Stl Sh Tox Pr E STEC PCR Stool E coli O157 PCR Stl Enterotoxigenic E PCR Stool EPEC (PCR) Stool EAEC (PCR) Stl E. histolytica PCR Stool Giardia Lamblia PCR Stl P. shigelloides PCR Stool Salmonella PCR Stool Sapovirus (PCR) Stl Shigella/EIEC PCR St Y.enterocolitica PCR Stool Vibrio (PCR) Stl Vibrio cholerae PCR Stl Norovirus GI/GII PCR C. difficile Tox B Gene 01/13/25 01/13/25 01/13/25 07:51 09:46 12:00 WBC RBC Hgb Hct MCV MCH MCHC RDW Plt Count MPV Immature Gran % (Auto) Neut % (Auto) Lymph % (Auto) [place] % (Auto) Eos % (Auto) Baso % (Auto) Lymph # (Auto) [place] # (Auto) Eos # (Auto) Baso # (Auto) Abs Immat Gran (auto) Absolute Neuts (auto) Absolute Nucleated RBC Nucleated RBC % (auto) Smear Path Review ESR Hold Purple Top O2 Saturation ABG pH at Pt Temp ABG pCO2 at Pt Temp ABG pO2 at Pt Temp ABG HCO3 ABG Base Excess (Actual) VBG pH VBG pCO2 VBG pO2 VBG HCO3 VBG O2 Saturation VBG Base Excess Sodium Potassium Chloride Carbon Dioxide Anion Gap BUN Creatinine Estim Creat Clear Calc Estimated GFR POC Glucose 107 86 166 H Random Glucose Estimat Average Glucose Hemoglobin A1c % Osmolality Lactic Acid Calcium Magnesium Total Bilirubin Direct Bilirubin AST ALT Alkaline Phosphatase Troponin I High Sens C-Reactive Protein Total Protein Albumin Lipase Beta-Hydroxybutyrate TSH Free T4 Beta HCG, Quant Urine Color Urine Appearance Urine pH Ur Specific [place] Urine Protein Urine Glucose (UA) Urine Ketones Urine Blood Urine Nitrite Ur Leukocyte Esterase Urine RBC Urine WBC Ur Squamous Epith Cells Urine Bacteria Hyaline Casts Stl C. cayetanensis PCR Stool Rotavirus A PCR Stl Adenov F 40/41 PCR Stool Astrovirus (PCR) Stool Campylobacter PCR Stool Cryptosporidium PCR Stl Sh Tox Pr E STEC PCR Stool E coli O157 PCR Stl Enterotoxigenic E PCR Stool EPEC (PCR) Stool EAEC (PCR) Stl E. histolytica PCR Stool Giardia Lamblia PCR Stl P. shigelloides PCR Stool Salmonella PCR Stool Sapovirus (PCR) Stl Shigella/EIEC PCR St Y.enterocolitica PCR Stool Vibrio (PCR) Stl Vibrio cholerae PCR Stl Norovirus GI/GII PCR C. difficile Tox B Gene 01/13/25 01/13/25 01/13/25 14:05 15:39 17:44 WBC RBC Hgb Hct MCV MCH MCHC RDW Plt Count MPV Immature Gran % (Auto) Neut % (Auto) Lymph % (Auto) [place] % (Auto) Eos % (Auto) Baso % (Auto) Lymph # (Auto) [place] # (Auto) Eos # (Auto) Baso # (Auto) Abs Immat Gran (auto) Absolute Neuts (auto) Absolute Nucleated RBC Nucleated RBC % (auto) Smear Path Review ESR Hold Purple Top O2 Saturation ABG pH at Pt Temp ABG pCO2 at Pt Temp ABG pO2 at Pt Temp ABG HCO3 ABG Base Excess (Actual) VBG pH VBG pCO2 VBG pO2 VBG HCO3 VBG O2 Saturation VBG Base Excess Sodium Potassium Chloride Carbon Dioxide Anion Gap BUN Creatinine Estim Creat Clear Calc Estimated GFR POC Glucose 388 H* 319 H 238 H Random Glucose Estimat Average Glucose Hemoglobin A1c % Osmolality Lactic Acid Calcium Magnesium Total Bilirubin Direct Bilirubin AST ALT Alkaline Phosphatase Troponin I High Sens C-Reactive Protein Total Protein Albumin Lipase Beta-Hydroxybutyrate TSH Free T4 Beta HCG, Quant Urine Color Urine Appearance Urine pH Ur Specific [place] Urine Protein Urine Glucose (UA) Urine Ketones Urine Blood Urine Nitrite Ur Leukocyte Esterase Urine RBC Urine WBC Ur Squamous Epith Cells Urine Bacteria Hyaline Casts Stl C. cayetanensis PCR Stool Rotavirus A PCR Stl Adenov F PCR Stool Astrovirus (PCR) Stool Campylobacter PCR Stool Cryptosporidium PCR Stl Sh Tox Pr E STEC PCR Stool E coli O157 PCR Stl Enterotoxigenic E PCR Stool EPEC (PCR) Stool EAEC (PCR) Stl E. histolytica PCR Stool Giardia Lamblia PCR Stl P. shigelloides PCR Stool Salmonella PCR Stool Sapovirus (PCR) Stl Shigella/EIEC PCR St Y.enterocolitica PCR Stool Vibrio (PCR) Stl Vibrio cholerae PCR Stl Norovirus GI/GII PCR C. difficile Tox B Gene 01/13/25 01/13/25 01/14/25 20:17 22:04 02:19 WBC RBC Hgb Hct MCV MCH MCHC RDW Plt Count MPV Immature Gran % (Auto) Neut % (Auto) Lymph % (Auto) [place] % (Auto) Eos % (Auto) Baso % (Auto) Lymph # (Auto) [place] # (Auto) Eos # (Auto) Baso # (Auto) Abs Immat Gran (auto) Absolute Neuts (auto) Absolute Nucleated RBC Nucleated RBC % (auto) Smear Path Review ESR Hold Purple Top O2 Saturation ABG pH at Pt Temp ABG pCO2 at Pt Temp ABG pO2 at Pt Temp ABG HCO3 ABG Base Excess (Actual) VBG pH VBG pCO2 VBG pO2 VBG HCO3 VBG O2 Saturation VBG Base Excess Sodium Potassium Chloride Carbon Dioxide Anion Gap BUN Creatinine Estim Creat Clear Calc Estimated GFR POC Glucose 271 H 275 H 242 H Random Glucose Estimat Average Glucose Hemoglobin A1c % Osmolality Lactic Acid Calcium Magnesium Total Bilirubin Direct Bilirubin AST ALT Alkaline Phosphatase Troponin I High Sens C-Reactive Protein Total Protein Albumin Lipase Beta-Hydroxybutyrate TSH Free T4 Beta HCG, Quant Urine Color Urine Appearance Urine pH Ur Specific [place] Urine Protein Urine Glucose (UA) Urine Ketones Urine Blood Urine Nitrite Ur Leukocyte Esterase Urine RBC Urine WBC Ur Squamous Epith Cells Urine Bacteria Hyaline Casts Stl C. cayetanensis PCR Stool Rotavirus A PCR Stl Adenov F PCR Stool Astrovirus (PCR) Stool Campylobacter PCR Stool Cryptosporidium PCR Stl Sh Tox Pr E STEC PCR Stool E coli O157 PCR Stl Enterotoxigenic E PCR Stool EPEC (PCR) Stool EAEC (PCR) Stl E. histolytica PCR Stool Giardia Lamblia PCR Stl P. shigelloides PCR Stool Salmonella PCR Stool Sapovirus (PCR) Stl Shigella/EIEC PCR St Y.enterocolitica PCR Stool Vibrio (PCR) Stl Vibrio cholerae PCR Stl Norovirus GI/GII PCR C. difficile Tox B Gene 01/14/25 01/14/25 01/14/25 06:51 09:19 10:44 WBC RBC Hgb Hct MCV MCH MCHC RDW Plt Count MPV Immature Gran % (Auto) Neut % (Auto) Lymph % (Auto) [place] % (Auto) Eos % (Auto) Baso % (Auto) Lymph # (Auto) [place] # (Auto) Eos # (Auto) Baso # (Auto) Abs Immat Gran (auto) Absolute Neuts (auto) Absolute Nucleated RBC Nucleated RBC % (auto) Smear Path Review ESR Hold Purple Top O2 Saturation ABG pH at Pt Temp ABG pCO2 at Pt Temp ABG pO2 at Pt Temp ABG HCO3 ABG Base Excess (Actual) VBG pH VBG pCO2 VBG pO2 VBG HCO3 VBG O2 Saturation VBG Base Excess Sodium 142 Potassium 2.9 L* Chloride 109 H Carbon Dioxide 25 Anion Gap 11 L BUN 12 Creatinine 1.14 Estim Creat Clear Calc 45.9 Estimated GFR 51 POC Glucose 124 H 159 H Random Glucose 94 Estimat Average Glucose Hemoglobin A1c % Osmolality Lactic Acid Calcium 8.5 Magnesium 1.5 L Total Bilirubin Direct Bilirubin AST ALT Alkaline Phosphatase Troponin I High Sens C-Reactive Protein Total Protein Albumin Lipase Beta-Hydroxybutyrate TSH Free T4 Beta HCG, Quant Urine Color Urine Appearance Urine pH Ur Specific [place] Urine Protein Urine Glucose (UA) Urine Ketones Urine Blood Urine Nitrite Ur Leukocyte Esterase Urine RBC Urine WBC Ur Squamous Epith Cells Urine Bacteria Hyaline Casts Stl C. cayetanensis PCR Stool Rotavirus A PCR Stl Adenov F 40/41 PCR Stool Astrovirus (PCR) Stool Campylobacter PCR Stool Cryptosporidium PCR Stl Sh Tox Pr E STEC PCR Stool E coli O157 PCR Stl Enterotoxigenic E PCR Stool EPEC (PCR) Stool EAEC (PCR) Stl E. histolytica PCR Stool Giardia Lamblia PCR Stl P. shigelloides PCR Stool Salmonella PCR Stool Sapovirus (PCR) Stl Shigella/EIEC PCR St Y.enterocolitica PCR Stool Vibrio (PCR) Stl Vibrio cholerae PCR Stl Norovirus GI/GII PCR C. difficile Tox B Gene 01/14/25 01/14/25 01/14/25 15:15 18:02 23:11 WBC RBC Hgb Hct MCV MCH MCHC RDW Plt Count MPV Immature Gran % (Auto) Neut % (Auto) Lymph % (Auto) [place] % (Auto) Eos % (Auto) Baso % (Auto) Lymph # (Auto) [place] # (Auto) Eos # (Auto) Baso # (Auto) Abs Immat Gran (auto) Absolute Neuts (auto) Absolute Nucleated RBC Nucleated RBC % (auto) Smear Path Review ESR Hold Purple Top O2 Saturation ABG pH at Pt Temp ABG pCO2 at Pt Temp ABG pO2 at Pt Temp ABG HCO3 ABG Base Excess (Actual) VBG pH VBG pCO2 VBG pO2 VBG HCO3 VBG O2 Saturation VBG Base Excess Sodium Potassium Chloride Carbon Dioxide Anion Gap BUN Creatinine Estim Creat Clear Calc Estimated GFR POC Glucose 413 H* 464 H* 403 H* Random Glucose Estimat Average Glucose Hemoglobin A1c % Osmolality Lactic Acid Calcium Magnesium Total Bilirubin Direct Bilirubin AST ALT Alkaline Phosphatase Troponin I High Sens C-Reactive Protein Total Protein Albumin Lipase Beta-Hydroxybutyrate TSH Free T4 Beta HCG, Quant Urine Color Urine Appearance Urine pH Ur Specific [place] Urine Protein Urine Glucose (UA) Urine Ketones Urine Blood Urine Nitrite Ur Leukocyte Esterase Urine RBC Urine WBC Ur Squamous Epith Cells Urine Bacteria Hyaline Casts Stl C. cayetanensis PCR Stool Rotavirus A PCR Stl Adenov F 40/41 PCR Stool Astrovirus (PCR) Stool Campylobacter PCR Stool Cryptosporidium PCR Stl Sh Tox Pr E STEC PCR Stool E coli O157 PCR Stl Enterotoxigenic E PCR Stool EPEC (PCR) Stool EAEC (PCR) Stl E. histolytica PCR Stool Giardia Lamblia PCR Stl P. shigelloides PCR Stool Salmonella PCR Stool Sapovirus (PCR) Stl Shigella/EIEC PCR St Y.enterocolitica PCR Stool Vibrio (PCR) Stl Vibrio cholerae PCR Stl Norovirus GI/GII PCR C. difficile Tox B Gene 01/15/25 01/15/25 01/15/25 03:07 06:44 08:15 WBC RBC Hgb Hct MCV MCH MCHC RDW Plt Count MPV Immature Gran % (Auto) Neut % (Auto) Lymph % (Auto) [place] % (Auto) Eos % (Auto) Baso % (Auto) Lymph # (Auto) [place] # (Auto) Eos # (Auto) Baso # (Auto) Abs Immat Gran (auto) Absolute Neuts (auto) Absolute Nucleated RBC Nucleated RBC % (auto) Smear Path Review ESR Hold Purple Top O2 Saturation ABG pH at Pt Temp ABG pCO2 at Pt Temp ABG pO2 at Pt Temp ABG HCO3 ABG Base Excess (Actual) VBG pH VBG pCO2 VBG pO2 VBG HCO3 VBG O2 Saturation VBG Base Excess Sodium Potassium Chloride Carbon Dioxide Anion Gap BUN Creatinine Estim Creat Clear Calc Estimated GFR POC Glucose 299 H 268 H 233 H Random Glucose Estimat Average Glucose Hemoglobin A1c % Osmolality Lactic Acid Calcium Magnesium Total Bilirubin Direct Bilirubin AST ALT Alkaline Phosphatase Troponin I High Sens C-Reactive Protein Total Protein Albumin Lipase Beta-Hydroxybutyrate TSH Free T4 Beta HCG, Quant Urine Color Urine Appearance Urine pH Ur Specific [place] Urine Protein Urine Glucose (UA) Urine Ketones Urine Blood Urine Nitrite Ur Leukocyte Esterase Urine RBC Urine WBC Ur Squamous Epith Cells Urine Bacteria Hyaline Casts Stl C. cayetanensis PCR Stool Rotavirus A PCR Stl Adenov F 40 PCR Stool Astrovirus (PCR) Stool Campylobacter PCR Stool Cryptosporidium PCR Stl Sh Tox Pr E STEC PCR Stool E coli O157 PCR Stl Enterotoxigenic E PCR Stool EPEC (PCR) Stool EAEC (PCR) Stl E. histolytica PCR Stool Giardia Lamblia PCR Stl P. shigelloides PCR Stool Salmonella PCR Stool Sapovirus (PCR) Stl Shigella/EIEC PCR St Y.enterocolitica PCR Stool Vibrio (PCR) Stl Vibrio cholerae PCR Stl Norovirus GI/GII PCR C. difficile Tox B Gene 01/15/25 01/15/25 01/15/25 10:11 10:45 14:08 WBC RBC Hgb Hct MCV MCH MCHC RDW Plt Count MPV Immature Gran % (Auto) Neut % (Auto) Lymph % (Auto) [place] % (Auto) Eos % (Auto) Baso % (Auto) Lymph # (Auto) [place] # (Auto) Eos # (Auto) Baso # (Auto) Abs Immat Gran (auto) Absolute Neuts (auto) Absolute Nucleated RBC Nucleated RBC % (auto) Smear Path Review ESR Hold Purple Top SEE NOTE O2 Saturation ABG pH at Pt Temp ABG pCO2 at Pt Temp ABG pO2 at Pt Temp ABG HCO3 ABG Base Excess (Actual) VBG pH VBG pCO2 VBG pO2 VBG HCO3 VBG O2 Saturation VBG Base Excess Sodium 139 Potassium 3.4 Chloride 104 Carbon Dioxide 26 Anion Gap 12 BUN 16 Creatinine 1.03 Estim Creat Clear Calc 50.7 Estimated GFR 57 POC Glucose 372 H* 370 H* Random Glucose 306 H Estimat Average Glucose Hemoglobin A1c % Osmolality Lactic Acid Calcium 8.4 Magnesium Total Bilirubin Direct Bilirubin AST ALT Alkaline Phosphatase Troponin I High Sens C-Reactive Protein Total Protein Albumin Lipase Beta-Hydroxybutyrate TSH Free T4 Beta HCG, Quant Urine Color Urine Appearance Urine pH Ur Specific [place] Urine Protein Urine Glucose (UA) Urine Ketones Urine Blood Urine Nitrite Ur Leukocyte Esterase Urine RBC Urine WBC Ur Squamous Epith Cells Urine Bacteria Hyaline Casts Stl C. cayetanensis PCR Stool Rotavirus A PCR Stl Adenov F PCR Stool Astrovirus (PCR) Stool Campylobacter PCR Stool Cryptosporidium PCR Stl Sh Tox Pr E STEC PCR Stool E coli O157 PCR Stl Enterotoxigenic E PCR Stool EPEC (PCR) Stool EAEC (PCR) Stl E. histolytica PCR Stool Giardia Lamblia PCR Stl P. shigelloides PCR Stool Salmonella PCR Stool Sapovirus (PCR) Stl Shigella/EIEC PCR St Y.enterocolitica PCR Stool Vibrio (PCR) Stl Vibrio cholerae PCR Stl Norovirus GI/GII PCR C. difficile Tox B Gene 01/15/25 01/15/25 01/15/25 14:21 15:11 15:37 WBC RBC Hgb 7.8 L Hct 23.1 L MCV MCH MCHC RDW Plt Count MPV Immature Gran % (Auto) Neut % (Auto) Lymph % (Auto) [place] % (Auto) Eos % (Auto) Baso % (Auto) Lymph # (Auto) [place] # (Auto) Eos # (Auto) Baso # (Auto) Abs Immat Gran (auto) Absolute Neuts (auto) Absolute Nucleated RBC Nucleated RBC % (auto) Smear Path Review ESR Hold Purple Top O2 Saturation ABG pH at Pt Temp ABG pCO2 at Pt Temp ABG pO2 at Pt Temp ABG HCO3 ABG Base Excess (Actual) VBG pH VBG pCO2 VBG pO2 VBG HCO3 VBG O2 Saturation VBG Base Excess Sodium 137 Potassium 4.1 D Chloride 103 Carbon Dioxide 25 Anion Gap 13 BUN 14 Creatinine 1.18 Estim Creat Clear Calc 44.3 Estimated GFR 49 POC Glucose 384 H* 393 H* Random Glucose 405 H* Estimat Average Glucose Hemoglobin A1c % Osmolality Lactic Acid Calcium 8.4 Magnesium 1.7 Total Bilirubin Direct Bilirubin AST ALT Alkaline Phosphatase Troponin I High Sens C-Reactive Protein Total Protein Albumin Lipase Beta-Hydroxybutyrate TSH Free T4 Beta HCG, Quant Urine Color Urine Appearance Urine pH Ur Specific [place] Urine Protein Urine Glucose (UA) Urine Ketones Urine Blood Urine Nitrite Ur Leukocyte Esterase Urine RBC Urine WBC Ur Squamous Epith Cells Urine Bacteria Hyaline Casts Stl C. cayetanensis PCR Stool Rotavirus A PCR Stl Adenov F 40/ PCR Stool Astrovirus (PCR) Stool Campylobacter PCR Stool Cryptosporidium PCR Stl Sh Tox Pr E STEC PCR Stool E coli O157 PCR Stl Enterotoxigenic E PCR Stool EPEC (PCR) Stool EAEC (PCR) Stl E. histolytica PCR Stool Giardia Lamblia PCR Stl P. shigelloides PCR Stool Salmonella PCR Stool Sapovirus (PCR) Stl Shigella/EIEC PCR St Y.enterocolitica PCR Stool Vibrio (PCR) Stl Vibrio cholerae PCR Stl Norovirus GI/GII PCR C. difficile Tox B Gene 01/15/25 01/15/25 01/16/25 19:22 21:46 02:07 WBC RBC Hgb Hct MCV MCH MCHC RDW Plt Count MPV Immature Gran % (Auto) Neut % (Auto) Lymph % (Auto) [place] % (Auto) Eos % (Auto) Baso % (Auto) Lymph # (Auto) [place] # (Auto) Eos # (Auto) Baso # (Auto) Abs Immat Gran (auto) Absolute Neuts (auto) Absolute Nucleated RBC Nucleated RBC % (auto) Smear Path Review ESR Hold Purple Top O2 Saturation ABG pH at Pt Temp ABG pCO2 at Pt Temp ABG pO2 at Pt Temp ABG HCO3 ABG Base Excess (Actual) VBG pH VBG pCO2 VBG pO2 VBG HCO3 VBG O2 Saturation VBG Base Excess Sodium Potassium Chloride Carbon Dioxide Anion Gap BUN Creatinine Estim Creat Clear Calc Estimated GFR POC Glucose 441 H* 420 H* 312 H Random Glucose Estimat Average Glucose Hemoglobin A1c % Osmolality Lactic Acid Calcium Magnesium Total Bilirubin Direct Bilirubin AST ALT Alkaline Phosphatase Troponin I High Sens C-Reactive Protein Total Protein Albumin Lipase Beta-Hydroxybutyrate TSH Free T4 Beta HCG, Quant Urine Color Urine Appearance Urine pH Ur Specific [place] Urine Protein Urine Glucose (UA) Urine Ketones Urine Blood Urine Nitrite Ur Leukocyte Esterase Urine RBC Urine WBC Ur Squamous Epith Cells Urine Bacteria Hyaline Casts Stl C. cayetanensis PCR Stool Rotavirus A PCR Stl Adenov F PCR Stool Astrovirus (PCR) Stool Campylobacter PCR Stool Cryptosporidium PCR Stl Sh Tox Pr E STEC PCR Stool E coli O157 PCR Stl Enterotoxigenic E PCR Stool EPEC (PCR) Stool EAEC (PCR) Stl E. histolytica PCR Stool Giardia Lamblia PCR Stl P. shigelloides PCR Stool Salmonella PCR Stool Sapovirus (PCR) Stl Shigella/EIEC PCR St Y.enterocolitica PCR Stool Vibrio (PCR) Stl Vibrio cholerae PCR Stl Norovirus GI/GII PCR C. difficile Tox B Gene 01/16/25 01/16/25 01/16/25 06:05 07:07 10:09 WBC RBC Hgb Hct MCV MCH MCHC RDW Plt Count MPV Immature Gran % (Auto) Neut % (Auto) Lymph % (Auto) [place] % (Auto) Eos % (Auto) Baso % (Auto) Lymph # (Auto) [place] # (Auto) Eos # (Auto) Baso # (Auto) Abs Immat Gran (auto) Absolute Neuts (auto) Absolute Nucleated RBC Nucleated RBC % (auto) Smear Path Review ESR Hold Purple Top O2 Saturation ABG pH at Pt Temp ABG pCO2 at Pt Temp ABG pO2 at Pt Temp ABG HCO3 ABG Base Excess (Actual) VBG pH VBG pCO2 VBG pO2 VBG HCO3 VBG O2 Saturation VBG Base Excess Sodium Potassium Chloride Carbon Dioxide Anion Gap BUN Creatinine Estim Creat Clear Calc Estimated GFR POC Glucose 181 H 153 H 333 H Random Glucose Estimat Average Glucose Hemoglobin A1c % Osmolality Lactic Acid Calcium Magnesium Total Bilirubin Direct Bilirubin AST ALT Alkaline Phosphatase Troponin I High Sens C-Reactive Protein Total Protein Albumin Lipase Beta-Hydroxybutyrate TSH Free T4 Beta HCG, Quant Urine Color Urine Appearance Urine pH Ur Specific [place] Urine Protein Urine Glucose (UA) Urine Ketones Urine Blood Urine Nitrite Ur Leukocyte Esterase Urine RBC Urine WBC Ur Squamous Epith Cells Urine Bacteria Hyaline Casts Stl C. cayetanensis PCR Stool Rotavirus A PCR Stl Adenov F PCR Stool Astrovirus (PCR) Stool Campylobacter PCR Stool Cryptosporidium PCR Stl Sh Tox Pr E STEC PCR Stool E coli O157 PCR Stl Enterotoxigenic E PCR Stool EPEC (PCR) Stool EAEC (PCR) Stl E. histolytica PCR Stool Giardia Lamblia PCR Stl P. shigelloides PCR Stool Salmonella PCR Stool Sapovirus (PCR) Stl Shigella/EIEC PCR St Y.enterocolitica PCR Stool Vibrio (PCR) Stl Vibrio cholerae PCR Stl Norovirus GI/GII PCR C. difficile Tox B Gene 01/16/25 01/16/25 01/16/25 13:59 18:01 19:51 WBC RBC Hgb Hct MCV MCH MCHC RDW Plt Count MPV Immature Gran % (Auto) Neut % (Auto) Lymph % (Auto) [place] % (Auto) Eos % (Auto) Baso % (Auto) Lymph # (Auto) [place] # (Auto) Eos # (Auto) Baso # (Auto) Abs Immat Gran (auto) Absolute Neuts (auto) Absolute Nucleated RBC Nucleated RBC % (auto) Smear Path Review ESR Hold Purple Top O2 Saturation ABG pH at Pt Temp ABG pCO2 at Pt Temp ABG pO2 at Pt Temp ABG HCO3 ABG Base Excess (Actual) VBG pH VBG pCO2 VBG pO2 VBG HCO3 VBG O2 Saturation VBG Base Excess Sodium Potassium Chloride Carbon Dioxide Anion Gap BUN Creatinine Estim Creat Clear Calc Estimated GFR POC Glucose 464 H* 392 H* 427 H* Random Glucose Estimat Average Glucose Hemoglobin A1c % Osmolality Lactic Acid Calcium Magnesium Total Bilirubin Direct Bilirubin AST ALT Alkaline Phosphatase Troponin I High Sens C-Reactive Protein Total Protein Albumin Lipase Beta-Hydroxybutyrate TSH Free T4 Beta HCG, Quant Urine Color Urine Appearance Urine pH Ur Specific [place] Urine Protein Urine Glucose (UA) Urine Ketones Urine Blood Urine Nitrite Ur Leukocyte Esterase Urine RBC Urine WBC Ur Squamous Epith Cells Urine Bacteria Hyaline Casts Stl C. cayetanensis PCR Stool Rotavirus A PCR Stl Adenov F 40/41 PCR Stool Astrovirus (PCR) Stool Campylobacter PCR Stool Cryptosporidium PCR Stl Sh Tox Pr E STEC PCR Stool E coli O157 PCR Stl Enterotoxigenic E PCR Stool EPEC (PCR) Stool EAEC (PCR) Stl E. histolytica PCR Stool Giardia Lamblia PCR Stl P. shigelloides PCR Stool Salmonella PCR Stool Sapovirus (PCR) Stl Shigella/EIEC PCR St Y.enterocolitica PCR Stool Vibrio (PCR) Stl Vibrio cholerae PCR Stl Norovirus GI/GII PCR C. difficile Tox B Gene 01/16/25 01/17/25 01/17/25 23:35 03:15 05:45 WBC RBC Hgb Hct MCV MCH MCHC RDW Plt Count MPV Immature Gran % (Auto) Neut % (Auto) Lymph % (Auto) [place] % (Auto) Eos % (Auto) Baso % (Auto) Lymph # (Auto) [place] # (Auto) Eos # (Auto) Baso # (Auto) Abs Immat Gran (auto) Absolute Neuts (auto) Absolute Nucleated RBC Nucleated RBC % (auto) Smear Path Review ESR Hold Purple Top O2 Saturation ABG pH at Pt Temp ABG pCO2 at Pt Temp ABG pO2 at Pt Temp ABG HCO3 ABG Base Excess (Actual) VBG pH VBG pCO2 VBG pO2 VBG HCO3 VBG O2 Saturation VBG Base Excess Sodium Potassium Chloride Carbon Dioxide Anion Gap BUN Creatinine Estim Creat Clear Calc Estimated GFR POC Glucose 365 H* 259 H 210 H Random Glucose Estimat Average Glucose Hemoglobin A1c % Osmolality Lactic Acid Calcium Magnesium Total Bilirubin Direct Bilirubin AST ALT Alkaline Phosphatase Troponin I High Sens C-Reactive Protein Total Protein Albumin Lipase Beta-Hydroxybutyrate TSH Free T4 Beta HCG, Quant Urine Color Urine Appearance Urine pH Ur Specific [place] Urine Protein Urine Glucose (UA) Urine Ketones Urine Blood Urine Nitrite Ur Leukocyte Esterase Urine RBC Urine WBC Ur Squamous Epith Cells Urine Bacteria Hyaline Casts Stl C. cayetanensis PCR Stool Rotavirus A PCR Stl Adenov F 40/41 PCR Stool Astrovirus (PCR) Stool Campylobacter PCR Stool Cryptosporidium PCR Stl Sh Tox Pr E STEC PCR Stool E coli O157 PCR Stl Enterotoxigenic E PCR Stool EPEC (PCR) Stool EAEC (PCR) Stl E. histolytica PCR Stool Giardia Lamblia PCR Stl P. shigelloides PCR Stool Salmonella PCR Stool Sapovirus (PCR) Stl Shigella/EIEC PCR St Y.enterocolitica PCR Stool Vibrio (PCR) Stl Vibrio cholerae PCR Stl Norovirus GI/GII PCR C. difficile Tox B Gene 01/17/25 01/17/25 01/17/25 07:07 07:20 09:58 WBC 2.3 L RBC 2.56 L Hgb 7.5 L Hct 22.6 L MCV 88.3 MCH 29.3 MCHC 33.2 RDW 15.0 Plt Count 153 L D MPV 9.1 L Immature Gran % (Auto) Neut % (Auto) Lymph % (Auto) [place] % (Auto) Eos % (Auto) Baso % (Auto) Lymph # (Auto) [place] # (Auto) Eos # (Auto) Baso # (Auto) Abs Immat Gran (auto) Absolute Neuts (auto) Absolute Nucleated RBC 0.000 Nucleated RBC % (auto) 0.0 Smear Path Review SEE NOTE ESR Hold Purple Top O2 Saturation ABG pH at Pt Temp ABG pCO2 at Pt Temp ABG pO2 at Pt Temp ABG HCO3 ABG Base Excess (Actual) VBG pH VBG pCO2 VBG pO2 VBG HCO3 VBG O2 Saturation VBG Base Excess Sodium 141 Potassium 4.0 Chloride 108 Carbon Dioxide 28 Anion Gap 9 L BUN 14 Creatinine 0.86 Estim Creat Clear Calc 60.9 Estimated GFR > 60 POC Glucose 201 H 254 H Random Glucose 203 H Estimat Average Glucose Hemoglobin A1c % Osmolality Lactic Acid Calcium 8.5 Magnesium Total Bilirubin Direct Bilirubin AST ALT Alkaline Phosphatase Troponin I High Sens C-Reactive Protein Total Protein Albumin Lipase Beta-Hydroxybutyrate TSH Free T4 Beta HCG, Quant Urine Color Urine Appearance Urine pH Ur Specific [place] Urine Protein Urine Glucose (UA) Urine Ketones Urine Blood Urine Nitrite Ur Leukocyte Esterase Urine RBC Urine WBC Ur Squamous Epith Cells Urine Bacteria Hyaline Casts Stl C. cayetanensis PCR Stool Rotavirus A PCR Stl Adenov F 40/ PCR Stool Astrovirus (PCR) Stool Campylobacter PCR Stool Cryptosporidium PCR Stl Sh Tox Pr E STEC PCR Stool E coli O157 PCR Stl Enterotoxigenic E PCR Stool EPEC (PCR) Stool EAEC (PCR) Stl E. histolytica PCR Stool Giardia Lamblia PCR Stl P. shigelloides PCR Stool Salmonella PCR Stool Sapovirus (PCR) Stl Shigella/EIEC PCR St Y.enterocolitica PCR Stool Vibrio (PCR) Stl Vibrio cholerae PCR Stl Norovirus GI/GII PCR C. difficile Tox B Gene 01/17/25 01/17/25 01/17/25 14:21 18:01 19:58 WBC RBC Hgb Hct MCV MCH MCHC RDW Plt Count MPV Immature Gran % (Auto) Neut % (Auto) Lymph % (Auto) [place] % (Auto) Eos % (Auto) Baso % (Auto) Lymph # (Auto) [place] # (Auto) Eos # (Auto) Baso # (Auto) Abs Immat Gran (auto) Absolute Neuts (auto) Absolute Nucleated RBC Nucleated RBC % (auto) Smear Path Review ESR Hold Purple Top O2 Saturation ABG pH at Pt Temp ABG pCO2 at Pt Temp ABG pO2 at Pt Temp ABG HCO3 ABG Base Excess (Actual) VBG pH VBG pCO2 VBG pO2 VBG HCO3 VBG O2 Saturation VBG Base Excess Sodium Potassium Chloride Carbon Dioxide Anion Gap BUN Creatinine Estim Creat Clear Calc Estimated GFR POC Glucose 429 H* 476 H* 483 H* Random Glucose Estimat Average Glucose Hemoglobin A1c % Osmolality Lactic Acid Calcium Magnesium Total Bilirubin Direct Bilirubin AST ALT Alkaline Phosphatase Troponin I High Sens C-Reactive Protein Total Protein Albumin Lipase Beta-Hydroxybutyrate TSH Free T4 Beta HCG, Quant Urine Color Urine Appearance Urine pH Ur Specific [place] Urine Protein Urine Glucose (UA) Urine Ketones Urine Blood Urine Nitrite Ur Leukocyte Esterase Urine RBC Urine WBC Ur Squamous Epith Cells Urine Bacteria Hyaline Casts Stl C. cayetanensis PCR Stool Rotavirus A PCR Stl Adenov F 40/41 PCR Stool Astrovirus (PCR) Stool Campylobacter PCR Stool Cryptosporidium PCR Stl Sh Tox Pr E STEC PCR Stool E coli O157 PCR Stl Enterotoxigenic E PCR Stool EPEC (PCR) Stool EAEC (PCR) Stl E. histolytica PCR Stool Giardia Lamblia PCR Stl P. shigelloides PCR Stool Salmonella PCR Stool Sapovirus (PCR) Stl Shigella/EIEC PCR St Y.enterocolitica PCR Stool Vibrio (PCR) Stl Vibrio cholerae PCR Stl Norovirus GI/GII PCR C. difficile Tox B Gene 01/17/25 01/18/25 01/18/25 22:03 01:58 06:02 WBC RBC Hgb Hct MCV MCH MCHC RDW Plt Count MPV Immature Gran % (Auto) Neut % (Auto) Lymph % (Auto) [place] % (Auto) Eos % (Auto) Baso % (Auto) Lymph # (Auto) [place] # (Auto) Eos # (Auto) Baso # (Auto) Abs Immat Gran (auto) Absolute Neuts (auto) Absolute Nucleated RBC Nucleated RBC % (auto) Smear Path Review ESR Hold Purple Top O2 Saturation ABG pH at Pt Temp ABG pCO2 at Pt Temp ABG pO2 at Pt Temp ABG HCO3 ABG Base Excess (Actual) VBG pH VBG pCO2 VBG pO2 VBG HCO3 VBG O2 Saturation VBG Base Excess Sodium Potassium Chloride Carbon Dioxide Anion Gap BUN Creatinine Estim Creat Clear Calc Estimated GFR POC Glucose 477 H* 343 H 217 H Random Glucose Estimat Average Glucose Hemoglobin A1c % Osmolality Lactic Acid Calcium Magnesium Total Bilirubin Direct Bilirubin AST ALT Alkaline Phosphatase Troponin I High Sens C-Reactive Protein Total Protein Albumin Lipase Beta-Hydroxybutyrate TSH Free T4 Beta HCG, Quant Urine Color Urine Appearance Urine pH Ur Specific [place] Urine Protein Urine Glucose (UA) Urine Ketones Urine Blood Urine Nitrite Ur Leukocyte Esterase Urine RBC Urine WBC Ur Squamous Epith Cells Urine Bacteria Hyaline Casts Stl C. cayetanensis PCR Stool Rotavirus A PCR Stl Adenov F 40 PCR Stool Astrovirus (PCR) Stool Campylobacter PCR Stool Cryptosporidium PCR Stl Sh Tox Pr E STEC PCR Stool E coli O157 PCR Stl Enterotoxigenic E PCR Stool EPEC (PCR) Stool EAEC (PCR) Stl E. histolytica PCR Stool Giardia Lamblia PCR Stl P. shigelloides PCR Stool Salmonella PCR Stool Sapovirus (PCR) Stl Shigella/EIEC PCR St Y.enterocolitica PCR Stool Vibrio (PCR) Stl Vibrio cholerae PCR Stl Norovirus GI/GII PCR C. difficile Tox B Gene 01/18/25 01/18/25 01/18/25 06:39 09:37 10:58 WBC RBC Hgb Hct MCV MCH MCHC RDW Plt Count MPV Immature Gran % (Auto) Neut % (Auto) Lymph % (Auto) [place] % (Auto) Eos % (Auto) Baso % (Auto) Lymph # (Auto) [place] # (Auto) Eos # (Auto) Baso # (Auto) Abs Immat Gran (auto) Absolute Neuts (auto) Absolute Nucleated RBC Nucleated RBC % (auto) Smear Path Review ESR Hold Purple Top SEE NOTE O2 Saturation ABG pH at Pt Temp ABG pCO2 at Pt Temp ABG pO2 at Pt Temp ABG HCO3 ABG Base Excess (Actual) VBG pH VBG pCO2 VBG pO2 VBG HCO3 VBG O2 Saturation VBG Base Excess Sodium 126 L Potassium 3.3 Chloride 95 L Carbon Dioxide 29 Anion Gap 5 L BUN 14 Creatinine 0.77 Estim Creat Clear Calc 67.9 Estimated GFR > 60 POC Glucose 277 H 336 H Random Glucose 235 H Estimat Average Glucose Hemoglobin A1c % Osmolality Lactic Acid Calcium 8.5 Magnesium Total Bilirubin Direct Bilirubin AST ALT Alkaline Phosphatase Troponin I High Sens C-Reactive Protein Total Protein Albumin Lipase Beta-Hydroxybutyrate TSH Free T4 Beta HCG, Quant Urine Color Urine Appearance Urine pH Ur Specific [place] Urine Protein Urine Glucose (UA) Urine Ketones Urine Blood Urine Nitrite Ur Leukocyte Esterase Urine RBC Urine WBC Ur Squamous Epith Cells Urine Bacteria Hyaline Casts Stl C. cayetanensis PCR Stool Rotavirus A PCR Stl Adenov F 40/ PCR Stool Astrovirus (PCR) Stool Campylobacter PCR Stool Cryptosporidium PCR Stl Sh Tox Pr E STEC PCR Stool E coli O157 PCR Stl Enterotoxigenic E PCR Stool EPEC (PCR) Stool EAEC (PCR) Stl E. histolytica PCR Stool Giardia Lamblia PCR Stl P. shigelloides PCR Stool Salmonella PCR Stool Sapovirus (PCR) Stl Shigella/EIEC PCR St Y.enterocolitica PCR Stool Vibrio (PCR) Stl Vibrio cholerae PCR Stl Norovirus GI/GII PCR C. difficile Tox B Gene 01/18/25 01/18/25 01/18/25 11:36 13:36 17:55 WBC RBC Hgb Hct MCV MCH MCHC RDW Plt Count MPV Immature Gran % (Auto) Neut % (Auto) Lymph % (Auto) [place] % (Auto) Eos % (Auto) Baso % (Auto) Lymph # (Auto) [place] # (Auto) Eos # (Auto) Baso # (Auto) Abs Immat Gran (auto) Absolute Neuts (auto) Absolute Nucleated RBC Nucleated RBC % (auto) Smear Path Review ESR Hold Purple Top O2 Saturation ABG pH at Pt Temp ABG pCO2 at Pt Temp ABG pO2 at Pt Temp ABG HCO3 ABG Base Excess (Actual) VBG pH VBG pCO2 VBG pO2 VBG HCO3 VBG O2 Saturation VBG Base Excess Sodium 136 Potassium 4.1 D Chloride 101 Carbon Dioxide 28 Anion Gap 11 L BUN 14 Creatinine 0.77 Estim Creat Clear Calc 67.9 Estimated GFR > 60 POC Glucose 440 H* 447 H* Random Glucose 376 H* Estimat Average Glucose Hemoglobin A1c % Osmolality Lactic Acid 0.8 Calcium 8.8 Magnesium Total Bilirubin Direct Bilirubin AST ALT Alkaline Phosphatase Troponin I High Sens < 2.7 C-Reactive Protein Total Protein Albumin Lipase Beta-Hydroxybutyrate TSH Free T4 Beta HCG, Quant Urine Color Urine Appearance Urine pH Ur Specific [place] Urine Protein Urine Glucose (UA) Urine Ketones Urine Blood Urine Nitrite Ur Leukocyte Esterase Urine RBC Urine WBC Ur Squamous Epith Cells Urine Bacteria Hyaline Casts Stl C. cayetanensis PCR Stool Rotavirus A PCR Stl Adenov F PCR Stool Astrovirus (PCR) Stool Campylobacter PCR Stool Cryptosporidium PCR Stl Sh Tox Pr E STEC PCR Stool E coli O157 PCR Stl Enterotoxigenic E PCR Stool EPEC (PCR) Stool EAEC (PCR) Stl E. histolytica PCR Stool Giardia Lamblia PCR Stl P. shigelloides PCR Stool Salmonella PCR Stool Sapovirus (PCR) Stl Shigella/EIEC PCR St Y.enterocolitica PCR Stool Vibrio (PCR) Stl Vibrio cholerae PCR Stl Norovirus GI/GII PCR C. difficile Tox B Gene 01/18/25 01/19/25 01/19/25 22:15 02:03 06:44 WBC 2.9 L RBC 2.56 L Hgb 7.4 L Hct 23.2 L MCV 90.6 MCH 28.9 MCHC 31.9 RDW 14.9 Plt Count 178 MPV 9.6 Immature Gran % (Auto) 0.3 Neut % (Auto) 58.7 Lymph % (Auto) 31.6 [place] % (Auto) 6.3 Eos % (Auto) 2.8 Baso % (Auto) 0.3 Lymph # (Auto) 0.9 L [place] # (Auto) 0.2 Eos # (Auto) 0.1 Baso # (Auto) 0.0 Abs Immat Gran (auto) 0.01 Absolute Neuts (auto) 1.7 L Absolute Nucleated RBC 0.000 Nucleated RBC % (auto) 0.0 Smear Path Review ESR 69 H Hold Purple Top SEE NOTE O2 Saturation ABG pH at Pt Temp ABG pCO2 at Pt Temp ABG pO2 at Pt Temp ABG HCO3 ABG Base Excess (Actual) VBG pH VBG pCO2 VBG pO2 VBG HCO3 VBG O2 Saturation VBG Base Excess Sodium 139 Potassium 4.0 Chloride 105 Carbon Dioxide 30 H Anion Gap 8 L BUN 18 H Creatinine 0.92 Estim Creat Clear Calc 56.9 Estimated GFR > 60 POC Glucose 425 H* 336 H Random Glucose 310 H Estimat Average Glucose Hemoglobin A1c % Osmolality Lactic Acid Calcium 8.4 Magnesium Total Bilirubin Direct Bilirubin AST ALT Alkaline Phosphatase Troponin I High Sens C-Reactive Protein 0.73 H Total Protein Albumin Lipase Beta-Hydroxybutyrate TSH Free T4 Beta HCG, Quant Urine Color Urine Appearance Urine pH Ur Specific [place] Urine Protein Urine Glucose (UA) Urine Ketones Urine Blood Urine Nitrite Ur Leukocyte Esterase Urine RBC Urine WBC Ur Squamous Epith Cells Urine Bacteria Hyaline Casts Stl C. cayetanensis PCR Stool Rotavirus A PCR Stl Adenov F 40/ PCR Stool Astrovirus (PCR) Stool Campylobacter PCR Stool Cryptosporidium PCR Stl Sh Tox Pr E STEC PCR Stool E coli O157 PCR Stl Enterotoxigenic E PCR Stool EPEC (PCR) Stool EAEC (PCR) Stl E. histolytica PCR Stool Giardia Lamblia PCR Stl P. shigelloides PCR Stool Salmonella PCR Stool Sapovirus (PCR) Stl Shigella/EIEC PCR St Y.enterocolitica PCR Stool Vibrio (PCR) Stl Vibrio cholerae PCR Stl Norovirus GI/GII PCR C. difficile Tox B Gene 01/19/25 01/19/25 01/19/25 07:47 10:10 11:17 WBC 3.9 L RBC 2.62 L Hgb 7.6 L Hct 23.2 L MCV 88.5 MCH 29.0 MCHC 32.8 RDW 14.9 Plt Count 161 MPV 8.7 L Immature Gran % (Auto) Neut % (Auto) Lymph % (Auto) [place] % (Auto) Eos % (Auto) Baso % (Auto) Lymph # (Auto) [place] # (Auto) Eos # (Auto) Baso # (Auto) Abs Immat Gran (auto) Absolute Neuts (auto) Absolute Nucleated RBC 0.000 Nucleated RBC % (auto) 0.0 Smear Path Review ESR Hold Purple Top O2 Saturation ABG pH at Pt Temp ABG pCO2 at Pt Temp ABG pO2 at Pt Temp ABG HCO3 ABG Base Excess (Actual) VBG pH VBG pCO2 VBG pO2 VBG HCO3 VBG O2 Saturation VBG Base Excess Sodium Potassium Chloride Carbon Dioxide Anion Gap BUN Creatinine Estim Creat Clear Calc Estimated GFR POC Glucose 253 H 437 H* Random Glucose Estimat Average Glucose Hemoglobin A1c % Osmolality Lactic Acid Calcium Magnesium Total Bilirubin Direct Bilirubin AST ALT Alkaline Phosphatase Troponin I High Sens C-Reactive Protein Total Protein Albumin Lipase Beta-Hydroxybutyrate TSH Free T4 Beta HCG, Quant Urine Color Urine Appearance Urine pH Ur Specific [place] Urine Protein Urine Glucose (UA) Urine Ketones Urine Blood Urine Nitrite Ur Leukocyte Esterase Urine RBC Urine WBC Ur Squamous Epith Cells Urine Bacteria Hyaline Casts Stl C. cayetanensis PCR Stool Rotavirus A PCR Stl Adenov F PCR Stool Astrovirus (PCR) Stool Campylobacter PCR Stool Cryptosporidium PCR Stl Sh Tox Pr E STEC PCR Stool E coli O157 PCR Stl Enterotoxigenic E PCR Stool EPEC (PCR) Stool EAEC (PCR) Stl E. histolytica PCR Stool Giardia Lamblia PCR Stl P. shigelloides PCR Stool Salmonella PCR Stool Sapovirus (PCR) Stl Shigella/EIEC PCR St Y.enterocolitica PCR Stool Vibrio (PCR) Stl Vibrio cholerae PCR Stl Norovirus GI/GII PCR C. difficile Tox B Gene 01/19/25 01/19/25 01/19/25 11:54 16:07 17:56 WBC RBC Hgb Hct MCV MCH MCHC RDW Plt Count MPV Immature Gran % (Auto) Neut % (Auto) Lymph % (Auto) [place] % (Auto) Eos % (Auto) Baso % (Auto) Lymph # (Auto) [place] # (Auto) Eos # (Auto) Baso # (Auto) Abs Immat Gran (auto) Absolute Neuts (auto) Absolute Nucleated RBC Nucleated RBC % (auto) Smear Path Review ESR Hold Purple Top O2 Saturation ABG pH at Pt Temp ABG pCO2 at Pt Temp ABG pO2 at Pt Temp ABG HCO3 ABG Base Excess (Actual) VBG pH VBG pCO2 VBG pO2 VBG HCO3 VBG O2 Saturation VBG Base Excess Sodium Potassium Chloride Carbon Dioxide Anion Gap BUN Creatinine Estim Creat Clear Calc Estimated GFR POC Glucose 345 H 378 H* Random Glucose Estimat Average Glucose Hemoglobin A1c % Osmolality Lactic Acid Calcium Magnesium Total Bilirubin Direct Bilirubin AST ALT Alkaline Phosphatase Troponin I High Sens C-Reactive Protein Total Protein Albumin Lipase Beta-Hydroxybutyrate TSH Free T4 Beta HCG, Quant Urine Color Urine Appearance Urine pH Ur Specific [place] Urine Protein Urine Glucose (UA) Urine Ketones Urine Blood Urine Nitrite Ur Leukocyte Esterase Urine RBC Urine WBC Ur Squamous Epith Cells Urine Bacteria Hyaline Casts Stl C. cayetanensis PCR Not Detected Stool Rotavirus A PCR Not Detected Stl Adenov F PCR Not Detected Stool Astrovirus (PCR) Not Detected Stool Campylobacter PCR Not Detected Stool Cryptosporidium PCR Not Detected Stl Sh Tox Pr E STEC PCR Not Detected Stool E coli O157 PCR Not applicable Stl Enterotoxigenic E PCR Not Detected Stool EPEC (PCR) Not Detected Stool EAEC (PCR) Not Detected Stl E. histolytica PCR Not Detected Stool Giardia Lamblia PCR Not Detected Stl P. shigelloides PCR Not Detected Stool Salmonella PCR Not Detected Stool Sapovirus (PCR) Not Detected Stl Shigella/EIEC PCR Not Detected St Y.enterocolitica PCR Not Detected Stool Vibrio (PCR) Not Detected Stl Vibrio cholerae PCR Not Detected Stl Norovirus GI/GII PCR Not Detected C. difficile Tox B Gene NEGATIVE 01/19/25 01/20/25 01/20/25 21:37 01:23 05:43 WBC RBC Hgb Hct MCV MCH MCHC RDW Plt Count MPV Immature Gran % (Auto) Neut % (Auto) Lymph % (Auto) [place] % (Auto) Eos % (Auto) Baso % (Auto) Lymph # (Auto) [place] # (Auto) Eos # (Auto) Baso # (Auto) Abs Immat Gran (auto) Absolute Neuts (auto) Absolute Nucleated RBC Nucleated RBC % (auto) Smear Path Review ESR Hold Purple Top O2 Saturation ABG pH at Pt Temp ABG pCO2 at Pt Temp ABG pO2 at Pt Temp ABG HCO3 ABG Base Excess (Actual) VBG pH VBG pCO2 VBG pO2 VBG HCO3 VBG O2 Saturation VBG Base Excess Sodium Potassium Chloride Carbon Dioxide Anion Gap BUN Creatinine Estim Creat Clear Calc Estimated GFR POC Glucose 377 H* 309 H 288 H Random Glucose Estimat Average Glucose Hemoglobin A1c % Osmolality Lactic Acid Calcium Magnesium Total Bilirubin Direct Bilirubin AST ALT Alkaline Phosphatase Troponin I High Sens C-Reactive Protein Total Protein Albumin Lipase Beta-Hydroxybutyrate TSH Free T4 Beta HCG, Quant Urine Color Urine Appearance Urine pH Ur Specific [place] Urine Protein Urine Glucose (UA) Urine Ketones Urine Blood Urine Nitrite Ur Leukocyte Esterase Urine RBC Urine WBC Ur Squamous Epith Cells Urine Bacteria Hyaline Casts Stl C. cayetanensis PCR Stool Rotavirus A PCR Stl Adenov F 40/41 PCR Stool Astrovirus (PCR) Stool Campylobacter PCR Stool Cryptosporidium PCR Stl Sh Tox Pr E STEC PCR Stool E coli O157 PCR Stl Enterotoxigenic E PCR Stool EPEC (PCR) Stool EAEC (PCR) Stl E. histolytica PCR Stool Giardia Lamblia PCR Stl P. shigelloides PCR Stool Salmonella PCR Stool Sapovirus (PCR) Stl Shigella/EIEC PCR St Y.enterocolitica PCR Stool Vibrio (PCR) Stl Vibrio cholerae PCR Stl Norovirus GI/GII PCR C. difficile Tox B Gene 01/20/25 01/20/25 01/20/25 06:39 09:34 14:16 WBC RBC Hgb Hct MCV MCH MCHC RDW Plt Count MPV Immature Gran % (Auto) Neut % (Auto) Lymph % (Auto) [place] % (Auto) Eos % (Auto) Baso % (Auto) Lymph # (Auto) [place] # (Auto) Eos # (Auto) Baso # (Auto) Abs Immat Gran (auto) Absolute Neuts (auto) Absolute Nucleated RBC Nucleated RBC % (auto) Smear Path Review ESR Hold Purple Top O2 Saturation ABG pH at Pt Temp ABG pCO2 at Pt Temp ABG pO2 at Pt Temp ABG HCO3 ABG Base Excess (Actual) VBG pH VBG pCO2 VBG pO2 VBG HCO3 VBG O2 Saturation VBG Base Excess Sodium 137 Potassium 4.2 Chloride 101 Carbon Dioxide 30 H Anion Gap 10 L BUN 22 H Creatinine 0.96 Estim Creat Clear Calc 54.5 Estimated GFR > 60 POC Glucose 377 H* 475 H* Random Glucose 293 H Estimat Average Glucose Hemoglobin A1c % Osmolality Lactic Acid Calcium 8.5 Magnesium Total Bilirubin Direct Bilirubin AST ALT Alkaline Phosphatase Troponin I High Sens C-Reactive Protein Total Protein Albumin Lipase Beta-Hydroxybutyrate TSH Free T4 Beta HCG, Quant Urine Color Urine Appearance Urine pH Ur Specific [place] Urine Protein Urine Glucose (UA) Urine Ketones Urine Blood Urine Nitrite Ur Leukocyte Esterase Urine RBC Urine WBC Ur Squamous Epith Cells Urine Bacteria Hyaline Casts Stl C. cayetanensis PCR Stool Rotavirus A PCR Stl Adenov F 40/41 PCR Stool Astrovirus (PCR) Stool Campylobacter PCR Stool Cryptosporidium PCR Stl Sh Tox Pr E STEC PCR Stool E coli O157 PCR Stl Enterotoxigenic E PCR Stool EPEC (PCR) Stool EAEC (PCR) Stl E. histolytica PCR Stool Giardia Lamblia PCR Stl P. shigelloides PCR Stool Salmonella PCR Stool Sapovirus (PCR) Stl Shigella/EIEC PCR St Y.enterocolitica PCR Stool Vibrio (PCR) Stl Vibrio cholerae PCR Stl Norovirus GI/GII PCR C. difficile Tox B Gene 01/20/25 01/20/25 01/21/25 18:37 21:57 03:01 WBC RBC Hgb Hct MCV MCH MCHC RDW Plt Count MPV Immature Gran % (Auto) Neut % (Auto) Lymph % (Auto) [place] % (Auto) Eos % (Auto) Baso % (Auto) Lymph # (Auto) [place] # (Auto) Eos # (Auto) Baso # (Auto) Abs Immat Gran (auto) Absolute Neuts (auto) Absolute Nucleated RBC Nucleated RBC % (auto) Smear Path Review ESR Hold Purple Top O2 Saturation ABG pH at Pt Temp ABG pCO2 at Pt Temp ABG pO2 at Pt Temp ABG HCO3 ABG Base Excess (Actual) VBG pH VBG pCO2 VBG pO2 VBG HCO3 VBG O2 Saturation VBG Base Excess Sodium Potassium Chloride Carbon Dioxide Anion Gap BUN Creatinine Estim Creat Clear Calc Estimated GFR POC Glucose 266 H 375 H* 307 H Random Glucose Estimat Average Glucose Hemoglobin A1c % Osmolality Lactic Acid Calcium Magnesium Total Bilirubin Direct Bilirubin AST ALT Alkaline Phosphatase Troponin I High Sens C-Reactive Protein Total Protein Albumin Lipase Beta-Hydroxybutyrate TSH Free T4 Beta HCG, Quant Urine Color Urine Appearance Urine pH Ur Specific [place] Urine Protein Urine Glucose (UA) Urine Ketones Urine Blood Urine Nitrite Ur Leukocyte Esterase Urine RBC Urine WBC Ur Squamous Epith Cells Urine Bacteria Hyaline Casts Stl C. cayetanensis PCR Stool Rotavirus A PCR Stl Adenov F 40/41 PCR Stool Astrovirus (PCR) Stool Campylobacter PCR Stool Cryptosporidium PCR Stl Sh Tox Pr E STEC PCR Stool E coli O157 PCR Stl Enterotoxigenic E PCR Stool EPEC (PCR) Stool EAEC (PCR) Stl E. histolytica PCR Stool Giardia Lamblia PCR Stl P. shigelloides PCR Stool Salmonella PCR Stool Sapovirus (PCR) Stl Shigella/EIEC PCR St Y.enterocolitica PCR Stool Vibrio (PCR) Stl Vibrio cholerae PCR Stl Norovirus GI/GII PCR C. difficile Tox B Gene 01/21/25 01/21/25 01/21/25 06:08 10:16 13:25 WBC RBC Hgb Hct MCV MCH MCHC RDW Plt Count MPV Immature Gran % (Auto) Neut % (Auto) Lymph % (Auto) [place] % (Auto) Eos % (Auto) Baso % (Auto) Lymph # (Auto) [place] # (Auto) Eos # (Auto) Baso # (Auto) Abs Immat Gran (auto) Absolute Neuts (auto) Absolute Nucleated RBC Nucleated RBC % (auto) Smear Path Review ESR Hold Purple Top O2 Saturation ABG pH at Pt Temp ABG pCO2 at Pt Temp ABG pO2 at Pt Temp ABG HCO3 ABG Base Excess (Actual) VBG pH VBG pCO2 VBG pO2 VBG HCO3 VBG O2 Saturation VBG Base Excess Sodium Potassium Chloride Carbon Dioxide Anion Gap BUN Creatinine Estim Creat Clear Calc Estimated GFR POC Glucose 218 H 328 H 288 H Random Glucose Estimat Average Glucose Hemoglobin A1c % Osmolality Lactic Acid Calcium Magnesium Total Bilirubin Direct Bilirubin AST ALT Alkaline Phosphatase Troponin I High Sens C-Reactive Protein Total Protein Albumin Lipase Beta-Hydroxybutyrate TSH Free T4 Beta HCG, Quant Urine Color Urine Appearance Urine pH Ur Specific [place] Urine Protein Urine Glucose (UA) Urine Ketones Urine Blood Urine Nitrite Ur Leukocyte Esterase Urine RBC Urine WBC Ur Squamous Epith Cells Urine Bacteria Hyaline Casts Stl C. cayetanensis PCR Stool Rotavirus A PCR Stl Adenov F 40 PCR Stool Astrovirus (PCR) Stool Campylobacter PCR Stool Cryptosporidium PCR Stl Sh Tox Pr E STEC PCR Stool E coli O157 PCR Stl Enterotoxigenic E PCR Stool EPEC (PCR) Stool EAEC (PCR) Stl E. histolytica PCR Stool Giardia Lamblia PCR Stl P. shigelloides PCR Stool Salmonella PCR Stool Sapovirus (PCR) Stl Shigella/EIEC PCR St Y.enterocolitica PCR Stool Vibrio (PCR) Stl Vibrio cholerae PCR Stl Norovirus GI/GII PCR C. difficile Tox B Gene 01/21/25 01/21/25 01/21/25 13:42 13:46 14:17 WBC 2.9 L RBC 2.68 L Hgb 7.8 L Hct 24.0 L MCV 89.6 MCH 29.1 MCHC 32.5 RDW 15.4 Plt Count 199 MPV 9.4 Immature Gran % (Auto) 0.3 Neut % (Auto) 47.1 Lymph % (Auto) 44.7 H [place] % (Auto) 5.5 Eos % (Auto) 2.1 Baso % (Auto) 0.3 Lymph # (Auto) 1.3 [place] # (Auto) 0.2 Eos # (Auto) 0.1 Baso # (Auto) 0.0 Abs Immat Gran (auto) 0.01 Absolute Neuts (auto) 1.4 L Absolute Nucleated RBC 0.000 Nucleated RBC % (auto) 0.0 Smear Path Review ESR Hold Purple Top O2 Saturation ABG pH at Pt Temp ABG pCO2 at Pt Temp ABG pO2 at Pt Temp ABG HCO3 ABG Base Excess (Actual) VBG pH 7.48 H VBG pCO2 45 VBG pO2 53 VBG HCO3 34 H VBG O2 Saturation 80.0 VBG Base Excess 9.9 Sodium 135 Potassium 5.1 D Chloride 101 Carbon Dioxide 27 Anion Gap 12 BUN 22 H Creatinine 0.93 Estim Creat Clear Calc 56.3 Estimated GFR > 60 POC Glucose 300 H Random Glucose 307 H Estimat Average Glucose Hemoglobin A1c % Osmolality Lactic Acid Calcium 8.7 Magnesium Total Bilirubin 0.2 Direct Bilirubin AST 57 H ALT 35 H Alkaline Phosphatase 73 Troponin I High Sens C-Reactive Protein Total Protein 6.8 Albumin 3.2 L Lipase Beta-Hydroxybutyrate TSH Free T4 Beta HCG, Quant Urine Color Urine Appearance Urine pH Ur Specific [place] Urine Protein Urine Glucose (UA) Urine Ketones Urine Blood Urine Nitrite Ur Leukocyte Esterase Urine RBC Urine WBC Ur Squamous Epith Cells Urine Bacteria Hyaline Casts Stl C. cayetanensis PCR Stool Rotavirus A PCR Stl Adenov F 40/41 PCR Stool Astrovirus (PCR) Stool Campylobacter PCR Stool Cryptosporidium PCR Stl Sh Tox Pr E STEC PCR Stool E coli O157 PCR Stl Enterotoxigenic E PCR Stool EPEC (PCR) Stool EAEC (PCR) Stl E. histolytica PCR Stool Giardia Lamblia PCR Stl P. shigelloides PCR Stool Salmonella PCR Stool Sapovirus (PCR) Stl Shigella/EIEC PCR St Y.enterocolitica PCR Stool Vibrio (PCR) Stl Vibrio cholerae PCR Stl Norovirus GI/GII PCR C. difficile Tox B Gene 01/21/25 01/21/25 01/22/25 18:09 22:26 01:57 WBC RBC Hgb Hct MCV MCH MCHC RDW Plt Count MPV Immature Gran % (Auto) Neut % (Auto) Lymph % (Auto) [place] % (Auto) Eos % (Auto) Baso % (Auto) Lymph # (Auto) [place] # (Auto) Eos # (Auto) Baso # (Auto) Abs Immat Gran (auto) Absolute Neuts (auto) Absolute Nucleated RBC Nucleated RBC % (auto) Smear Path Review ESR Hold Purple Top O2 Saturation ABG pH at Pt Temp ABG pCO2 at Pt Temp ABG pO2 at Pt Temp ABG HCO3 ABG Base Excess (Actual) VBG pH VBG pCO2 VBG pO2 VBG HCO3 VBG O2 Saturation VBG Base Excess Sodium Potassium Chloride Carbon Dioxide Anion Gap BUN Creatinine Estim Creat Clear Calc Estimated GFR POC Glucose 439 H* 275 H 139 H Random Glucose Estimat Average Glucose Hemoglobin A1c % Osmolality Lactic Acid Calcium Magnesium Total Bilirubin Direct Bilirubin AST ALT Alkaline Phosphatase Troponin I High Sens C-Reactive Protein Total Protein Albumin Lipase Beta-Hydroxybutyrate TSH Free T4 Beta HCG, Quant Urine Color Urine Appearance Urine pH Ur Specific [place] Urine Protein Urine Glucose (UA) Urine Ketones Urine Blood Urine Nitrite Ur Leukocyte Esterase Urine RBC Urine WBC Ur Squamous Epith Cells Urine Bacteria Hyaline Casts Stl C. cayetanensis PCR Stool Rotavirus A PCR Stl Adenov F 40 PCR Stool Astrovirus (PCR) Stool Campylobacter PCR Stool Cryptosporidium PCR Stl Sh Tox Pr E STEC PCR Stool E coli O157 PCR Stl Enterotoxigenic E PCR Stool EPEC (PCR) Stool EAEC (PCR) Stl E. histolytica PCR Stool Giardia Lamblia PCR Stl P. shigelloides PCR Stool Salmonella PCR Stool Sapovirus (PCR) Stl Shigella/EIEC PCR St Y.enterocolitica PCR Stool Vibrio (PCR) Stl Vibrio cholerae PCR Stl Norovirus GI/GII PCR C. difficile Tox B Gene 01/22/25 01/22/25 01/22/25 05:57 10:04 14:07 WBC RBC Hgb Hct MCV MCH MCHC RDW Plt Count MPV Immature Gran % (Auto) Neut % (Auto) Lymph % (Auto) [place] % (Auto) Eos % (Auto) Baso % (Auto) Lymph # (Auto) [place] # (Auto) Eos # (Auto) Baso # (Auto) Abs Immat Gran (auto) Absolute Neuts (auto) Absolute Nucleated RBC Nucleated RBC % (auto) Smear Path Review ESR Hold Purple Top O2 Saturation ABG pH at Pt Temp ABG pCO2 at Pt Temp ABG pO2 at Pt Temp ABG HCO3 ABG Base Excess (Actual) VBG pH VBG pCO2 VBG pO2 VBG HCO3 VBG O2 Saturation VBG Base Excess Sodium Potassium Chloride Carbon Dioxide Anion Gap BUN Creatinine Estim Creat Clear Calc Estimated GFR POC Glucose 110 317 H 422 H* Random Glucose Estimat Average Glucose Hemoglobin A1c % Osmolality Lactic Acid Calcium Magnesium Total Bilirubin Direct Bilirubin AST ALT Alkaline Phosphatase Troponin I High Sens C-Reactive Protein Total Protein Albumin Lipase Beta-Hydroxybutyrate TSH Free T4 Beta HCG, Quant Urine Color Urine Appearance Urine pH Ur Specific [place] Urine Protein Urine Glucose (UA) Urine Ketones Urine Blood Urine Nitrite Ur Leukocyte Esterase Urine RBC Urine WBC Ur Squamous Epith Cells Urine Bacteria Hyaline Casts Stl C. cayetanensis PCR Stool Rotavirus A PCR Stl Adenov F 40/ PCR Stool Astrovirus (PCR) Stool Campylobacter PCR Stool Cryptosporidium PCR Stl Sh Tox Pr E STEC PCR Stool E coli O157 PCR Stl Enterotoxigenic E PCR Stool EPEC (PCR) Stool EAEC (PCR) Stl E. histolytica PCR Stool Giardia Lamblia PCR Stl P. shigelloides PCR Stool Salmonella PCR Stool Sapovirus (PCR) Stl Shigella/EIEC PCR St Y.enterocolitica PCR Stool Vibrio (PCR) Stl Vibrio cholerae PCR Stl Norovirus GI/GII PCR C. difficile Tox B Gene 01/22/25 01/22/25 01/23/25 18:09 22:07 02:26 WBC RBC Hgb Hct MCV MCH MCHC RDW Plt Count MPV Immature Gran % (Auto) Neut % (Auto) Lymph % (Auto) [place] % (Auto) Eos % (Auto) Baso % (Auto) Lymph # (Auto) [place] # (Auto) Eos # (Auto) Baso # (Auto) Abs Immat Gran (auto) Absolute Neuts (auto) Absolute Nucleated RBC Nucleated RBC % (auto) Smear Path Review ESR Hold Purple Top O2 Saturation ABG pH at Pt Temp ABG pCO2 at Pt Temp ABG pO2 at Pt Temp ABG HCO3 ABG Base Excess (Actual) VBG pH VBG pCO2 VBG pO2 VBG HCO3 VBG O2 Saturation VBG Base Excess Sodium Potassium Chloride Carbon Dioxide Anion Gap BUN Creatinine Estim Creat Clear Calc Estimated GFR POC Glucose 412 H* 245 H 114 Random Glucose Estimat Average Glucose Hemoglobin A1c % Osmolality Lactic Acid Calcium Magnesium Total Bilirubin Direct Bilirubin AST ALT Alkaline Phosphatase Troponin I High Sens C-Reactive Protein Total Protein Albumin Lipase Beta-Hydroxybutyrate TSH Free T4 Beta HCG, Quant Urine Color Urine Appearance Urine pH Ur Specific [place] Urine Protein Urine Glucose (UA) Urine Ketones Urine Blood Urine Nitrite Ur Leukocyte Esterase Urine RBC Urine WBC Ur Squamous Epith Cells Urine Bacteria Hyaline Casts Stl C. cayetanensis PCR Stool Rotavirus A PCR Stl Adenov F 40 PCR Stool Astrovirus (PCR) Stool Campylobacter PCR Stool Cryptosporidium PCR Stl Sh Tox Pr E STEC PCR Stool E coli O157 PCR Stl Enterotoxigenic E PCR Stool EPEC (PCR) Stool EAEC (PCR) Stl E. histolytica PCR Stool Giardia Lamblia PCR Stl P. shigelloides PCR Stool Salmonella PCR Stool Sapovirus (PCR) Stl Shigella/EIEC PCR St Y.enterocolitica PCR Stool Vibrio (PCR) Stl Vibrio cholerae PCR Stl Norovirus GI/GII PCR C. difficile Tox B Gene 01/23/25 01/23/25 01/23/25 06:07 09:33 12:14 WBC 2.8 L RBC 2.90 L Hgb 8.7 L Hct 26.1 L MCV 90.0 MCH 30.0 MCHC 33.3 RDW 15.6 Plt Count 195 MPV 9.4 Immature Gran % (Auto) Neut % (Auto) Lymph % (Auto) [place] % (Auto) Eos % (Auto) Baso % (Auto) Lymph # (Auto) [place] # (Auto) Eos # (Auto) Baso # (Auto) Abs Immat Gran (auto) Absolute Neuts (auto) Absolute Nucleated RBC 0.000 Nucleated RBC % (auto) 0.0 Smear Path Review ESR Hold Purple Top O2 Saturation ABG pH at Pt Temp ABG pCO2 at Pt Temp ABG pO2 at Pt Temp ABG HCO3 ABG Base Excess (Actual) VBG pH VBG pCO2 VBG pO2 VBG HCO3 VBG O2 Saturation VBG Base Excess Sodium 138 Potassium 4.0 D Chloride 102 Carbon Dioxide 25 Anion Gap 15 BUN 22 H Creatinine 1.02 Estim Creat Clear Calc 51.3 Estimated GFR 58 POC Glucose 236 H 416 H* Random Glucose 413 H* Estimat Average Glucose Hemoglobin A1c % Osmolality Lactic Acid Calcium 9.3 D Magnesium Total Bilirubin 0.3 Direct Bilirubin 0.2 AST 57 H ALT 56 H Alkaline Phosphatase 85 Troponin I High Sens C-Reactive Protein Total Protein 7.7 Albumin 3.9 Lipase 65 Beta-Hydroxybutyrate TSH Free T4 Beta HCG, Quant Urine Color Urine Appearance Urine pH Ur Specific [place] Urine Protein Urine Glucose (UA) Urine Ketones Urine Blood Urine Nitrite Ur Leukocyte Esterase Urine RBC Urine WBC Ur Squamous Epith Cells Urine Bacteria Hyaline Casts Stl C. cayetanensis PCR Stool Rotavirus A PCR Stl Adenov F PCR Stool Astrovirus (PCR) Stool Campylobacter PCR Stool Cryptosporidium PCR Stl Sh Tox Pr E STEC PCR Stool E coli O157 PCR Stl Enterotoxigenic E PCR Stool EPEC (PCR) Stool EAEC (PCR) Stl E. histolytica PCR Stool Giardia Lamblia PCR Stl P. shigelloides PCR Stool Salmonella PCR Stool Sapovirus (PCR) Stl Shigella/EIEC PCR St Y.enterocolitica PCR Stool Vibrio (PCR) Stl Vibrio cholerae PCR Stl Norovirus GI/GII PCR C. difficile Tox B Gene 01/23/25 01/23/25 01/23/25 14:08 17:20 21:59 WBC RBC Hgb Hct MCV MCH MCHC RDW Plt Count MPV Immature Gran % (Auto) Neut % (Auto) Lymph % (Auto) [place] % (Auto) Eos % (Auto) Baso % (Auto) Lymph # (Auto) [place] # (Auto) Eos # (Auto) Baso # (Auto) Abs Immat Gran (auto) Absolute Neuts (auto) Absolute Nucleated RBC Nucleated RBC % (auto) Smear Path Review ESR Hold Purple Top O2 Saturation ABG pH at Pt Temp ABG pCO2 at Pt Temp ABG pO2 at Pt Temp ABG HCO3 ABG Base Excess (Actual) VBG pH VBG pCO2 VBG pO2 VBG HCO3 VBG O2 Saturation VBG Base Excess Sodium Potassium Chloride Carbon Dioxide Anion Gap BUN Creatinine Estim Creat Clear Calc Estimated GFR POC Glucose 336 H 214 H 119 H Random Glucose Estimat Average Glucose Hemoglobin A1c % Osmolality Lactic Acid Calcium Magnesium Total Bilirubin Direct Bilirubin AST ALT Alkaline Phosphatase Troponin I High Sens C-Reactive Protein Total Protein Albumin Lipase Beta-Hydroxybutyrate TSH Free T4 Beta HCG, Quant Urine Color Urine Appearance Urine pH Ur Specific [place] Urine Protein Urine Glucose (UA) Urine Ketones Urine Blood Urine Nitrite Ur Leukocyte Esterase Urine RBC Urine WBC Ur Squamous Epith Cells Urine Bacteria Hyaline Casts Stl C. cayetanensis PCR Stool Rotavirus A PCR Stl Adenov F PCR Stool Astrovirus (PCR) Stool Campylobacter PCR Stool Cryptosporidium PCR Stl Sh Tox Pr E STEC PCR Stool E coli O157 PCR Stl Enterotoxigenic E PCR Stool EPEC (PCR) Stool EAEC (PCR) Stl E. histolytica PCR Stool Giardia Lamblia PCR Stl P. shigelloides PCR Stool Salmonella PCR Stool Sapovirus (PCR) Stl Shigella/EIEC PCR St Y.enterocolitica PCR Stool Vibrio (PCR) Stl Vibrio cholerae PCR Stl Norovirus GI/GII PCR C. difficile Tox B Gene 01/23/25 01/24/25 01/24/25 23:30 02:08 06:02 WBC RBC Hgb Hct MCV MCH MCHC RDW Plt Count MPV Immature Gran % (Auto) Neut % (Auto) Lymph % (Auto) [place] % (Auto) Eos % (Auto) Baso % (Auto) Lymph # (Auto) [place] # (Auto) Eos # (Auto) Baso # (Auto) Abs Immat Gran (auto) Absolute Neuts (auto) Absolute Nucleated RBC Nucleated RBC % (auto) Smear Path Review ESR Hold Purple Top O2 Saturation ABG pH at Pt Temp ABG pCO2 at Pt Temp ABG pO2 at Pt Temp ABG HCO3 ABG Base Excess (Actual) VBG pH VBG pCO2 VBG pO2 VBG HCO3 VBG O2 Saturation VBG Base Excess Sodium Potassium Chloride Carbon Dioxide Anion Gap BUN Creatinine Estim Creat Clear Calc Estimated GFR POC Glucose 102 91 164 H Random Glucose Estimat Average Glucose Hemoglobin A1c % Osmolality Lactic Acid Calcium Magnesium Total Bilirubin Direct Bilirubin AST ALT Alkaline Phosphatase Troponin I High Sens C-Reactive Protein Total Protein Albumin Lipase Beta-Hydroxybutyrate TSH Free T4 Beta HCG, Quant Urine Color Urine Appearance Urine pH Ur Specific [place] Urine Protein Urine Glucose (UA) Urine Ketones Urine Blood Urine Nitrite Ur Leukocyte Esterase Urine RBC Urine WBC Ur Squamous Epith Cells Urine Bacteria Hyaline Casts Stl C. cayetanensis PCR Stool Rotavirus A PCR Stl Adenov F 40/41 PCR Stool Astrovirus (PCR) Stool Campylobacter PCR Stool Cryptosporidium PCR Stl Sh Tox Pr E STEC PCR Stool E coli O157 PCR Stl Enterotoxigenic E PCR Stool EPEC (PCR) Stool EAEC (PCR) Stl E. histolytica PCR Stool Giardia Lamblia PCR Stl P. shigelloides PCR Stool Salmonella PCR Stool Sapovirus (PCR) Stl Shigella/EIEC PCR St Y.enterocolitica PCR Stool Vibrio (PCR) Stl Vibrio cholerae PCR Stl Norovirus GI/GII PCR C. difficile Tox B Gene 01/24/25 01/24/25 01/24/25 09:31 14:27 17:35 WBC RBC Hgb Hct MCV MCH MCHC RDW Plt Count MPV Immature Gran % (Auto) Neut % (Auto) Lymph % (Auto) [place] % (Auto) Eos % (Auto) Baso % (Auto) Lymph # (Auto) [place] # (Auto) Eos # (Auto) Baso # (Auto) Abs Immat Gran (auto) Absolute Neuts (auto) Absolute Nucleated RBC Nucleated RBC % (auto) Smear Path Review ESR Hold Purple Top O2 Saturation ABG pH at Pt Temp ABG pCO2 at Pt Temp ABG pO2 at Pt Temp ABG HCO3 ABG Base Excess (Actual) VBG pH VBG pCO2 VBG pO2 VBG HCO3 VBG O2 Saturation VBG Base Excess Sodium Potassium Chloride Carbon Dioxide Anion Gap BUN Creatinine Estim Creat Clear Calc Estimated GFR POC Glucose 164 H 173 H 153 H Random Glucose Estimat Average Glucose Hemoglobin A1c % Osmolality Lactic Acid Calcium Magnesium Total Bilirubin Direct Bilirubin AST ALT Alkaline Phosphatase Troponin I High Sens C-Reactive Protein Total Protein Albumin Lipase Beta-Hydroxybutyrate TSH Free T4 Beta HCG, Quant Urine Color Urine Appearance Urine pH Ur Specific [place] Urine Protein Urine Glucose (UA) Urine Ketones Urine Blood Urine Nitrite Ur Leukocyte Esterase Urine RBC Urine WBC Ur Squamous Epith Cells Urine Bacteria Hyaline Casts Stl C. cayetanensis PCR Stool Rotavirus A PCR Stl Adenov F 40/41 PCR Stool Astrovirus (PCR) Stool Campylobacter PCR Stool Cryptosporidium PCR Stl Sh Tox Pr E STEC PCR Stool E coli O157 PCR Stl Enterotoxigenic E PCR Stool EPEC (PCR) Stool EAEC (PCR) Stl E. histolytica PCR Stool Giardia Lamblia PCR Stl P. shigelloides PCR Stool Salmonella PCR Stool Sapovirus (PCR) Stl Shigella/EIEC PCR St Y.enterocolitica PCR Stool Vibrio (PCR) Stl Vibrio cholerae PCR Stl Norovirus GI/GII PCR C. difficile Tox B Gene 01/24/25 01/25/25 01/25/25 22:09 02:09 05:34 WBC RBC Hgb Hct MCV MCH MCHC RDW Plt Count MPV Immature Gran % (Auto) Neut % (Auto) Lymph % (Auto) [place] % (Auto) Eos % (Auto) Baso % (Auto) Lymph # (Auto) [place] # (Auto) Eos # (Auto) Baso # (Auto) Abs Immat Gran (auto) Absolute Neuts (auto) Absolute Nucleated RBC Nucleated RBC % (auto) Smear Path Review ESR Hold Purple Top O2 Saturation ABG pH at Pt Temp ABG pCO2 at Pt Temp ABG pO2 at Pt Temp ABG HCO3 ABG Base Excess (Actual) VBG pH VBG pCO2 VBG pO2 VBG HCO3 VBG O2 Saturation VBG Base Excess Sodium Potassium Chloride Carbon Dioxide Anion Gap BUN Creatinine Estim Creat Clear Calc Estimated GFR POC Glucose 181 H 190 H 194 H Random Glucose Estimat Average Glucose Hemoglobin A1c % Osmolality Lactic Acid Calcium Magnesium Total Bilirubin Direct Bilirubin AST ALT Alkaline Phosphatase Troponin I High Sens C-Reactive Protein Total Protein Albumin Lipase Beta-Hydroxybutyrate TSH Free T4 Beta HCG, Quant Urine Color Urine Appearance Urine pH Ur Specific [place] Urine Protein Urine Glucose (UA) Urine Ketones Urine Blood Urine Nitrite Ur Leukocyte Esterase Urine RBC Urine WBC Ur Squamous Epith Cells Urine Bacteria Hyaline Casts Stl C. cayetanensis PCR Stool Rotavirus A PCR Stl Adenov F PCR Stool Astrovirus (PCR) Stool Campylobacter PCR Stool Cryptosporidium PCR Stl Sh Tox Pr E STEC PCR Stool E coli O157 PCR Stl Enterotoxigenic E PCR Stool EPEC (PCR) Stool EAEC (PCR) Stl E. histolytica PCR Stool Giardia Lamblia PCR Stl P. shigelloides PCR Stool Salmonella PCR Stool Sapovirus (PCR) Stl Shigella/EIEC PCR St Y.enterocolitica PCR Stool Vibrio (PCR) Stl Vibrio cholerae PCR Stl Norovirus GI/GII PCR C. difficile Tox B Gene 01/25/25 01/25/25 01/25/25 07:25 09:52 09:53 WBC 3.1 L RBC 2.78 L Hgb 8.2 L Hct 25.0 L MCV 89.9 MCH 29.5 MCHC 32.8 RDW 15.3 Plt Count 156 L MPV 9.0 L Immature Gran % (Auto) Neut % (Auto) Lymph % (Auto) [place] % (Auto) Eos % (Auto) Baso % (Auto) Lymph # (Auto) [place] # (Auto) Eos # (Auto) Baso # (Auto) Abs Immat Gran (auto) Absolute Neuts (auto) Absolute Nucleated RBC 0.000 Nucleated RBC % (auto) 0.0 Smear Path Review ESR Hold Purple Top O2 Saturation ABG pH at Pt Temp ABG pCO2 at Pt Temp ABG pO2 at Pt Temp ABG HCO3 ABG Base Excess (Actual) VBG pH VBG pCO2 VBG pO2 VBG HCO3 VBG O2 Saturation VBG Base Excess Sodium 136 Potassium 3.7 Chloride 102 Carbon Dioxide 22 Anion Gap 16 BUN 10 Creatinine 0.76 Estim Creat Clear Calc 68.9 Estimated GFR > 60 POC Glucose 171 H 200 H Random Glucose 216 H Estimat Average Glucose Hemoglobin A1c % Osmolality Lactic Acid Calcium 8.9 Magnesium Total Bilirubin Direct Bilirubin AST ALT Alkaline Phosphatase Troponin I High Sens C-Reactive Protein Total Protein Albumin Lipase Beta-Hydroxybutyrate TSH Free T4 Beta HCG, Quant Urine Color Urine Appearance Urine pH Ur Specific [place] Urine Protein Urine Glucose (UA) Urine Ketones Urine Blood Urine Nitrite Ur Leukocyte Esterase Urine RBC Urine WBC Ur Squamous Epith Cells Urine Bacteria Hyaline Casts Stl C. cayetanensis PCR Stool Rotavirus A PCR Stl Adenov F PCR Stool Astrovirus (PCR) Stool Campylobacter PCR Stool Cryptosporidium PCR Stl Sh Tox Pr E STEC PCR Stool E coli O157 PCR Stl Enterotoxigenic E PCR Stool EPEC (PCR) Stool EAEC (PCR) Stl E. histolytica PCR Stool Giardia Lamblia PCR Stl P. shigelloides PCR Stool Salmonella PCR Stool Sapovirus (PCR) Stl Shigella/EIEC PCR St Y.enterocolitica PCR Stool Vibrio (PCR) Stl Vibrio cholerae PCR Stl Norovirus GI/GII PCR C. difficile Tox B Gene 01/25/25 12:20 WBC RBC Hgb Hct MCV MCH MCHC RDW Plt Count MPV Immature Gran % (Auto) Neut % (Auto) Lymph % (Auto) [place] % (Auto) Eos % (Auto) Baso % (Auto) Lymph # (Auto) [place] # (Auto) Eos # (Auto) Baso # (Auto) Abs Immat Gran (auto) Absolute Neuts (auto) Absolute Nucleated RBC Nucleated RBC % (auto) Smear Path Review ESR Hold Purple Top O2 Saturation ABG pH at Pt Temp ABG pCO2 at Pt Temp ABG pO2 at Pt Temp ABG HCO3 ABG Base Excess (Actual) VBG pH VBG pCO2 VBG pO2 VBG HCO3 VBG O2 Saturation VBG Base Excess Sodium Potassium Chloride Carbon Dioxide Anion Gap BUN Creatinine Estim Creat Clear Calc Estimated GFR POC Glucose Random Glucose Estimat Average Glucose Hemoglobin A1c % Osmolality Lactic Acid Calcium Magnesium Total Bilirubin Direct Bilirubin AST ALT Alkaline Phosphatase Troponin I High Sens C-Reactive Protein Total Protein Albumin Lipase Beta-Hydroxybutyrate TSH Free T4 Beta HCG, Quant < 2 Urine Color Urine Appearance Urine pH Ur Specific [place] Urine Protein Urine Glucose (UA) Urine Ketones Urine Blood Urine Nitrite Ur Leukocyte Esterase Urine RBC Urine WBC Ur Squamous Epith Cells Urine Bacteria Hyaline Casts Stl C. cayetanensis PCR Stool Rotavirus A PCR Stl Adenov F 40/41 PCR Stool Astrovirus (PCR) Stool Campylobacter PCR Stool Cryptosporidium PCR Stl Sh Tox Pr E STEC PCR Stool E coli O157 PCR Stl Enterotoxigenic E PCR Stool EPEC (PCR) Stool EAEC (PCR) Stl E. histolytica PCR Stool Giardia Lamblia PCR Stl P. shigelloides PCR Stool Salmonella PCR Stool Sapovirus (PCR) Stl Shigella/EIEC PCR St Y.enterocolitica PCR Stool Vibrio (PCR) Stl Vibrio cholerae PCR Stl Norovirus GI/GII PCR C. difficile Tox B Gene Airway Mallampati Class: II TM Dist: >3cm Neck ROM: Full Denture: Upper and Lower Heart: ok Lungs: ok Assessment and Plan Assessment Anesthesia Assessment: Anesthesia Plan Discussed and Chart Reviewed Final Anesthetic Review Family History of Problems with Anesthesia: No History of Problems with Anesthesia: No NPO: Yes ASA Class: IV Final Preanesthetic Review: No Changes in Pt Med Stat, Meds/Allgs Chart Reviewed, Consent Obtained/Reviewed and Anes Risks/Benef Reviewed Patient Risk: High Procedure Risk: Intermediate Anesthetic Plan Anesthetic Plan: Agree w/ Assess. and Plan and TIVA Disposition: Standard PACU
[2025-01-25] MEDS: Lactated Ringers 1,000 ML 80 ML IVCONT ×2 (14:06→16:52)
--- NOTE | 2025-01-25 14:39 | MHC.SHP ---
Pre-Procedural Eval Section A - 24 Hr Update-Section A only Date of Service: 01/25/25 The patient is an INPATIENT: Yes The patient has been examined within 24 hours of the surgical procedure. The History & Physical has been completed within 30 days and I have reviewed it.: Yes Section B - Complete if H&P > 30 days Chief Complaint: abd pain, N,V Allergies: Allergies Allergy/AdvReac Type Severity Reaction Status Date / Time acetaminophen Allergy Swelling Verified 01/25/25 13:38 atorvastatin Allergy Unknown Verified 01/25/25 13:38 duloxetine Allergy Unknown Verified 01/25/25 13:38 fish derived (fish) Allergy Swelling Verified 01/25/25 13:38 Plan Diagnosis/Plan: Unchanged I have reviewed the history and physical and performed a pertinent physical examination on my patient. No changes have occurred unless specified. Time Spent With Patient Time: Total time managing care of this patient today ____ minutes.
--- NOTE | 2025-01-25 14:54 | HO.WOUND ---
Wound consult: Attempted Follow up Attempted to see patient and follow up on sacral wound, arrival to bedside patient was off unit in procedure. Will attempt at future date and time.
--- NOTE | 2025-01-25 14:55 | P.OP_ITS ---
Operative Note Operative Note Date of Service: 01/25/25 Narrative: Procedure: Esophagogastroduodenoscopy Endoscopist: Jaclyn Osman MD Indication: Abd pain, N,V Anesthesia Provider: Dr Cameron Cerrato Anesthesia Type: MAC ?? EGD Procedure:?? The procedure, indications, preparation and potential complications were reviewed with the patient, who indicated understanding and gave written informed consent to proceed. A physical exam was performed. The endoscope was introduced through the mouth, and advanced to the second part of duodenum. The mucosa was carefully examined on slow withdrawal of the endoscope. The patient tolerated the procedure well. There were no immediate complications.? ? EGD Findings:? * Esophagus:? Normal mucosa noted in the entire esophagus. The Z line was at 40 cm. * Stomach:? Significant amount of gastric effluent noted in the stomach which was promptly suctioned. Erythema and edema noted in the antrum. Retroflexion was performed in the cardia. Cold forceps biopsies were taken from gastric antrum and body for histology. * Duodenum:? Normal mucosa was noted in the whole of the examined duodenum. Cold forceps biopsies were taken from duodenal bulb and second portion of the duodenum to rule out celiac sprue. ? EGD Impressions:? * Normal esophagus * Gastritis (biopsy) * Normal duodenum (biopsy) ?? Recommendations:?? * No obvious PUD or GOO noted. Likely has some component of delayed gastric emptying. * Follow biopsy results. Our office will call or send a letter with results within 7-10 days. * Consider famotidine to omeprazole 20 once daily * Avoid NSAIDs. * Erythromycin 250 mg TID x 3 days if QTc permissible
[2025-01-25 18:14] LABS: Glucose, Whole Blood 153 mg/dL (60-115)
[2025-01-25 19:35] LABS: Glucose, Whole Blood 163 mg/dL (60-115)
[2025-01-25 23:49] LABS: Glucose, Whole Blood 153 mg/dL (60-115)
[2025-01-26] VITALS (7 sets, daily range): BP systolic 134–179; BP diastolic 51–102; PULSE 71–100; RESP 16–18; TEMP 36.6–36.7; O2SAT 96–98; BMI 30.2
[2025-01-26] MEDS: 0.9 % Sodium Chloride Flush 3 ML SYRINGE IVFLUSH ×4 (01:49→19:42)
[2025-01-26] MEDS: HYDROmorphone HCl 1 MG/ML SYRINGE IVPUSH ×8 (01:50→23:07)
[2025-01-26 03:56] LABS: Glucose, Whole Blood 138 mg/dL (60-115)
[2025-01-26] MEDS: Lactated Ringers 1,000 ML 80 ML IVCONT ×2 (04:46→16:44)
[2025-01-26 07:09] LABS: Glucose, Whole Blood 129 mg/dL (60-115)
[2025-01-26] MEDS: Famotidine/PF 20 MG/2 ML VIAL IVPUSH ×2 (07:59→19:41)
--- NOTE | 2025-01-26 08:45 | HO.POSTANES ---
Post Anesthesia Evaluation Post Anesthesia Evaluation Date of Service: 01/26/25 Vital Signs: Vital Signs Temp Pulse Resp BP Pulse Ox O2 Del Method 01/26/25 06:51 97.8 F 91 18 162/102 H 98 Room Air 01/26/25 00:00 98.1 F 86 16 171/100 H 98 Room Air Anesthesia: Monitored Mental Status: Awake Pain Control: Satisfactory Nausea/Vomiting: None Hydration: Adequate Anesthesia-Related Issues: No Anes. Related Issues
[2025-01-26 11:01] LABS: Glucose, Whole Blood 123 mg/dL (60-115)
[2025-01-26] MEDS: ondansetron HCL 4 MG/2 ML VIAL IVPUSH (11:03)
--- NOTE | 2025-01-26 12:31 | P.PNIM_ITS ---
Subjective Subjective Date of Service: 01/26/25 Interval History: Patient is still complaining of nausea and vomitting, and abdominal pain, CT showed no acute finding and EGD yesterday also did not show any source of her pain Physical Exam 2 Vital Signs: Vital Signs: Last Vital Signs Temp 97.8 F 01/26/25 10:56 Pulse 91 01/26/25 10:56 Resp 18 01/26/25 10:56 BP 160/98 H 01/26/25 12:05 Pulse Ox 97 01/26/25 10:56 O2 Del Method Room Air 01/26/25 10:56 BMI result Body Mass Index 19.4 Const: Other: General: AO X 3, no acute distress Resp: CTA bilateral CVS: S1,S2,RRR GI: no specific finding, no distention, Skin: No rash Neuro: motor grossly intact Psych: appropriate affect Objective Data Active Medications Calcium Carbonate (Calcium Carbonate 750 Mg Tab.Chew) 750 mg PO Q4H PRN PRN Reason: Heartburn Dextrose (Dextrose 50 % 25 Gm/50 Ml Syringe) 25 gm IVPUSH Q15M PRN; Protocol PRN Reason: per Hypoglycemia Standing Ord. Last Admin: 01/13/25 04:24 Dose: 25 gm Documented By: ADELINA Enoxaparin Sodium (Enoxaparin Sodium 40 Mg/0.4 Ml Syringe) 40 mg SUBCUT Q24H [facility] Last Admin: 01/26/25 08:02 Dose: Not Given Documented By: ALAINA Non-Admin Reason: Patient Refused Famotidine (Famotidine/Pf 20 Mg/2 Ml Vial) 20 mg IVPUSH BID [facility] [place] Last Admin: 01/26/25 07:59 Dose: 20 mg Documented By: ALAINA Fludrocortisone Acetate (Fludrocortisone Acetate 0.1 Mg Tablet) 0.1 mg PO DAILY [facility] [place] Last Admin: 01/26/25 08:02 Dose: Not Given Documented By: ALAINA Non-Admin Reason: Patient Refused Fluoxetine HCl (Fluoxetine Hcl 20 Mg Capsule) 20 mg PO DAILY [facility] [place] Last Admin: 01/26/25 08:02 Dose: Not Given Documented By: ALAINA Non-Admin Reason: Patient Refused Glucose (Glucose Gel 15 Gm Gel..Gram.) 15 gm PO Q15M PRN; Protocol PRN Reason: per Hypoglycemia Standing Ord. Hydromorphone HCl (Hydromorphone Hcl 1 Mg/Ml Syringe) 1 mg IVPUSH Q3H PRN; Protocol PRN Reason: Pain, Severe (Pain Scale 7-10) Last Admin: 01/26/25 11:03 Dose: 1 mg Documented By: ALAINA Hydromorphone HCl (Hydromorphone Hcl 1 Mg/Ml Syringe) 1 mg IVPUSH ONCE PRN; Protocol PRN Reason: Pain, Moderate(Pain Scale 4-6) Hydroxychloroquine Sulfate (Hydroxychloroquine Sulfate 200 Mg Tablet) 200 mg PO DAILY [facility] [place] Last Admin: 01/26/25 08:02 Dose: Not Given Documented By: ALAINA Non-Admin Reason: Patient Refused Hydroxyzine HCl (Hydroxyzine Hcl 25 Mg Tablet) 25 mg PO QID PRN PRN Reason: anxiety Last Admin: 01/22/25 19:38 Dose: 25 mg Documented By: ADELINA Lactated Ringer's (Lr) 1,000 mls @ 80 mls/hr IVCONT .[id number] [facility] [place] Last Admin: 01/26/25 04:46 Dose: 80 mls/hr Documented By: DALLIN Magnesium Hydroxide (Milk Of Magnesia 30 Ml Oral.Susp) 30 ml PO DAILY PRN PRN Reason: Constipation Magnesium Oxide (Magnesium Oxide 400 Mg Tablet) 800 mg PO BIDPC [facility] [place] Last Admin: 01/26/25 08:02 Dose: Not Given Documented By: ALAINA Non-Admin Reason: Patient Refused Meclizine HCl (Meclizine Hcl 12.5 Mg Tablet) 12.5 mg PO Q6H PRN PRN Reason: dizziness Last Admin: 01/23/25 08:04 Dose: 12.5 mg Documented By: ESTUARDO Melatonin (Melatonin 3 Mg Tablet) 6 mg PO BEDTIME PRN PRN Reason: Insomnia Last Admin: 01/22/25 19:38 Dose: 6 mg Documented By: ADELINA Midodrine (Midodrine Hcl 10 Mg Tablet) 10 mg PO TID [facility]; Protocol Last Admin: 01/26/25 07:48 Dose: Not Given Documented By: ALAINA Non-Admin Reason: Elevated Blood Pressure Comments: BP 162/102 Mirtazapine (Mirtazapine 7.5 Mg Tablet) 22.5 mg PO BEDTIME [facility] [place] Last Admin: 01/25/25 20:08 Dose: Not Given Documented By: DALLIN Non-Admin Reason: Patient Refused Naloxone HCl (Naloxone Hcl 0.4 Mg/Ml Vial) 0.4 mg IVPUSH Q5M PRN PRN Reason: Opiate Reversal Naloxone HCl (Naloxone Hcl 0.4 Mg/Ml Vial) 0.04 mg IVPUSH Q5M PRN PRN Reason: Excessive sedation or RR < 8 Non-Formulary Medication (Insulin Regular Hum U-500 Conc [Humulin R U-500 (Conc) Kwikpen]) 350 unit SUBCUT TIDAC [facility] [place] Last Admin: 01/26/25 11:02 Dose: Not Given Documented By: ALAINA Non-Admin Reason: Patient Refused Nystatin (Nystatin Powder 15 Gm Bottle) 1 appl TOPICAL TID [facility] [place]; Protocol Last Admin: 01/26/25 08:03 Dose: Not Given Documented By: ALAINA Non-Admin Reason: Patient Refused Ondansetron HCl (Ondansetron Hcl 4 Mg/2 Ml Vial) 4 mg IVPUSH Q8H PRN PRN Reason: Nausea and Vomiting Last Admin: 01/26/25 11:03 Dose: 4 mg Documented By: ALAINA Oxycodone HCl (Oxycodone Hcl Immed Release 5 Mg Tablet) 5 mg PO Q6H PRN PRN Reason: Pain, Severe (Pain Scale 7-10) Last Admin: 01/23/25 08:07 Dose: 5 mg Documented By: ESTUARDO Pioglitazone HCl (Pioglitazone Hcl 45 Mg Tablet) 45 mg PO DAILY [facility] On Hold: 01/13/25 14:24 Last Admin: 01/13/25 10:22 Dose: 45 mg Documented By: BRUNA Polyethylene Glycol (Polyethylene Glycol 3350 17 Gm Powd.Pack) 17 gm PO DAILY PRN PRN Reason: Constipation Senna (Sennosides 8.6 Mg Tablet) 17.2 mg PO BEDTIME [facility] [place] Last Admin: 01/25/25 22:40 Dose: Not Given Documented By: DALLIN Non-Admin Reason: Patient Refused Sodium Chloride (0.9 % Sodium Chloride Flush 3 Ml Syringe) 3 ml IVFLUSH QSHIFT [facility] [place] Last Admin: 01/26/25 07:59 Dose: 3 ml Documented By: ALAINA Labs 01/25/25 09:53 01/25/25 09:53 Labs: Laboratory Results - last 24 hr 01/25/25 01/25/25 01/25/25 12:20 18:09 19:22 POC Glucose 153 H 163 H Beta HCG, Quant < 2 01/25/25 01/26/25 01/26/25 23:38 03:52 06:58 POC Glucose 153 H 138 H 129 H Beta HCG, Quant 01/26/25 10:57 POC Glucose 123 H Beta HCG, Quant Assessment and Plan (1) Sacral decubitus ulcer, stage IV: Status: Acute (2) Fall: Status: Acute (3) Hyperglycemia: Status: Acute Plan 49-year-old black female with past medical history insulin-dependent diabetes type 2 with high insulin resistant, major depressive disorder, general anxiety disorder, daily marijuana use, currently on methadone for pain control, a current unstageable sacral wound with history of osteomyelitis, lupus, myelofibrosis with the associated pancytopenia, diabetic gastroparesis, recurrent C diff infections currently asymptomatic admitted from [facility] shortly after admission to the unit, she was having hyperglycemia Abdominal pain, nausea, BMP, CBC ok, ? gastrparesis, treated with pain meds, antiemtics, CT without contrast not good study, repeat with IV contrast show constipation but no acute finding, symptoms likely due to gastroparesis, continue symtoms treatment with pain meds and antiemetics. For EGD today: GD Impressions:? * Normal esophagus * Gastritis (biopsy) * Normal duodenum (biopsy)?? Recommendations:?? * No obvious PUD or GOO noted. Likely has some component of delayed gastric emptying. * Follow biopsy results. Our office will call or send a letter with results within 7-10 days. * Consider famotidine to omeprazole 20 once daily * Avoid NSAIDs. * Erythromycin 250 mg TID x 3 days if QTc permissible no Erythro as Qtc is high Advance diet Unrepsive episodes Syncope episodes, likely d/t component of orthostatic hypotension, autonomic dysfunction, flucturating glucose, and seizure ruled out, NO episode in 4 days continue midodrine and florinef but hold if BP too high seen cardiology no other recommendation at this time Seen by Neuro 01/18:Recom: Cardiac event monitor for 30 days. Echocardiogram. EEG is negative, 48 hr ambulatory EEG. [place] orthostatics twice a day. MRA of head and neck unremarkable. Insulin-dependent diabetes type 2 with hyperglycemia and insulin resistance (Per endocrinology staff at [facility] : Patient has diabetes with insulin resistance and has hoa on IVIG Hemoglobin A1c > 14, normally on insulin up to 750 units tid. Hold Actos if not eating Presently on 350 units tid, blood glucose on low side as she has not been eating as much due to nausea and vomitting likely due to gastroparesisis She is a management challenge d/t tendency to refuse care/insulin and ordering non diabetic food and drink from outside the hospital in additional to her hospial meals Stage IV sacral wound with history of osteomyelitis--seen by wound care. See picture and asssement in wound care note recommendation: Recommendations: see picture in wound care 1. Turn and Reposition every 2 hours and as needed for patient comfort.? Use pillows or wedges to support off loading positions. 2. Off Load all bony prominences with use of pillows and heel boots if needed.? Apply Preventative foams where needed. ? 3. Monitor for incontinence and moisture control, use barrier creams when needed for prevention and treatment. 4. Provide adequate and supplemental nutrition.? 5. Order low air loss mattress. 6. Maintain blood glucose levels per Providers order. Coccyx / Sacrum - Off Load Pressure with Q2 hr turns and use of pillows Cleanse and irrigate with NS, Pat dry.? Apply barrier(Triad) to periwound, lightly pack with Durafiber AG, be sure to leave a wick to easy removal.? Fill space with dry gauze, cover with ABD pad.? Change Daily while inpt. May change every other day at time of discharge from inpatient services. Recommend follow up out patient Wound Clinic at [address] [place] [id number] and to call for an appointment at time of discharge. [phone].? UTI--has completed course of Ceftriaxone Diarrhea--negative cdif and gi panel, diarrhea resolved Anemia of chronic disease, H/H on low side but stable. Monitor Pancytopenia (chronic) -Leukopenia, Thrombocytopenia, and Anemia noted -Levels stable Chronic pain-Patient currently on methadone for chronic pain management, no history of substance use disorder on methadone. Major depressive disorder with general anxiety disorder One-to-one ordered for constant observation. Patient currently grieving the loss of her brother. Patient is not currently suicidal or admitting to suicidal ideations Psych eval added -will need crisis eval before discharge DVT prophylaxis: Lovenox PPI prophylaxis: Omeprazole Full Code status Ongoing need: orthostasis : ivf and moniter tele and orthosatsis,syncope Dispo: Likely STR or encouraging her to eat and ultimately go home Quality Stroke Does the patient have a stroke diagnosis?: No Reason for No Anti-thrombotic by Day Two: N/A - Med Ordered VTE Prior VTE?: No VTE Risk Level:: Medical - moderate - high VTE Device Contraindication: N/A - Device Ordered VTE Drug Contraindication: N/A - Med Ordered
[2025-01-26 14:44] LABS: Glucose, Whole Blood 112 mg/dL (60-115)
[2025-01-26 17:02] LABS: Glucose, Whole Blood 132 mg/dL (60-115)
[2025-01-26] MEDS: Mirtazapine 7.5 MG TABLET 22.5 MG PO (19:40)
[2025-01-26] MEDS: Nystatin Powder 15 GM BOTTLE 1 APPL TOPICAL (19:41)
[2025-01-26 19:45] LABS: Glucose, Whole Blood 241 mg/dL (60-115)
[2025-01-26] MEDS: Melatonin 3 MG TABLET 6 MG PO (19:45)
[2025-01-26] MEDS: hydrOXYzine HCL 25 MG TABLET PO (19:45)
[2025-01-26] MEDS: Loperamide HCl 2 MG CAPSULE PO (22:18)
[2025-01-26 23:44] LABS: Glucose, Whole Blood 238 mg/dL (60-115)
[2025-01-27 02:59] LABS: Glucose, Whole Blood 210 mg/dL (60-115)
[2025-01-27] MEDS: HYDROmorphone HCl 1 MG/ML SYRINGE IVPUSH ×3 (03:20→09:39)
[2025-01-27 03:53] VITALS: BP 107/63; PULSE 75; RESP 16; TEMP 37.1; O2SAT 97
[2025-01-27] MEDS: Lactated Ringers 1,000 ML 80 ML IVCONT (06:29)
[2025-01-27 07:18] VITALS: BP 143/95; PULSE 90; RESP 18; TEMP 37.3; O2SAT 99
[2025-01-27] MEDS: Hydroxychloroquine Sulfate 200 MG TABLET PO (08:19)
[2025-01-27] MEDS: Famotidine/PF 20 MG/2 ML VIAL IVPUSH (08:19)
[2025-01-27] MEDS: FLUoxetine HCl 20 MG CAPSULE PO (08:19)
[2025-01-27] MEDS: Magnesium Oxide 400 MG TABLET 800 MG PO (08:19)
[2025-01-27] MEDS: Fludrocortisone Acetate 0.1 MG TABLET PO (08:19)
[2025-01-27] MEDS: Midodrine HCl 10 MG TABLET PO (08:19)
--- NOTE | 2025-01-27 08:24 | P.DS_ITS ---
DS: Providers Provider Date of Service: 01/27/25 Date of admission: 01/10/25 05:45 Date of discharge: 01/27/25 Primary care physician: Moises Ramires NP Consults: 01/10/25 05:42 Consult to Wound Care Routine Reason for consultation: sacral decubitus wound stage 4 hx of OM 01/10/25 19:42 Consult to General Surgery Routine Consulting Provider: [facility] General Surgeons Reason for consultation: ?sacral wound debridement 01/11/25 08:55 Consult to Psychiatry Routine Consulting Provider: [facility] Psych Covering Reason for consultation: major depressive dis /interfering with treatments Has provider been notified: No 01/12/25 10:37 Inpt CARE Team Crisis Consult Stat Comment: Reason for consultation: Medically clear 01/12/25 17:25 Consult to Infectious Diseases Routine Consulting Provider: [facility] Infectious Disease [facility] Reason for consultation: uti Has provider been notified: No 01/16/25 07:48 Consult to Cardiology Routine Consulting Provider: [facility] Cardiovascular Specialists Reason for consultation: fall/syncope, mild prolonged qt -? orthostatic 01/18/25 11:08 Consult to Neurology Routine Consulting Provider: [facility] Reason for consultation: Episodes of sundden unresponsiveness, concern for seizure 01/24/25 11:23 Consult to Gastroenterology Routine Consulting Provider: Jaclyn Osman Reason for consultation: intractable nausea and vomitting DS: Diagnosis Discharge Diagnosis (1) Sacral decubitus ulcer, stage IV: Status: Acute (2) Fall: Status: Acute (3) Hyperglycemia: Status: Acute DS: Summary Hospital Course Hospital Course: Attending physician on admission: Sanjiv Moy Chief Complaint: Hyperglycemia Patient is a 49-year-old black female with past medical history insulin- dependent diabetes type 2, major depressive disorder, general anxiety disorder, daily marijuana use, currently on methadone for pain control, a current chronic stage 4 sacral wound with history of osteomyelitis, lupus, myelofibrosis with the associated pancytopenia, diabetic gastroparesis, recurrent C diff infections currently asymptomatic, is being seen by the hospitalist for hyperglycemia while an inpatient on M5 for psychiatric care, without evidence of DKA, more likely HHS. Questioning if hyperglcyemia related to chronic sacral wound. Patient is currently on the psychiatric unit after being at [facility] as patient was found unresponsive at home with concerns for DKA. During patient's stay at [facility], patient had been dealing with the passing of her brother most recently and expressed concerns about being able to care for herself due to her level of grief. Emergency psychiatric services were consulted for further evaluation. In addition patient has been noncompliant with her psychiatric medications in the remote past. Upon discharge from [facility], patient was transferred to [facility] Psychiatric unit on a section 12 b for further evaluation. Patient currently denies any suicidal ideation. Patient currently requesting to leave the hospital as soon as possible as her child is graduating from school and she plans to attend her brother's . Nursing notified this freelance copywriter that patient is currently on a section 12 b. Noting that patient is being transferred from psychiatric unit to the [facility] surgical floor, psychiatry consult will be requested to continue to monitor and follow patient for her current psychiatric needs. Pt will be on a one to one and understands that she cannot leave AMA. Initially patient refused lispro insulin noting her blood sugar was over 600. Labs were drawn at 03:00 AM and patient noted to have a leukopenia with a evidence of anemia with an H&H of 8.7 and 25.8. Platelets at 111,000 with no evidence of spontaneous bleeding. BMP notes a sodium of 135, potassium 3.5, chloride 105, CO2 21 with an anion gap of 13. Creatinine 1.19 with a creatinine clearance of 43.7 and a GFR of 48. Highest glucose so far 676 mg/dL. Patient does have a chronic sacral wound with previous osteomyelitis. This may be contributing to patient's hyperglycemia. Patient's beta hydroxybutyrate is 0.34. Pt currently in the process of transferring to Medical Surgical floor and will receive Lantus, Lispro as pt is now agreeable. Pt will continue IVF as ordered. Patient expressed concerns regarding hypoglycemia if she receives too much insulin. Plan is to add regular insulin x1 an hour after the lispro. Blood sugar will be checked 1st and if less than 250, nursing instructed to notify hospitalist for further instructions. [facility] does not carry the Humulin R insulin pt uses at home. Pt is not currently on GLP 1 injections. Wound care consultation also being placed for noted chronic, opened sacral wound. Hospital course: 49-year-old black female with past medical history insulin-dependent diabetes type 2 with high insulin resistant, major depressive disorder, general anxiety disorder, daily marijuana use, currently on methadone for pain control, a current unstageable sacral wound with history of osteomyelitis, lupus, myelofibr osis with the associated pancytopenia, diabetic gastroparesis, recurrent C diff infections currently asymptomatic admitted from [facility] shortly after admission to the unit, she was having hyperglycemia and her hospitala staty was further complicated by episodes of passing out, and abdominal pain, nausea and vomitting likely from diabetes gastroparesis Problems: Insulin-dependent diabetes type 2 with hyperglycemia and insulin resistance (Per endocrinology staff at [facility] : Patient has diabetes with insulin resistance and has hoa on IVIG) Hemoglobin A1c > 14, normally on insulin up to 750 units tid and Actos. While in the hospital her insulin was adjusted to 350 units tid, blood glucose have fluctuated but lately have been on low side, last glucose 156 which is low for her. She assure me she knows what to do or who talk for further adjustment if blood sugar away high or low. She is a management challenge d/t tendency to refuse care/insulin and ordering non diabetic food and drinks from outside the hospital in additional to her hospital meals Unrepsive episodes Syncope episodes, likely d/t component of orthostatic hypotension, autonomic dysfunction, flucturating glucose, and seizure ruled out. She was monitored on tele without arrythmia, no evidence of seizure, usually noot associated with hyptension and self-resolved. continue midodrine and florinef seen cardiology no other recommendation at this time Seen by Neuro 01/18:Recom: Cardiac event monitor for 30 days. Echocardiogram. EEG is negative, 48 hr ambulatory EEG. [place] orthostatics twice a day. MRA of head and neck unremarkable. For the last 5 days prior discharge had no episode Abdominal pain, nausea, BMP, CBC ok, ? gastrparesis, treated with pain meds, antiemtics, CT without contrast not good study, repeat with IV contrast show constipation but no acute finding, symptoms likely due to gastroparesis, continue symtoms treatment with pain meds and antiemetics. For EGD today: GD Impressions:? * Normal esophagus * Gastritis (biopsy) * Normal duodenum (biopsy)??Recommendations:?? * No obvious PUD or GOO noted. Likely has some component of delayed gastric emptying. * Follow biopsy results. Our office will call or send a letter with results within 7-10 days. * Consider famotidine to omeprazole 20 once daily * Avoid NSAIDs. * Erythromycin 250 mg TID x 3 days if QTc permissible no Erythro as Qtc is high.. Erythromycin was avoded due to high QTc at baseline Stage IV sacral wound with history of osteomyelitis--seen by wound care. See picture and asssement in wound care note recommendation: Recommendations: see picture in wound care 1. Turn and Reposition every 2 hours and as needed for patient comfort.? Use pillows or wedges to support off loading positions. 2. Off Load all bony prominences with use of pillows and heel boots if needed.? Apply Preventative foams where needed. ? 3. Monitor for incontinence and moisture control, use barrier creams when needed for prevention and treatment. 4. Provide adequate and supplemental nutrition.? 5. Order low air loss mattress. 6. Maintain blood glucose levels per Providers order. Coccyx / Sacrum - Off Load Pressure with Q2 hr turns and use of pillows Cleanse and irrigate with NS, Pat dry.? Apply barrier(Triad) to periwound, lightly pack with Durafiber AG, be sure to leave a wick to easy removal.? Fill space with dry gauze, cover with ABD pad.? Change Daily while inpt. May change every other day at time of discharge from inpatient services. Recommend follow up out patient Wound Clinic at [address] [place] [id number] and to call for an appointment at time of discharge. [phone].? UTI--has completed course of Ceftriaxone Diarrhea--negative cdif and gi panel, diarrhea resolved, imodium PRN Anemia of chronic disease, H/H on low side but stable. Monitor Pancytopenia (chronic) -Leukopenia, Thrombocytopenia, and Anemia noted -Levels stable Chronic pain-Patient currently on methadone for chronic pain management, no history of substance use disorder on methadone. Major depressive disorder with general anxiety disorder One-to-one ordered for constant observation. Patient currently grieving the loss of her brother. Patient is not currently suicidal or admitting to suicidal ideations Psych eval added -will need crisis eval before discharge Home with [facility] Time Attestation Discharge Coordination Time (in mins): 50 Quality: Safe Use of Opioids Does Pt have an Active Cancer Diagnosis on the Problem List?: No Quality: Stroke Does the patient have a stroke diagnosis?: No Physical Exam Vital Signs: Vital Signs: Last Vital Signs Temp 99.1 F 01/27/25 07:18 Pulse 90 01/27/25 07:18 Resp 18 01/27/25 07:18 BP 143/95 H 01/27/25 07:18 Pulse Ox 99 01/27/25 07:18 O2 Del Method Room Air 01/27/25 07:18 BMI result Body Mass Index 30.2 Const: Other: General: AO X 3, no acute distress Resp: CTA bilateral CVS: S1,S2,RRR GI: no specific finding, no distention, Skin: No rash Neuro: motor grossly intact Psych: appropriate affect DS: Data Data Completed and Pending Pending studies at discharge: Pending at discharge 01/25/25 14:50 Surgical [PTH] Routine Labs on day of discharge: Laboratory Results - last 24 hr 01/26/25 01/26/25 01/26/25 10:57 14:40 16:58 POC Glucose 123 H 112 132 H 01/26/25 01/26/25 01/27/25 19:40 23:36 02:56 POC Glucose 241 H 238 H 210 H Discharge Plan Discharge Anticipated Discharge Date/Time: 01/27/25 10:48 Patient Disposition: Home Health Service Discharge Diagnosis: dm , sacral ulcer ,uti Referrals: [facility] [Outside] - 1 Day Referral Note: A nurse will see you Tuesday 01/16. Physician,Unknown J [Physician, Medical] - 1 Week Discharge Medications: New oxycodone 5 mg tablet 5 mg PO Q6H PRN (Reason: pain (scale score 7-10)) Qty: 15 0RF Rx Instructions: Partial Fill upon patient request. loperamide [Imodium A-D] 2 mg tablet 2 mg PO Q4H PRN (Reason: loose stool) Qty: 30 0RF Rx Instructions: administer after each loose stool until symptoms controlled; do not exceed 8 mg per 24 hrs nystatin [Nyamyc] 100,000 unit/gram Powder 1 appl topical TID Qty: 30 0RF Protocol: Apply to: Apply to: perineal area Continued methadone 10 mg tablet 20 mg PO TID PRN (Reason: Pain (Scale Score 7-10)) mirtazapine 7.5 mg tablet 22.5 mg PO BEDTIME pioglitazone 45 mg tablet 45 mg PO DAILY hydroxychloroquine 200 mg tablet 200 mg PO QAM fluoxetine 20 mg capsule 20 mg PO DAILY fludrocortisone 0.1 mg tablet 0.1 mg PO DAILY hydroxyzine pamoate 25 mg capsule 25 mg PO QID PRN (Reason: anxiety) midodrine 10 mg tablet 10 mg PO TID Humulin R U-500 (Conc) Kwikpen 500 unit/mL (3 mL) insulin pen 700 unit SUBCUT TIDAC Discharge Orders: Discharge Order (Routine); Ordered 01/27/25 Ordered By: Jones Cancino Diet: Advance to usual diet Activity on Discharge: As tolerated Stand Alone Forms: Patient Portal Discharge page Print Language: Greek Activity Restrictions/Additional Instructions: Topical Wound Care Recommendations: Coccyx / Sacrum - Off Load Pressure with Q2 hr turns and use of pillows Cleanse and irrigate with NS, Pat dry.? Apply barrier(Triad) to periwound, lightly pack with Durafiber AG, be sure to leave a wick to easy removal.? Fill space with dry gauze, cover with ABD pad.? Change every other day at time of discharge from inpatient services. Recommend follow up out patient Wound Clinic at [address] [place] [address] and to call for an appointment at time of discharge. [phone].? Care Plan Goals: as below. Health Concerns: home insulin regimen adjusted 350 unit tid, call your PCP and endocronologist for further direction depending on your sugar level. You may need to take more or less insulin depending of your sugar level and in accordance with instructions previously given to you by your speech communication professor and your PCP Plan of Treatment: as above. Assessment: as above. Discharge Date/Time: 01/27/25 11:55
[2025-01-27] MEDS: Loperamide HCl 2 MG CAPSULE PO (09:42)
--- NOTE | 2025-01-27 10:39 | MHC.CM.PN ---
D/C IMM delivered 01/27/25, Pt has been medically cleared to [place], she will go home via Lyft, and have home care services from [facility].
[2025-01-27 10:55] VITALS: BP 161/93; PULSE 82; RESP 18; TEMP 36.7; O2SAT 99
[2025-01-27 10:55] LABS: Glucose, Whole Blood 156 mg/dL (60-115)
--- NOTE | 2025-01-27 16:25 | W.MHC.F2F ---
Service Date Service Date: 01/27/25 Encounter Date of encounter: 01/27/25 Reasons for Services Signs and symptoms assessed: difficulty to control diabetes, syncopes Reason for nursing home: wound care, medication management, medication treatment and teach disease management Homebound: Leaving the home is medically contraindicated at this time without the asist of a device and/or another person due th the listed conditions above and below. Reason homebound: weakness related to hospital stay and unable to drive Homebound supporting statement: Homebound due to chronic medical problems, including difficult to control diabetes with associated gastroparesis, autonomic dysfunctionsand frequent syncope, and extensive decub ulcers and therefore needs the assistance of another person Certification: Based on the above findings, I certify that this patient is confined to the home and needs intermittent nursing home care, physical therapy and/or speech therapy, or continues to need occupational therapy. The patient is under my care, and I have initiated the establishment of the plan of care. The patient will be followed by a physician who will periodically review the plan of care. Time Spent With Patient Time: Total time managing care of this patient today ____ minutes.
== END 2025-01-27 11:55 | disposition home health service (06) | DRG 637 ==
LOC: HO.S3 14:28 → HO.IMC 01-11 07:10 → HO.S3 01-11 14:13
PROVIDERS: Internal Medicine; Nurse Practitioner Acute Care; Nurse Practitioner Family; Admitting Provider Student in an Organized Health Care Education/Training Program; PCP Nurse Practitioner Family; Visit Provider Internal Medicine
PROC: 0DJ08ZZ Inspection of Upper Intestinal Tract, Via Natural or Artificial Opening Endoscopic (ICD-10-PCS; CPT 43235; principal; 2025-01-25 14:40)
DX: E11.65 Type 2 diabetes mellitus with hyperglycemia (principal); L89.154 Pressure ulcer of sacral region, stage 4; D61.818 Other pancytopenia; N39.0 Urinary tract infection, site not specified; M32.9 Systemic lupus erythematosus, unspecified; F41.1 Generalized anxiety disorder; E11.43 Type 2 diabetes mellitus with diabetic autonomic (poly)neuropathy; G89.29 Other chronic pain; I95.1 Orthostatic hypotension; D63.8 Anemia in other chronic diseases classified elsewhere; G90.9 Disorder of the autonomic nervous system, unspecified; F32.9 Major depressive disorder, single episode, unspecified; K31.84 Gastroparesis; Z87.891 Personal history of nicotine dependence; Z63.4 Disappearance and death of family member; Z87.440 Personal history of urinary (tract) infections; Z79.4 Long term (current) use of insulin; Z79.891 Long term (current) use of opiate analgesic; Z79.899 Other long term (current) drug therapy
CPT/HCPCS: 36415; 36600; 70450; 70546; 70549; 72125; 73521; 74176; 74177; 80048; 80053; 80076; 81001; 82010; 82565; 82803; 82947; 83036; 83605; 83690; 83735; 83930; 84439; 84443; 84484; 84702; 85014; 85018; 85025; 85027; 85652; 86140; 87493; 87507; 88305; 88313; 88342; 93005; 94799; 95816; 97162; 97530; A9585; J0692; J0696; J1171; J1200; J1308; J1650; J2003; J2270; J2405; J2704; J2765; J3010; J3475; J7120; Q9967; S9485

== ENCOUNTER 2025-01-10 05:45 | Outpatient (BNV) | payer MEDICARE, SELFPAY | END 2025-01-15 13:49 | PROVIDERS: Admitting Provider Student in an Organized Health Care Education/Training Program; PCP Nurse Practitioner Family; Visit Provider Radiology Diagnostic Radiology | DX: M50.30 Other cervical disc degeneration, unspecified cervical region (principal); R90.89 Other abnormal findings on diagnostic imaging of central nervous system; G89.11 Acute pain due to trauma | CPT/HCPCS: 70450; 72125; 73521 ==

== ENCOUNTER 2025-01-10 05:45 | Outpatient (BNV) | payer MEDICARE, SELFPAY | END 2025-01-20 16:05 | PROVIDERS: Admitting Provider Student in an Organized Health Care Education/Training Program; PCP Nurse Practitioner Family; Visit Provider Radiology Diagnostic Radiology | DX: R42 Dizziness and giddiness (principal) | CPT/HCPCS: 70546; 70549 ==

== ENCOUNTER 2025-01-10 05:45 | Outpatient (BNV) | payer MEDICARE, SELFPAY | END 2025-01-24 10:02 | PROVIDERS: Admitting Provider Student in an Organized Health Care Education/Training Program; PCP Nurse Practitioner Family; Visit Provider Radiology Diagnostic Radiology | DX: D73.89 Other diseases of spleen (principal) | CPT/HCPCS: 74177 ==

== ENCOUNTER 2025-01-10 05:45 | Outpatient (BNV) | payer MEDICARE, SELFPAY | END 2025-01-20 18:34 | PROVIDERS: Admitting Provider Student in an Organized Health Care Education/Training Program; PCP Nurse Practitioner Family; Visit Provider Internal Medicine Cardiovascular Disease | DX: R00.0 Tachycardia, unspecified (principal) | CPT/HCPCS: 93010 ==

== ENCOUNTER 2025-01-10 05:45 | Outpatient (BNV) | payer MEDICARE, SELFPAY | END 2025-01-15 14:23 | PROVIDERS: Admitting Provider Student in an Organized Health Care Education/Training Program; PCP Nurse Practitioner Family; Visit Provider Internal Medicine Cardiovascular Disease | DX: R94.31 Abnormal electrocardiogram [ECG] [EKG] (principal); R07.9 Chest pain, unspecified | CPT/HCPCS: 93010 ==

== ENCOUNTER → 2025-01-10 05:45 | Outpatient (BNV) | payer MEDICARE, SELFPAY | PROVIDERS: Admitting Provider Student in an Organized Health Care Education/Training Program; PCP Nurse Practitioner Family; Visit Provider Physician Assistant Surgical | DX: L89.154 Pressure ulcer of sacral region, stage 4 (principal) | CPT/HCPCS: 99222 ==

== ENCOUNTER → 2025-01-10 05:45 | Outpatient (BNV) | payer MEDICARE, SELFPAY | PROVIDERS: Admitting Provider Student in an Organized Health Care Education/Training Program; PCP Nurse Practitioner Family; Visit Provider Psychiatry & Neurology Neurology | DX: R55 Syncope and collapse (principal); I95.1 Orthostatic hypotension | CPT/HCPCS: 99222 ==

== ENCOUNTER → 2025-01-10 05:45 | Outpatient (BNV) | payer MEDICARE, SELFPAY | PROVIDERS: Admitting Provider Student in an Organized Health Care Education/Training Program; PCP Nurse Practitioner Family; Visit Provider Internal Medicine | DX: L89.154 Pressure ulcer of sacral region, stage 4 (principal); M32.9 Systemic lupus erythematosus, unspecified; F32.1 Major depressive disorder, single episode, moderate | CPT/HCPCS: 99232 ==

== ENCOUNTER → 2025-01-10 05:45 | Outpatient (BNV) | payer MEDICARE, SELFPAY | PROVIDERS: Admitting Provider Student in an Organized Health Care Education/Training Program; PCP Nurse Practitioner Family; Visit Provider Internal Medicine | DX: R10.84 Generalized abdominal pain (principal); R11.2 Nausea with vomiting, unspecified; K31.84 Gastroparesis | CPT/HCPCS: 99232 ==

== ENCOUNTER → 2025-01-10 05:45 | Outpatient (BNV) | payer OTHER, SELFPAY | PROVIDERS: Admitting Provider Student in an Organized Health Care Education/Training Program; PCP Nurse Practitioner Family; Visit Provider Registered Nurse | DX: F32.2 Major depressive disorder, single episode, severe without psychotic features (principal) | CPT/HCPCS: 99232 ==

== ENCOUNTER → 2025-01-10 05:45 | Outpatient (BNV) | payer MEDICARE, SELFPAY | PROVIDERS: Admitting Provider Student in an Organized Health Care Education/Training Program; PCP Nurse Practitioner Family; Visit Provider Internal Medicine Cardiovascular Disease | DX: I95.1 Orthostatic hypotension (principal); W19.XXXA Unspecified fall, initial encounter | CPT/HCPCS: 99222 ==

== ENCOUNTER 2025-02-05 10:46 | Emergency (ER) | payer MEDICARE, SELFPAY ==
--- NOTE | 2025-02-05 10:51 | ECG_ITS ---
Test Reason : syncope Blood Pressure : */* mmHG Vent. Rate : 107 BPM Atrial Rate : 107 BPM P-R Int : 140 ms QRS Dur : 94 ms QT Int : 362 ms P-R-T Axes : 76 65 51 degrees QTcB Int : 483 ms Sinus tachycardia Minimal voltage criteria for LVH, may be normal variant ( Sokolow-Villasenor ) Septal infarct , age undetermined Abnormal ECG When compared with ECG of 21-Jan-2025 13:45, Septal infarct is now Present Referred By: Carmita Javier Electronically Signed By: Larry Gama
--- NOTE | 2025-02-05 10:55 | ED.GENADULT ---
HPI - General Adult General Chief complaint: Syncope Stated complaint: FAINTING Time Seen by Provider: 02/05/25 10:54 Source: patient and family (, Ernesto Fleming, HCP) Mode of arrival: EMS History of Present Illness HPI narrative: 49-year-old female who has a history of lupus, chronic pain, diabetes, depression, decubitus ulcer with a history of osteomyelitis, presents right EMS for possible syncope. According to the patient, she has pain in my entire body and that she needs Dilaudid 3 mg now . Patient also noted to have elevated blood glucose levels. She confirms that she has had recent hospital admission and states that she was recently in [place] for her brother's where she was also evaluated in the hospital for similar situation. History is limited due to patient cooperation. Patient reports that she is not sure if she has been taking her medications or insulin. No suicidal or homicidal ideation. Arrival of the patient's , Ernesto Fleming ([phone]) who was at the bedside, reports that there is nothing wrong with the her and that this is all an act . He reports that he was just on the phone with her and she was arguing with him then she contacted EMS. Upon arrival of EMS, they report that the patient was unresponsive.He reports that he indicated her to go to [facility]. However apparently while in the ambulance, the patient stated that she wanted to go to [place]. Mr. Fleming reports that the patient has had multiple visits to [facility] and [facility] and because they no longer give her high doses of pain medication she does not wish to go there. Also of note, he reports that the patient is able to ambulate on her own, and care for her ADLs. She purposely vomits and defecate on herself for attention seeking behavior. In addition, he reports that she made dinner last night. He also confirms that they have had home services set up numerous times however they are unable to be engaged because the patient is repeatedly going to hospitals. He also reports that the patient does not have any allergies, including no allergies to acetaminophen. He is requesting that the patient does not receive high dose of narcotic medications and is requesting that acetaminophen or ibuprofen are the medications of choice if the patient is receiving anything. Related Data Home Medications ?Medication ?Instructions ?Recorded ?Confirmed fludrocortisone 0.1 mg tablet 0.1 mg PO DAILY 01/10/25 01/10/25 fluoxetine 20 mg capsule 20 mg PO DAILY 01/10/25 01/10/25 hydroxychloroquine 200 mg tablet 200 mg PO QAM 01/10/25 01/10/25 hydroxyzine pamoate 25 mg capsule 25 mg PO QID PRN anxiety 01/10/25 01/10/25 insulin regular hum U-500 conc 500 700 unit subcut TIDAC 01/10/25 01/10/25 unit/mL(3 mL) subcut pen (Humulin R U-500 (Conc) Insulin Kwikpen) methadone 10 mg tablet 20 mg PO TID PRN Pain (Scale Score 01/10/25 01/10/25 7-10) midodrine 10 mg tablet 10 mg PO TID 01/10/25 01/10/25 mirtazapine 7.5 mg tablet 22.5 mg PO BEDTIME 01/10/25 01/10/25 pioglitazone 45 mg tablet 45 mg PO DAILY 01/10/25 01/10/25 Previous Rx's ?Medication ?Instructions ?Recorded loperamide 2 mg tablet (Imodium 2 mg PO Q4H PRN loose stool #30 01/27/25 A-D) tabs nystatin 100,000 unit/gram topical 1 appl topical TID #30 grams 01/27/25 powder ([facility]) oxycodone 5 mg tablet 5 mg PO Q6H PRN pain (scale score 01/27/25 7-10) #15 tabs Allergies Allergy/AdvReac Type Severity Reaction Status Date / Time acetaminophen Allergy Swelling Verified 02/05/25 11:13 atorvastatin Allergy Unknown Verified 02/05/25 11:13 duloxetine Allergy Unknown Verified 02/05/25 11:13 fish derived (fish) Allergy Swelling Verified 02/05/25 11:13 Review of Systems Review of Systems: Yes all other systems are reviewed and are negative Cardiovascular: Cardiovascular: Denies chest pain Respiratory: Respiratory: Denies cough Gastrointestinal: Gastrointestinal: Reports abdominal pain, Denies nausea and Denies vomiting Psychiatric: Psychiatric: Denies homicidal ideation and Denies suicidal ideation [facility] Past Medical History Medical History Generalized anxiety disorder Major depressive disorder Sacral decubitus ulcer, stage IV Chronic pain Lupus (systemic lupus erythematosus) Insulin dependent type 2 diabetes mellitus Social History Social History Household Members: Spouse Housing: Apartment Are you a primary hospice care consultant to a significant other at home: No Do you presently have visiting nurse or other home services: No Comment: 1:1 sitter Patient Tobacco Use Status: Former Tobacco user e-Cigarette/Vaping Use: Never Used Second Hand Smoke Exposure: No Substance Use Type: Marijuana Advance Directives: No Advance Directives Information Provided: No service: No Physical Exam ED Vital Signs: Vital Signs - 24 hr 02/05/25 11:10 02/05/25 11:48 02/05/25 12:34 Temperature 99.4 F Pulse Rate 113 H 107 H Respiratory Rate 18 12 Blood Pressure 132/81 139/83 Pulse Oximetry 99 100 100 Oxygen Delivery Method Room Air Room Air Room Air 02/05/25 16:03 Temperature 98.6 F Pulse Rate 99 Respiratory Rate 16 Blood Pressure 132/90 H Pulse Oximetry 100 Oxygen Delivery Method Room Air BMI result Body Mass Index 21.1 Const Other: Thin, frail. General: alert and awake Eyes Other: Pupils equal round and reactive to light Resp Effort & Inspection: normal respiratory effort Cardio Rate: regular rate Rhythm: regular rhythm GI Other: soft, nontender throughout, no peritoneal sign Skin Other: see photo of decubitus Course Course Course Narrative: 12:41 p.m. patient continues to receive IV fluids, has received it IV insulin and we will reassess. Given that the patient has significantly elevated glucose levels but without DKA, patient should be brought into the hospital for further evaluation and management and correction of electrolytes. Message to hospitalist. 1:00 p.m. patient's glucose continues to be elevated, greater than 600. Insulin drip has been initiated. Message to bartender. 1:20 p.m. I have been provided with additional information from harsha Larson, regarding the patient's history, that she has type B autoimmune insulin resistance syndrome and is on high doses of insulin, up to 700 units 3 times a day. In addition she has received IVIG infusions in the past. Given that this patient has a complex medical history with management of her glucose, and we do not have endocrine available, patient would like the be better served upon transferring to [facility] for further evaluation and management . I have spoken to the patient about transfer and she is agreeable to this. Nursing staff Alicia and Shae present for discussion. 1:33 p.m. spoke with Shae from the [facility] transfer line. Will notify team. 2:[address] Ruiz from endocrinology who is familiar with this patient. She agrees with transfer. Currently she is recommending patient to receive insulin U-500, 500 units subQ now. I then spoke to the hospitalist who will accept the patient in transfer. Accepting physician is Dr. Yu. 3:12 p.m. spoke with Teddy the pharmacist. Tad does not carry insulin U-500 concentration and therefore a alternative regimen of regular insulin along with lantus is being recommended. I have called back Dr. Ruiz who therefore recommends restarting an insulin drip. At time of transfer, the patient does not need to come on the insulin drip itself according to Dr. Ruiz. 3:50 p.m. insulin drip is being restarted. Received confirmation that the patient has been accepted to [facility], unit M5. EMS has been contacted. Patient received insulin drip until time of discharge when it was discontinued for transfer. At time of discharge, repeat glucose was 541. Patient remains awake and alert and hemodynamically stable. Medications Administered Discontinued Medications Generic Name Dose Route Start Last Admin Trade Name Freq PRN Reason Stop Dose Admin Sodium Chloride 1,000 mls @ 999 mls/hr 02/05/25 11:15 02/05/25 15:24 Ns IV 02/05/25 12:15 Infused .Q1H1M LIU Infusion Sodium Chloride 1,000 mls @ 999 mls/hr 02/05/25 12:30 02/05/25 15:24 Ns IV 02/05/25 13:30 Infused .Q1H1M LIU Infusion Insulin Human Regular 100 unit in 100 mls @ 5 mls/hr 02/05/25 13:15 02/05/25 17:33 Myxredlin IVCONT Infused .Q20H LIU Infusion 5 UNIT/HR Insulin Human Regular 10 unit 02/05/25 11:41 02/05/25 11:51 Insulin Regular, Human 100 Unit/Ml 10 Ml Vial IVPUSH 02/05/25 11:42 10 unit ONCE ONE Administration Medical Decision Making Medical Decision Making MDM Narrative: 49-year-old female with complex medical history including poorly-controlled diabetes, lupus, chronic pain, anemia, depression, presents with diffuse pain. At this time, patient is hemodynamically stable and afebrile. She is mildly tachycardic at 108 beats per minute. Glucose is elevated, point of care greater than 600. We will initiate IV fluids and IV insulin. Check labs. Consideration for imaging however hold at this time until further labs have returned. Review of imaging from January 10 and January 25 do not reveal any acute process in the abdominal, pelvis CT. Confirms decubitus is noted. I have had an extensive discussion with the patient in the presence of her and nursing staff, reviewing the patient's recent visits, as well as concern for her well-being. In addition, I have stated that I would not provide the patient with I dosage of narcotic pain medication unless there is objective findings to warrant such medication. At this time, the patient's is at the bedside, and he and the patient having a conversation. We will continue to monitor. Differential Diagnosis Differential Diagnoses: The differential diagnosis associated with the presentation includes Chronic pain Decubitus ulcer Hyperglycemia DKA Dehydration Admission/Observation Consideration of admission/observation: Escalation of care including admission/observation considered Lab Data MDM Lab Attestation statement: I reviewed the patient's lab results. 02/05/25 11:19 02/05/25 14:24 Labs: Lab Results 02/05/25 02/05/25 02/05/25 Range/Units 10:57 11:19 13:00 WBC 2.4 L (4.8-10.8) X10*3/uL RBC 2.94 L (4.20-5.50) X10*6/uL Hgb 8.7 L (12.0-16.0) g/dl Hct 27.7 L (37.0-47.0) % MCV 94.2 (80.0-98.0) fL MCH 29.6 (27.0-33.0) pg MCHC 31.4 (31.0-35.0) g/dl RDW 16.2 H (11.0-16.0) % Plt Count 156 L (160-400) X10*3/uL MPV 11.0 (9.4-12.3) fL Immature Gran % (Auto) 0.4 (0.0-0.4) % Neut % (Auto) 62.8 (45-73) % Lymph % (Auto) 27.5 (20-40) % Wright % (Auto) 6.4 (2-11) % Eos % (Auto) 2.5 (0-4) % Baso % (Auto) 0.4 (0-2) % Lymph # (Auto) 0.7 L (1.2-4.9) X10*3/uL Wright # (Auto) 0.2 (0.1-1.2) X10*3/uL Eos # (Auto) 0.1 (0.0-0.4) X10*3/uL Baso # (Auto) 0.0 (0.0-0.2) X10*3/uL Abs Immat Gran (auto) 0.01 (0.00-0.03) X10*3/uL Absolute Neuts (auto) 1.5 L (2.0-8.3) x10*3/uL Absolute Nucleated RBC 0.000 (0.0-0.012) X10*3/uL Nucleated RBC % (auto) 0.0 (0.0-0.2) /100WBC ESR 66 H (0-20) MM/HR Sodium 128 L (135-145) mmol/L Potassium 5.4 H D (3.3-5.1) mmol/L Chloride 101 (96-108) mmol/L Carbon Dioxide 17 L (22-29) mmol/L Anion Gap 15 (12-20) BUN 32 H (9-16) mg/dL Creatinine 1.55 H (0.5-1.4) mg/dL Estim Creat Clear Calc 35.1 Estimated GFR 36 POC Glucose > 600 H* > 600 H* (60-115) mg/dL Random Glucose 1054 H* (60-115) mg/dL Lactic Acid 2.6 H* (0.5-2.0) mmol/L Lactic Acid F/U @ 2Hr (0.5-2.0) mmol/L Calcium 8.7 (8.4-10.2) mg/dL Magnesium 1.7 (1.6-2.6) mg/dL Total Bilirubin 0.2 (0.0-1.0) mg/dL AST 49 H (5-31) U/L ALT 39 H (0-31) U/L Alkaline Phosphatase 87 (39-117) U/L Total Protein 6.9 (6.5-8.0) g/dL Albumin 3.5 (3.5-5.0) g/dL Beta-Hydroxybutyrate 0.16 (0.02-0.27) mmol/L 02/05/25 02/05/25 02/05/25 Range/Units 14:02 14:24 15:30 WBC (4.8-10.8) X10*3/uL RBC (4.20-5.50) X10*6/uL Hgb (12.0-16.0) g/dl Hct (37.0-47.0) % MCV (80.0-98.0) fL MCH (27.0-33.0) pg MCHC (31.0-35.0) g/dl RDW (11.0-16.0) % Plt Count (160-400) X10*3/uL MPV (9.4-12.3) fL Immature Gran % (Auto) (0.0-0.4) % Neut % (Auto) (45-73) % Lymph % (Auto) (20-40) % Wright % (Auto) (2-11) % Eos % (Auto) (0-4) % Baso % (Auto) (0-2) % Lymph # (Auto) (1.2-4.9) X10*3/uL Wright # (Auto) (0.1-1.2) X10*3/uL Eos # (Auto) (0.0-0.4) X10*3/uL Baso # (Auto) (0.0-0.2) X10*3/uL Abs Immat Gran (auto) (0.00-0.03) X10*3/uL Absolute Neuts (auto) (2.0-8.3) x10*3/uL Absolute Nucleated RBC (0.0-0.012) X10*3/uL Nucleated RBC % (auto) (0.0-0.2) /100WBC ESR (0-20) MM/HR Sodium (135-145) mmol/L Potassium (3.3-5.1) mmol/L Chloride (96-108) mmol/L Carbon Dioxide (22-29) mmol/L Anion Gap (12-20) BUN (9-16) mg/dL Creatinine (0.5-1.4) mg/dL Estim Creat Clear Calc Estimated GFR POC Glucose > 600 H* > 600 H* (60-115) mg/dL Random Glucose 763 H* (60-115) mg/dL Lactic Acid (0.5-2.0) mmol/L Lactic Acid F/U @ 2Hr 0.9 (0.5-2.0) mmol/L Calcium (8.4-10.2) mg/dL Magnesium (1.6-2.6) mg/dL Total Bilirubin (0.0-1.0) mg/dL AST (5-31) U/L ALT (0-31) U/L Alkaline Phosphatase (39-117) U/L Total Protein (6.5-8.0) g/dL Albumin (3.5-5.0) g/dL Beta-Hydroxybutyrate (0.02-0.27) mmol/L 02/05/25 02/05/25 02/05/25 Range/Units 16:34 16:37 17:31 WBC (4.8-10.8) X10*3/uL RBC (4.20-5.50) X10*6/uL Hgb (12.0-16.0) g/dl Hct (37.0-47.0) % MCV (80.0-98.0) fL MCH (27.0-33.0) pg MCHC (31.0-35.0) g/dl RDW (11.0-16.0) % Plt Count (160-400) X10*3/uL MPV (9.4-12.3) fL Immature Gran % (Auto) (0.0-0.4) % Neut % (Auto) (45-73) % Lymph % (Auto) (20-40) % Wright % (Auto) (2-11) % Eos % (Auto) (0-4) % Baso % (Auto) (0-2) % Lymph # (Auto) (1.2-4.9) X10*3/uL Wright # (Auto) (0.1-1.2) X10*3/uL Eos # (Auto) (0.0-0.4) X10*3/uL Baso # (Auto) (0.0-0.2) X10*3/uL Abs Immat Gran (auto) (0.00-0.03) X10*3/uL Absolute Neuts (auto) (2.0-8.3) x10*3/uL Absolute Nucleated RBC (0.0-0.012) X10*3/uL Nucleated RBC % (auto) (0.0-0.2) /100WBC ESR (0-20) MM/HR Sodium (135-145) mmol/L Potassium (3.3-5.1) mmol/L Chloride (96-108) mmol/L Carbon Dioxide (22-29) mmol/L Anion Gap (12-20) BUN (9-16) mg/dL Creatinine (0.5-1.4) mg/dL Estim Creat Clear Calc Estimated GFR POC Glucose > 600 H* 542 H* 541 H* (60-115) mg/dL Random Glucose (60-115) mg/dL Lactic Acid (0.5-2.0) mmol/L Lactic Acid F/U @ 2Hr (0.5-2.0) mmol/L Calcium (8.4-10.2) mg/dL Magnesium (1.6-2.6) mg/dL Total Bilirubin (0.0-1.0) mg/dL AST (5-31) U/L ALT (0-31) U/L Alkaline Phosphatase (39-117) U/L Total Protein (6.5-8.0) g/dL Albumin (3.5-5.0) g/dL Beta-Hydroxybutyrate (0.02-0.27) mmol/L Independent Interpretation I performed an independent interpretation of an: EKG Independent Historian Clinical information obtained from an independent historian. History obtained from or confirmed by: Spouse External Record Review External record reviewed: Inpatient record, Outpatient record, Prior outpatient labs and Outside ED record Prescription Management I considered prescription management with: Pain Medication Social Determinants Patient?s care significantly limited by Social Determinants of Health including: Other Social Determinant of Health Critical Care Time Critical Care Time Critical Care Time: Yes Total Critical Care Time: 120 Attestation: Repeat assessments, inpatient and outside facility records review, multiple contacts to transfer hospital and discussing with specialists. Discussed with the attending. Discussion with pharmacy and med management. Discharge Plan Discharge Clinical Impression: Hyperglycemia Patient Disposition: [facility] Transfer Details: [facility] for endocrine management Prescriptions: No Action methadone 10 mg tablet 20 mg PO TID PRN (Reason: Pain (Scale Score 7-10)) mirtazapine 7.5 mg tablet 22.5 mg PO BEDTIME pioglitazone 45 mg tablet 45 mg PO DAILY hydroxychloroquine 200 mg tablet 200 mg PO QAM fluoxetine 20 mg capsule 20 mg PO DAILY fludrocortisone 0.1 mg tablet 0.1 mg PO DAILY hydroxyzine pamoate 25 mg capsule 25 mg PO QID PRN (Reason: anxiety) midodrine 10 mg tablet 10 mg PO TID Humulin R U-500 (Conc) Kwikpen 500 unit/mL (3 mL) insulin pen 700 unit SUBCUT TIDAC oxycodone 5 mg tablet 5 mg PO Q6H PRN (Reason: pain (scale score 7-10)) Qty: 15 0RF Rx Instructions: Partial Fill upon patient request. loperamide [Imodium A-D] 2 mg tablet 2 mg PO Q4H PRN (Reason: loose stool) Qty: 30 0RF Rx Instructions: administer after each loose stool until symptoms controlled; do not exceed 8 mg per 24 hrs nystatin [Nyamyc] 100,000 unit/gram Powder 1 appl topical TID Qty: 30 0RF Protocol: Apply to: Apply to: perineal area Discharge Date/Time: 02/05/25 17:51 Print Language: Kyrgyz
[2025-02-05 11:10] VITALS: BP 132/81; PULSE 113; RESP 18; TEMP 37.4; O2SAT 99; BMI 21.1
--- NOTE | 2025-02-05 11:17 | PC.NURSE ---
patient presents to the ED from home, appears disheveled and unkempt. per ems patient has been passing out and goes in and out of consciousness during ems ride. patient poc noted to be high. patient noted to be unresponsive upon arrival, maintaining own airway VSS. patient unresponsive to painful stimuli. IV started in patient left hand #20. labs and cultures obtained. ED provider came to bedside and patient woke up started yelling out in pain, stating she needs 3mg Dilaudid IV, thats all that works for her. patient states her arms, legs and back hurts. patient undressed and noted to have a tunneling sacral wound, edges pink, wound looks well appearing, recovered with pink foam dressing and dated, original dressing removed due to being covered in feces. patient legs and per area noted to have dried feces. ED provider notified of patient sacral wound. no other skin issues noted. patient noted to be in sinus tach, VSS at this time. patient son presents at bedside, states he has long hx dealing with patient, states she will consistently request Dilaudid, ED provider notified of family presence at bedside, Ed provider speaking with family at this time.
[2025-02-05 11:30] LABS: Hematocrit 27.7 % (37.0-47.0); Hemoglobin 8.7 g/dl (12.0-16.0); Imm Gran Abs Auto 0.01 X10*3/uL (0.00-0.03); Imm Gran Pct Auto 0.4 % (0.0-0.4); Lymphocytes Absolute Auto 0.7 X10*3/uL (1.2-4.9); Mean Corpuscular HGB Conc 31.4 g/dl (31.0-35.0); Mean Corpuscular Hemoglobin 29.6 pg (27.0-33.0); Mean Corpuscular Volume 94.2 fL (80.0-98.0); NRBC Abs Auto 0.000 X10*3/uL (0.0-0.012); NRBC Pct Auto 0.0 /100WBC (0.0-0.2); Platelet Count 156 X10*3/uL (160-400); Red Blood Count 2.94 X10*6/uL (4.20-5.50); White Blood Count 2.4 X10*3/uL (4.8-10.8)
--- NOTE | 2025-02-05 11:36 | MHC.EDTECH ---
pt continuously refusing blood work. rn aware.
[2025-02-05 11:38] LABS: Glucose, Whole Blood > 600 mg/dL (60-115)
[2025-02-05 11:48] VITALS: O2SAT 100
--- NOTE | 2025-02-05 11:57 | PC.NURSE ---
ED provider at bedside with this RN/ Tech and patient family, explained to patient that she was not getting any IV narcotics and wha the plan of treatment would be. patient tearful stating shes in pain and needs dilaudid. patient medicated per MAR. patient at bedside, patient is now coherent, speaking calmly but tearful.
--- OUTSIDE RECORDS SUMMARY | 2025-02-05 12:11 | XMS_ITS | Clinical Summary ---
Author Organization [facility] Address [address] [place] [phone] Phone Care Team Providers Care Locomotive Engineer Diesel Name Role Phone Unavailable Primary Care Provider Unavailabl e Social History Tobacco Use Types Packs/Day Years Used Date Smoking Tobacco: Never Assessed Comments Unknown Sex and Gender Information Value Date Recorded Sex Assigned at Not on file Legal Sex Female 2:04 PM EST Gender Identity Not on file Sexual Orientation Not on file Plan of Treatment Upcoming Encounters Date Type Department Care Team (Late st Contact Info) Description 02/15/2025 3:00 PM EDT Office Visit [facility] [address] [phone] Crystal Mtz ARNP [address] [place] [phone] Health Maintenance Due Date Last Done Comments Hepatitis B Vaccine (1 of 3 - 19+ 3-dose series) 11/06/1995 Pneumococcal Vaccine: Peds ( 0 to 5 Years) and At-Risk Patients (6 to 49 Years) (1 of 2 - PCV) 11/06/1995 Diabetes: Hemoglobin A1C 12/15/2024 07/13/2024, 03/03/2023 Diabetes: Ophthalmology Exam 12/15/2024 Diabetes: Pedal Pulse Checked 12/15/2024 Diabetes: Sensory Foot Exam 12/15/2024 Diabetes: Visual Foot Exam 12/15/2024 Influenza Vaccine (#1) 2025 06/22/2022 Insurance [place] Medicare
--- OUTSIDE RECORDS SUMMARY | 2025-02-05 12:11 | XMS_ITS | Encounter Summary ---
Author Organization [facility] Address [address] [place] [address] Care Team Providers Care College Counselor Name Role Phone Moises Ramires STEVEN Primary Care Prov ider Reason for Visit * Reason Comments Care Coordination CHW / CM Collaborati on update Encounter Details Date Type Department Care Team ([facility] Contact Info) Description 08/29/2022 Interim Notes [facility] [address] [place] [phone] Shannon Arechiga [address] [place] [address] Social History Tobacco Use Types Packs/Day Years Used Date Smoking Tobacco: Never Smokeless Tobacco: Never Alcohol Use Standard Drinks/Week Comments Not Currently 0 (1 standard drink = 0.6 oz pur e alcohol) some times Social Connections Answer Date Recorded Social Connections and Isolation 0 10/16/2020 Financial Resource Strain Answer Date R ecorded Financial Resource Strain 0 2020 Stress Answer Date Recorded Stress 0 10/16/2020 Physical Activity Answer Date Recorded Physical Activity 0 10/16/2020 Food Insecurity Answer Date Recorded Food 0 10/16/2020 Transportation Needs Answer Date Record ed Transportation 0 10/16/2020 Housing Stability Answer Date Recorded Housing 0 10/16/2020 Safety and Environment Answer Date Vikas rded Safety 1 04/18/2022 Utilities Answer Date Recorded Utilities 0 10/16/2020 Employment Answer Date Recorded Stress 0 10/21/2021 Comments No Sex and Gender Information Value Date Recorded Sex Assigned at Female 10/16/2020 9:30 AM PDT Legal Sex Female 6:12 AM PDT Gender Identity Female 10/16/2020 9:30 AM PDT Sexual Orientation Straight 10/16/2020 9: 30 AM PDT Occupation Industry Job Start Date Job End Date 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 No / Unsure 07/30/2022 3:02 PM EST documented as of this encounter Plan of Treatment Not on file documented as of this encounter Visit Diagnoses Not on filedocumented in this encounter Additional Health Concerns Assessment Noted Time PHQ-9 Depression Total Score: 7 04/18/20 22 1:14 PM PDT documented as of this encounter Care Teams College Counselor Relationship Specialty Start Date End Date Moises Ramires FNP [address] [place] [address] PCP - General Family Medicine, TOOTH CLERK 10/16/20 documented as of this encounter
--- OUTSIDE RECORDS SUMMARY | 2025-02-05 12:11 | XMS_ITS | Clinical Summary ---
Author Organization [address] Address [facility]0 [facility] [address] [place] [address] Phone Care Team Providers Care Radiology Physician Name Role Phone Moises Ramires NP Primary Care Provider [phone] Allergies Active Allergy Reactions Criticality Noted Date Comments Acetaminophen Swelling 07/13/2024 Benzocaine 03/25/2024 Duloxetine Psychiatric,Unknown 03/12/2023 Per hepatology, patient had DILI-related AST/ALT elevation and should not be on this medication. Fish Containing Products Swelling 01/29/2023 Fish,Bora,Flax Oils-Om3,6,9no1 Angioedema High 04/15/2023 tongue swells and she gets hives tongue swells and she gets hives Dcgwmik-Xdy-Ugb Reductase Inhibitors Psychiatric,Unknown 03/12/2023 Per hepatology, patient had DILI-related AST/ALT elevation and should not be on this medication. Medications FLUoxetine (PROzac) 20 mg capsule Take 1 capsule (20 mg total) by mouth daily. 02/02/2024 Active gabapentin (NEURONTIN) 300 mg capsule Take 1 capsule (300 mg total) by mouth 3 (three) times a day. Active hydroxychloroqu ine (PLAQUENIL) 200 mg tablet Take 1 tablet (200 mg total) by mouth daily. 10/06/2023 Active hydrOXYzine HCL (ATARAX) 25 mg tablet Take 1 tablet (25 mg total) by mouth 4 (four) times a day if needed for anxiety. 12/27/2023 Active melatonin 3 mg tablet Take 1 tablet (3 mg total) by mouth at bedtime as needed. 02/02/2024 Active methadone (DOLOPHINE) 5 mg tablet Take 3 tablets (15 mg total) by mouth 3 times daily. Max Daily Amount: 45 mg 06/29/2024 Active midodrine (PROAMATINE) 10 mg tablet Take 1 tablet (10 mg total) by mouth 3 (three) times a day before meals. 10/05/2023 Active mirtazapine (REMERON) 15 mg tablet Take 1.5 tablets (22.5 mg total) by mouth at bedtime. 04/18/2022 Active Active Problems Problem Noted Date Diagnosed Date Hyperglycemia 07/13/2024 Encounters Date Type Department Care Team Description 12/12/2024 Telephone [facility] Hematology Oncology [address] [place] [address] Martinez Irizarry MA from Last 3 Months Immunizations Name Administration Dates Next Due Pfizer SARS-CoV-2 COVID-19, mRNA, LNP-S, preservative free 10/15/2021,03/20/2021,02/27/2021 Surgical History Surgery Date Site/Laterality Comments SECTION PROCEDURE: HISTORICAL DELIVERY OTHER SURGICAL HISTORY PROCEDURE: HISTORY OTHER; COMMENT: Multiple I&D's to left thigh and right buttock areas secondary to abscesses COLONOSCOPY 08/06/2022 PROCEDURE: HISTORICAL COLONOSCOPY; COMMENT: poor prep ESOPHAGOGASTRODUODENOSCOPY 08/06/2022 PROCEDURE: NV EGD TRANSORAL BIOPSY SINGLE/MULTIPLE; COMMENT: normal, biopsy pos for H.pylori INCISION AND DRAINAGE PERIRE CTAL ABSCESS I&D gluteal, labia majora, pilonidal, and pernieal abscess Medical History Medical History Date Comments Hidradenitis suppurativa DX:Hidr adenitis suppurativa Asthma DX:Asthma Anemia DX:Anemia 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 difficil e Sacral decubitus ulcer SLE (systemic lupus erythema tosus) (CMS/HCC V24, CMS/HCC V28) Pancytopenia (CMS/HCC V24, CMS/HCC V28) Pancytopenia myelofibrosis Hidradenitis suppurativa Diabetic gastroparesis (CMS/HCC V24, CMS/HCC V28 ) Depression Anxiety Family History Medical History Relation Name Comments Diabetes Mother Other: Sarcoidosis Mother Hypertension Other Multiple family members Relation Name Status Comments Mother Other Social History Tobacco Use Types Packs/Day Years Used Date Smoking Tobacco: Former Smokeless Tobacco: Never Alcohol Use Standard Drinks/Week Comments Never 0 (1 standard drink = 0.6 oz pur e alcohol) Interpersonal Safety Answer Date Record ed Physical Abuse 07/14/2024 Verbal Abuse 07/14/2024 Comments Unknown Sex and Gender Information Value Date Recorded Sex Assigned at Female 10/28/2024 11:09 AM EDT Legal Sex Female 1:04 PM EST Gender Identity Female 10/28/2024 11:09 AM EDT Sexual Orientation Not on file Obstetrics History Last Filed Vital Signs Vital Sign Reading Time Taken Comments Blood Pressure 146/88 07/14/2024 11:21 AM EST Pulse 73 07/14/2024 10:38 AM EST Temperature 36.2 C (97.2 F) 07/14/2024 10:38 AM EST Respiratory Rate 18 07/14/2024 10:3 8 AM EST Oxygen Saturation 100% 07/14/2024 10: 38 AM EST Inhaled Oxygen Concentration - - Weight 51.6 kg (113 lb 12.1 oz) 07/14/2024 8:33 AM EST Height 157.5 cm (5' 2.01 ) 07/14/2024 8:33 AM ES T Body Mass Index 20.8 07/14/2024 8:33 AM EST Plan of Treatment Upcoming Encounters Date Type Department Care Team (Late st Contact Info) Description 02/17/2025 2:00 PM EDT Office Visit [facility] Hematology Oncology [address] [place] [phone] Sharad-Nette Singleton MD [address] [place] [phone] Health Maintenance Due Date Last Done Comments Diabetes: Annual Foot Exam 1986 Diabetes: Annual Retina Eye Exam 1986 Hepatitis B Vaccines (1 of 3 - 19+ 3-dose series) 11/06/1995 Pneumococcal Vaccine: Pediatrics (0 to 5 Years) and At-Risk Patients (6 to 64 Years) (1 of 2 - PCV) 11/06/1995 Cervical Cancer Screening: Pap Smear 1997 Colorectal Cancer Screening: Colonoscopy 07/12/2022 HIV Screening 07/12/2022 Medicare Annual Wellness Visit 07/12/2022 Social Influencers of Health Screening 07/12/2022 Diabetes: Annual Urine Albumin-Creatinine Ratio (uACR) 07/19/2022 Breast Cancer Screening 02/07/2023 02/07/2021 COVID-19 Vaccine ( season) 2024 04/18/2022, 10/15/2021, 03/20/2021, Additional history exists Diabetes: Blood Sugar Control Test (HGBA1C) 01/11/2025 07/13/2024 Depression Screening 03/25/2025 03/25/2024 Influenza Vaccine (#1) 2025 06/22/2022 Diabetes: Annual GFR (Glomerular Filtration Rate) 07/14/2025 07/14/2024, 07/13/2024, 07/13/2024, Additional history exists Cholesterol Screening (Lipid Panel) 07/14/2029 07/14/2024, 05/02/2023, 07/04/2022, Additional history exists DTaP,Tdap,and Td Vaccines (2 - Td or Tdap) 12/13/2030 12/13/2020 Hepatitis C Screening Completed 03/03/2023, 021 HIB Vaccines Aged Out No longer eligi ble based on patient's age to complete this topic HPV Vaccines Aged Out No longer eligi ble based on patient's age to complete this topic Hepatitis A Vaccines Aged Out No long er eligible based on patient's age to complete this topic IPV Vaccines Aged Out No longer eligi ble based on patient's age to complete this topic MMR Vaccines Aged Out No longer eligi ble based on patient's age to complete this topic Meningococcal ACWY Vaccine Aged Out N o longer eligible based on patient's age to complete this topic Meningococcal B Vaccine Aged Out No l onger eligible based on patient's age to complete this topic RSV Immunization Patients Under 20 months Aged Out No longer eligible based on patient's age to complete this topic Varicella Vaccines Aged Out No longer eligible based on patient's age to complete this topic Procedures Procedure Name Priority Date/Time Associated Diagnosis Comments BASIC METABOLIC PANEL Routine 07/14/2024 4:35 AM EST LIPID PANEL WITH REFLEX TO DIRECT LDL Add-On 07/14/2024 4:35 AM EST HEMOGLOBIN A1C Add-On 07/13/2024 7:45 AM EST TRAVIS SCREENING DIGITAL Routine 02/07/2021 11:42 AM EDT Encounter for screening mammogram for malignant neoplasm of breast from Last 3 Months or Most Recently Relevant to Health Maintenance Results * Lipid panel with reflex to direct LDL (07/14/2024 4:35 AM EST) Cholesterol 129 0 - 200 mg/dL LAB CHEMISTRY METHOD 07/14/2024 7:34 AM EST [facility] Triglycerides 74 0 - 150 mg/dL LAB CHEMISTRY METHOD 07/14/2024 7:34 AM [facility] HDL 74 >=40 mg/dL LAB CHEMISTRY METHOD 07/14/2024 7:34 AM [facility] LDL Calculated 40 0 - 100 mg/dL LAB CHEMISTRY METHOD 07/14/2024 7:34 AM EST [facility] VLDL Cholesterol [place] 14.8 mg/dL LAB CHEMISTRY METHOD 07/14/2024 7:34 AM [facility] Non HDL Chol. (LDL+VLDL) 55 <145 mg/dL LAB CHEMISTRY METHOD 07/14/2024 7:34 AM [facility] Chol/HDL Ratio 1.7 0.0 - 4.4 LAB CHEMISTRY METHOD 07/14/2024 7:34 AM [facility] Blood Venous blood specimen / Unknown Venipuncture / Unknown 07/14/2024 4:35 AM EST 07/14/2024 5:32 AM EST us So SY LAB BLOOD ORDERABLES Final Result [facility] [address] [place] [address], [place] [phone] * (ABNORMAL) Basic metabolic panel (07/14/2024 4:35 AM EST) Sodium 137 133 - 145 mmol/L LAB CHEMISTRY METHOD 07/14/2024 5:59 AM [facility] Potassium 3.7 3.5 - 5.5 mmol/L LAB CHEMISTRY METHOD 07/14/2024 5:59 AM [facility] Chloride 102 96 - 110 mmol/L LAB CHEMISTRY METHOD 07/14/2024 5:59 AM [facility] CO2 27 21 - 32 mmol/L LAB CHEMISTRY METHOD 07/14/2024 5:59 AM [facility] Anion Gap 8 3 - 11 LAB CHEMISTRY METHOD 07/14/2024 5:59 AM [facility] Glucose 240(H) 70 - 100 mg/dL LAB CHEMISTRY METHOD 07/14/2024 5:59 AM [facility] BUN 13 5 - 25 mg/dL LAB CHEMISTRY METHOD 07/14/2024 5:59 AM [facility] Creatinine 1.21(H) 0.50 - 1.10 mg/dL LAB CHEMISTRY METHOD 07/14/2024 5:59 AM [facility] eGFR 56(L) >=60 mL/min/1. 73m2 LAB CHEMISTRY METHOD 07/14/2024 5:59 AM [facility] Comment:Calculation based on the Chronic Kidney Disease Epidemiology Collaboration (CKD-EPI) equation refit without adjustment for race. BUN/Creatinine Ratio 10.7 LAB CHEMISTRY METHOD 07/14/2024 5:59 AM [facility] Calcium 9.3 8.5 - 10.5 mg/dL LAB CHEMISTRY METHOD 07/14/2024 5:59 AM [facility] Blood Venous blood specimen / Unknown Venipuncture / Unknown 07/14/2024 4:35 AM EST 07/14/2024 5:32 AM EST So SY LAB BLOOD ORDERABLES Final Result Performing Organization Address [facility]/ZIP Co de Phone Number [facility] [address] [place] [address], * (ABNORMAL) Hemoglobin A1c (07/13/2024 7:45 AM EST) Hemoglobin A1C 14.1(H) <6.5 % LAB CHEMISTRY METHOD 07/13/2024 11:25 AM EST [facility] Mean Bld Glu Estim. 358 mg/dL LAB CHEMISTRY METHOD 07/13/2024 11:25 AM EST [facility] Blood Venous blood specimen / Unknown Venipuncture / Unknown 07/13/2024 7:45 AM EST 07/13/2024 8:06 AM EST us So SY LAB BLOOD ORDERABLES Final Result Performing Organization Address [facility]/ZIP Co de Phone Number [facility] [address] [place] [address], * TRAVIS SCREENING DIGITAL (02/07/2021 11:42 AM EDT) Anatomical Region Laterality Modality Mammography 02/07/2021 10:0 7 AM EDT Narrative 02/07/2021 11:42 AM EDT [facility] Diagnostic Imaging Department [address] [place] [address] Patient: SHU TOMAS/Age/Sex: 1975 - 45 - F Unit#: [id number] Location/Status: SPDIMAM/REG CLI Mnemonic/Ordering Site: DIGSC/SPMAM Ordering Physician: MOISES RAMIRES SQL SERVER BI DEVELOPER Travis Screening Digital - 02/07/21 - 1043 INDICATION: SCREENING COMPARISON: No prior studies are available for comparison. Baseline exam TECHNIQUE: CC and MLO views of the breasts were obtained, using full field digital mammography with 3D tomosynthesis views in the MLO projection. Computer aided detection with the Possibility Space 7.2-H was employed. FINDINGS: The breast tissue is extremely dense, lowering sensitivity of mammography in this patient. Punctate calcifications are visualized within the lateral aspect of the central right breast without demonstrable correlate in the MLO projection. Rare additional benign-appearing breast calcifications are present bilaterally greater on the right than the left. There is no evidence for suspicious mass or architectural distortion within either breast. Deodorant artifact is demonstrated bilaterally on MLO tomography. IMPRESSION: Calcifications within the lateral aspect of the central right breast only visualized in the CC projection. Further evaluation of the right breast to include full field ML and CC spot compression magnification views recommended. No specific mammographic evidence of breast malignancy on the left. Lack of an imaging correlate should not deter or delay biopsy of a clinically significant palpable finding. BI-RADS - Category 0 - Incomplete needs additional imaging evaluation. 3340F, 7025F ([id number] / [id number]) , [id number] Dictating Physician: ROBERTA KUO MD Electronically Signed by: ROBERTA KUO MD Dic Date/Time: 02/07/21 1133 Sign date/Time: 02/07/21 1142 Procedure Note Roberta Kuo MD - 07/30/2022 [facility] Diagnostic Imaging Department [address] [place] [address] Patient: SHU TOMAS /Age/Sex: 1975 - 45 - F Unit#: [id number] Location/Status: SPDIMAM/REG CLI Mnemonic/Ordering Site: [facility] Ordering Physician: MOISES RAMIRES NP Travis Screening Digital - 02/07/21 - 1042 INDICATION: SCREENING COMPARISON: No prior studies are available for comparison. Baselineexam TECHNIQUE: CC and MLO views of the breasts were obtained, using full field digital mammography with 3D tomosynthesis views in the MLO projection. Computer aided detection with the Possibility Space 7.2-H was employed. FINDINGS: The breast tissue is extremely dense, lowering sensitivity of mammographyin this patient. Punctate calcifications are visualized within the lateral aspect of thecentral right breast without demonstrable correlate in the MLO projection. Rare additional benign-appearing breast calcifications are presentbilaterally greater on the right than the left. There is no evidence for suspicious mass or architectural distortionwithin either breast. Deodorant artifact is demonstrated bilaterally on MLO tomography. IMPRESSION: Calcifications within the lateral aspect of the centralright breast only visualized in the CC projection. Further evaluation of theright breast to include full field ML and CC spot compression magnificationviews recommended. No specific mammographic evidence of breast malignancy on the left. Lack of an imaging correlate should not deter or delay biopsy of aclinically significant palpable finding. 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 Bee Producer Expl anation Health Care Decision (hx) 12/24/2021 AD SMALLS DIRECTIVE Health Care Decision (hx) 12/24/2021 AD SMALLS DIRECTIVE Health Care Decision (hx) 12/24/2021 AD SMALLS DIRECTIVE Health Care Decision (hx) 12/24/2021 AD SMALLS DIRECTIVE Health Care Decision (hx) 12/24/2021 AD SMALLS DIRECTIVE Health Care Decision (hx) 12/24/2021 AD SMALLS DIRECTIVE Health Care Decision (hx) 12/24/2021 AD SMALLS DIRECTIVE Health Care Decision (hx) 12/24/2021 AD SMALLS DIRECTIVE Health Care Decision (hx) 12/24/2021 AD SMALLS DIRECTIVE Health Care Decision (hx) 12/24/2021 AD SMALLS DIRECTIVE Health Care Decision (hx) 12/24/2021 AD SMALLS DIRECTIVE Health Care Decision (hx) 12/24/2021 AD SMALLS DIRECTIVE Health Care Decision (hx) 12/24/2021 AD SMALLS DIRECTIVE Health Care Decision (hx) 12/24/2021 AD MSALLS DIRECTIVE * Full Code - Default (Latest Code Status on File) Date Activated Date Inactivated Comments 07/13/2024 7:01 AM 07/14/2024 4:41 PM This is or kaitlin is used when code status has not been discussed with the patient, or code status is otherwise unknown/unconfirmed To update the patient's code status, place a code status order. Do not modify or discontinue any currently active code status orders. Care Teams Radiology Physician Relationship Specialty Start Date End Date Moises Ramires NP [address] [place] [address] PCP - General Nurse Practitioner 10/28/24
[2025-02-05 12:13] LABS: Alanine Aminotransferase 39 U/L (0-31); Albumin Level 3.5 g/dL (3.5-5.0); Alkaline Phosphatase 87 U/L (39-117); Anion Gap 15 (12-20); Aspartate Amino Transferase 49 U/L (5-31); Blood Urea Nitrogen 32 mg/dL (9-16); Calcium 8.7 mg/dL (8.4-10.2); Carbon Dioxide 17 mmol/L (22-29); Chloride 101 mmol/L (96-108); Creatinine Clr Calc Pharmacy 35.1; Estimated Glomerular Filt Rate 36; Magnesium 1.7 mg/dL (1.6-2.6); Potassium 5.4 mmol/L (3.3-5.1); Sodium 128 mmol/L (135-145); Total Protein 6.9 g/dL (6.5-8.0)
--- NOTE | 2025-02-05 12:27 | PC.NURSE ---
patient noted to be yelling swears at in room, requested patient lower her voice since she is in shared ED room. patient states no one will listen to me . additional fluid bolus hung per MAR
[2025-02-05 12:34] VITALS: BP 139/83; PULSE 107; RESP 12; O2SAT 100
--- NOTE | 2025-02-05 12:36 | PC.NURSE ---
patient requested ED provider, patient no longer at bedside, requesting IV pain medication. patient informed that she was being admitted for her blood sugar, patient screaming out that she needs IV pain medication. patient informed she was not getting IV narcotics and started screaming to put her on hospice so she can have IV narcotic pain medications. patient informed hospitalist will be at bedside to access patient. patient refusing other pain medications offered by provider at this time.
[2025-02-05 13:05] LABS: Glucose, Whole Blood > 600 mg/dL (60-115)
[2025-02-05 13:25] LABS: Reflex Lactate? Lactic Acid Added
[2025-02-05] MEDS: Insulin Regular/NS 100 UNIT/100 ML PLAST..BAG IVCONT (13:25)
--- NOTE | 2025-02-05 13:31 | PC.NURSE ---
insulin gtt started per MAR, 5u/hr
[2025-02-05 14:07] LABS: Glucose, Whole Blood > 600 mg/dL (60-115)
--- NOTE | 2025-02-05 14:28 | PC.NURSE ---
patient poc remains reading high , conversation with ED provider with plan to do blood draw for patient glucose level until it becomes detectable on poc machine.
--- NOTE | 2025-02-05 14:46 | PC.NURSE ---
patient left bedside, patient began yelling out. patient has call aguilar within reach and yells despite this. patient light turned off as requested
[2025-02-05 14:54] LABS: ~Lactic Acid-LAB USE ONLY 0.9 mmol/L (0.5-2.0)
--- NOTE | 2025-02-05 15:03 | MHC.CM.ED ---
Received consult for assessment of d/c needs: Review of EMR notes several lab abnormalities that would support INPT admission. Provider is in process of transferring pt to [facility] where she receives care and has providers familiar with her conditions. No ED CM needs at this time.
--- NOTE | 2025-02-05 15:31 | PC.NURSE ---
patient refused poc check, states she wants to go [facility] informed that she is awaiting bed at [facility] for direct admit transfer. patient educated that because she is getting insulin gtt for her blood glucose levels she needs to have her blood sugar checked. patient then allowed staff check sugar. ED provider made aware. patient uncooperative and resistant to care
[2025-02-05 15:35] LABS: Glucose, Whole Blood > 600 mg/dL (60-115)
--- NOTE | 2025-02-05 15:40 | PC.NURSE ---
Addendum entered by Alicia Albert RN 02/05/25 15:51: ED provider consulted, agreement made to keep patient insulin gtt at 5u/hr. Original Note: pharmacy consulted for insulin gtt timing. patient blood draw done at 1425 when 1hr lui for insulin gtt, results did not come back until 1540. patient missed 2 titrations during this time period. insulin protocol no longer displaying in OCT, pharmacy notified. ED charge nurse made aware of situation.
--- NOTE | 2025-02-05 15:54 | PC.NURSE ---
Addendum entered by Alicia Albert RN 02/05/25 15:58: [facility] ED phone number left with m5 unit OA for call back for nurse to nurse Original Note: attempted [facility] m5 for nurse to nurse x2, sent to FELIPE fabian and was sent to voicemail. informed secretary book keeper and was sent to voice mail again.
[2025-02-05 16:03] VITALS: BP 132/90; PULSE 99; RESP 16; TEMP 37; O2SAT 100
--- NOTE | 2025-02-05 16:07 | PC.NURSE ---
patient report given to FELIPE Robertson on M5
--- NOTE | 2025-02-05 16:39 | PC.NURSE ---
Ed provider consulted for repeat poc on patient reading high , provider requested insulin gtt be titrated to 6u/hr
[2025-02-05 16:43] LABS: Glucose, Whole Blood 542 mg/dL (60-115)
[2025-02-05 16:43] LABS: Glucose, Whole Blood > 600 mg/dL (60-115)
[2025-02-05 17:34] LABS: Glucose, Whole Blood 541 mg/dL (60-115)
--- NOTE | 2025-02-05 17:34 | PC.NURSE ---
patient insulin gtt d/c'd for txt to [facility] per provider order
--- NOTE | 2025-02-05 17:43 | PC.NURSE ---
report given to ems for transfer to [facility]
--- NOTE | 2025-02-06 01:11 | PC.NURSE ---
lab call taken for positive blood cultures, 1 of 2 sets gram positive rods. this RN called to [facility] where patient was transferred earlier to notify of results. spoke with patients nurse who will alert patients provider at [facility].
== END 2025-02-05 17:51 | disposition short-term general hospital (02) ==
PROVIDERS: Physician Assistant; Physician Assistant Medical; Emergency Provider Emergency Medicine; PCP Nurse Practitioner Family
DX: E10.65 Type 1 diabetes mellitus with hyperglycemia (principal); E88.818 Other insulin resistance; L93.0 Discoid lupus erythematosus; L89.154 Pressure ulcer of sacral region, stage 4; F12.90 Cannabis use, unspecified, uncomplicated; Z87.891 Personal history of nicotine dependence; Z79.899 Other long term (current) drug therapy
CPT/HCPCS: 36415; 80053; 82010; 82947; 83605; 83735; 85025; 85652; 86141; 87040; 87205; 93005; 96361; 96374; 99285; 99291; 99292

== ENCOUNTER → 2025-02-05 10:51 | Outpatient (BNV) | payer MEDICARE, SELFPAY | PROVIDERS: Emergency Provider Emergency Medicine; PCP Nurse Practitioner Family; Visit Provider Internal Medicine Cardiovascular Disease | DX: R00.0 Tachycardia, unspecified (principal) | CPT/HCPCS: 93010 ==